=== PATIENT | male | born 1950 | race Caucasian/White ===

== ENCOUNTER 2019-10-26 20:11 | Inpatient (IN) ==
[2019-10-26] MEDS ORDERED: SODIUM CHLORIDE 0.9% 500 ML IV SCH (21:00)
--- NOTE | 2019-10-26 21:01 | Emergency Department Note ---
History of Present Illness General Chief complaint: Seizure Stated complaint: SEIZURES Time Seen by Provider: 10/26/19 20:33 Source: patient and family () Mode of arrival: ambulatory Limitations: no limitations History of Present Illness This patient comes in after having 2 seizure-like episodes today. He does have a history of seizures and had one in September the last 1 before that was in the end of 2018. He is on gabapentin. He was on Keppra but would could not tolerate that and also cannot tolerate clonazepam. He is followed here by Dr. Osuna and is also been followed by Danay. He is scheduled to have a 24-hour EEG this co win Monday and Monday at [facility]. Today he was at the breakfast table and his daughter heard a thump he was on the floor there is no seizure activity witnessed at that time but he was confused and combative and that was atypical. Then later this evening he had shaking when he was sleeping and was noted to be unresponsive and combative. He was incontinent of urine the second time. He was okay during the day. He said no recent illness or fever. At present he does not have any complaints. He has had no COVID type symptoms and has not been out of the house much except to go to the doctor's office. No known exposures. Home Medications Home Medications Medication Instructions Recorded Confirmed Type PreserVision AREDS-2 1 tab PO BID 02/25/19 10/26/19 History aspirin [Aspir-81] 81 mg PO QPM 02/25/19 10/26/19 History prednisolone acetate 1 % eye 1 drops OPR DAILY 05/02/19 10/26/19 History drops,suspension cyanocobalamin (vitamin B-12) 1,000 mcg PO DAILY 05/08/19 10/26/19 History [Vitamin B-12] gabapentin 300 mg capsule 300 mg PO TID 30 Days #90 cap 06/14/19 10/26/19 Rx acetaminophen [Tylenol Extra 500 mg PO Q6H PRN 10/26/19 10/26/19 History Strength] brinzolamide [Azopt] 1 drp OPR TID 10/26/19 10/26/19 History timolol maleate [Timoptic] 1 drp OPR DAILY 10/26/19 10/26/19 History Allergies Allergy/AdvReac Type Severity Reaction Status Date / Time loteprednol [From Lotemax] Allergy Severe MAKES EYE Verified 10/26/19 21:31 RED, ITCHY & SWELLING brinzolamide [From Simbrinza] AdvReac INFLAMED Verified 10/26/19 21:29 EYE Past Med/Surg History Medical History Anxiety Lung nodule SMALL PER PT'S / [place]/ 03/2019- NO TREATMENT CURRENTLY Macular degeneration BILAT Seizure Grand-Mal : Last seizure was 04/05/19 - SEPTEMBER 09 & SEPTEMBER 22 2018-[facility]- ALL TEST NEGATIVES /UNKNOWN WHAT TYPE, SEES DR. OSUNA/ [facility] CASE Sleep study is scheduled for 06/03/19. Tachycardia (Acute) Unspecified convulsions (Acute) Surgical History History of right cataract surgery History of tonsillectomy Family History Mother Stroke Sister Dementia Diabetes Grandmother Epilepsy Leukemia Cancer Myocardial infarction Grandfather Myocardial infarction Father Pulmonary embolism Other Family history non-contributory Social History Preferred Language: Indonesian Communication Ability: Effective Boatswains Mate Required: No Beliefs That Will Affect Care: None Current Living Situation: Spouse Feels Safe at Home: Yes Smoking Status: Former smoker Cigarettes Per Day: 20 ; Second Hand Exposure: No ; Hx Alcohol Use: No Hx Substance Use: No Immunizations: He does have a history of smoking but stopped 2-1/2 years ago. He drinks alcohol very sparingly. No street drugs. Review of Systems A total of 10 systems reviewed and were otherwise negative Physical Exam Vital Signs Vital Signs - 24 hr 10/26/19 20:13 10/26/19 20:28 10/26/19 20:29 Temperature 36.4 C L Temperature Source Oral Pulse Rate 106 H Pulse Rate from SpO2 Sensor Respiratory Rate 20 Respiratory Effort / Characteristics Non-Labored Spontaneous Respiratory Depth Normal Blood Pressure 139/83 Blood Pressure Mean 101 Pulse Oximetry 89 L 86 L 94 Oxygen Delivery Method Room Air Room Air Nasal Cannula Oxygen Flow Rate 2 Sepsis Action Taken by Nursing No Action Required 10/26/19 20:30 10/26/19 20:37 10/26/19 21:00 Temperature Temperature Source Pulse Rate 105 H 105 H 106 H Pulse Rate from SpO2 Sensor 102 H 100 H 99 H Respiratory Rate 17 19 20 Respiratory Effort / Characteristics Respiratory Depth Blood Pressure 137/86 128/80 Blood Pressure Mean 105 95 Pulse Oximetry 97 96 96 Oxygen Delivery Method Nasal Cannula Nasal Cannula Nasal Cannula Oxygen Flow Rate 2 2 2 Sepsis Action Taken by Nursing 10/26/19 21:31 10/26/19 22:00 10/26/19 22:30 Temperature Temperature Source Pulse Rate 100 H 86 90 Pulse Rate from SpO2 Sensor 97 H 78 87 Respiratory Rate 23 17 21 Respiratory Effort / Characteristics Respiratory Depth Blood Pressure 126/77 136/81 Blood Pressure Mean 93 94 Pulse Oximetry 97 96 96 Oxygen Delivery Method Nasal Cannula Nasal Cannula Room Air Oxygen Flow Rate 2 2 Sepsis Action Taken by Nursing 10/26/19 23:00 Temperature Temperature Source Pulse Rate 85 Pulse Rate from SpO2 Sensor 85 Respiratory Rate 14 Respiratory Effort / Characteristics Respiratory Depth Blood Pressure 135/78 Blood Pressure Mean 80 Pulse Oximetry 97 Oxygen Delivery Method Oxygen Flow Rate Sepsis Action Taken by Nursing General: Well developed well nourished not ill-appearing middle-age male who appears in no acute distress, breathing comfortably on room air. Normal speech. He has normal mentation. HEENT: Normal cephalic atraumatic. Pupils are equal round and reactive to light. Extraocular movements are intact. Oropharynx is pink with moist mucous membranes. No swelling of the mouth lips or tongue. Neck: Supple with a midline trachea. No meningeal signs or stiffness, no JVD or bruits. No Stridor. Chest: Clear to auscultation bilaterally. No wheezes or rhonchi. No increased work of breathing. Heart: Regular rate and rhythm without murmurs or gallops. Abdomen: Soft nontender, nondistended without rebound guarding or rigidity. Extremities: No cyanosis clubbing or edema. No calf tenderness or assymetry Spine/Back. Non tender to palpation. No CVA tenderness Skin: Good turgor without rashes. Neurologic exam: Cranial nerves two through 12 are intact. Motor and sensation are intact and symmetrical throughout. Course Administered Medications Discontinued Medications Sodium Chloride (Nss) 500 mls @ 999 mls/hr IV .Q31M JOSY Stop: 10/26/19 21:30 Last Infusion: 10/26/19 21:45 Dose: 0 mls/hr Documented by: [id number] Admin: 10/26/19 21:14 Dose: 999 mls/hr Documented by: [id number] Medical Decision Making Differential Diagnosis Includes but is not limited to: Seizure, pseudoseizures, arrhythmia, electrolyte or metabolic abnormality, anxiety, cardiac disease Medical Records Attestation: I reviewed the patient's medical records. Home Medications Current Medication List: was personally reviewed by me Laboratory Data Attestation: I reviewed the patient's lab results. Result diagrams: 10/26/19 21:10 10/26/19 21:10 Lab Results 10/26/19 10/26/19 10/26/19 Range/Units 21:10 21:10 23:27 WBC 10.56 (4.8-10.8) K/uL RBC 5.00 (4.7-6.1) M/uL Hgb 15.9 (14.0-18.0) g/dL Hct 46.1 (42-52) % MCV 92.2 (80-100) fL MCH 31.8 (25-34) pg MCHC 34.5 (32-36) g/dL RDW Std Deviation 46.7 H (36.4-46.3) fL RDW Coeff of Naty 13.9 (11.5-14.5) % Plt Count 277 (130-400) K/uL MPV 10.6 H (7.4-10.4) fL Immature Gran % (Auto) 0.5 % Neut % (Auto) 77.3 % Lymph % (Auto) 11.4 % [place] % (Auto) 9.5 % Eos % (Auto) 1.0 % Baso % (Auto) 0.3 % Immature Gran # (Auto) 0.05 H (0.00-0.02) K/uL Neut # (Auto) 8.17 H (1.4-6.5) K/uL Lymph # (Auto) 1.20 (1.2-3.4) K/uL [place] # (Auto) 1.00 H (0.11-0.59) K/uL Eos # (Auto) 0.11 (0-0.5) K/uL Baso # (Auto) 0.03 (0-0.2) K/uL Sodium 139 (136-145) mmol/L Potassium 3.5 (3.5-5.1) mmol/L Chloride 108 H (98-107) mmol/L Carbon Dioxide 23 (21-32) mmol/L Anion Gap 8.0 (3-11) BUN 9 (7-18) mg/dl Creatinine 0.90 (0.6-1.4) mg/dl Est Cr Clr Drug Dosing 64.4 ml/min Est GFR ( Amer) 100.6 Est GFR (Non-Af Amer) 86.8 BUN/Creatinine Ratio 10.2 (10-20) Glucose 176 H (70-99) mg/dl POC Glucose 137 H (70-99) mg/dl Calcium 8.7 (8.5-10.1) mg/dl Total Bilirubin 0.5 (0.2-1) mg/dl AST 11 L (15-37) U/L ALT 24 (12-78) U/L Alkaline Phosphatase 76 (45-117) U/L Troponin I 0.023 (0-0.045) ng/ml Total Protein 6.8 (6.4-8.2) gm/dl Albumin 3.4 (3.4-5.0) gm/dl Globulin 3.4 (2.5-4.0) gm/dl Albumin/Globulin Ratio 1.0 (0.9-2) Imaging Data Radiologist's Impression: Head CT: no acute findings. Please refer to radiology report Chest x-ray: Chronic findings, no acute findings. Please refer to radiology report ECG Data Attestation: I personally reviewed and interpreted this ECG as follows: Indication: + altered mental status and + toxicologic Rate (beats per minute): 95 Rhythm: + normal sinus ECG Intervals/blocks: + Normal QRS, + Normal QT and + Normal HI ECG [place]: + Left axis deviation ECG ST segments: + Normal ST segments ECG Findings: + PVCs and + Poor R wave progression; no PACs Comparison ECG Date: from (09/22/18) Change: no significant change Blood Pressure Blood Pressure Findings: Normal blood pressure Blood Pressure Disposition: did not require urgent referral MDM Narrative This patient comes in after having 2 seizure-like episodes. He has a normal neurologic exam upon arrival. IV access established seizure precautions were applied. he was placed on a shelter monitor and multiple blood testing was obta ined as well as neuro imaging. He was reassessed frequently. He has a normal CAT scan of his head. Is no acute intracranial abnormality seen. He has no acute electrolyte or metabolic abnormalities. EKG does not suggest acute coronary syndrome or arrhythmia. Chest x-ray shows no acute findings. He has remained stable. I reviewed his records. He has had seizure-like episodes which there is some thought that they may be nonepileptic. 2 of them occurred in the past after receiving eyedrops/dilation. He had no seizure-like activity here. I did recommend that he be observed he declined and does have follow-up with Danay. I did turn his oxygen off and he became confused and desaturated to 83%. He did know who his was and could remember talking to me. We checked the blood sugar was normal we will put him back on the oxygen at 2 L and he came up in the mid 90s and was no longer confused and was back to normal. He has had a sleep study by Dr. Melchor where he is oxygen saturation averaged 88 so he normally it does have some hypoxemia but I do wonder if his hypoxemia is ca using some of his symptoms. He is asymptomatic otherwise at present. He has nothing to suggest COVID at this point. I did consult and discuss case with Dr. Dye who is seen the patient in ER for further treatment and evaluation/admission/observation Continuous cardiac monitoring: Order was placed for cardiac monitoring in the computer. He was placed on cardiac monitoring due to his seizure-like episodes. He was noted to be in sinus tachycardia with a rate of 105 upon my interpretation. He does have occasional PVCs Impression & Plan Seizure-like activity, Acute alteration in mental status, Hypoxemia, COPD (chronic obstructive pulmonary disease) Discharge Plan Visit Data Chief Complaint: Seizure Stated Complaint: SEIZURES ED Provider: Breto Malik Discharge Problem: Seizure-like activity, Acute alteration in mental status, Hypoxemia, COPD (chronic obstructive pulmonary disease) Discharge Instructions Activity Restrictions/Additional Instructions: Rest. Do not do any acute activities if he had seizures you would hurt yourself or others Return if: Other episodes, chest pain, shortness of breath, fever chills, not acting like self, any new problems or concerns Your appointment on Monday with Danay. Do not drive or operate heavy machinery Forms Stand Alone Forms: My [facility] [employer] Prescriptions Prescriptions: No Action gabapentin 300 mg capsule 300 mg PO TID 30 Days Qty: 90 RF: 5 prednisolone acetate 1 % drops,suspension 1 drops OPR DAILY RF: 0 PreserVision AREDS-2 [id number] Capsule 1 tab PO BID RF: 0 aspirin [Aspir-81] 81 mg Tablet,Delayed Release (Dr/Ec) 81 mg PO QPM RF: 0 Azopt 1 % drops,suspension 1 drp OPR TID RF: 0 acetaminophen [Tylenol Extra Strength] 500 mg Tablet 500 mg PO Q6H PRN (Reason: Pain) RF: 0 timolol maleate [Timoptic] 0.5 % drops 1 drp OPR DAILY RF: 0 cyanocobalamin (vitamin B-12) [Vitamin B-12] 1,000 mcg Tablet 1,000 mcg PO DAILY RF: 0 Referrals Referrals: Migue Day MD [Primary Care Provider] - Discharge Problem: COPD (chronic obstructive pulmonary disease) Qualifiers: COPD type: unspecified COPD Qualified Code(s): J44.9 - Chronic obstructive pulmonary disease, unspecified
[2019-10-26 21:22] LABS: Basophils # (auto) 0.03 K/uL (0-0.2); Basophils % (auto) 0.3 %; Eosinophils # (auto) 0.11 K/uL (0-0.5); Hematocrit (blood only) 46.1 % (42-52); Hemoglobin 15.9 g/dL (14.0-18.0); Immature Granulocytes # (auto) 0.05 K/uL (0.00-0.02); Immature Granulocytes % (auto) 0.5 %; Lymphocytes % (auto) 11.4 %; Mean Corpuscular Hemoglobin 31.8 pg (25-34); Mean Corpuscular Hgb Conc 34.5 g/dL (32-36); Mean Corpuscular Volume 92.2 fL (80-100); Mean Platelet Volume 10.6 fL (7.4-10.4); Monocytes % (auto) 9.5 %; Neutrophils # (auto) 8.17 K/uL (1.4-6.5); Neutrophils % (auto) 77.3 %; Platelet Count 277 K/uL (130-400); RDW Coefficient of Variation 13.9 % (11.5-14.5); RDW Standard Deviation 46.7 fL (36.4-46.3); White Blood Count 10.56 K/uL (4.8-10.8)
--- NOTE | 2019-10-26 21:30 | CT Scan Report ---
CT head/brain wo con CLINICAL HISTORY: 69 years-old Male presenting with seizure. TECHNIQUE: Multidetector CT imaging of the head was performed without the use of intravenous contrast . IV contrast: None. One or more dose lowering techniques were used consistent with the principles of ALARA (as low as reasonably achievable), including automatic exposure control, mA or kV adjustment t o individual patient size, and/or use of iterative reconstruction. COMPARISON: 09/22/2018. CT DOSE (mGy.cm): The estimated cumulative dose is 614.27 mGy.cm. FINDINGS: [employer] topogram: Unremarkable. Ventricles and sulci normal in size. No hemorrhage. Brain parenchyma normal in appearance with preser camron manuel-white differentiation. No acute territorial infarct. No mass effect or midline shift. No ext ra-axial fluid collection. Paranasal sinuses and mastoid air cells clear. Calvarium intact. IMPRESSION: 1. No acute intracranial abnormality. ACT 112: Negative or not required by law. Electronically signed by: Avel Lepe M.D. 10/26/2019 9:28 PM
[2019-10-26 21:35] LABS: Albumin Level 3.4 gm/dl (3.4-5.0); BUN Creatinine Ratio 10.2 (10-20); Calcium 8.7 mg/dl (8.5-10.1); Creatinine Clr Calc Pharmacy 64.4 ml/min; Est GFR (African American) 100.6; Est GFR (Non-African American) 86.8; Potassium 3.5 mmol/L (3.5-5.1)
[2019-10-26 21:39] LABS: Bilirubin,Total 0.5 mg/dl (0.2-1); Globulin 3.4 gm/dl (2.5-4.0); Total Protein 6.8 gm/dl (6.4-8.2); Troponin I 0.023 ng/ml (0-0.045)
--- NOTE | 2019-10-26 21:44 | XRay Report ---
XR chest 1V portable CLINICAL HISTORY: 69 years-old Male presenting with seizure. TECHNIQUE: Portable upright AP view of the chest was obtained. COMPARISON: 09/22/2018. FINDINGS: Atherosclerosis of the aortic arch. Cardiac silhouette normal in size. Interstitial prominence with a basilar predominance. No other focal opacity. Lungs are mildly hyperinflated. No large effusion or p neumothorax. Osseous structures normal. Upper abdomen normal. IMPRESSION: 1. Findings suggest emphysema. No new focal infiltrate to suggest pneumonia. 2. Prominent interstitium especially at the lung bases could indicate superimposed fibrosis. This is unchanged. ACT 112: Negative or not required by law. Electronically signed by: Avel Lepe M.D. 10/26/2019 9:43 PM
--- NOTE | 2019-10-27 01:22 | History & Physical Report ---
Date of Service October 27, 2019 Assessment & Plan (1) Acute alteration in mental status: In setting of decreased O2 sats of 83%. Hypoxia most likely contributing to patient's AMS and may be contributing to his seizure-like activity as well -Admit to medical floor -Seizure precautions -Supplemental O2 as needed Present on Admission?: Yes (2) Hypoxemia: Adequate saturation on 2L NC, patient does not wear O2 at home. Will most likely need it prior to DC -Supplemental O2 to maintain sats 88-92% -Case management for home O2 Present on Admission?: Yes (3) Moderate obstructive sleep apnea: Patient does not use CPAP or O2 at night -Continuous O2 with pulse oximetry Present on Admission?: Yes (4) Neurological symptoms: ?Seizure vs hypoxic convulsion -Continue Gabapentin -Patient to have video EEG monitoring at [facility] next week -Consider Neuro consulation Present on Admission?: Yes (5) COPD (chronic obstructive pulmonary disease): Patient does not currenlty use any medications. No SOB/cough/wheeze -Noted. Consider DC with inhaled-anticholinergic and bronchodilator F/E/N - Heplock. Electrolytes WNL. Regular diet Ppx - low risk for DVT, encourage ambulation Code- Full Dispo - Admit to medical floor Admission and Anticipated Discharge Date Admission Date: 10/27/19 Anticipated date of discharge: 10/27/19 History of Present Illness Chief Complaint: Seizure Primary Care Provider: Migue Day MD Ted Mcdonald is a 69yo C male with history of seizures presenting with two episodes of seizure-like activity today. 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 He has been evaluated by Neurology in the past, most recently by Dr. Osuna 06/07/19. He is scheduled at [facility] for a video EEG this coming week. He has been on Keppra in the past which was not tolerated. He is presently on gabapentin. Patient recently had a sleep study performed which revealed moderate TIM with significant nocturnal hypoxemia. O2 mc of 83% during REM, mean saturation of 88%, 275 minutes below 89% saturation. This morning the patient was having breakfast and his daughter heard a thump. He was found on the floor , confused and combative. No seizure-like activity witnessed at that time. Later in the evening he sitting on the couch and sat fo rward with stiffened muscles and myoclonic jerking. He had some urinary incontinence, was confused and combative afterwards. The patient came to [facility] ER with complaint of seizures x 2. He was evaluated by ER attending, normal labs, normal head CT, no witnessed seizure activity. Patient was to be discharged home. O2 was removed, shortly after, patient became acutely confused - not knowing where he was or recognizing his . Saturations reported to be 83% at that time with adequate waveform on monitor. O2 was replaced and the patient's mental status improved to baseline. He has no recollection of the event. Patient denies fevers/chills/cough/SOB/CP/change in taste or smell. He denies recent travel, sick contacts or close contact with a Covid-19+ individual. He has been practicing social distancing by staying in his home. Laboratory findings unremarkable. CXR with chronic changes consistent with emphysema, no change from prior study. No concern for coronavirus at this time. ER Course: NSS x 500mL Allergies Allergy/AdvReac Type Severity Reaction Status Date / Time loteprednol [From Lotemax] Allergy Severe MAKES EYE Verified 10/26/19 21:31 RED, ITCHY & SWELLING brinzolamide [From Simbrinza] AdvReac INFLAMED Verified 10/26/19 21:29 EYE Home Medications Home Medications Medication Instructions Recorded Confirmed Type PreserVision AREDS-2 1 tab PO BID 02/25/19 10/26/19 History aspirin [Aspir-81] 81 mg PO QPM 02/25/19 10/26/19 History prednisolone acetate 1 % eye 1 drops OPR DAILY 05/02/19 10/26/19 History drops,suspension cyanocobalamin (vitamin B-12) 1,000 mcg PO DAILY 05/08/19 10/26/19 History [Vitamin B-12] gabapentin 300 mg capsule 300 mg PO TID 30 Days #90 cap 06/14/19 10/26/19 Rx acetaminophen [Tylenol Extra 500 mg PO Q6H PRN 10/26/19 10/26/19 History Strength] brinzolamide [Azopt] 1 drp OPR TID 10/26/19 10/26/19 History timolol maleate [Timoptic] 1 drp OPR DAILY 10/26/19 10/26/19 History Past Med/Surg History Medical History Anxiety Lung nodule SMALL PER PT'S / JEFFREY MCGARRY/ 03/2019- NO TREATMENT CURRENTLY Macular degeneration BILAT Seizure Grand-Mal : Last seizure was 04/05/19 - SEPTEMBER 09 & SEPTEMBER 22 2018-[facility]- ALL TEST NEGATIVES /UNKNOWN WHAT TYPE, SEES DR. OSUNA/ [facility] Sleep study is scheduled for 06/03/19. Tachycardia (Acute) Unspecified convulsions (Acute) Surgical History History of right cataract surgery History of tonsillectomy Family History Mother Stroke Sister Dementia Diabetes Grandmother Epilepsy Leukemia Cancer Myocardial infarction Grandfather Myocardial infarction Father Pulmonary embolism Other Family history non-contributory Social History Preferred Language: Malian Communication Ability: Effective Rn Acute Care Required: No Beliefs That Will Affect Care: None Current Living Situation: Spouse Feels Safe at Home: Yes Smoking Status: Former smoker Cigarettes Per Day: 20 ; Second Hand Exposure: No ; Hx Alcohol Use: No Hx Substance Use: No Review of Systems Review of Systems: All systems reviewed & are unremarkable except as noted in HPI & below Physical Exam Physical Exam: General: patient resting comfortably, NAD, non-toxic in appearance, AA&O x 4 Skin: warm, dry, intact, no rashes or lesions HEENT: NC/AT, PERRL, EOMI, anicteric sclera, conjunctiva without injection, external ear normal to inspection and nontender, nares patent, moist mucus membranes, dentition intact, no oropharyngeal lesions, neck supple, trachea midline, no LAD, no thyromegaly, no JVD Heart: +S1/S2, regular, no m/r/g Lungs: equal air entry bilaterally, no rales/rhonchi/wheezes Abd: +BS, soft, NT/ND, no masses/organomegaly/ascites Ext: warm, 2+ pulses in UE/LE bilaterally, no clubbing/cyanosis or edema Neuro: nonfocal, patient AA&O x 4, speech intact, no facial droop, moving all extremities on command with equal strength 5/5 Results & Data Results & Data ([facility]) Vital Signs (Past 12 Hours) Vital Signs Temp Pulse Resp BP Pulse Ox 10/27/19 00:31 89 21 108/74 95 10/27/19 00:30 86 19 95 10/27/19 00:00 79 18 124/80 10/26/19 23:30 80 13 131/78 95 10/26/19 23:26 81 17 132/84 92 10/26/19 23:00 85 14 135/78 97 10/26/19 22:30 90 21 136/81 96 10/26/19 22:00 86 17 126/77 96 10/26/19 21:31 100 H 23 97 10/26/19 21:00 106 H 20 128/80 96 10/26/19 20:37 105 H 19 96 10/26/19 20:30 105 H 17 137/86 97 10/26/19 20:29 94 10/26/19 20:28 86 L 10/26/19 20:13 36.4 C L 106 H 20 139/83 89 L Laboratory Results Lab Results 10/26/19 10/26/19 10/26/19 Range/Units 21:10 21:10 23:27 WBC 10.56 (4.8-10.8) K/uL RBC 5.00 (4.7-6.1) M/uL Hgb 15.9 (14.0-18.0) g/dL Hct 46.1 (42-52) % MCV 92.2 (80-100) fL MCH 31.8 (25-34) pg MCHC 34.5 (32-36) g/dL RDW Std Deviation 46.7 H (36.4-46.3) fL RDW Coeff of Naty 13.9 (11.5-14.5) % Plt Count 277 (130-400) K/uL MPV 10.6 H (7.4-10.4) fL Immature Gran % (Auto) 0.5 % Neut % (Auto) 77.3 % Lymph % (Auto) 11.4 % [place] % (Auto) 9.5 % Eos % (Auto) 1.0 % Baso % (Auto) 0.3 % Immature Gran # (Auto) 0.05 H (0.00-0.02) K/uL Neut # (Auto) 8.17 H (1.4-6.5) K/uL Lymph # (Auto) 1.20 (1.2-3.4) K/uL [place] # (Auto) 1.00 H (0.11-0.59) K/uL Eos # (Auto) 0.11 (0-0.5) K/uL Baso # (Auto) 0.03 (0-0.2) K/uL Sodium 139 (136-145) mmol/L Potassium 3.5 (3.5-5.1) mmol/L Chloride 108 H (98-107) mmol/L Carbon Dioxide 23 (21-32) mmol/L Anion Gap 8.0 (3-11) BUN 9 (7-18) mg/dl Creatinine 0.90 (0.6-1.4) mg/dl Est Cr Clr Drug Dosing 64.4 ml/min Est GFR ( Amer) 100.6 Est GFR (Non-Af Amer) 86.8 BUN/Creatinine Ratio 10.2 (10-20) Glucose 176 H (70-99) mg/dl POC Glucose 137 H (70-99) mg/dl Calcium 8.7 (8.5-10.1) mg/dl Total Bilirubin 0.5 (0.2-1) mg/dl AST 11 L (15-37) U/L ALT 24 (12-78) U/L Alkaline Phosphatase 76 (45-117) U/L Troponin I 0.023 (0-0.045) ng/ml Total Protein 6.8 (6.4-8.2) gm/dl Albumin 3.4 (3.4-5.0) gm/dl Globulin 3.4 (2.5-4.0) gm/dl Albumin/Globulin Ratio 1.0 (0.9-2) Diagnostic Findings CT head/brain wo con CLINICAL HISTORY: 69 years-old Male presenting with seizure. TECHNIQUE: Multidetector CT imaging of the head was performed without the use of intravenous contrast. IV contrast: None. One or more dose lowering techniques were used consistent with the principles of ALARA (as low as reasonably achievable), including automatic exposure control, mA or kV adjustment to individual patient size, and/or use of iterative reconstruction. COMPARISON: 09/22/2018. CT DOSE (mGy.cm): The estimated cumulative dose is 614.27 mGy.cm. FINDINGS: Director Of Accounting topogram: Unremarkable. Ventricles and sulci normal in size. No hemorrhage. Brain parenchyma normal in appearance with preserved manuel-white differentiation. No acute territorial infarct. No mass effect or midline shift. No extra-axial fluid collection. Paranasal sinuses and mastoid air cells clear. Calvarium intact. IMPRESSION: 1. No acute intracranial abnormality. ACT 112: Negative or not required by law. Electronically signed by: Avel Lepe M.D. 10/26/2019 9:28 PM Dictated: 10/26/192126 Transcribed: 10/26/192126 XR chest 1V portable CLINICAL HISTORY: 69 years-old Male presenting with seizure. TECHNIQUE: Portable upright AP view of the chest was obtained. COMPARISON: 09/22/2018. FINDINGS: Atherosclerosis of the aortic arch. Cardiac silhouette normal in size. Interstitial prominence with a basilar predominance. No other focal opacity. Lungs are mildly hyperinflated. No large effusion or pneumothorax. Osseous structures normal. Upper abdomen normal. IMPRESSION: 1. Findings suggest emphysema. No new focal infiltrate to suggest pneumonia. 2. Prominent interstitium especially at the lung bases could indicate superimposed fibrosis. This is unchanged. ACT 112: Negative or not required by law. Electronically signed by: Avel Lepe M.D. 10/26/2019 9:43 PM Dictated: 10/26/192140 Transcribed: 10/26/192140 ECG Additional Comments: THe study shows SR with PVCs, 95bpm, left axis, YV=866, QRS=78, EUn=025, no acute ischemic changes Code Status & VTE Plan Code Status FULL PG Care Time/CCT Total # of Minutes Spent Total Time Spent with Patient: Total time spent is greater than 50% in coordination of care (as documented) at patient's floor/unit and/or counseling patient: Coding Level of Care Code 02457 Initial Inpt Care Lvl 3 Diagnoses Acute alteration in mental status R41.82 Hypoxemia R09.02 Moderate obstructive sleep apnea G47.33 Neurological symptoms R29.90 COPD (chronic obstructive pulmonary disease) J44.9 COPD type: unspecified COPD (1) COPD (chronic obstructive pulmonary disease) COPD type: unspecified COPD Qualified Code(s): J44.9 - Chronic obstructive pulmonary disease, unspecified
[2019-10-27] MEDS ORDERED: ACETAMINOPHEN 500 MG TAB PO PRN (01:53)
[2019-10-27] MEDS ORDERED: LORazepam 2 MG/4 ML VIAL ONE (02:30)
[2019-10-27] MEDS ORDERED: LORazepam 1 MG/2 ML VIAL IV PRN (02:36)
[2019-10-27] MEDS ORDERED: LORazepam 2 MG/4 ML VIAL IV ONE (03:15)
[2019-10-27] MEDS ORDERED: HALOPERIDOL LACTATE 5 MG/ML 1 ML VIAL IM STA ×2 (03:58→18:20)
[2019-10-27] MEDS ORDERED: DiphenhydrAMINE HCL 50 MG/ML VIAL IV STA (03:58)
[2019-10-27] MEDS: ASPIRIN 81 MG ECTAB PO SCH ×2 (04:28→20:40)
[2019-10-27] MEDS: GABAPENTIN 300 MG CAP PO SCH ×4 (04:28→20:40)
--- NOTE | 2019-10-27 07:33 | Hospitalist Progress Note ---
Date of Service October 27, 2019 Assessment & Plan (1) Acute alteration in mental status: In setting of decreased O2 sats of 83%. Hypoxia most likely contributing to patient's AMS and may be contributing to his seizure-like activity as well Pt has underlying COPD and discussion of pulmonary fibrosis on cXR -Seizure precautions -Supplemental O2 as needed, may need to be d/c on oxygen (2) Hypoxemia: Adequate saturation on 2L NC, patient does not wear O2 at home. Will most likely need it prior to DC -Supplemental O2 to maintain sats 88-92% -Case management for home O2. will need pulmonary follow up for discussion of CXR changes, Ct chest 04/06 dis show copd, mild fibrotic changes and nodules- repeat CT chest when more cooperative (3) Moderate obstructive sleep apnea: Patient does not use CPAP or O2 at night -Continuous O2 with pulse oximetry (4) Neurological symptoms: ?Seizure vs hypoxic convulsion -Continue Gabapentin, per Dr Maravilla note from the fall, will add depakte ER as that was his next consideration -Patient to have video EEG monitoring at [facility] next week -Consider Neuro consultation if not improving in next 24-48 hours (5) COPD (chronic obstructive pulmonary disease): Patient does not currenlty use any medications. No SOB/cough/wheeze -Noted. Consider DC with inhaled-anticholinergic and bronchodilator F/E/N - Heplock. Electrolytes WNL. Regular diet Ppx - low risk for DVT, encourage ambulation Code- Full Dispo - Admit to medical floor Admission and Anticipated Discharge Date Admission Date: October 27, 2019 Subjective the pt is altered and lethargic, he is ambulatory but wobbly, on his feet, he does not offer any focal complaints but is oriented only to self Review of Systems Review of Systems: Unobtainable due to cognitive status Physical Exam Physical Exam: The patient appeared sedate and unsteady Vital signs as documented. Lungs are clear to auscultation and appear unlabored Cardiac exam, Rhythm is regular.. No murmurs, rubs or gallops. Abdominal exam reveals normal bowel sounds, soft non tender, no masses Extremities are nonedematous and both pedal pulses are normal. Neurologic exam is alert and oriented x1. , no focal loss of strength or sensation as responds to commands and walks with assistance Skin is without bruises or rashes Results & Data Results & Data ([facility]) Vital Signs (Past 12 Hours) Vital Signs Temp Pulse Pulse Resp BP BP Pulse Ox 10/27/19 03:20 143 H 10/27/19 02:27 123 H 20 166/120 H 92 10/27/19 02:06 98.1 F 91 H 18 145/81 H 92 10/27/19 01:30 119 H 189/85 H 93 10/27/19 01:01 76 18 93 10/27/19 01:00 74 18 141/83 H 93 10/27/19 00:32 81 20 94 10/27/19 00:31 89 21 108/74 95 10/27/19 00:30 86 19 95 10/27/19 00:00 79 18 124/80 10/26/19 23:30 80 13 131/78 95 10/26/19 23:26 81 17 132/84 92 10/26/19 23:00 85 14 135/78 97 10/26/19 22:30 90 21 136/81 96 10/26/19 22:00 86 17 126/77 96 10/26/19 21:31 100 H 23 97 10/26/19 21:00 106 H 20 128/80 96 10/26/19 20:37 105 H 19 96 10/26/19 20:30 105 H 17 137/86 97 10/26/19 20:29 94 10/26/19 20:28 86 L 10/26/19 20:13 97.5 F L 106 H 20 139/83 89 L PG Care Time/CCT Total # of Minutes Spent Total Time Spent with Patient: Total time spent is greater than 50% in coordination of care (as documented) at patient's floor/unit and/or counseling patient: Coding Level of Care Code 70538 Subseq Hosp Care Lvl 3 Diagnoses Acute alteration in mental status R41.82 Hypoxemia R09.02 Moderate obstructive sleep apnea G47.33 Neurological symptoms R29.90 COPD (chronic obstructive pulmonary disease) J44.9 COPD type: unspecified COPD (1) COPD (chronic obstructive pulmonary disease) COPD type: unspecified COPD Qualified Code(s): J44.9 - Chronic obstructive pulmonary disease, unspecified
[2019-10-27] MEDS: CEROVITE ADV FORMULA TAB PO SCH ×2 (09:24→20:41)
[2019-10-27] MEDS: BRINZOLAMIDE (AZOPT) OPS 10 ML BTL OPR SCH ×3 (09:24→20:42)
[2019-10-27] MEDS: CYANOCOBALAMIN 500 MCG TABLET (VITAMIN B-12) PO SCH (09:24)
[2019-10-27] MEDS: TIMOLOL MALEATE 0.25% OP SOLN 5 ML BTL OPR SCH (09:25)
[2019-10-27] MEDS: prednisoLONE acetate 1% OP SUSP 5 ML BTL OPR SCH (09:25)
[2019-10-27] MEDS: DIVALPROEX EXTENDED RELEASE 500 MG TAB PO SCH (09:38)
[2019-10-27] MEDS: ALBUT/IPRATROP 3MG/0.5MG NEB 3 ML VIAL NEB SCH ×3 (11:08→19:05)
[2019-10-27] MEDS ORDERED: HALOPERIDOL LACTATE 5 MG/ML 1 ML VIAL IM PRN (18:20)
[2019-10-27] MEDS ORDERED: LORazepam 1 MG TAB PO PRN (18:20)
--- NOTE | 2019-10-27 22:54 | Electrocardiogram Report ---
Test Reason : Blood Pressure : / mmHG Vent. Rate : 095 BPM Atrial Rate : 095 BPM P-R Int : 176 ms QRS Dur : 078 ms QT Int : 340 ms P-R-T Axes : 071 -54 063 degrees QTc Int : 427 ms Sinus rhythm with occasional Premature ventricular complexes Left axis deviation Possible Anterior infarct (cited on or before 22-SEP-2018) Abnormal ECG When compared with ECG of 22-SEP-2018 16:25, No significant change was found Confirmed by John Zuleta ([id number]) on 10/27/2019 10:54:42 PM Referred By: REFERRED SELF Confirmed By:John Zuleta
[2019-10-28] MEDS: ALBUT/IPRATROP 3MG/0.5MG NEB 3 ML VIAL NEB SCH ×4 (07:39→19:16)
[2019-10-28] MEDS: CYANOCOBALAMIN 500 MCG TABLET (VITAMIN B-12) PO SCH (08:32)
[2019-10-28] MEDS: CEROVITE ADV FORMULA TAB PO SCH ×2 (08:33→21:00)
[2019-10-28] MEDS: GABAPENTIN 300 MG CAP PO SCH ×3 (08:33→21:00)
[2019-10-28] MEDS: BRINZOLAMIDE (AZOPT) OPS 10 ML BTL OPR SCH ×3 (08:33→21:00)
[2019-10-28] MEDS: TIMOLOL MALEATE 0.25% OP SOLN 5 ML BTL OPR SCH (08:33)
[2019-10-28] MEDS: DIVALPROEX EXTENDED RELEASE 500 MG TAB PO SCH (08:33)
[2019-10-28] MEDS: prednisoLONE acetate 1% OP SUSP 5 ML BTL OPR SCH (08:34)
[2019-10-28] MEDS: UMECLIDINIUM BROMIDE 62.5MCG/BLISTER 7 PUFFS/INHALER INH SCH (16:32)
--- NOTE | 2019-10-28 17:30 | Hospitalist Progress Note ---
Date of Service October 28, 2019 Assessment & Plan (1) Acute alteration in mental status: 69-year-old male history of COPD and a 1 year history of episodic seizure- like episodes presents following seizure-like activity on 10/27/2019. His episodes were observed by his . She describes that he is quite confused and despondent following the events. He was going to be discharged from the emergency room but developed hypoxia after being taken off of oxygen. During this time he became unresponsive, but did not have any active seizures. describes short-term memory loss and severe anxiety over the past year since having these seizure-like episodes. Seizure-like activity Continue gabapentin Continue Depakote started in the emergency room, increased dose to 1000mg extended release per [facility] neurology Patient is showing signs of cognitive decline, but sounds like he is at his baseline prior to the seizure-like events. Discussed case with [facility] neurologistthey state if he is at baseline, he can be discharge with plan for 48-hour EEG at [facility] on Monday. He has follow-up with [facility] neurology in 2 weeks. Discussed with patient's COPD Hypoxia could be a potential seizure trigger, nonetheless the patient needs better control of respiratory symptoms Identified as emphysema on previous CT of chest, developed hypoxia in the ED, wheezing with forced expiration on exam Starting him on Spiriva. Discharge with Spiriva and albuterol as needed. Moderate TIM Continue pulse ox, no CPAP at home DVT prophylaxis Ambulation Disposition Starting Spiriva, increasing Depakote to 1000mg possible DC tomorrow (2) Hypoxemia: (3) COPD (chronic obstructive pulmonary disease): (4) Moderate obstructive sleep apnea: (5) Seizure-like activity: (6) Sleep disturbances: Admission and Anticipated Discharge Date Admission Date: October 27, 2019 Anticipated date of discharge: 10/27/19 Supervising Physician Co-Signing Physician Notes I personally examined the patient and verified all solis points of history and exam, discussed case, and agree with decision making with Dr Cordova. no acute complaints. seems loosely aware of having had seizures to bring him to hospital but also talks a lot about procedures and how he is surprised he feels so good after procedure. also talks a lot about his life and adventures. seems to have no acute complaints now. dr cordova discussed situation w his and with [facility] neurologist vitals noted nad heent nc at mmm breathing unlabored no accessory muscles good effort skin no rashes no pallor or icterus neuro no focal deficits hypoxia - likely was undertreated COPD - does appear to have rather significant findings on chest imaging, no PFTs noted for review (would want to get as outpt) -- start anticholinergic, follow up as outpt AMS - seems to be in the area of baseline actually, after discussion with seizures - ?hypoxia induced? non-seizure episodes? for [facility] eval on 10/29 DVT proph - ambulation Subjective 69-year-old male admitted for hypoxia and seizure-like activity. Describes doing well today. Denies any shortness of breath. Denies any neurologic symptoms including weakness, numbness, gait instability, headache. He does have a history of macular degeneration and has visual issues at baseline. He has no memory of seizures that occurred 2 days ago. His describes having some short-term memory issues since he started having the seizures approximately 1 year ago. She states that he has a appointment for a 48-hour EGD on Monday. Review of Systems Review of Systems: All systems reviewed & are unremarkable except as noted in HPI & below Physical Exam Constitutional: WD/WN, vitals as above Eyes: PERRL, conjunctivae normal, anicteric sclerae ENMT: Ears: no external ear abnormality Nose: no external nose abnormality, no nasal mucous membrane abnormality and no nasal discharge Neck: trachea midline, no thyromegaly Respiratory: normal respiratory effort, lungs clear to auscultation Some wheezing with forced expiration bilaterally, diffuse Musculoskeletal: no cyanosis or clubbing, extremities motor strength 5/5 Skin: no rashes, warm and dry Psychiatric: Speech is a bit tangential He is alert, but he is only oriented to person and place. Not time. Has insight to short-term memory deficits Results & Data Results & Data ([facility]) Vital Signs (Past 12 Hours) Vital Signs Temp Pulse Pulse Pulse Resp BP Pulse Ox 10/28/19 11:13 66 14 91 10/28/19 08:00 36.5 C 96 H 18 117/73 96 10/28/19 07:39 84 18 92 Resident Activity Tracking Resident Involvement: Resident Care Provided Care Provided: Adult Hospital Medicine (1) COPD (chronic obstructive pulmonary disease) COPD type: unspecified COPD Qualified Code(s): J44.9 - Chronic obstructive pulmonary disease, unspecified
--- NOTE | 2019-10-28 19:19 | Billing Data ---
Date of Service October 28, 2019 Coding Level of Care Code 45616 Subseq Hosp Care Lvl 3
[2019-10-28] MEDS: ASPIRIN 81 MG ECTAB PO SCH (21:00)
[2019-10-29] MEDS: ALBUT/IPRATROP 3MG/0.5MG NEB 3 ML VIAL NEB SCH ×2 (07:05→10:53)
[2019-10-29] MEDS: BRINZOLAMIDE (AZOPT) OPS 10 ML BTL OPR SCH (08:22)
[2019-10-29] MEDS: CYANOCOBALAMIN 500 MCG TABLET (VITAMIN B-12) PO SCH (08:22)
[2019-10-29] MEDS: TIMOLOL MALEATE 0.25% OP SOLN 5 ML BTL OPR SCH (08:22)
[2019-10-29] MEDS: prednisoLONE acetate 1% OP SUSP 5 ML BTL OPR SCH (08:22)
[2019-10-29] MEDS: UMECLIDINIUM BROMIDE 62.5MCG/BLISTER 7 PUFFS/INHALER INH SCH (08:23)
[2019-10-29] MEDS: CEROVITE ADV FORMULA TAB PO SCH (08:23)
[2019-10-29] MEDS: GABAPENTIN 300 MG CAP PO SCH (08:23)
[2019-10-29] MEDS ORDERED: DIVALPROEX EXTENDED RELEASE 500 MG TAB PO SCH (09:00)
--- NOTE | 2019-10-29 12:53 | Discharge Summary ---
Date of Service October 29, 2019 Admission HPI Per Admitting Provider Ted Calderon is a 69yo C male with history of seizures presenting with two episodes of seizure-like activity today. 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 He has been evaluated by Neurology in the past, most recently by Dr. Osuna 06/07/19. He is scheduled at [facility] for a video EEG this coming week. He has been on Keppra in the past which was not tolerated. He is presently on gabapentin. Patient recently had a sleep study performed which revealed moderate TIM with significant nocturnal hypoxemia. O2 mc of 83% during REM, mean saturation of 88%, 275 minutes below 89% saturation. This morning the patient was having breakfast and his daughter heard a thump. He was found on the floor , confused and combative. No seizure-like activity witnessed at that time. Later in the evening he sitting on the couch and sat forward with stiffened muscles and myoclonic jerking. He had some urinary incontinence, was confused and combative afterwards. The patient came to [facility] ER with complaint of seizures x 2. He was evaluated by ER attending, normal labs, normal head CT, no witnessed seizure activity. Patient was to be discharged home. O2 was removed, shortly after, patient became acutely confused - not knowing where he was or recognizing his . Saturations reported to be 83% at that time with adequate waveform on monitor. O2 was replaced and the patient's mental status improved to baseline. He has no recollection of the event. Patient denies fevers/chills/cough/SOB/CP/change in taste or smell. He denies recent travel, sick contacts or close contact with a Covid-19+ individual. He has been practicing social distancing by staying in his home. Laboratory findings unremarkable. CXR with chronic changes consistent with emphysema, no change from prior study. No concern for coronavirus at this time. ER Course: NSS x 500mL Admission Exam Per Admitting Provider General: patient resting comfortably, NAD, non-toxic in appearance, AA&O x 4 Skin: warm, dry, intact, no rashes or lesions HEENT: NC/AT, PERRL, EOMI, anicteric sclera, conjunctiva without injection, external ear normal to inspection and nontender, nares patent, moist mucus membranes, dentition intact, no oropharyngeal lesions, neck supple, trachea midline, no LAD, no thyromegaly, no JVD Heart: +S1/S2, regular, no m/r/g Lungs: equal air entry bilaterally, no rales/rhonchi/wheezes Abd: +BS, soft, NT/ND, no masses/organomegaly/ascites Ext: warm, 2+ pulses in UE/LE bilaterally, no clubbing/cyanosis or edema Neuro: nonfocal, patient AA&O x 4, speech intact, no facial droop, moving all extremities on command with equal strength 5/5 Principal Diagnosis Seizure-like episode Discharge Exam Constitutional: WD/WN, vitals as above Eyes: PERRL, conjunctivae normal, anicteric sclerae ENMT: Ears: no external ear abnormality Nose: no external nose abnormality, no nasal mucous membrane abnormality and no nasal discharge Neck: trachea midline, no thyromegaly Respiratory: normal respiratory effort, lungs clear to auscultation Some wheezing with forced expiration bilaterally, diffuse Musculoskeletal: no cyanosis or clubbing, extremities motor strength 5/5 Skin: no rashes, warm and dry Psychiatric: Speech is a bit tangential He is alert, but he is only oriented to person and place. Not time. Has insight to short-term memory deficits Discharge Data Allergies Allergy/AdvReac Type Severity Reaction Status Date / Time loteprednol [From Lotemax] Allergy Severe MAKES EYE Verified 10/26/19 21:31 RED, ITCHY & SWELLING brinzolamide [From Simbrinza] AdvReac INFLAMED Verified 10/26/19 21:29 EYE Consultations 10/26/19 23:29 ED Decision to Admit Stat 10/27/19 01:53 Consult Case Management - Discharge Planning Routine Ordered Studies 10/26/19 20:54 CT head/brain wo con [place] [phone] CT Scan Report Patient: TED CALDERON EAdmit Date: 10/26/19 MR#: [id number]: [address] Acct ID:[id number]: [address] Date: 1950[facility] Zip: [place] [address] Age: 69Location: ED Sex: M Room/Bed: Att Phy:Diagnosis: SEIZURES Imani Phy: Migue Day M.D.Service Date: 10/26/19 [facility] Phy:Interpreting Phy: Avel Lepe MD Admit Phy: Ordering Phy: Berto Malik M.D. cc: ~ CT head/brain wo con CLINICAL HISTORY: 69 years-old Male presenting with seizure. TECHNIQUE: Multidetector CT imaging of the head was performed without the use of intravenous contrast. IV contrast: None. One or more dose lowering techniques were used consistent with the principles of ALARA (as low as reasonably achievable), including automatic exposure control, mA or kV adjustment to individual patient size, and/or use of iterative reconstruction. COMPARISON: 09/22/2018. CT DOSE (mGy.cm): The estimated cumulative dose is 614.27 mGy.cm. FINDINGS: Golf Manager topogram: Unremarkable. Ventricles and sulci normal in size. No hemorrhage. Brain parenchyma normal in appearance with preserved manuel-white differentiation. No acute territorial infarct. No mass effect or midline shift. No extra-axial fluid collection. Paranasal sinuses and mastoid air cells clear. Calvarium intact. IMPRESSION: 1. No acute intracranial abnormality. ACT 112: Negative or not required by law. Electronically signed by: Avel Lepe M.D. 10/26/2019 9:28 PM Dictated: 10/26/192126 Transcribed: 10/26/192126 Hospital Course (1) Acute alteration in mental status: 69-year-old male history of COPD and a 1 year history of episodic seizure- like episodes presents following seizure-like activity on 10/27/2019. Patient's describes that he developed seizure-like activity approximately 1 year ago. The patient has had a work-up with [facility] neurology and started on Lamictal. He was unable to tolerate the medication and was subsequently switched to gabapentin. Recently had visits with [facility] neurology and is scheduled to see them again in 2 weeks after completing 48-hour EEG. Seizure-like activity Typical seizures were not observed here in the hospital He did have an episode of delirium-like activity, where he exhibited shortness of breath and had a panicked blank look on his face. During this time he was unable to respond to questions and he was purposefully reaching out to his nursing support worker, shaking his arms in desperation. The patient was started on Depakote 1000 mg daily We were in correspondence with his neurologist from [place] who recommended that if he was at baseline to discharge the patient to have his 48-hour EEG completed as scheduled on 10/30/2019. Patient is scheduled for a follow-up visit within 2 weeks with [facility] neurology Cognitive decline Exhibited short-term memory issues throughout hospitalization. relates he has had memory issues over the past year. The patient was pleasant and kind, but the content of his speech was bizarre at times and thought processes's were tangential. It is hard to tell if this is a part of his personality or some sort of baseline neuropsychiatric presentation. Continue to follow. COPD, hypoxia Hypoxia could be a potential seizure trigger, but unlikely unlikely cause of these episodes, nonetheless the patient needs better control of respiratory symptoms Identified as emphysema on previous CT of chest, developed hypoxia in the ED, wheezing with forced expiration on exam Discharged on Incruse Ellipta Moderate TIM Observed nighttime desaturation 88% 92% Continue conversation regarding CPAP (2) Hypoxemia: (3) COPD (chronic obstructive pulmonary disease): (4) Moderate obstructive sleep apnea: (5) Seizure-like activity: (6) Sleep disturbances: Total Time Total Time Spent Total Time Spent (In Minutes): <30 Total Time Includes: Examination of the Patient, Discharge Planning, Medication Reconciliation and Communication With Other Providers Discharge Plan Discharge Items Patient Disposition: Home - Self-Care Reason For Visit: HYPOXIA, AMS, SEIZURES X 2 Discharge Diagnosis: Seizure-like episode Condition on Discharge: Good Activity: Per Instructions section Non-emergency contact: Primary Care Provider Call non-emergency contact if: your symptoms worsen Follow-up/Referrals: Migue Day MD [Primary Care Provider] - Diet: Regular Addtl Attending Provider Instructions: Your brought to the hospital to be evaluated for seizures. We are not sure what triggered these events, but in the emergency room you did have low oxygen levels, which can sometimes precipitate seizures. This may be secondary to chronic obstructive pulmonary disease. This condition is also called COPD. It is a chronic lung inflammation. The treatment for this condition is to use an inhaler which was started in the hospital. The inhaler will help you with your breathing and will prevent episodes of low oxygen. This inhaler needs to be used every day. In addition, you were started on a seizure prevention medicine called Depakote. We also recommend that you continue to take the other medication that your neurologist started you on called gabapentin. We spoke with your neurologist at [facility] and he recommended that you continue testing as already scheduled in [place]. In [place], they will do a 48-hour EEG and you will have subsequent follow-up with the neurologist 2 weeks later. We will inform your PCP, Dr. Day of your hospitalization and he will most likely would like to see you in the next week to follow-up on your condition. If you have any other episodes of seizures in the meantime, we recommend immediate follow-up in the emergency room. Pending Studies at Discharge: No Stand-Alone Forms: My [facility], Smoking Cessation Medications and DC Order Prescriptions: New Incruse Ellipta 62.5 mcg/actuation Blister With Device 1 inh inhalation QAM Qty: 1 RF: 6 divalproex 500 mg Tablet Extended Release 24 Hr 1,000 mg PO DAILY Qty: 60 RF: 0 Continued gabapentin 300 mg capsule 300 mg PO TID 30 Days Qty: 90 RF: 5 prednisolone acetate 1 % drops,suspension 1 drops OPR DAILY RF: 0 PreserVision AREDS-2 [id number] Capsule 1 tab PO BID RF: 0 aspirin [Aspir-81] 81 mg Tablet,Delayed Release (Dr/Ec) 81 mg PO QPM RF: 0 Azopt 1 % drops,suspension 1 drp OPR TID RF: 0 acetaminophen [Tylenol Extra Strength] 500 mg Tablet 500 mg PO Q6H PRN (Reason: Pain) RF: 0 timolol maleate [Timoptic] 0.5 % drops 1 drp OPR DAILY RF: 0 cyanocobalamin (vitamin B-12) [Vitamin B-12] 1,000 mcg Tablet 1,000 mcg PO DAILY RF: 0 Discharge Orders: Discharge Order (Routine); Ordered 10/29/19 Ordered By: Anderson Cordova Admission Data Admit Date/Time: 10/27/19 00:19 Attending Provider: Luis Hillman Admit Provider: Antoinette Dye Primary Care Provider: Migue Day Other Providers: Antoinette Dye ; René Smith Other Interventions: Discharge Summary Assessment (RN) Last Done: 10/29/19 12:37 DC Date/Time DO NOT enter until pt leaves facility: 10/29/19 14:15 Supervising Physician Co-Signing Physician Notes I personally examined the patient and verified all solis points of history and exam, discussed case, and agree with decision making with Dr Cordova. no acute complaints. feeling ok to get out of hospital. vitals noted nad heent nc at mmm breathing unlabored no accessory muscles good effort skin no rashes no pallor or icterus neuro no focal deficits hypoxia - likely was undertreated COPD - does appear to have rather significant findings on chest imaging, no PFTs noted for review (would want to get as outpt) -- start anticholinergic, follow up as outpt AMS - seems to be in the area of baseline actually, after dr cordova had discussion with , possibly had hypoxia induced encephalopathy on admission that improved by the time i saw him? but mentation seems more or less what describes to dr cordova seizures - ?possibly hypoxia induced? non-seizure episodes (see above as far as possible encephalopathy)? for [facility] eval on 10/29 DVT proph - ambulation Resident Activity Tracking Resident Involvement: Resident Care Provided Care Provided: Adult Hospital Medicine
--- NOTE | 2019-10-29 19:26 | Billing Data ---
Date of Service October 29, 2019 Coding Level of Care Code D/C Day Management <30 mins
== END 2019-10-29 14:15 | disposition home or self-care (01) | DRG 101 ==
LOC: ED 20:11 → SUATTDRO 10-27 00:19 → 2W 10-27 00:19

== ENCOUNTER 2020-04-11 00:54 | Inpatient (IN) ==
[2020-04-11 01:46] LABS: Basophils # (auto) 0.03 K/uL (0-0.2); Basophils % (auto) 0.4 %; Eosinophils # (auto) 0.22 K/uL (0-0.5); Eosinophils % (auto) 2.6 %; Hematocrit (blood only) 47.6 % (42-52); Hemoglobin 16.3 g/dL (14.0-18.0); Immature Granulocytes # (auto) 0.06 K/uL (0.00-0.02); Immature Granulocytes % (auto) 0.7 %; Lymphocytes # (auto) 1.63 K/uL (1.2-3.4); Lymphocytes % (auto) 19.5 %; Mean Corpuscular Hemoglobin 31.7 pg (25-34); Mean Corpuscular Hgb Conc 34.2 g/dL (32-36); Mean Corpuscular Volume 92.6 fL (80-100); Monocytes # (auto) 0.68 K/uL (0.11-0.59); Monocytes % (auto) 8.1 %; Neutrophils # (auto) 5.75 K/uL (1.4-6.5); Neutrophils % (auto) 68.7 %; Platelet Count 273 K/uL (130-400); Red Blood Count 5.14 M/uL (4.7-6.1); White Blood Count 8.37 K/uL (4.8-10.8)
--- NOTE | 2020-04-11 01:47 | Emergency Department Note ---
History of Present Illness General Chief complaint: Chest Pain Stated complaint: SQUEEZING SENSATION IN CHEST-MEDICATION CAUSED? Time Seen by Provider: 04/11/20 01:11 Source: patient Mode of arrival: ambulatory Limitations: other (Poor memory due to seizure disorder and seizure medications) History of Present Illness Provider complaint: Chest pain Onset (ago): day(s) 2 Location: chest Radiation: non-radiation Severity: mild Pain Consistency: + intermittent Current Pain Intensity: 0 Quality: + aching Relieved By: + medication Exacerbated By: + none Associated symptoms: + denies other symptoms Treatments prior to arrival: none This is a 7-year-old male brought in by his due to concern for intermittent chest pain over the last day. states that he describes it as intermittent and an aching sensation similar to a pulled muscle, although states he has not had any change in activity to otherwise explain musculoskeletal pain. She states patient has gone to scheduled routine outpatient visits this week, has otherwise not complained of any illness or symptoms. She states he does have seasonal allergies this time a year and has had a cough, occasionally minimally productive when he has drainage with it. Denies that he has complained of shortness of breath, denies fevers, denies sore throat. She states no other recent medication changes. Patient did have outpatient labs done earlier this morning as ordered by his neurologist at [place] to recheck levels of his current seizure medications. Patient's gives a long and complicated history regarding the seizure history that began in 2018. She states he has not had a seizure since November of this year. She denies any sick contacts or exposure to coronavirus on him. Patient otherwise has difficulty providing meaningful history due to ongoing issues with memory secondary to his seizure disorder and treatment of this. Patient states he has no pain at this time. Patient denies noticing any shortness of breath. Does admit to the cough which she felt was related to his allergies. Triage note noted that his initial pulse ox on room air was 84%. Patient was immediately brought back to the room and placed on oxygen via nasal cannula, and oxygen saturations improved. Pt seen during a time of high acuity and national emergency pandemic while w earing PPE. Home Medications Home Medications Medication Instructions Recorded Confirmed Type PreserVision AREDS-2 1 tab PO BID 02/25/19 04/11/20 History cyanocobalamin (vitamin B-12) 1,000 mcg PO DAILY 05/08/19 04/11/20 History [Vitamin B-12] gabapentin 300 mg capsule 300 mg PO TID 30 Days #90 cap 06/14/19 04/11/20 Rx Azopt 1 drp OPR TID 10/26/19 04/11/20 History acetaminophen [Tylenol Extra 500 mg PO Q6H PRN 10/26/19 04/11/20 History Strength] timolol maleate [Timoptic] 1 drp OPR DAILY 10/26/19 04/11/20 History umeclidinium [Incruse Ellipta] 1 inh INHALATION QAM #1 inhaler 10/29/19 04/11/20 Rx lacosamide [Vimpat] 200 mg PO BID 04/11/20 04/11/20 History loteprednol etabonate 1 drp OPR DAILY 04/11/20 04/11/20 History topiramate [Topamax] 50 mg PO BID 04/11/20 04/11/20 History Allergies Allergy/AdvReac Type Severity Reaction Status Date / Time loteprednol [From Lotemax] Allergy Severe MAKES EYE Verified 04/11/20 02:54 RED, ITCHY & SWELLING brinzolamide [From Simbrinza] AdvReac INFLAMED Verified 04/11/20 02:54 EYE Past Med/Surg History Medical History (Updated 04/12/20 @ 05:57 by Lorie Cooper DO) Anxiety Colonic mass Diabetes mellitus Lung nodule SMALL PER PT'S / JEFFREY MCGARRY/ 03/2019- NO TREATMENT CURRENTLY Macular degeneration BILAT Seizure Petit mal, follows with Neurology at [place] Tachycardia Unspecified convulsions Surgical History History of right cataract surgery History of tonsillectomy Family History Mother Stroke Sister Dementia Diabetes Grandmother Epilepsy Leukemia Cancer Myocardial infarction Grandfather Myocardial infarction Father Pulmonary embolism Other Family history non-contributory Social History Smoking Status: Former smoker Cigarettes Per Day: 20; Smoking End Date: 3 years ago; Second Hand Exposure: No; Hx Alcohol Use: Yes Alcohol type: wine Hx Substance Use: No Preferred Language: Moroccan Communication Ability: Effective Gis Analyst Required: No Beliefs That Will Affect Care: None marital status: Current Living Situation: Spouse Other Information That Helps Us Care for You: No Feels Safe at Home: Yes Safety Concerns: Feels Safe At This Time Assistive Devices: None Review of Systems See HPI for pertinent positives & negatives. and A total of 10 systems reviewed and were otherwise negative Physical Exam Vital Signs Vital Signs - 24 hr 04/11/20 00:58 04/11/20 01:44 04/11/20 01:47 Temperature 37.0 C Temperature Source Oral Pulse Rate 120 H Pulse Rate [Right Finger] 109 H Pulse Rate from SpO2 Sensor Pulse Rhythm [Right Finger] Regular Respiratory Rate 24 22 Respiratory Effort / Characteristics Non-Labored Spontaneous Respiratory Depth Normal Blood Pressure 157/99 H Blood Pressure [Right Arm] 135/97 Blood Pressure Mean 118 Blood Pressure Mean [Right Arm] 109 Pulse Oximetry 87 L 98 98 Oxygen Delivery Method Room Air Nasal Cannula Nasal Cannula Oxygen Flow Rate 3 3 Sepsis New/Unexplained Change in Mental Status N/A Sepsis Action Taken by Nursing No Action Required 04/11/20 02:30 04/11/20 03:00 Temperature Temperature Source Pulse Rate 102 H 110 H Pulse Rate [Right Finger] Pulse Rate from SpO2 Sensor 100 H 110 H Pulse Rhythm [Right Finger] Respiratory Rate 38 H 29 H Respiratory Effort / Characteristics Respiratory Depth Blood Pressure 142/86 H 163/106 H Blood Pressure [Right Arm] Blood Pressure Mean 103 127 Blood Pressure Mean [Right Arm] Pulse Oximetry 100 100 Oxygen Delivery Method Nasal Cannula Nasal Cannula Oxygen Flow Rate 4 4 Sepsis New/Unexplained Change in Mental Status Sepsis Action Taken by Nursing GENERAL: alert, well appearing, well nourished, no distress, non-toxic EYE EXAM: normal conjunctiva, PERRL and EOM's grossly intact OROPHARYNX: no exudate, no erythema, lips, buccal mucosa, and tongue normal and mucous membranes are moist NECK: supple, no nuchal rigidity, no adenopathy, non-tender LUNGS: Clear to auscultation. Normal chest wall mechanics, no w/r/r HEART: no murmurs, S1 normal and S2 normal ABDOMEN: abdomen soft, non-tender, normo-active bowel sounds, no masses, no rebound or guarding. BACK: Back is symmetrical on inspection and there is no deformity, no midline tenderness, no CVA tenderness. SKIN: no rashes and no bruising UPPER EXTREMITIES: upper extremities are grossly normal. FROM, nml pulses b/l. LOWER EXTREMITIES: No pitting edema. FROM, nml pulses b/l. NEURO EXAM: Normal sensorium, cranial nerves II-XII grossly intact, normal speech, no facial droop, no gross weakness of arms, no gross weakness of legs. Gross sensation intact. Course Course 0315: Updated pt's at bedside. remote hx of pneumonia. BSG at home this am 200's. Prior elevated blood sugar readings were during use of prednisone. Pt currently not taking steroids. 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 She states he currently takes gabapentin 300 mg 3 times daily, Topamax twice daily, as well as Vimpat. She also states his aspirin was changed from 81 mg daily, to just Monday, Monday, and Monday. 0330: Patient updated on all results and plan. He is in agreement. 0340: Discussed with Dr. Dye. Administered Medications Brinzolamide (Brinzolamide (Azopt) Ops 10 Ml Btl) 1 drops OPR TID JOSY Stop: 05/11/20 08:59 Last Admin: 04/11/20 20:27 Dose: 1 drops Documented by: [id number] Admin: 04/11/20 13:45 Dose: 1 drops Documented by: [id number] Admin: 04/11/20 08:50 Dose: 1 drops Documented by: [id number] Cyanocobalamin (Cyanocobalamin 500 Mcg Tablet (Vitamin B-12)) 1,000 mcg PO DAILY JOSY Stop: 05/11/20 08:59 Last Admin: 04/11/20 08:48 Dose: 1,000 mcg Documented by: [id number] Enoxaparin Sodium (Enoxaparin Inj 40 Mg/0.4 Ml Syr) 40 mg SQ HS JOSY Stop: 05/11/20 22:29 Last Admin: 04/11/20 23:10 Dose: 40 mg Documented by: [id number] Gabapentin (Gabapentin 300 Mg Cap) 300 mg PO TID JOSY Stop: 05/11/20 08:59 Last Admin: 04/11/20 20:28 Dose: 300 mg Documented by: [id number] Admin: 04/11/20 13:45 Dose: 300 mg Documented by: [id number] Admin: 04/11/20 08:48 Dose: 300 mg Documented by: [id number] Insulin Aspart (Insulin Aspart 100 Units/Ml 3 Ml Pen) 0 units SC ACHS JOSY Stop: 05/11/20 07:29 Last Admin: 04/11/20 20:41 Dose: 1 units Documented by: [id number] Cosigned by: [id number] Admin: 04/11/20 17:27 Dose: 2 units Documented by: [id number] Cosigned by: [id number] Admin: 04/11/20 12:52 Dose: 1 units Documented by: [id number] Cosigned by: [id number] Admin: 04/11/20 08:51 Dose: 2 units Documented by: [id number] Cosigned by: [id number] Lacosamide (Lacosamide 50 Mg Tablet) 200 mg PO BID JOSY Stop: 05/11/20 08:59 Last Admin: 04/11/20 20:30 Dose: 200 mg Documented by: [id number] Admin: 04/11/20 08:48 Dose: 200 mg Documented by: [id number] Multivitamins/Minerals (Cerovite Adv Formula Tab) 1 tab PO BID JOSY Stop: 05/11/20 08:59 Last Admin: 04/11/20 20:31 Dose: 1 tab Documented by: [id number] Admin: 04/11/20 08:49 Dose: 1 tab Documented by: [id number] Timolol Maleate (Timolol Maleate 0.25% Op Soln 5 Ml Btl) 1 drops OPR DAILY JOSY Stop: 05/11/20 08:59 Last Admin: 04/11/20 08:50 Dose: 1 drops Documented by: [id number] Topiramate (Topiramate 50 Mg Tab) 50 mg PO BID JOSY Stop: 05/11/20 08:59 Last Admin: 04/11/20 20:29 Dose: 50 mg Documented by: [id number] Admin: 04/11/20 08:48 Dose: 50 mg Documented by: [id number] Umeclidinium [place] (Umeclidinium [place] 62.5mcg/Blister 7 Puffs/Inhaler) 1 puffs INH QAM JOSY Stop: 05/11/20 08:59 Last Admin: 04/11/20 08:49 Dose: 1 puffs Documented by: [id number] Discontinued Medications Doxycycline Hyclate (Doxycycline Hyclate 100 Mg Cap) 100 mg PO NOW STA Stop: 04/11/20 03:27 Last Admin: 04/11/20 04:28 Dose: 100 mg Documented by: [id number] Sodium Chloride (Nss 1000ml) 1,000 mls @ 125 mls/hr IV .Q8H JOSY Stop: 05/11/20 02:29 Last Infusion: 04/11/20 07:29 Dose: 0 mls/hr Documented by: [id number] Admin: 04/11/20 02:33 Dose: 125 mls/hr Documented by: [id number] Ceftriaxone Sodium (Rocephin) 2,000 mg in 70 mls @ 140 mls/hr IV NOW STA Stop: 04/11/20 03:50 Last Infusion: 04/11/20 04:58 Dose: 0 mls/hr Documented by: [id number] Admin: 04/11/20 04:28 Dose: 140 mls/hr Documented by: [id number] Sodium Chloride (Nss 1000ml) 1,000 mls @ 125 mls/hr IV .Q8H JOSY Stop: 04/11/20 22:08 Last Infusion: 04/11/20 23:22 Dose: 0 mls/hr Documented by: [id number] Admin: 04/11/20 15:19 Dose: 125 mls/hr Documented by: [id number] Infusion: 04/11/20 15:13 Dose: 0 mls/hr Documented by: [id number] Admin: 04/11/20 07:12 Dose: 125 mls/hr Documented by: [id number] Insulin Glargine (Insulin Glargine Solostar 100 Units/Ml 3 Ml Pen) 5 units SC BID JOSY Stop: 05/11/20 08:59 Last Admin: 04/11/20 20:41 Dose: 5 units Documented by: [id number] Cosigned by: [id number] Admin: 04/11/20 08:49 Dose: 5 units Documented by: [id number] Cosigned by: [id number] Insulin Glargine (Insulin Glargine Solostar 100 Units/Ml 3 Ml Pen) 5 units SC ONE ONE Stop: 04/11/20 22:11 Last Admin: 04/11/20 22:28 Dose: 5 units Documented by: [id number] Cosigned by: [id number] Insulin Human Regular (Novolin-R Insulin Per Unit Charge) 6 units SC NOW STA Stop: 04/11/20 04:14 Last Admin: 04/11/20 04:28 Dose: 6 units Documented by: [id number] Cosigned by: [id number] Ioversol (Optiray 320 125ml) 120 ml IV ONCE ONE Stop: 04/11/20 09:59 Last Admin: 04/11/20 09:58 Dose: 120 ml Documented by: [id number] Potassium Chloride (Potassium Chloride 20 Meq Tabcr) 40 meq PO NOW STA Stop: 04/11/20 14:56 Last Admin: 04/11/20 15:18 Dose: 40 meq Documented by: [id number] Medical Decision Making Differential Diagnosis Differential diagnoses includes but is not limited to acute coronary syndrome, myocardial infarction, pericarditis, pulmonary embolus, aortic dissection, pneumonia, pneumothorax, musculoskeletal, shingles, esophageal. Medical Records Attestation: I reviewed the patient's medical records. Home Medications Current Medication List: was personally reviewed by me Laboratory Data Attestation: I reviewed the patient's lab results. Result diagrams: 04/11/20 08:56 04/11/20 08:56 Lab Results 04/11/20 04/11/20 04/11/20 Range/Units 01:25 01:25 01:25 WBC 8.37 (4.8-10.8) K/uL RBC 5.14 (4.7-6.1) M/uL Hgb 16.3 (14.0-18.0) g/dL Hct 47.6 (42-52) % MCV 92.6 (80-100) fL MCH 31.7 (25-34) pg MCHC 34.2 (32-36) g/dL Plt Count 273 (130-400) K/uL Immature Gran % (Auto) 0.7 % Neut % (Auto) 68.7 % Lymph % (Auto) 19.5 % [place] % (Auto) 8.1 % Eos % (Auto) 2.6 % Baso % (Auto) 0.4 % Neut # (Auto) 5.75 (1.4-6.5) K/uL Lymph # (Auto) 1.63 (1.2-3.4) K/uL [place] # (Auto) 0.68 H (0.11-0.59) K/uL Eos # (Auto) 0.22 (0-0.5) K/uL Baso # (Auto) 0.03 (0-0.2) K/uL Immature Gran # (Auto) 0.06 H (0.00-0.02) K/uL PT 11.3 (9.0-12.0) Seconds INR 1.1 (0.9-1.1) Sodium 135 L (136-145) mmol/L Potassium 3.6 (3.5-5.1) mmol/L Chloride 100 (98-107) mmol/L Carbon Dioxide 29 (21-32) mmol/L Anion Gap 6.0 (3-11) BUN 19 H (7-18) mg/dl Creatinine 1.16 (0.6-1.4) mg/dl Est Cr Clr Drug Dosing 61.2 ml/min Est GFR ( Amer) 73.5 Est GFR (Non-Af Amer) 63.5 BUN/Creatinine Ratio 16.6 (10-20) Glucose 583 H* (70-99) mg/dl POC Glucose (70-99) mg/dl Calcium 9.1 (8.5-10.1) mg/dl Magnesium 2.0 (1.8-2.4) mg/dl Total Bilirubin 0.4 (0.2-1) mg/dl AST 6 L (15-37) U/L ALT 14 (12-78) U/L Alkaline Phosphatase 90 (45-117) U/L Troponin I 0.022 (0-0.045) ng/ml NT-Pro-B Natriuret Pep 100 (0-900) pg/ml Total Protein 7.5 (6.4-8.2) gm/dl Albumin 3.3 L (3.4-5.0) gm/dl Globulin 4.2 H (2.5-4.0) gm/dl Albumin/Globulin Ratio 0.8 L (0.9-2) Lipase 307 (73-393) U/L Beta-Hydroxybutyric Acd 7.18 H (0.2-2.81) mg/dl Procalcitonin (0-0.5) ng/ml Adenovirus (PCR) (NotDetected) B. pertussis DNA (PCR) (NotDetected) B.parapertussis DNA PCR (NotDetected) C. pneumoniae DNA (PCR) (NotDetected) Coronavirus OC43 (PCR) (NotDetected) Coronavirus HKU1 (PCR) (NotDetected) Coronavirus 229E (PCR) (NotDetected) COVID-19 PCR (NotDetected) Coronavirus NL63 (PCR) (NotDetected) Hepatitis C Ab Screen (Neg) Human Metapneumovir PCR (NotDetected) Influenza Type A (PCR) (NotDetected) Influenza Type B (PCR) (NotDetected) M. pneumoniae (PCR) (NotDetected) Parainfluenza 1 (PCR) (NotDetected) Parainfluenza 2 (PCR) (NotDetected) Parainfluenza 3 (PCR) (NotDetected) Parainfluenza 4 (PCR) (NotDetected) RSV (PCR) (NotDetected) Entero/Rhino (PCR) (NotDetected) 04/11/20 04/11/20 04/11/20 Range/Units 01:25 01:25 01:35 WBC (4.8-10.8) K/uL RBC (4.7-6.1) M/uL Hgb (14.0-18.0) g/dL Hct (42-52) % MCV (80-100) fL MCH (25-34) pg MCHC (32-36) g/dL Plt Count (130-400) K/uL Immature Gran % (Auto) % Neut % (Auto) % Lymph % (Auto) % [place] % (Auto) % Eos % (Auto) % Baso % (Auto) % Neut # (Auto) (1.4-6.5) K/uL Lymph # (Auto) (1.2-3.4) K/uL [place] # (Auto) (0.11-0.59) K/uL Eos # (Auto) (0-0.5) K/uL Baso # (Auto) (0-0.2) K/uL Immature Gran # (Auto) (0.00-0.02) K/uL PT (9.0-12.0) Seconds INR (0.9-1.1) Sodium (136-145) mmol/L Potassium (3.5-5.1) mmol/L Chloride (98-107) mmol/L Carbon Dioxide (21-32) mmol/L Anion Gap (3-11) BUN (7-18) mg/dl Creatinine (0.6-1.4) mg/dl Est Cr Clr Drug Dosing ml/min Est GFR ( Amer) Est GFR (Non-Af Amer) BUN/Creatinine Ratio (10-20) Glucose (70-99) mg/dl POC Glucose (70-99) mg/dl Calcium (8.5-10.1) mg/dl Magnesium (1.8-2.4) mg/dl Total Bilirubin (0.2-1) mg/dl AST (15-37) U/L ALT (12-78) U/L Alkaline Phosphatase (45-117) U/L Troponin I (0-0.045) ng/ml NT-Pro-B Natriuret Pep (0-900) pg/ml Total Protein (6.4-8.2) gm/dl Albumin (3.4-5.0) gm/dl Globulin (2.5-4.0) gm/dl Albumin/Globulin Ratio (0.9-2) Lipase (73-393) U/L Beta-Hydroxybutyric Acd (0.2-2.81) mg/dl Procalcitonin < 0.05 (0-0.5) ng/ml Adenovirus (PCR) Not Detected (NotDetected) B. pertussis DNA (PCR) Not Detected (NotDetected) B.parapertussis DNA PCR Not Detected (NotDetected) C. pneumoniae DNA (PCR) Not Detected (NotDetected) Coronavirus OC43 (PCR) Not Detected (NotDetected) Coronavirus HKU1 (PCR) Not Detected (NotDetected) Coronavirus 229E (PCR) Not Detected (NotDetected) COVID-19 PCR Not Detected (NotDetected) Coronavirus NL63 (PCR) Not Detected (NotDetected) Hepatitis C Ab Screen Neg (Neg) Human Metapneumovir PCR Not Detected (NotDetected) Influenza Type A (PCR) Not Detected (NotDetected) Influenza Type B (PCR) Not Detected (NotDetected) M. pneumoniae (PCR) Not Detected (NotDetected) Parainfluenza 1 (PCR) Not Detected (NotDetected) Parainfluenza 2 (PCR) Not Detected (NotDetected) Parainfluenza 3 (PCR) Not Detected (NotDetected) Parainfluenza 4 (PCR) Not Detected (NotDetected) RSV (PCR) Not Detected (NotDetected) Entero/Rhino (PCR) Not Detected (NotDetected) 04/11/20 Range/Units 04:10 WBC (4.8-10.8) K/uL RBC (4.7-6.1) M/uL Hgb (14.0-18.0) g/dL Hct (42-52) % MCV (80-100) fL MCH (25-34) pg MCHC (32-36) g/dL Plt Count (130-400) K/uL Immature Gran % (Auto) % Neut % (Auto) % Lymph % (Auto) % [place] % (Auto) % Eos % (Auto) % Baso % (Auto) % Neut # (Auto) (1.4-6.5) K/uL Lymph # (Auto) (1.2-3.4) K/uL [place] # (Auto) (0.11-0.59) K/uL Eos # (Auto) (0-0.5) K/uL Baso # (Auto) (0-0.2) K/uL Immature Gran # (Auto) (0.00-0.02) K/uL PT (9.0-12.0) Seconds INR (0.9-1.1) Sodium (136-145) mmol/L Potassium (3.5-5.1) mmol/L Chloride (98-107) mmol/L Carbon Dioxide (21-32) mmol/L Anion Gap (3-11) BUN (7-18) mg/dl Creatinine (0.6-1.4) mg/dl Est Cr Clr Drug Dosing ml/min Est GFR ( Amer) Est GFR (Non-Af Amer) BUN/Creatinine Ratio (10-20) Glucose (70-99) mg/dl POC Glucose 447 H* (70-99) mg/dl Calcium (8.5-10.1) mg/dl Magnesium (1.8-2.4) mg/dl Total Bilirubin (0.2-1) mg/dl AST (15-37) U/L ALT (12-78) U/L Alkaline Phosphatase (45-117) U/L Troponin I (0-0.045) ng/ml NT-Pro-B Natriuret Pep (0-900) pg/ml Total Protein (6.4-8.2) gm/dl Albumin (3.4-5.0) gm/dl Globulin (2.5-4.0) gm/dl Albumin/Globulin Ratio (0.9-2) Lipase (73-393) U/L Beta-Hydroxybutyric Acd (0.2-2.81) mg/dl Procalcitonin (0-0.5) ng/ml Adenovirus (PCR) (NotDetected) B. pertussis DNA (PCR) (NotDetected) B.parapertussis DNA PCR (NotDetected) C. pneumoniae DNA (PCR) (NotDetected) Coronavirus OC43 (PCR) (NotDetected) Coronavirus HKU1 (PCR) (NotDetected) Coronavirus 229E (PCR) (NotDetected) COVID-19 PCR (NotDetected) Coronavirus NL63 (PCR) (NotDetected) Hepatitis C Ab Screen (Neg) Human Metapneumovir PCR (NotDetected) Influenza Type A (PCR) (NotDetected) Influenza Type B (PCR) (NotDetected) M. pneumoniae (PCR) (NotDetected) Parainfluenza 1 (PCR) (NotDetected) Parainfluenza 2 (PCR) (NotDetected) Parainfluenza 3 (PCR) (NotDetected) Parainfluenza 4 (PCR) (NotDetected) RSV (PCR) (NotDetected) Entero/Rhino (PCR) (NotDetected) Imaging Data My Impression: X-ray: I interpreted the following studies. Chest: A single view study of the chest was reviewed and was negative for cardiomegaly, effusion, pulmonary edema, or wide mediastinum. Increased interstitial markings noted along the right lower lobe, suggestive of evolving pneumonia. ECG Data Attestation: I personally reviewed and interpreted this ECG as follows: Indication: + chest pain Rate (beats per minute): 113 Rhythm: + sinus tachycardia ECG Intervals/blocks: + Normal QRS and + Normal QT ECG [place]: + Normal ECG Findings: + PVCs Blood Pressure Blood Pressure Findings: Elevated blood pressure Blood Pressure Disposition: further management by hospitalist MDM Narrative This is a 7-year-old male brought in by his with initial concerns for intermittent chest pain. Patient found to be hypoxic in triage and immediately placed on nasal cannula and brought back to her room. Patient underwent labs and imaging as part of his evaluation. I suspect patient has evolving pneumonia. A bio fire was sent and patient was negative for usual URI viruses as well as COVID-19. Patient started on antibiotics as a precaution for likely community-acquired pneumonia. I do not suspect aspiration as patient has no history of dysphagia despite other medical problems. Patient does have a history of COPD due to prior tobacco abuse, although does not typically wear oxygen. I do not suspect ACS or PE at this time. Patient's troponin and EKG were reassuring although patient was tachycardic with intermittent bigeminy, p ossibly due to hypoxia and/or infectious process. Patient's other electrolytes are reassuring. Patient found to be markedly hyperglycemic, and fluids were started and a recheck performed, and following this patient was given a dose of subcu insulin. There is no evidence of DKA. I discussed all results with the patient and his and they were in agreement with plan for additional inpatient evaluation and treatment. Case discussed with hospitalist. At this time I do not suspect bacteremia/sepsis, pericarditis/myocarditis. I do not suspect perforation, Boerhaave syndrome, Kiarra-Romero tear, peptic ulcer disease. An order was placed for continuous cardiac monitoring. The monitor shows a rate of 107_ with _sinus tachycardia rhythm. Impression & Plan Chest pain, Hypoxemia, Hyperglycemia, Pneumonia Discharge Plan Visit Data Chief Complaint: Chest Pain Stated Complaint: SQUEEZING SENSATION IN CHEST-MEDICATION CAUSED? ED Provider: Lorie Cooper Discharge Problem: Chest pain, Hypoxemia, Hyperglycemia, Pneumonia Patient Disposition: Admitted As Inpatient Discharge Instructions Interventions: ED Discharge Assessment Last Done: 04/11/20 05:34 Discharge Problem: Chest pain Qualifiers: Chest pain type: unspecified Qualified Code(s): R07.9 - Chest pain, unspecified Pneumonia Qualifiers: Pneumonia type: due to unspecified organism Laterality: right Lung location: lower lobe of lung Qualified Code(s): J18.9 - Pneumonia, unspecified organism
[2020-04-11 01:55] LABS: INR 1.1 (0.9-1.1); Prothrombin Time 11.3 Seconds (9.0-12.0)
[2020-04-11 02:03] LABS: Albumin Globulin Ratio 0.8 (0.9-2); Albumin Level 3.3 gm/dl (3.4-5.0); BUN Creatinine Ratio 16.6 (10-20); Bilirubin,Total 0.4 mg/dl (0.2-1); Calcium 9.1 mg/dl (8.5-10.1); Creatinine Clr Calc Pharmacy 61.2 ml/min; Est GFR (African American) 73.5; Est GFR (Non-African American) 63.5; Globulin 4.2 gm/dl (2.5-4.0); Potassium 3.6 mmol/L (3.5-5.1); Total Protein 7.5 gm/dl (6.4-8.2); Troponin I 0.022 ng/ml (0-0.045)
[2020-04-11] MEDS ORDERED: SODIUM CHLORIDE 0.9% 1000ML 1,000 ML IV SCH (02:30)
[2020-04-11 02:38] LABS: Beta-Hydroxybutyrate 7.18 mg/dl (0.2-2.81)
[2020-04-11 02:40] LABS: Adenovirus PCR Not Detected (NotDetected); Bordetella parapertussis PCR Not Detected (NotDetected); Bordetella pertussis PCR Not Detected (NotDetected); Chlamydia pneumoniae PCR Not Detected (NotDetected); Coronavirus 229E PCR Not Detected (NotDetected); Coronavirus CoV-2 (COVID19)PCR Not Detected (NotDetected); Coronavirus HKU1 PCR Not Detected (NotDetected); Coronavirus NL63 PCR Not Detected (NotDetected); Coronavirus OC43PCR Not Detected (NotDetected); Human Metapneumovirus PCR Not Detected (NotDetected); Influenza A PCR Not Detected (NotDetected); Influenza B PCR Not Detected (NotDetected); Mycoplasma pneumoniae PCR Not Detected (NotDetected); Parainfluenza Virus 1 PCR Not Detected (NotDetected); Parainfluenza Virus 2 PCR Not Detected (NotDetected); Parainfluenza Virus 3 PCR Not Detected (NotDetected); Parainfluenza Virus 4 PCR Not Detected (NotDetected); Respiratory Syncytial VirusPCR Not Detected (NotDetected); Rhinovirus/Enterovirus PCR Not Detected (NotDetected)
[2020-04-11] MEDS ORDERED: cefTRIAXone SODIUM 2,000 MG/70 ML BAG IV STA (03:21)
[2020-04-11] MEDS ORDERED: DOXYCYCLINE HYCLATE 100 MG CAP PO STA (03:26)
[2020-04-11] MEDS ORDERED: NovoLIN-R INSULIN PER UNIT CHARGE SC STA (04:13)
--- NOTE | 2020-04-11 04:45 | History & Physical Report ---
Date of Service April 11, 2020 Assessment & Plan (1) Hyperglycemia: No prior history of DM. Patient has had hyperglycemia before whilst on steroids. Denies polyuria/polydipsia/polyphagia/weight loss. JW=[id number]. No AG -Insulin given in ER -Continue fingersticks -Lantus 5u BID, ISS -Check HgbA1C -Diabetes education Present on Admission?: Yes (2) COPD (chronic obstructive pulmonary disease): Hypoxic on arrival. No home O2 -Continue Incruse Ellipta inhaler -O2 as needed -Albuterol as needed Present on Admission?: Yes (3) Hypoxemia: As above. Improved with NC. No SOB/cough/wheeze -Supplemental O2 -Nebs as needed Present on Admission?: Yes (4) Seizure: Seizure free since November. Patient follows with Neurology at [facility] [place] -Continue Topamax -Continue Vimpat -Continue Gabapentin Present on Admission?: Yes (5) Spasm: Source unclear. Electrolytes WNL. -IV hydration -Repeat troponin Present on Admission?: Yes (6) Macular degeneration: Chronic -Continue drops F/E/N - NSS at 125mL/hr, monitor electrolytes, CC diet as tolerated Code - Full Dispo - Admit to medical Present on Admission?: Yes History of Present Illness Chief Complaint: chest squeezing, ?spasm Primary Care Provider: Migue Day MD 70yo male presenting with substernal chest discomfort - squeezing sensation with visible muscle contractions and spasm. Symptoms began last evening after taking his medications, has been increasing in severity. No associated palpitations, SOB, cough, nausea, vomiting, diarrhea or constipation Patient has been having dizziness, disorientation and imbalance. Currently working with Neurology from [facility] [place] to adjust medications. Dr. Vinicius Warren [phone] (Neuro) Poor appetite. No polyuria/polydipsia/polyphagia. On arrival to the ER he was found to be tachycardic, hypoxic 87% on room air ER Course: Ceftriaxone, Doxycycline, NSS Allergies Allergy/AdvReac Type Severity Reaction Status Date / Time loteprednol [From Lotemax] Allergy Severe MAKES EYE Verified 04/11/20 02:54 RED, ITCHY & SWELLING brinzolamide [From Simbrinza] AdvReac INFLAMED Verified 04/11/20 02:54 EYE Home Medications Home Medications Medication Instructions Recorded Confirmed Type PreserVision AREDS-2 1 tab PO BID 02/25/19 04/11/20 History cyanocobalamin (vitamin B-12) 1,000 mcg PO DAILY 05/08/19 04/11/20 History [Vitamin B-12] gabapentin 300 mg capsule 300 mg PO TID 30 Days #90 cap 06/14/19 04/11/20 Rx Azopt 1 drp OPR TID 10/26/19 04/11/20 History acetaminophen [Tylenol Extra 500 mg PO Q6H PRN 10/26/19 04/11/20 History Strength] timolol maleate [Timoptic] 1 drp OPR DAILY 10/26/19 04/11/20 History umeclidinium [Incruse Ellipta] 1 inh INHALATION QAM #1 inhaler 10/29/19 04/11/20 Rx lacosamide [Vimpat] 200 mg PO BID 04/11/20 04/11/20 History loteprednol etabonate 1 drp OPR DAILY 04/11/20 04/11/20 History topiramate [Topamax] 50 mg PO BID 04/11/20 04/11/20 History Past Med/Surg History Medical History Anxiety Lung nodule SMALL PER PT'S / JEFFREY MCGARRY/ 03/2019- NO TREATMENT CURRENTLY Macular degeneration BILAT Seizure Grand-Mal : Last seizure was 04/05/19 - SEPTEMBER 09 & SEPTEMBER 22 2018-[facility]- ALL TEST NEGATIVES /UNKNOWN WHAT TYPE, SEES DR. THOMPSON/ MARV CASE Sleep study is scheduled for 06/03/19. 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 Beliefs That Will Affect Care: None marital status: Current Living Situation: Spouse and Family Feels Safe at Home: Yes Assistive Devices: None Review of Systems Review of Systems: All systems reviewed & are unremarkable except as noted in HPI & below Physical Exam Physical Exam: General: patient resting comfortably, NAD, non-toxic in appearance, AA&O x 4 Skin: warm, dry, intact, no rashes or lesions HEENT: NC/AT, PERRL, EOMI, anicteric sclera, conjunctiva without injection, external ear normal to inspection and nontender, nares patent, moist mucus membranes, dentition intact, no oropharyngeal lesions, neck supple, trachea midline, no LAD, no thyromegaly, no JVD Heart: +S1/S2, regular, tachycardic with frequent ectopy, no m/r/g Lungs: equal air entry bilaterally, no rales/rhonchi/wheezes Abd: +BS, soft, NT/ND, no masses/organomegaly/ascites Ext: warm, 2+ pulses in UE/LE bilaterally, no clubbing/cyanosis or edema Neuro: nonfocal, patient AA&O x 4, speech intact, no facial droop, moving all extremities on command with equal strength 5/5 Results & Data Results & Data ([facility]) Vital Signs (Past 12 Hours) Vital Signs Temp Pulse Pulse Resp BP BP Pulse Ox 04/11/20 04:02 111 H 22 143/92 H 100 04/11/20 03:00 110 H 29 H 163/106 H 100 04/11/20 02:30 102 H 38 H 142/86 H 100 04/11/20 01:47 109 H 22 135/97 98 04/11/20 01:44 98 04/11/20 00:58 37.0 C 120 H 24 157/99 H 87 L Laboratory Results Lab Results 04/11/20 04/11/20 04/11/20 Range/Units 01:25 01:25 01:25 WBC 8.37 (4.8-10.8) K/uL RBC 5.14 (4.7-6.1) M/uL Hgb 16.3 (14.0-18.0) g/dL Hct 47.6 (42-52) % MCV 92.6 (80-100) fL MCH 31.7 (25-34) pg MCHC 34.2 (32-36) g/dL Plt Count 273 (130-400) K/uL Immature Gran % (Auto) 0.7 % Neut % (Auto) 68.7 % Lymph % (Auto) 19.5 % Mcduffie % (Auto) 8.1 % Eos % (Auto) 2.6 % Baso % (Auto) 0.4 % Neut # (Auto) 5.75 (1.4-6.5) K/uL Lymph # (Auto) 1.63 (1.2-3.4) K/uL Mcduffie # (Auto) 0.68 H (0.11-0.59) K/uL Eos # (Auto) 0.22 (0-0.5) K/uL Baso # (Auto) 0.03 (0-0.2) K/uL Immature Gran # (Auto) 0.06 H (0.00-0.02) K/uL PT 11.3 (9.0-12.0) Seconds INR 1.1 (0.9-1.1) Sodium 135 L (136-145) mmol/L Potassium 3.6 (3.5-5.1) mmol/L Chloride 100 (98-107) mmol/L Carbon Dioxide 29 (21-32) mmol/L Anion Gap 6.0 (3-11) BUN 19 H (7-18) mg/dl Creatinine 1.16 (0.6-1.4) mg/dl Est Cr Clr Drug Dosing 61.2 ml/min Est GFR ( Amer) 73.5 Est GFR (Non-Af Amer) 63.5 BUN/Creatinine Ratio 16.6 (10-20) Glucose 583 H* (70-99) mg/dl POC Glucose (70-99) mg/dl Calcium 9.1 (8.5-10.1) mg/dl Magnesium 2.0 (1.8-2.4) mg/dl Total Bilirubin 0.4 (0.2-1) mg/dl AST 6 L (15-37) U/L ALT 14 (12-78) U/L Alkaline Phosphatase 90 (45-117) U/L Troponin I 0.022 (0-0.045) ng/ml NT-Pro-B Natriuret Pep 100 (0-900) pg/ml Total Protein 7.5 (6.4-8.2) gm/dl Albumin 3.3 L (3.4-5.0) gm/dl Globulin 4.2 H (2.5-4.0) gm/dl Albumin/Globulin Ratio 0.8 L (0.9-2) Lipase 307 (73-393) U/L Beta-Hydroxybutyric Acd 7.18 H (0.2-2.81) mg/dl Procalcitonin (0-0.5) ng/ml Adenovirus (PCR) (NotDetected) B. pertussis DNA (PCR) (NotDetected) B.parapertussis DNA PCR (NotDetected) C. pneumoniae DNA (PCR) (NotDetected) Coronavirus OC43 (PCR) (NotDetected) Coronavirus HKU1 (PCR) (NotDetected) Coronavirus 229E (PCR) (NotDetected) COVID-19 PCR (NotDetected) Coronavirus NL63 (PCR) (NotDetected) Human Metapneumovir PCR (NotDetected) Influenza Type A (PCR) (NotDetected) Influenza Type B (PCR) (NotDetected) M. pneumoniae (PCR) (NotDetected) Parainfluenza 1 (PCR) (NotDetected) Parainfluenza 2 (PCR) (NotDetected) Parainfluenza 3 (PCR) (NotDetected) Parainfluenza 4 (PCR) (NotDetected) RSV (PCR) (NotDetected) Entero/Rhino (PCR) (NotDetected) 04/11/20 04/11/20 04/11/20 Range/Units 01:25 01:35 04:10 WBC (4.8-10.8) K/uL RBC (4.7-6.1) M/uL Hgb (14.0-18.0) g/dL Hct (42-52) % MCV (80-100) fL MCH (25-34) pg MCHC (32-36) g/dL Plt Count (130-400) K/uL Immature Gran % (Auto) % Neut % (Auto) % Lymph % (Auto) % Mcduffie % (Auto) % Eos % (Auto) % Baso % (Auto) % Neut # (Auto) (1.4-6.5) K/uL Lymph # (Auto) (1.2-3.4) K/uL Mcduffie # (Auto) (0.11-0.59) K/uL Eos # (Auto) (0-0.5) K/uL Baso # (Auto) (0-0.2) K/uL Immature Gran # (Auto) (0.00-0.02) K/uL PT (9.0-12.0) Seconds INR (0.9-1.1) Sodium (136-145) mmol/L Potassium (3.5-5.1) mmol/L Chloride (98-107) mmol/L Carbon Dioxide (21-32) mmol/L Anion Gap (3-11) BUN (7-18) mg/dl Creatinine (0.6-1.4) mg/dl Est Cr Clr Drug Dosing ml/min Est GFR ( Amer) Est GFR (Non-Af Amer) BUN/Creatinine Ratio (10-20) Glucose (70-99) mg/dl POC Glucose 447 H* (70-99) mg/dl Calcium (8.5-10.1) mg/dl Magnesium (1.8-2.4) mg/dl Total Bilirubin (0.2-1) mg/dl AST (15-37) U/L ALT (12-78) U/L Alkaline Phosphatase (45-117) U/L Troponin I (0-0.045) ng/ml NT-Pro-B Natriuret Pep (0-900) pg/ml Total Protein (6.4-8.2) gm/dl Albumin (3.4-5.0) gm/dl Globulin (2.5-4.0) gm/dl Albumin/Globulin Ratio (0.9-2) Lipase (73-393) U/L Beta-Hydroxybutyric Acd (0.2-2.81) mg/dl Procalcitonin < 0.05 (0-0.5) ng/ml Adenovirus (PCR) Not Detected (NotDetected) B. pertussis DNA (PCR) Not Detected (NotDetected) B.parapertussis DNA PCR Not Detected (NotDetected) C. pneumoniae DNA (PCR) Not Detected (NotDetected) Coronavirus OC43 (PCR) Not Detected (NotDetected) Coronavirus HKU1 (PCR) Not Detected (NotDetected) Coronavirus 229E (PCR) Not Detected (NotDetected) COVID-19 PCR Not Detected (NotDetected) Coronavirus NL63 (PCR) Not Detected (NotDetected) Human Metapneumovir PCR Not Detected (NotDetected) Influenza Type A (PCR) Not Detected (NotDetected) Influenza Type B (PCR) Not Detected (NotDetected) M. pneumoniae (PCR) Not Detected (NotDetected) Parainfluenza 1 (PCR) Not Detected (NotDetected) Parainfluenza 2 (PCR) Not Detected (NotDetected) Parainfluenza 3 (PCR) Not Detected (NotDetected) Parainfluenza 4 (PCR) Not Detected (NotDetected) RSV (PCR) Not Detected (NotDetected) Entero/Rhino (PCR) Not Detected (NotDetected) PG Care Time/CCT Total # of Minutes Spent Total Time Spent with Patient: Total time spent is greater than 50% in coordination of care (as documented) at patient's floor/unit and/or counseling patient: Coding Level of Care Code 00282 Initial Inpt Care Lvl 3 Diagnoses Hyperglycemia R73.9 COPD (chronic obstructive pulmonary disease) J44.9 COPD type: unspecified COPD Hypoxemia R09.02 Seizure R56.9 Spasm R25.2 Macular degeneration H35.30 Macular degeneration type: unspecified type Eye laterality: unspecified (1) COPD (chronic obstructive pulmonary disease) COPD type: unspecified COPD Qualified Code(s): J44.9 - Chronic obstructive pulmonary disease, unspecified (2) Macular degeneration Macular degeneration type: unspecified type Eye laterality: unspecified Qualified Code(s): H35.30 - Unspecified macular degeneration
[2020-04-11] MEDS ORDERED: GLUCAGON FOR INJ 1 MG VIAL SQ PRN (06:09)
[2020-04-11] MEDS ORDERED: GLUCOSE 40% GEL 15 GM TUBE PO PRN (06:09)
[2020-04-11] MEDS ORDERED: ACETAMINOPHEN 500 MG TAB PO PRN (06:09)
[2020-04-11] MEDS ORDERED: ACETAMINOPHEN 325 MG TAB PO PRN (06:09)
[2020-04-11] MEDS ORDERED: DEXTROSE 50% 50 ML SYRINGE IV PRN (06:09)
[2020-04-11] MEDS ORDERED: CARBOHYDRATES FOR HYPOGLYCEMIA PO PRN (06:09)
[2020-04-11] MEDS ORDERED: ALBUTEROL 0.5% NEB SOLN 2.5 MG/0.5 ML VIAL NEB PRN (06:09)
[2020-04-11] MEDS ORDERED: GLUCOSE 10 TABS/TUBE PO PRN (06:09)
[2020-04-11] MEDS: SODIUM CHLORIDE 0.9% 1000ML 1,000 ML IV SCH ×2 (07:12→15:19)
--- NOTE | 2020-04-11 07:56 | XRay Report ---
XR chest 1V portable CLINICAL HISTORY: cough, hypoxia COMPARISON STUDY: Chest radiograph October 26, 2019. Chest CT April 02, 2019. FINDINGS: There is underlying emphysema. Bibasilar opacities favor atelectasis. Interstitial thickeni ng is likely chronic. Cardiac size is normal. There is no pneumothorax or pleural effusion. IMPRESSION: 1. Suspected hypoventilatory study with bibasilar opacities suggestive of atelectasis. 2. Emphysema. 3. Possible pulmonary vascular congestion. ACT 112: Negative or not required by law. Electronically signed by: Chele Lopez M.D. 04/11/2020 7:54 AM
[2020-04-11] MEDS: TOPIRAMATE 50 MG TAB PO SCH ×2 (08:48→20:29)
[2020-04-11] MEDS: GABAPENTIN 300 MG CAP PO SCH ×3 (08:48→20:28)
[2020-04-11] MEDS: CYANOCOBALAMIN 500 MCG TABLET (VITAMIN B-12) PO SCH (08:48)
[2020-04-11] MEDS: LACOSAMIDE 50 MG TABLET PO SCH ×2 (08:48→20:30)
[2020-04-11] MEDS: UMECLIDINIUM BROMIDE 62.5MCG/BLISTER 7 PUFFS/INHALER INH SCH (08:49)
[2020-04-11] MEDS: INSULIN GLARGINE SOLOSTAR 100 UNITS/ML 3 ML PEN SC SCH ×2 (08:49→20:41)
[2020-04-11] MEDS: CEROVITE ADV FORMULA TAB PO SCH ×2 (08:49→20:31)
[2020-04-11] MEDS: TIMOLOL MALEATE 0.25% OP SOLN 5 ML BTL OPR SCH (08:50)
[2020-04-11] MEDS: BRINZOLAMIDE (AZOPT) OPS 10 ML BTL OPR SCH ×3 (08:50→20:27)
[2020-04-11] MEDS: INSULIN ASPART 100 UNITS/ML 3 ML PEN SC SCH ×4 (08:51→20:41)
[2020-04-11] MEDS ORDERED: LOTEPREDNOL ETABONATE OPR SCH (09:00)
[2020-04-11 09:09] LABS: Basophils # (auto) 0.03 K/uL (0-0.2); Basophils % (auto) 0.3 %; Eosinophils # (auto) 0.18 K/uL (0-0.5); Hematocrit (blood only) 45.2 % (42-52); Hemoglobin 15.4 g/dL (14.0-18.0); Immature Granulocytes # (auto) 0.02 K/uL (0.00-0.02); Immature Granulocytes % (auto) 0.2 %; Lymphocytes # (auto) 1.85 K/uL (1.2-3.4); Lymphocytes % (auto) 20.7 %; Mean Corpuscular Hemoglobin 31.8 pg (25-34); Mean Corpuscular Hgb Conc 34.1 g/dL (32-36); Mean Corpuscular Volume 93.4 fL (80-100); Mean Platelet Volume 11.3 fL (7.4-10.4); Monocytes # (auto) 0.93 K/uL (0.11-0.59); Monocytes % (auto) 10.4 %; Neutrophils # (auto) 5.92 K/uL (1.4-6.5); Neutrophils % (auto) 66.4 %; Platelet Count 266 K/uL (130-400); RDW Coefficient of Variation 13.5 % (11.5-14.5); RDW Standard Deviation 46.1 fL (36.4-46.3); Red Blood Count 4.84 M/uL (4.7-6.1); White Blood Count 8.93 K/uL (4.8-10.8)
[2020-04-11 09:34] LABS: Albumin Level 3.2 gm/dl (3.4-5.0); BUN Creatinine Ratio 14.8 (10-20); Bilirubin Direct 0.1 mg/dl (0-0.2); Calcium 9.1 mg/dl (8.5-10.1); Creatinine Clr Calc Pharmacy 81.6 ml/min; Est GFR (African American) 101.3; Est GFR (Non-African American) 87.4; Magnesium 2.1 mg/dl (1.8-2.4); Potassium 3.4 mmol/L (3.5-5.1)
[2020-04-11 09:43] LABS: Bilirubin,Total 0.3 mg/dl (0.2-1); Phosphorus 3.4 mg/dl (2.5-4.9); Thyroid Stimulating Hormone 1.31 uIu/ml (0.300-4.500); Total Protein 6.8 gm/dl (6.4-8.2); Troponin I 0.035 ng/ml (0-0.045)
[2020-04-11] MEDS ORDERED: OPTIRAY 320 125ml IV ONE (09:58)
--- NOTE | 2020-04-11 10:14 | CT Scan Report ---
CT ANGIOGRAPHY OF THE CHEST, PULMONARY EMBOLUS PROTOCOL CLINICAL HISTORY: Weight loss. Hyperglycemia. Evaluate for malignancy. COMPARISON STUDY: Chest CT April 02, 2019. Chest radiograph performed earlier today. TECHNIQUE: Following IV administration of 120 mL of Optiray-320, helical axial images of the chest we re obtained utilizing the pulmonary embolus protocol. Maximal intensity projections and sagittal and coronal reformats were viewed on an independent 3D workstation. IV contrast was administered withou t complication. Automated exposure control was utilized for the study. A dose lowering technique wa s utilized adhering to the principles of ALARA. CT DOSE: 744.41 mGy.cm FINDINGS: No pulmonary emboli are identified. There is no evidence for thoracic aortic dissection. T he size of the heart is normal. There is no pericardial effusion. No pneumothorax or pleural effusion is noted. There are linear bibasilar subpleural opacities which favor atelectasis. Moderate secretio ns within the airways are noted. There is bronchial wall thickening. Severe emphysema is noted. Airsp reyna opacity within the anterior segment of the right upper lobe has decreased since CT of April 02, 2019. This favors scarring. No suspicious pulmonary nodules are present. No lytic or blastic lesions are identified within the bony thorax. The abdomen and pelvis will be reported separately. IMPRESSION: 1. No pulmonary emboli identified. 2. No evidence for malignancy within the chest. 3. Severe emphysema. 4. Bilateral lower lobe opacities which favor atelectasis. Moderate multifocal secretions within the airways. 5. Airspace opacity within the anterior segment of the right upper lobe which has decreased since raheel or CT. This favors scarring or atelectasis. ACT 112: Negative or not required by law. Electronically signed by: Chele Lopez M.D. 04/11/2020 10:12 AM
--- NOTE | 2020-04-11 10:25 | CT Scan Report ---
CT OF THE ABDOMEN AND PELVIS WITH CONTRAST CLINICAL HISTORY: severe hyperglycemia,weight loss,eval for malignancy. COMPARISON STUDY: None. TECHNIQUE: Following IV administration of 120 mL of Optiray-320, axial images of the abdomen and pelv is were obtained from the lung bases to the proximal femurs. Images were reviewed in the axial, sagit monique, and coronal planes. IV contrast was administered without complication. Automated exposure contr ol was utilized for the study. A dose lowering technique was utilized adhering to the principles of ALARA. FINDINGS: Please note that the chest CT will be reported separately. Note is made of a 3.8 cm cyst wi thin the lateral segment the liver. Subcentimeter hypodense hepatic lesions are too small characteriz e but probably reflect cysts. There is fatty infiltration of the liver. The spleen, adrenal glands an d pancreas are unremarkable with exception of a few parenchymal calcifications within the pancreas. S everal bilateral renal cysts are noted. There is no hydronephrosis. There is no biliary or pancreatic ductal dilatation. No abdominal lymphadenopathy is noted. Note is made of a prominent right pelvic s idewall lymph node that measures 9 mm in short axis diameter on image 272 of 501. There is no hydrone phrosis. Small layering calculi within the bladder are noted. There are no ureteral calculi. There is no evidence for a bowel obstruction. Note is made of a 3.1 cm mass-like lesion within the mid ascend ing colon shown on axial image 252 of 501. There is a moderate amount stool within the colon. Infrare nal abdominal is ectatic, measuring 2.5 cm in caliber. There is no ascites. There is no abscess. No s uspicious osseous lesions are present. Prostate is moderately enlarged. IMPRESSION: 1. 3.1 cm round lesion within the mid ascending colon. Although this could reflect stool, the appeara nce is suspicious for a polyp or mass. GI consultation for consideration for colonoscopy is recommend ed. 2. Prominent right pelvic sidewall lymph node. This is indeterminate and a follow-up CT in 3 months t o ensure stability is recommended. 3. Moderate enlargement of the prostate. 4. Small layering bladder calculi. No ureteral calculi. No hydronephrosis. 5. No bowel obstruction. ACT 112: Negative or not required by law. Electronically signed by: Chele Lopez M.D. 04/11/2020 10:24 AM
[2020-04-11 10:53] LABS: Estimated Average Glucose 258 mg/dl; Hemoglobin A1C 10.6 % (4.5-5.6)
[2020-04-11 12:04] LABS: Lyme Ab IgG w/WB Rflx Negative (Negative); Lyme Ab IgM w/WB Rflx Negative (Negative)
[2020-04-11] MEDS ORDERED: POTASSIUM CHLORIDE CRTAB 20 MEQ TABCR PO STA (14:55)
--- NOTE | 2020-04-11 15:23 | Hospitalist Progress Note ---
Date of Service April 11, 2020 Assessment & Plan (1) Spasm: Presented with muscle spasms that were visible in the anterior chest wall and upper abdomen Most likely secondary to severe hyperglycemia and mild hypokalemia Now completely resolved with IV fluid hydration and potassium replacement as well as controlled blood sugar as below Troponin negative serially ECG without ischemic changes (2) Diabetes mellitus: No prior history of DM. Patient has had hyperglycemia before whilst on steroids. Denies polyuria/polydipsia/polyphagia/weight loss. AF=405 on admission. No AG This developed somewhat acutely but he did have some hyperglycemia when he was here back in the spring with blood sugars into the 180s Checked CT of the abdomen/pelvis to look at pancreas and no abnormality there, although with colon mass and pelvic sidewall lymphadenopathy as below Lipase is normal No family history of diabetes other than a maternal grandmother His reports he was on chronic prednisolone eyedrops for a while but was tapered off this a month ago. He otherwise is on Topamax and lacosamide which are both new in the last few months-Topamax should actually help improve blood sugars, and lacosamide is not known to cause hyperglycemia Nonetheless, blood sugars are much improved now with starting insulin Discussed new onset diabetes with patient and his and my recommendation to start insulin upon discharge His hemoglobin A1c is significantly elevated at 10.7% Increase Lantus to 8 units SQ twice daily and will tighten down NovoLog sliding scale as well -Diabetes education -Diabetic diet (3) COPD (chronic obstructive pulmonary disease): Hypoxic on arrival. No home O2 but has a history of hypoxia in the past as per review of previous hospitalizations CT angiogram of the chest negative for PE but shows severe emphysematous changes and scarring -Continue Incruse Ellipta inhaler -O2 as needed to keep pulse ox greater than 88-90% -Albuterol as needed (4) Hypoxemia: As above. Improved with NC. No SOB/cough/wheeze -Supplemental O2 as needed to keep pulse ox greater than 88-90% -Nebs as needed -May need two step prior to discharge to determine if needs oxygen at home (5) Colonic mass: Notable 3.1 cm mass-stool versus malignancy in the ascending colon as well as right pelvic sidewall lymphadenopathy on CT abdomen/pelvis performed today Concerning Patient has never had a colonoscopy but does deny any changes in bowel habits, no hematochezia, and no anemia on laboratory values here Consults GI to see about having colonoscopy for further evaluation (6) Seizure: With a history of petit mal seizures He has been seizure free since November with starting on antiepileptics. [place] [facility] [place] Topam[place] -Continue Vimpat -Continue Gabapentin (7) Macular degeneration: Chronic -Continue drops from home (8) Moderate obstructive sleep apnea: Noted, but is not on CPAP May need overnight sleep study (9) Hypokalemia: Mild, potassium replaced orally Follow BMP and magnesium in the morning (10) DVT prophylaxis: Lovenox SQ added Code - Full Dispo -continued stay Admission and Anticipated Discharge Date Admission Date: April 11, 2020 Subjective Patient was very drowsy when I saw him and was confused for about 5 minutes after arousal. He repeated himself and was saying nonsensical things. After he woke up more, he was conversive and knowledgeable but admitted to memory difficulties for short-term. He reports no further muscle spasms of the chest. Denies shortness of breath or cough. He was weaned off oxygen by the nurse while I was in the room and was having a normal pulse ox on room air. He denied any abdominal pains or changes in bowel habits, no blood in his bowel movements. He has never had a colonoscopy. He denies any weight loss He has been seizure-free since starting on Vimpat in November of this year as per his at the bedside. Review of Systems Review of Systems: All systems reviewed & are unremarkable except as noted in HPI & below Physical Exam Constitutional: average body habitus, + disheveled and cooperative; no acute distress Eyes: + eyelid abnormality (Mild right ptosis which is chronic as per ) a nd + anicteric sclerae; + abnormal visual field confrontation (Loss of central vision on the left) and no nystagmus ENMT: external ear and nose normal, oropharynx normal Neck: trachea midline, no thyromegaly Respiratory: normal respiratory effort, lungs clear to auscultation Cardiovascular: RRR, no murmur, no edema Chest (Breasts): Chest: normal inspection of chest (No tenderness to palpation over anterior chest wall) Gastrointestinal (Abdomen): normal bowel sounds, soft, nontender, no hepatosplenomegaly Musculoskeletal: Extremities: extremities normal to inspection; no cyanosis and no clubbing Skin: no rashes, warm and dry Neurologic: moves all extremities and awake; no focal motor deficits Psychiatric: A+Ox3, euthymic affect Lymphatic: no lymphedema Results & Data Results & Data ([facility]) Vital Signs (Past 12 Hours) Vital Signs Temp Pulse Pulse Resp BP BP Pulse Ox 04/11/20 06:09 36.4 C L 98 H 24 135/85 97 04/11/20 05:34 106 H 24 151/95 H 99 04/11/20 05:00 109 H 31 H 141/95 H 100 04/11/20 04:31 113 H 18 133/112 H 100 04/11/20 04:02 111 H 22 143/92 H 100 04/11/20 04:00 107 H 33 H 143/92 H 100 04/11/20 03:31 120 H 27 H 184/141 H 98 Laboratory Results 04/11/20 04/11/20 04/11/20 Range/Units 20:36 19:00 16:45 WBC (4.8-10.8) K/uL RBC (4.7-6.1) M/uL Hgb (14.0-18.0) g/dL Hct (42-52) % MCV (80-100) fL MCH (25-34) pg MCHC (32-36) g/dL RDW Std Deviation (36.4-46.3) fL RDW Coeff of Naty (11.5-14.5) % Plt Count (130-400) K/uL MPV (7.4-10.4) fL Immature Gran % (Auto) % Neut % (Auto) % Lymph % (Auto) % [place] % (Auto) % Eos % (Auto) % Baso % (Auto) % Neut # (Auto) (1.4-6.5) K/uL Lymph # (Auto) (1.2-3.4) K/uL [place] # (Auto) (0.11-0.59) K/uL Eos # (Auto) (0-0.5) K/uL Baso # (Auto) (0-0.2) K/uL Immature Gran # (Auto) (0.00-0.02) K/uL ESR (0-14) mm/hr PT (9.0-12.0) Seconds INR (0.9-1.1) Sodium (136-145) mmol/L Potassium (3.5-5.1) mmol/L Chloride (98-107) mmol/L Carbon Dioxide (21-32) mmol/L Anion Gap (3-11) BUN (7-18) mg/dl Creatinine (0.6-1.4) mg/dl Est Cr Clr Drug Dosing ml/min Est GFR ( Amer) Est GFR (Non-Af Amer) BUN/Creatinine Ratio (10-20) Glucose (70-99) mg/dl POC Glucose 194 H 211 H (70-99) mg/dl Estimat Average Glucose mg/dl Hemoglobin A1c (4.5-5.6) % Calcium (8.5-10.1) mg/dl Phosphorus (2.5-4.9) mg/dl Magnesium (1.8-2.4) mg/dl Total Bilirubin (0.2-1) mg/dl Direct Bilirubin (0-0.2) mg/dl AST (15-37) U/L ALT (12-78) U/L Alkaline Phosphatase (45-117) U/L Troponin I (0-0.045) ng/ml NT-Pro-B Natriuret Pep (0-900) pg/ml Total Protein (6.4-8.2) gm/dl Albumin (3.4-5.0) gm/dl Globulin (2.5-4.0) gm/dl Albumin/Globulin Ratio (0.9-2) Lipase (73-393) U/L Whole Bld Vitamin B1 Vitamin B12 (211-911) pg/ml Beta-Hydroxybutyric Acd (0.2-2.81) mg/dl Procalcitonin (0-0.5) ng/ml TSH (0.300-4.500) uIu/ml Urine Color Yellow Urine Appearance Clear (Clear) Urine pH 7.0 (4.5-7.5) Ur Specific Pace > 1.045 H (1.000-1.030) Urine Protein Negative (Negative) Urine Glucose (UA) Trace H (Negative) Urine Ketones 3+ H (Negative) Urine Blood Negative (Negative) Urine Nitrite Negative (Negative) Urine Bilirubin Negative (Negative) Urine Urobilinogen Negative (Negative) Ur Leukocyte Esterase Negative (Negative) RPR Adenovirus (PCR) (NotDetected) B. pertussis DNA (PCR) (NotDetected) B.parapertussis DNA PCR (NotDetected) Lyme Disease IgG Ab (Negative) Lyme Disease IgM Ab (Negative) C. pneumoniae DNA (PCR) (NotDetected) Coronavirus OC43 (PCR) (NotDetected) Coronavirus HKU1 (PCR) (NotDetected) Coronavirus 229E (PCR) (NotDetected) COVID-19 PCR (NotDetected) Coronavirus NL63 (PCR) (NotDetected) Hepatitis C Ab Screen (Neg) Human Metapneumovir PCR (NotDetected) Influenza Type A (PCR) (NotDetected) Influenza Type B (PCR) (NotDetected) M. pneumoniae (PCR) (NotDetected) Parainfluenza 1 (PCR) (NotDetected) Parainfluenza 2 (PCR) (NotDetected) Parainfluenza 3 (PCR) (NotDetected) Parainfluenza 4 (PCR) (NotDetected) RSV (PCR) (NotDetected) Entero/Rhino (PCR) (NotDetected) 04/11/20 04/11/20 04/11/20 Range/Units 11:37 08:56 08:56 WBC (4.8-10.8) K/uL RBC (4.7-6.1) M/uL Hgb (14.0-18.0) g/dL Hct (42-52) % MCV (80-100) fL MCH (25-34) pg MCHC (32-36) g/dL RDW Std Deviation (36.4-46.3) fL RDW Coeff of Naty (11.5-14.5) % Plt Count (130-400) K/uL MPV (7.4-10.4) fL Immature Gran % (Auto) % Neut % (Auto) % Lymph % (Auto) % [place] % (Auto) % Eos % (Auto) % Baso % (Auto) % Neut # (Auto) (1.4-6.5) K/uL Lymph # (Auto) (1.2-3.4) K/uL [place] # (Auto) (0.11-0.59) K/uL Eos # (Auto) (0-0.5) K/uL Baso # (Auto) (0-0.2) K/uL Immature Gran # (Auto) (0.00-0.02) K/uL ESR (0-14) mm/hr PT (9.0-12.0) Seconds INR (0.9-1.1) Sodium (136-145) mmol/L Potassium (3.5-5.1) mmol/L Chloride (98-107) mmol/L Carbon Dioxide (21-32) mmol/L Anion Gap (3-11) BUN (7-18) mg/dl Creatinine (0.6-1.4) mg/dl Est Cr Clr Drug Dosing ml/min Est GFR ( Amer) Est GFR (Non-Af Amer) BUN/Creatinine Ratio (10-20) Glucose (70-99) mg/dl POC Glucose 160 H (70-99) mg/dl Estimat Average Glucose 258 mg/dl Hemoglobin A1c 10.6 H (4.5-5.6) % Calcium (8.5-10.1) mg/dl Phosphorus (2.5-4.9) mg/dl Magnesium (1.8-2.4) mg/dl Total Bilirubin (0.2-1) mg/dl Direct Bilirubin (0-0.2) mg/dl AST (15-37) U/L ALT (12-78) U/L Alkaline Phosphatase (45-117) U/L Troponin I (0-0.045) ng/ml NT-Pro-B Natriuret Pep (0-900) pg/ml Total Protein (6.4-8.2) gm/dl Albumin (3.4-5.0) gm/dl Globulin (2.5-4.0) gm/dl Albumin/Globulin Ratio (0.9-2) Lipase (73-393) U/L Whole Bld Vitamin B1 Vitamin B12 1211 H (211-911) pg/ml Beta-Hydroxybutyric Acd (0.2-2.81) mg/dl Procalcitonin (0-0.5) ng/ml TSH (0.300-4.500) uIu/ml Urine Color Urine Appearance (Clear) Urine pH (4.5-7.5) Ur Specific Pace (1.000-1.030) Urine Protein (Negative) Urine Glucose (UA) (Negative) Urine Ketones (Negative) Urine Blood (Negative) Urine Nitrite (Negative) Urine Bilirubin (Negative) Urine Urobilinogen (Negative) Ur Leukocyte Esterase (Negative) RPR Adenovirus (PCR) (NotDetected) B. pertussis DNA (PCR) (NotDetected) B.parapertussis DNA PCR (NotDetected) Lyme Disease IgG Ab (Negative) Lyme Disease IgM Ab (Negative) C. pneumoniae DNA (PCR) (NotDetected) Coronavirus OC43 (PCR) (NotDetected) Coronavirus HKU1 (PCR) (NotDetected) Coronavirus 229E (PCR) (NotDetected) COVID-19 PCR (NotDetected) Coronavirus NL63 (PCR) (NotDetected) Hepatitis C Ab Screen (Neg) Human Metapneumovir PCR (NotDetected) Influenza Type A (PCR) (NotDetected) Influenza Type B (PCR) (NotDetected) M. pneumoniae (PCR) (NotDetected) Parainfluenza 1 (PCR) (NotDetected) Parainfluenza 2 (PCR) (NotDetected) Parainfluenza 3 (PCR) (NotDetected) Parainfluenza 4 (PCR) (NotDetected) RSV (PCR) (NotDetected) Entero/Rhino (PCR) (NotDetected) 04/11/20 04/11/20 04/11/20 Range/Units 08:56 08:56 08:56 WBC (4.8-10.8) K/uL RBC (4.7-6.1) M/uL Hgb (14.0-18.0) g/dL Hct (42-52) % MCV (80-100) fL MCH (25-34) pg MCHC (32-36) g/dL RDW Std Deviation (36.4-46.3) fL RDW Coeff of Naty (11.5-14.5) % Plt Count (130-400) K/uL MPV (7.4-10.4) fL Immature Gran % (Auto) % Neut % (Auto) % Lymph % (Auto) % [place] % (Auto) % Eos % (Auto) % Baso % (Auto) % Neut # (Auto) (1.4-6.5) K/uL Lymph # (Auto) (1.2-3.4) K/uL [place] # (Auto) (0.11-0.59) K/uL Eos # (Auto) (0-0.5) K/uL Baso # (Auto) (0-0.2) K/uL Immature Gran # (Auto) (0.00-0.02) K/uL ESR (0-14) mm/hr PT (9.0-12.0) Seconds INR (0.9-1.1) Sodium 142 D (136-145) mmol/L Potassium 3.4 L (3.5-5.1) mmol/L Chloride 107 (98-107) mmol/L Carbon Dioxide 31 (21-32) mmol/L Anion Gap 4.0 (3-11) BUN 13 (7-18) mg/dl Creatinine 0.87 (0.6-1.4) mg/dl Est Cr Clr Drug Dosing 81.6 ml/min Est GFR ( Amer) 101.3 Est GFR (Non-Af Amer) 87.4 BUN/Creatinine Ratio 14.8 (10-20) Glucose 171 H (70-99) mg/dl POC Glucose (70-99) mg/dl Estimat Average Glucose mg/dl Hemoglobin A1c (4.5-5.6) % Calcium 9.1 (8.5-10.1) mg/dl Phosphorus 3.4 (2.5-4.9) mg/dl Magnesium 2.1 (1.8-2.4) mg/dl Total Bilirubin 0.3 (0.2-1) mg/dl Direct Bilirubin 0.1 (0-0.2) mg/dl AST 4 L (15-37) U/L ALT 11 L (12-78) U/L Alkaline Phosphatase 72 (45-117) U/L Troponin I 0.035 (0-0.045) ng/ml NT-Pro-B Natriuret Pep (0-900) pg/ml Total Protein 6.8 (6.4-8.2) gm/dl Albumin 3.2 L (3.4-5.0) gm/dl Globulin (2.5-4.0) gm/dl Albumin/Globulin Ratio (0.9-2) Lipase 251 (73-393) U/L Whole Bld Vitamin B1 Pending Vitamin B12 (211-911) pg/ml Beta-Hydroxybutyric Acd (0.2-2.81) mg/dl Procalcitonin (0-0.5) ng/ml TSH 1.310 (0.300-4.500) uIu/ml Urine Color Urine Appearance (Clear) Urine pH (4.5-7.5) Ur Specific Pace (1.000-1.030) Urine Protein (Negative) Urine Glucose (UA) (Negative) Urine Ketones (Negative) Urine Blood (Negative) Urine Nitrite (Negative) Urine Bilirubin (Negative) Urine Urobilinogen (Negative) Ur Leukocyte Esterase (Negative) RPR Pending Adenovirus (PCR) (NotDetected) B. pertussis DNA (PCR) (NotDetected) B.parapertussis DNA PCR (NotDetected) Lyme Disease IgG Ab Negative (Negative) Lyme Disease IgM Ab Negative (Negative) C. pneumoniae DNA (PCR) (NotDetected) Coronavirus OC43 (PCR) (NotDetected) Coronavirus HKU1 (PCR) (NotDetected) Coronavirus 229E (PCR) (NotDetected) COVID-19 PCR (NotDetected) Coronavirus NL63 (PCR) (NotDetected) Hepatitis C Ab Screen (Neg) Human Metapneumovir PCR (NotDetected) Influenza Type A (PCR) (NotDetected) Influenza Type B (PCR) (NotDetected) M. pneumoniae (PCR) (NotDetected) Parainfluenza 1 (PCR) (NotDetected) Parainfluenza 2 (PCR) (NotDetected) Parainfluenza 3 (PCR) (NotDetected) Parainfluenza 4 (PCR) (NotDetected) RSV (PCR) (NotDetected) Entero/Rhino (PCR) (NotDetected) 04/11/20 04/11/20 04/11/20 Range/Units 08:56 08:56 07:57 WBC 8.93 (4.8-10.8) K/uL RBC 4.84 (4.7-6.1) M/uL Hgb 15.4 (14.0-18.0) g/dL Hct 45.2 (42-52) % MCV 93.4 (80-100) fL MCH 31.8 (25-34) pg MCHC 34.1 (32-36) g/dL RDW Std Deviation 46.1 (36.4-46.3) fL RDW Coeff of Naty 13.5 (11.5-14.5) % Plt Count 266 (130-400) K/uL MPV 11.3 H (7.4-10.4) fL Immature Gran % (Auto) 0.2 % Neut % (Auto) 66.4 % Lymph % (Auto) 20.7 % [place] % (Auto) 10.4 % Eos % (Auto) 2.0 % Baso % (Auto) 0.3 % Neut # (Auto) 5.92 (1.4-6.5) K/uL Lymph # (Auto) 1.85 (1.2-3.4) K/uL [place] # (Auto) 0.93 H (0.11-0.59) K/uL Eos # (Auto) 0.18 (0-0.5) K/uL Baso # (Auto) 0.03 (0-0.2) K/uL Immature Gran # (Auto) 0.02 (0.00-0.02) K/uL ESR 15 H (0-14) mm/hr PT (9.0-12.0) Seconds INR (0.9-1.1) Sodium (136-145) mmol/L Potassium (3.5-5.1) mmol/L Chloride (98-107) mmol/L Carbon Dioxide (21-32) mmol/L Anion Gap (3-11) BUN (7-18) mg/dl Creatinine (0.6-1.4) mg/dl Est Cr Clr Drug Dosing ml/min Est GFR ( Amer) Est GFR (Non-Af Amer) BUN/Creatinine Ratio (10-20) Glucose (70-99) mg/dl POC Glucose 218 H (70-99) mg/dl Estimat Average Glucose mg/dl Hemoglobin A1c (4.5-5.6) % Calcium (8.5-10.1) mg/dl Phosphorus (2.5-4.9) mg/dl Magnesium (1.8-2.4) mg/dl Total Bilirubin (0.2-1) mg/dl Direct Bilirubin (0-0.2) mg/dl AST (15-37) U/L ALT (12-78) U/L Alkaline Phosphatase (45-117) U/L Troponin I (0-0.045) ng/ml NT-Pro-B Natriuret Pep (0-900) pg/ml Total Protein (6.4-8.2) gm/dl Albumin (3.4-5.0) gm/dl Globulin (2.5-4.0) gm/dl Albumin/Globulin Ratio (0.9-2) Lipase (73-393) U/L Whole Bld Vitamin B1 Vitamin B12 (211-911) pg/ml Beta-Hydroxybutyric Acd (0.2-2.81) mg/dl Procalcitonin (0-0.5) ng/ml TSH (0.300-4.500) uIu/ml Urine Color Urine Appearance (Clear) Urine pH (4.5-7.5) Ur Specific Pace (1.000-1.030) Urine Protein (Negative) Urine Glucose (UA) (Negative) Urine Ketones (Negative) Urine Blood (Negative) Urine Nitrite (Negative) Urine Bilirubin (Negative) Urine Urobilinogen (Negative) Ur Leukocyte Esterase (Negative) RPR Adenovirus (PCR) (NotDetected) B. pertussis DNA (PCR) (NotDetected) B.parapertussis DNA PCR (NotDetected) Lyme Disease IgG Ab (Negative) Lyme Disease IgM Ab (Negative) C. pneumoniae DNA (PCR) (NotDetected) Coronavirus OC43 (PCR) (NotDetected) Coronavirus HKU1 (PCR) (NotDetected) Coronavirus 229E (PCR) (NotDetected) COVID-19 PCR (NotDetected) Coronavirus NL63 (PCR) (NotDetected) Hepatitis C Ab Screen (Neg) Human Metapneumovir PCR (NotDetected) Influenza Type A (PCR) (NotDetected) Influenza Type B (PCR) (NotDetected) M. pneumoniae (PCR) (NotDetected) Parainfluenza 1 (PCR) (NotDetected) Parainfluenza 2 (PCR) (NotDetected) Parainfluenza 3 (PCR) (NotDetected) Parainfluenza 4 (PCR) (NotDetected) RSV (PCR) (NotDetected) Entero/Rhino (PCR) (NotDetected) 04/11/20 04/11/20 04/11/20 Range/Units 06:34 06:32 05:41 WBC (4.8-10.8) K/uL RBC (4.7-6.1) M/uL Hgb (14.0-18.0) g/dL Hct (42-52) % MCV (80-100) fL MCH (25-34) pg MCHC (32-36) g/dL RDW Std Deviation (36.4-46.3) fL RDW Coeff of Naty (11.5-14.5) % Plt Count (130-400) K/uL MPV (7.4-10.4) fL Immature Gran % (Auto) % Neut % (Auto) % Lymph % (Auto) % [place] % (Auto) % Eos % (Auto) % Baso % (Auto) % Neut # (Auto) (1.4-6.5) K/uL Lymph # (Auto) (1.2-3.4) K/uL [place] # (Auto) (0.11-0.59) K/uL Eos # (Auto) (0-0.5) K/uL Baso # (Auto) (0-0.2) K/uL Immature Gran # (Auto) (0.00-0.02) K/uL ESR (0-14) mm/hr PT (9.0-12.0) Seconds INR (0.9-1.1) Sodium (136-145) mmol/L Potassium (3.5-5.1) mmol/L Chloride (98-107) mmol/L Carbon Dioxide (21-32) mmol/L Anion Gap (3-11) BUN (7-18) mg/dl Creatinine (0.6-1.4) mg/dl Est Cr Clr Drug Dosing ml/min Est GFR ( Amer) Est GFR (Non-Af Amer) BUN/Creatinine Ratio (10-20) Glucose (70-99) mg/dl POC Glucose 334 H* 389 H* 369 H* (70-99) mg/dl Estimat Average Glucose mg/dl Hemoglobin A1c (4.5-5.6) % Calcium (8.5-10.1) mg/dl Phosphorus (2.5-4.9) mg/dl Magnesium (1.8-2.4) mg/dl Total Bilirubin (0.2-1) mg/dl Direct Bilirubin (0-0.2) mg/dl AST (15-37) U/L ALT (12-78) U/L Alkaline Phosphatase (45-117) U/L Troponin I (0-0.045) ng/ml NT-Pro-B Natriuret Pep (0-900) pg/ml Total Protein (6.4-8.2) gm/dl Albumin (3.4-5.0) gm/dl Globulin (2.5-4.0) gm/dl Albumin/Globulin Ratio (0.9-2) Lipase (73-393) U/L Whole Bld Vitamin B1 Vitamin B12 (211-911) pg/ml Beta-Hydroxybutyric Acd (0.2-2.81) mg/dl Procalcitonin (0-0.5) ng/ml TSH (0.300-4.500) uIu/ml Urine Color Urine Appearance (Clear) Urine pH (4.5-7.5) Ur Specific Pace (1.000-1.030) Urine Protein (Negative) Urine Glucose (UA) (Negative) Urine Ketones (Negative) Urine Blood (Negative) Urine Nitrite (Negative) Urine Bilirubin (Negative) Urine Urobilinogen (Negative) Ur Leukocyte Esterase (Negative) RPR Adenovirus (PCR) (NotDetected) B. pertussis DNA (PCR) (NotDetected) B.parapertussis DNA PCR (NotDetected) Lyme Disease IgG Ab (Negative) Lyme Disease IgM Ab (Negative) C. pneumoniae DNA (PCR) (NotDetected) Coronavirus OC43 (PCR) (NotDetected) Coronavirus HKU1 (PCR) (NotDetected) Coronavirus 229E (PCR) (NotDetected) COVID-19 PCR (NotDetected) Coronavirus NL63 (PCR) (NotDetected) Hepatitis C Ab Screen (Neg) Human Metapneumovir PCR (NotDetected) Influenza Type A (PCR) (NotDetected) Influenza Type B (PCR) (NotDetected) M. pneumoniae (PCR) (NotDetected) Parainfluenza 1 (PCR) (NotDetected) Parainfluenza 2 (PCR) (NotDetected) Parainfluenza 3 (PCR) (NotDetected) Parainfluenza 4 (PCR) (NotDetected) RSV (PCR) (NotDetected) Entero/Rhino (PCR) (NotDetected) 04/11/20 04/11/20 04/11/20 Range/Units 04:10 01:35 01:25 WBC (4.8-10.8) K/uL RBC (4.7-6.1) M/uL Hgb (14.0-18.0) g/dL Hct (42-52) % MCV (80-100) fL MCH (25-34) pg MCHC (32-36) g/dL RDW Std Deviation (36.4-46.3) fL RDW Coeff of Naty (11.5-14.5) % Plt Count (130-400) K/uL MPV (7.4-10.4) fL Immature Gran % (Auto) % Neut % (Auto) % Lymph % (Auto) % [place] % (Auto) % Eos % (Auto) % Baso % (Auto) % Neut # (Auto) (1.4-6.5) K/uL Lymph # (Auto) (1.2-3.4) K/uL [place] # (Auto) (0.11-0.59) K/uL Eos # (Auto) (0-0.5) K/uL Baso # (Auto) (0-0.2) K/uL Immature Gran # (Auto) (0.00-0.02) K/uL ESR (0-14) mm/hr PT (9.0-12.0) Seconds INR (0.9-1.1) Sodium (136-145) mmol/L Potassium (3.5-5.1) mmol/L Chloride (98-107) mmol/L Carbon Dioxide (21-32) mmol/L Anion Gap (3-11) BUN (7-18) mg/dl Creatinine (0.6-1.4) mg/dl Est Cr Clr Drug Dosing ml/min Est GFR ( Amer) Est GFR (Non-Af Amer) BUN/Creatinine Ratio (10-20) Glucose (70-99) mg/dl POC Glucose 447 H* (70-99) mg/dl Estimat Average Glucose mg/dl Hemoglobin A1c (4.5-5.6) % Calcium (8.5-10.1) mg/dl Phosphorus (2.5-4.9) mg/dl Magnesium (1.8-2.4) mg/dl Total Bilirubin (0.2-1) mg/dl Direct Bilirubin (0-0.2) mg/dl AST (15-37) U/L ALT (12-78) U/L Alkaline Phosphatase (45-117) U/L Troponin I (0-0.045) ng/ml NT-Pro-B Natriuret Pep (0-900) pg/ml Total Protein (6.4-8.2) gm/dl Albumin (3.4-5.0) gm/dl Globulin (2.5-4.0) gm/dl Albumin/Globulin Ratio (0.9-2) Lipase (73-393) U/L Whole Bld Vitamin B1 Vitamin B12 (211-911) pg/ml Beta-Hydroxybutyric Acd (0.2-2.81) mg/dl Procalcitonin (0-0.5) ng/ml TSH (0.300-4.500) uIu/ml Urine Color Urine Appearance (Clear) Urine pH (4.5-7.5) Ur Specific Pace (1.000-1.030) Urine Protein (Negative) Urine Glucose (UA) (Negative) Urine Ketones (Negative) Urine Blood (Negative) Urine Nitrite (Negative) Urine Bilirubin (Negative) Urine Urobilinogen (Negative) Ur Leukocyte Esterase (Negative) RPR Adenovirus (PCR) Not Detected (NotDetected) B. pertussis DNA (PCR) Not Detected (NotDetected) B.parapertussis DNA PCR Not Detected (NotDetected) Lyme Disease IgG Ab (Negative) Lyme Disease IgM Ab (Negative) C. pneumoniae DNA (PCR) Not Detected (NotDetected) Coronavirus OC43 (PCR) Not Detected (NotDetected) Coronavirus HKU1 (PCR) Not Detected (NotDetected) Coronavirus 229E (PCR) Not Detected (NotDetected) COVID-19 PCR Not Detected (NotDetected) Coronavirus NL63 (PCR) Not Detected (NotDetected) Hepatitis C Ab Screen Neg (Neg) Human Metapneumovir PCR Not Detected (NotDetected) Influenza Type A (PCR) Not Detected (NotDetected) Influenza Type B (PCR) Not Detected (NotDetected) M. pneumoniae (PCR) Not Detected (NotDetected) Parainfluenza 1 (PCR) Not Detected (NotDetected) Parainfluenza 2 (PCR) Not Detected (NotDetected) Parainfluenza 3 (PCR) Not Detected (NotDetected) Parainfluenza 4 (PCR) Not Detected (NotDetected) RSV (PCR) Not Detected (NotDetected) Entero/Rhino (PCR) Not Detected (NotDetected) 04/11/20 04/11/20 04/11/20 Range/Units 01:25 01:25 01:25 WBC (4.8-10.8) K/uL RBC (4.7-6.1) M/uL Hgb (14.0-18.0) g/dL Hct (42-52) % MCV (80-100) fL MCH (25-34) pg MCHC (32-36) g/dL RDW Std Deviation (36.4-46.3) fL RDW Coeff of Naty (11.5-14.5) % Plt Count (130-400) K/uL MPV (7.4-10.4) fL Immature Gran % (Auto) % Neut % (Auto) % Lymph % (Auto) % [place] % (Auto) % Eos % (Auto) % Baso % (Auto) % Neut # (Auto) (1.4-6.5) K/uL Lymph # (Auto) (1.2-3.4) K/uL [place] # (Auto) (0.11-0.59) K/uL Eos # (Auto) (0-0.5) K/uL Baso # (Auto) (0-0.2) K/uL Immature Gran # (Auto) (0.00-0.02) K/uL ESR (0-14) mm/hr PT 11.3 (9.0-12.0) Seconds INR 1.1 (0.9-1.1) Sodium 135 L (136-145) mmol/L Potassium 3.6 (3.5-5.1) mmol/L Chloride 100 (98-107) mmol/L Carbon Dioxide 29 (21-32) mmol/L Anion Gap 6.0 (3-11) BUN 19 H (7-18) mg/dl Creatinine 1.16 (0.6-1.4) mg/dl Est Cr Clr Drug Dosing 61.2 ml/min Est GFR ( Amer) 73.5 Est GFR (Non-Af Amer) 63.5 BUN/Creatinine Ratio 16.6 (10-20) Glucose 583 H* (70-99) mg/dl POC Glucose (70-99) mg/dl Estimat Average Glucose mg/dl Hemoglobin A1c (4.5-5.6) % Calcium 9.1 (8.5-10.1) mg/dl Phosphorus (2.5-4.9) mg/dl Magnesium 2.0 (1.8-2.4) mg/dl Total Bilirubin 0.4 (0.2-1) mg/dl Direct Bilirubin (0-0.2) mg/dl AST 6 L (15-37) U/L ALT 14 (12-78) U/L Alkaline Phosphatase 90 (45-117) U/L Troponin I 0.022 (0-0.045) ng/ml NT-Pro-B Natriuret Pep 100 (0-900) pg/ml Total Protein 7.5 (6.4-8.2) gm/dl Albumin 3.3 L (3.4-5.0) gm/dl Globulin 4.2 H (2.5-4.0) gm/dl Albumin/Globulin Ratio 0.8 L (0.9-2) Lipase 307 (73-393) U/L Whole Bld Vitamin B1 Vitamin B12 (211-911) pg/ml Beta-Hydroxybutyric Acd 7.18 H (0.2-2.81) mg/dl Procalcitonin < 0.05 (0-0.5) ng/ml TSH (0.300-4.500) uIu/ml Urine Color Urine Appearance (Clear) Urine pH (4.5-7.5) Ur Specific Pace (1.000-1.030) Urine Protein (Negative) Urine Glucose (UA) (Negative) Urine Ketones (Negative) Urine Blood (Negative) Urine Nitrite (Negative) Urine Bilirubin (Negative) Urine Urobilinogen (Negative) Ur Leukocyte Esterase (Negative) RPR Adenovirus (PCR) (NotDetected) B. pertussis DNA (PCR) (NotDetected) B.parapertussis DNA PCR (NotDetected) Lyme Disease IgG Ab (Negative) Lyme Disease IgM Ab (Negative) C. pneumoniae DNA (PCR) (NotDetected) Coronavirus OC43 (PCR) (NotDetected) Coronavirus HKU1 (PCR) (NotDetected) Coronavirus 229E (PCR) (NotDetected) COVID-19 PCR (NotDetected) Coronavirus NL63 (PCR) (NotDetected) Hepatitis C Ab Screen (Neg) Human Metapneumovir PCR (NotDetected) Influenza Type A (PCR) (NotDetected) Influenza Type B (PCR) (NotDetected) M. pneumoniae (PCR) (NotDetected) Parainfluenza 1 (PCR) (NotDetected) Parainfluenza 2 (PCR) (NotDetected) Parainfluenza 3 (PCR) (NotDetected) Parainfluenza 4 (PCR) (NotDetected) RSV (PCR) (NotDetected) Entero/Rhino (PCR) (NotDetected) 04/11/20 Range/Units 01:25 WBC 8.37 (4.8-10.8) K/uL RBC 5.14 (4.7-6.1) M/uL Hgb 16.3 (14.0-18.0) g/dL Hct 47.6 (42-52) % MCV 92.6 (80-100) fL MCH 31.7 (25-34) pg MCHC 34.2 (32-36) g/dL RDW Std Deviation (36.4-46.3) fL RDW Coeff of Naty (11.5-14.5) % Plt Count 273 (130-400) K/uL MPV (7.4-10.4) fL Immature Gran % (Auto) 0.7 % Neut % (Auto) 68.7 % Lymph % (Auto) 19.5 % [place] % (Auto) 8.1 % Eos % (Auto) 2.6 % Baso % (Auto) 0.4 % Neut # (Auto) 5.75 (1.4-6.5) K/uL Lymph # (Auto) 1.63 (1.2-3.4) K/uL [place] # (Auto) 0.68 H (0.11-0.59) K/uL Eos # (Auto) 0.22 (0-0.5) K/uL Baso # (Auto) 0.03 (0-0.2) K/uL Immature Gran # (Auto) 0.06 H (0.00-0.02) K/uL ESR (0-14) mm/hr PT (9.0-12.0) Seconds INR (0.9-1.1) Sodium (136-145) mmol/L Potassium (3.5-5.1) mmol/L Chloride (98-107) mmol/L Carbon Dioxide (21-32) mmol/L Anion Gap (3-11) BUN (7-18) mg/dl Creatinine (0.6-1.4) mg/dl Est Cr Clr Drug Dosing ml/min Est GFR ( Amer) Est GFR (Non-Af Amer) BUN/Creatinine Ratio (10-20) Glucose (70-99) mg/dl POC Glucose (70-99) mg/dl Estimat Average Glucose mg/dl Hemoglobin A1c (4.5-5.6) % Calcium (8.5-10.1) mg/dl Phosphorus (2.5-4.9) mg/dl Magnesium (1.8-2.4) mg/dl Total Bilirubin (0.2-1) mg/dl Direct Bilirubin (0-0.2) mg/dl AST (15-37) U/L ALT (12-78) U/L Alkaline Phosphatase (45-117) U/L Troponin I (0-0.045) ng/ml NT-Pro-B Natriuret Pep (0-900) pg/ml Total Protein (6.4-8.2) gm/dl Albumin (3.4-5.0) gm/dl Globulin (2.5-4.0) gm/dl Albumin/Globulin Ratio (0.9-2) Lipase (73-393) U/L Whole Bld Vitamin B1 Vitamin B12 (211-911) pg/ml Beta-Hydroxybutyric Acd (0.2-2.81) mg/dl Procalcitonin (0-0.5) ng/ml TSH (0.300-4.500) uIu/ml Urine Color Urine Appearance (Clear) Urine pH (4.5-7.5) Ur Specific [place] (1.000-1.030) Urine Protein (Negative) Urine Glucose (UA) (Negative) Urine Ketones (Negative) Urine Blood (Negative) Urine Nitrite (Negative) Urine Bilirubin (Negative) Urine Urobilinogen (Negative) Ur Leukocyte Esterase (Negative) RPR Adenovirus (PCR) (NotDetected) B. pertussis DNA (PCR) (NotDetected) B.parapertussis DNA PCR (NotDetected) Lyme Disease IgG Ab (Negative) Lyme Disease IgM Ab (Negative) C. pneumoniae DNA (PCR) (NotDetected) Coronavirus OC43 (PCR) (NotDetected) Coronavirus HKU1 (PCR) (NotDetected) Coronavirus 229E (PCR) (NotDetected) COVID-19 PCR (NotDetected) Coronavirus NL63 (PCR) (NotDetected) Hepatitis C Ab Screen (Neg) Human Metapneumovir PCR (NotDetected) Influenza Type A (PCR) (NotDetected) Influenza Type B (PCR) (NotDetected) M. pneumoniae (PCR) (NotDetected) Parainfluenza 1 (PCR) (NotDetected) Parainfluenza 2 (PCR) (NotDetected) Parainfluenza 3 (PCR) (NotDetected) Parainfluenza 4 (PCR) (NotDetected) RSV (PCR) (NotDetected) Entero/Rhino (PCR) (NotDetected) Diagnostic Findings CT ANGIOGRAPHY OF THE CHEST, PULMONARY EMBOLUS PROTOCOL CLINICAL HISTORY: Weight loss. Hyperglycemia. Evaluate for malignancy. COMPARISON STUDY: Chest CT April 02, 2019. Chest radiograph performed earlier today. TECHNIQUE: Following IV administration of 120 mL of Optiray-320, helical axial images of the chest were obtained utilizing the pulmonary embolus protocol. Maximal intensity projections and sagittal and coronal reformats were viewed on an independent 3D workstation. IV contrast was administered without complication. Automated exposure control was utilized for the study. A dose lowering technique was utilized adhering to the principles of ALARA. CT DOSE: 744.41 mGy.cm FINDINGS: No pulmonary emboli are identified. There is no evidence for thoracic aortic dissection. The size of the heart is normal. There is no pericardial effusion. No pneumothorax or pleural effusion is noted. There are linear bibasilar subpleural opacities which favor atelectasis. Moderate secretions within the airways are noted. There is bronchial wall thickening. Severe emphysema is noted. Airspace opacity within the anterior segment of the right upper lobe has decreased since CT of April 02, 2019. This favors scarring. No suspicious pulmonary nodules are present. No lytic or blastic lesions are identified within the bony thorax. The abdomen and pelvis will be reported separately. IMPRESSION: 1. No pulmonary emboli identified. 2. No evidence for malignancy within the chest. 3. Severe emphysema. 4. Bilateral lower lobe opacities which favor atelectasis. Moderate multifocal secretions within the airways. 5. Airspace opacity within the anterior segment of the right upper lobe which has decreased since prior CT. This favors scarring or atelectasis. CT OF THE ABDOMEN AND PELVIS WITH CONTRAST CLINICAL HISTORY: severe hyperglycemia,weight loss,eval for malignancy. COMPARISON STUDY: None. TECHNIQUE: Following IV administration of 120 mL of Optiray-320, axial images of the abdomen and pelvis were obtained from the lung bases to the proximal femurs. Images were reviewed in the axial, sagittal, and coronal planes. IV contrast was administered without complication. Automated exposure control was utilized for the study. A dose lowering technique was utilized adhering to the principles of ALARA. FINDINGS: Please note that the chest CT will be reported separately. Note is made of a 3.8 cm cyst within the lateral segment the liver. Subcentimeter hypodense hepatic lesions are too small characterize but probably reflect cysts. There is fatty infiltration of the liver. The spleen, adrenal glands and pancreas are unremarkable with exception of a few parenchymal calcifications within the pancreas. Several bilateral renal cysts are noted. There is no hydronephrosis. There is no biliary or pancreatic ductal dilatation. No abdominal lymphadenopathy is noted. Note is made of a prominent right pelvic sidewall lymph node that measures 9 mm in short axis diameter on image 272 of 501. There is no hydronephrosis. Small layering calculi within the bladder are noted. There are no ureteral calculi. There is no evidence for a bowel obstruction. Note is made of a 3.1 cm mass-like lesion within the mid ascending colon shown on axial image 252 of 501. There is a moderate amount stool within the colon. Infrarenal abdominal is ectatic, measuring 2.5 cm in caliber. There is no ascites. There is no abscess. No suspicious osseous lesions are present. Prostate is moderately enlarged. IMPRESSION: 1. 3.1 cm round lesion within the mid ascending colon. Although this could reflect stool, the appearance is suspicious for a polyp or mass. GI consultation for consideration for colonoscopy is recommended. 2. Prominent right pelvic sidewall lymph node. This is indeterminate and a follow-up CT in 3 months to ensure stability is recommended. 3. Moderate enlargement of the prostate. 4. Small layering bladder calculi. No ureteral calculi. No hydronephrosis. 5. No bowel obstruction. PG Care Time/CCT Total # of Minutes Spent Total Time Spent with Patient: Total time spent is greater than 50% in coordination of care (as documented) at patient's floor/unit and/or counseling patient: Coding Level of Care Code 42037 Subseq Hosp Care Lvl 3 Diagnoses Spasm R25.2 Diabetes mellitus E11.9 COPD (chronic obstructive pulmonary disease) J44.9 COPD type: unspecified COPD Hypoxemia R09.02 Colonic mass K63.89 Seizure R56.9 Macular degeneration H35.30 Eye laterality: unspecified Macular degeneration type: unspecified type Moderate obstructive sleep apnea G47.33 Hypokalemia E87.6 DVT prophylaxis Z29.9 (1) COPD (chronic obstructive pulmonary disease) COPD type: unspecified COPD Qualified Code(s): J44.9 - Chronic obstructive pulmonary disease, unspecified (2) Macular degeneration Eye laterality: unspecified Macular degeneration type: unspecified type Qualified Code(s): H35.30 - Unspecified macular degeneration
[2020-04-11 19:14] LABS: Appearance Urine Clear (Clear); Bilirubin Urine Negative (Negative); Blood Urine Negative (Negative); Color Urine Yellow; Glucose Urine UA Trace (Negative); Ketones Urine 3+ (Negative); Leukocyte Esterase Urine Negative (Negative); Nitrite Urine Negative (Negative); Protein Urine Negative (Negative); Specific Gravity Urine > 1.045 (1.000-1.030); Urobilinogen Urine Negative (Negative)
[2020-04-11] MEDS ORDERED: INSULIN GLARGINE SOLOSTAR 100 UNITS/ML 3 ML PEN SC ONE (22:10)
[2020-04-11] MEDS ORDERED: ENOXAPARIN INJ 40 MG/0.4 ML SYR SQ SCH (22:30)
[2020-04-12 06:58] LABS: BUN Creatinine Ratio 17.2 (10-20); Calcium 8.7 mg/dl (8.5-10.1); Creatinine Clr Calc Pharmacy 104.4 ml/min; Est GFR (African American) 112.1; Est GFR (Non-African American) 96.8; Potassium 3.3 mmol/L (3.5-5.1)
[2020-04-12] MEDS: TIMOLOL MALEATE 0.25% OP SOLN 5 ML BTL OPR SCH (08:59)
[2020-04-12] MEDS: BRINZOLAMIDE (AZOPT) OPS 10 ML BTL OPR SCH ×3 (09:00→20:08)
[2020-04-12] MEDS: CEROVITE ADV FORMULA TAB PO SCH ×2 (09:00→20:10)
[2020-04-12] MEDS: GABAPENTIN 300 MG CAP PO SCH ×3 (09:00→20:09)
[2020-04-12] MEDS: LACOSAMIDE 50 MG TABLET PO SCH ×2 (09:01→20:12)
[2020-04-12] MEDS: INSULIN GLARGINE SOLOSTAR 100 UNITS/ML 3 ML PEN SC SCH ×2 (09:01→20:40)
[2020-04-12] MEDS: TOPIRAMATE 50 MG TAB PO SCH ×2 (09:01→20:11)
[2020-04-12] MEDS: CYANOCOBALAMIN 500 MCG TABLET (VITAMIN B-12) PO SCH (09:01)
[2020-04-12] MEDS: UMECLIDINIUM BROMIDE 62.5MCG/BLISTER 7 PUFFS/INHALER INH SCH (09:02)
[2020-04-12] MEDS: INSULIN ASPART 100 UNITS/ML 3 ML PEN SC SCH ×4 (09:04→20:41)
[2020-04-12] MEDS ORDERED: POTASSIUM CHLORIDE CRTAB 20 MEQ TABCR PO STA (09:20)
--- NOTE | 2020-04-12 10:15 | Gastrointestinal Consultation ---
Date of Consultation April 12, 2020 Assessment & Plan (1) Colonic mass: Plan for colonoscopy tomorrow to r/o malignancy, patient and his agrees. Clear liquids now and bowel prep today. History of Present Illness Attending Physician: Yamilka Macias MD 70 years old male patient with DM, HTN, presented to the hospital with chest spasm due to electrolytes imbalance, now resolved, imaging done for weight loss showed incidental 3 cm ascending colon mass, patient never had a colonoscopy in the past. Denies any nausea, vomiting, constipation or abdominal pain.Currently on ABx for possible bronchitis. Allergies Allergy/AdvReac Type Severity Reaction Status Date / Time loteprednol [From Lotemax] Allergy Severe MAKES EYE Verified 04/11/20 02:54 RED, ITCHY & SWELLING brinzolamide [From Simbrinza] AdvReac INFLAMED Verified 04/11/20 02:54 EYE Home Medications Home Medications Medication Instructions Recorded Confirmed Type PreserVision AREDS-2 1 tab PO BID 02/25/19 04/11/20 History cyanocobalamin (vitamin B-12) 1,000 mcg PO DAILY 05/08/19 04/11/20 History [Vitamin B-12] gabapentin 300 mg capsule 300 mg PO TID 30 Days #90 cap 06/14/19 04/11/20 Rx Azopt 1 drp OPR TID 10/26/19 04/11/20 History acetaminophen [Tylenol Extra 500 mg PO Q6H PRN 10/26/19 04/11/20 History Strength] timolol maleate [Timoptic] 1 drp OPR DAILY 10/26/19 04/11/20 History umeclidinium [Incruse Ellipta] 1 inh INHALATION QAM #1 inhaler 10/29/19 04/11/20 Rx lacosamide [Vimpat] 200 mg PO BID 04/11/20 04/11/20 History loteprednol etabonate 1 drp OPR DAILY 04/11/20 04/11/20 History topiramate [Topamax] 50 mg PO BID 04/11/20 04/11/20 History Patient History Medical History (Updated 04/12/20 @ 05:57 by Lorie Cooper, ) Anxiety Colonic mass Diabetes mellitus Lung nodule SMALL PER PT'S / JEFFREY MCGARRY/ 03/2019- NO TREATMENT CURRENTLY Macular degeneration BILAT Seizure Petit anisa, follows with Neurology at [facility] Tachycardia Unspecified convulsions Surgical History History of right cataract surgery History of tonsillectomy Family History Mother Stroke Sister Dementia Diabetes Grandmother Epilepsy Leukemia Cancer Myocardial infarction Grandfather Myocardial infarction Father Pulmonary embolism Other Family history non-contributory Social History Smoking Status: Former smoker Cigarettes Per Day: 20; Smoking End Date: 3 years ago; Second Hand Exposure: No; Hx Alcohol Use: Yes Alcohol type: wine Hx Substance Use: No Preferred Language: Italian Communication Ability: Effective 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 Beliefs That Will Affect Care: None marital status: Current Living Situation: Spouse Other Information That Helps Us Care for You: No Feels Safe at Home: Yes Safety Concerns: Feels Safe At This Time Assistive Devices: None Review of Systems Constitutional: + weight loss; no fever, no chills and no fatigue Eyes: no eye pain and no worsening vision Ear, Nose, Mouth, Throat: no tinnitus, no dizziness, no nasal discharge and no epistaxis Respiratory: no cough, no dyspnea, no dyspnea on exertion and no wheezing Cardiovascular: no chest pain, no orthopnea, no palpitations and no edema Gastrointestinal: as per Subjective / HPI Musculoskeletal: no stiffness and no myalgia Neurologic: no localized weakness, no paralysis, no tremor(s) and no headache(s) Endocrine: no polydipsia and no polyuria Hematologic / Lymphatic: no easy bleeding and no night sweats Physical Exam Constitutional: + well hydrated, cooperative and comfortable Eyes: PERRL, conjunctivae normal, anicteric sclerae ENMT: external ear and nose normal, oropharynx normal Neck: normal visual inspection and trachea midline Respiratory: normal respiratory effort, lungs clear to auscultation Auscultation: no wheezes Cardiovascular: RRR, no murmur, no edema Gastrointestinal (Abdomen): normal bowel sounds, soft, nontender, no hepatosplenomegaly Musculoskeletal: no cyanosis or clubbing, extremities motor strength 5/5 Skin: no rashes, warm and dry Neurologic: awake; no focal motor deficits Motor/Sensory: no tremor Results & Data ([facility]) Vital Signs (Past 12 Hours) Vital Signs Temp Pulse Pulse Resp BP BP Pulse Ox 04/12/20 07:00 36.5 C 85 18 103/49 L 91 04/12/20 02:53 77 04/12/20 00:10 67 04/11/20 23:04 37.0 C 88 74 20 121/76 92 Pulse Ox 04/12/20 07:00 04/12/20 02:53 95 04/12/20 00:10 90 04/11/20 23:04 92 Laboratory Results Laboratory Results - last 24 hr 04/11/20 04/11/20 04/11/20 08:56 08:56 08:56 Sodium 142 D Potassium Chloride Carbon Dioxide Anion Gap BUN Creatinine Est Cr Clr Drug Dosing Est GFR ( Amer) Est GFR (Non-Af Amer) BUN/Creatinine Ratio Glucose POC Glucose Estimat Average Glucose 258 Hemoglobin A1c 10.6 H Calcium Magnesium Urine Color Urine Appearance Urine pH Ur Specific [place] Urine Protein Urine Glucose (UA) Urine Ketones Urine Blood Urine Nitrite Urine Bilirubin Urine Urobilinogen Ur Leukocyte Esterase Lyme Disease IgG Ab Negative Lyme Disease IgM Ab Negative 04/11/20 04/11/20 04/11/20 11:37 16:45 19:00 Sodium Potassium Chloride Carbon Dioxide Anion Gap BUN Creatinine Est Cr Clr Drug Dosing Est GFR ( Amer) Est GFR (Non-Af Amer) BUN/Creatinine Ratio Glucose POC Glucose 160 H 211 H Estimat Average Glucose Hemoglobin A1c Calcium Magnesium Urine Color Yellow Urine Appearance Clear Urine pH 7.0 Ur Specific [place] > 1.045 H Urine Protein Negative Urine Glucose (UA) Trace H Urine Ketones 3+ H Urine Blood Negative Urine Nitrite Negative Urine Bilirubin Negative Urine Urobilinogen Negative Ur Leukocyte Esterase Negative Lyme Disease IgG Ab Lyme Disease IgM Ab 04/11/20 04/12/20 04/12/20 20:36 06:14 07:36 Sodium 142 Potassium 3.3 L Chloride 109 H Carbon Dioxide 26 Anion Gap 7.0 BUN 12 Creatinine 0.68 Est Cr Clr Drug Dosing 104.4 Est GFR ( Amer) 112.1 Est GFR (Non-Af Amer) 96.8 BUN/Creatinine Ratio 17.2 Glucose 142 H POC Glucose 194 H 167 H Estimat Average Glucose Hemoglobin A1c Calcium 8.7 Magnesium 2.0 Urine Color Urine Appearance Urine pH Ur Specific [place] Urine Protein Urine Glucose (UA) Urine Ketones Urine Blood Urine Nitrite Urine Bilirubin Urine Urobilinogen Ur Leukocyte Esterase Lyme Disease IgG Ab Lyme Disease IgM Ab
[2020-04-12] MEDS ORDERED: LAVAGE SOLUTION 4000ML PO ONE (16:00)
[2020-04-12] MEDS ORDERED: TROLAMINE SALICYLATE 10% CRM 255 APPLN/85 GM TUBE EXT PRN (17:03)
[2020-04-12] MEDS ORDERED: POTASSIUM CHLORIDE CRTAB 20 MEQ TABCR PO ONE (17:15)
--- NOTE | 2020-04-12 18:07 | Hospitalist Progress Note ---
Date of Service April 12, 2020 Assessment & Plan (1) Spasm: Presented with muscle spasms that were visible in the anterior chest wall and upper abdomen. Troponin negative serially, he did not present with acute coronary syndrome ECG without ischemic changes I witnessed the spasms today-seems to be similar to hiccups or spasms of the diaphragm. Most likely secondary to severe hyperglycemia and mild hypokalemia/electrolyte changes Was previously improved with IV fluid hydration and potassium replacement as well as controlled blood sugar, however have returned today and has hypokalemia again -Replace potassium and give IV magnesium 1 g x 1 -Consider baclofen but would discuss with his neurologist/epileptologist prior to starting such medication (2) Diabetes mellitus: No prior history of DM. Patient has had hyperglycemia before whilst on steroids. Denies polyuria/polydipsia/polyphagia/weight loss. FV=429 on admission. No AG This developed somewhat acutely but he did have some hyperglycemia when he was here back in the spring with blood sugars into the 180s Checked CT of the abdomen/pelvis to look at pancreas and no abnormality there, although with colon mass and pelvic sidewall lymphadenopathy as below Lipase is normal No family history of diabetes other than a maternal grandmother His reports he was on chronic prednisolone eyedrops for a while but was tapered off this a month ago. He otherwise is on Topamax and lacosamide which are both new in the last few months-Topamax should actually help improve blood sugars, and lacosamide is not known to cause hyperglycemia. Nonetheless, blood sugars are much improved now with starting insulin Discussed new onset diabetes with patient and his and my recommendation to start insulin upon discharge His hemoglobin A1c is significantly elevated at 10.7% With still with some hyperglycemia here today but not nearly as bad Continue Lantus 8 units SQ twice daily and will tighten down NovoLog sliding scale again today-would recommend once daily Lantus dosing upon discharge and starting Metformin at the time of discharge -Diabetes education consultation pending -Diabetic diet (3) COPD (chronic obstructive pulmonary disease): Hypoxic on arrival. No home O2 but has a history of hypoxia in the past as per review of previous hospitalizations CT angiogram of the chest negative for PE but shows severe emphysematous changes and scarring Has diminished breath sounds throughout on physical exam -Continue Incruse Ellipta inhaler -O2 as needed to keep pulse ox greater than 88-90%-is weaned to room air during the daytime -Albuterol as needed (4) Hypoxemia: As above. Improved with NC. No SOB/cough/wheeze -Supplemental O2 as needed to keep pulse ox greater than 88-90%-now weaned off O2 during the daytime -Nebs as needed -Will need two step prior to discharge to determine if needs oxygen at home (5) Colonic mass: Notable 3.1 cm mass-stool versus malignancy in the ascending colon as well as right pelvic sidewall lymphadenopathy on CT abdomen/pelvis here Concerning Patient has never had a colonoscopy but does deny any changes in bowel habits, no hematochezia, and no anemia on laboratory values here Consult GI appreciated-plan for colonoscopy tomorrow Of note, patient and his are adamant that anesthesia discuss which medications will be used for sedation during the colonoscopy with his neurologist at [facility] (6) Seizure: With a 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 Patient follows with Neurology at [facility] -Continue Topamax -Continue Vimpat -Continue Gabapentin (7) Macular degeneration: Chronic -Continue drops from home (8) Moderate obstructive sleep apnea: Noted, but is not on CPAP as he cannot tolerate overnight pulse oximetry performed here and he does qualify for home O2 Case management made aware-he will need home O2 prior to discharge for nocturnal use (9) Hypokalemia: Potassium low again today Replace with potassium chloride 40 mEq p.o. in the morning and another 20 mEq this afternoon Give IV magnesium 1 g x 1 Follow BMP and magnesium in the morning (10) DVT prophylaxis: Lovenox SQ-we will hold for colonoscopy in case of need for biopsy Code - Full Dispo -continued stay, possible discharge to home after colonoscopy versus staying till Monday Admission and Anticipated Discharge Date Admission Date: April 11, 2020 Subjective Patient continues to have spasms of what I believe are his diaphragm and the kind of make his upper body go backwards like a hiccup. He does agree that it feels like a hiccup. No radiation through to the back. This is requiring 4 hours this afternoon. He started his prep for his colonoscopy tomorrow. I spent 35 minutes discussing his care with him and his at the bedside. He denies shortness of breath or abdominal pain, no nausea or vomiting, otherwise no complaints. Review of Systems Review of Systems: All systems reviewed & are unremarkable except as noted in HPI & below Physical Exam Constitutional: average body habitus and cooperative; no acute distress Eyes: + eyelid abnormality (Mild right ptosis which is chronic as per ) and + anicteric sclerae; + abnormal visual field confrontation (Loss of central vision on the left) and no nystagmus Neck: trachea midline, no thyromegaly Respiratory: normal respiratory effort, lungs clear to auscultation Cardiovascular: RRR, no murmur, no edema Chest (Breasts): Chest: normal inspection of chest (No tenderness to palpation over anterior chest wall) Additional Comments: Witnessed heaving upwards and slightly backwards of the chest intermittently like a hiccup Gastrointestinal (Abdomen): normal bowel sounds, soft, nontender, no hepatosplenomegaly Musculoskeletal: Extremities: extremities normal to inspection; no cyanosis and no clubbing Skin: no rashes, warm and dry Neurologic: moves all extremities and awake; no focal motor deficits Psychiatric: A+Ox3, euthymic affect Lymphatic: no lymphedema Results & Data Results & Data ([facility]) Vital Signs (Past 12 Hours) Vital Signs Temp Pulse Resp BP Pulse Ox 04/12/20 15:00 36.8 C 86 18 145/87 H 93 04/12/20 07:00 36.5 C 85 18 103/49 L 91 Laboratory Results 04/12/20 04/12/20 04/12/20 Range/Units 16:41 12:03 07:36 Sodium (136-145) mmol/L Potassium (3.5-5.1) mmol/L Chloride (98-107) mmol/L Carbon Dioxide (21-32) mmol/L Anion Gap (3-11) BUN (7-18) mg/dl Creatinine (0.6-1.4) mg/dl Est Cr Clr Drug Dosing ml/min Est GFR ( Amer) Est GFR (Non-Af Amer) BUN/Creatinine Ratio (-20) Glucose (70-99) mg/dl POC Glucose 192 H 160 H 167 H (70-99) mg/dl Calcium (8.5-10.1) mg/dl Magnesium (1.8-2.4) mg/dl Urine Color Urine Appearance (Clear) Urine pH (4.5-7.5) Ur Specific [place] (1.000-1.030) Urine Protein (Negative) Urine Glucose (UA) (Negative) Urine Ketones (Negative) Urine Blood (Negative) Urine Nitrite (Negative) Urine Bilirubin (Negative) Urine Urobilinogen (Negative) Ur Leukocyte Esterase (Negative) 04/12/20 04/11/20 04/11/20 Range/Units 06:14 20:36 19:00 Sodium 142 (136-145) mmol/L Potassium 3.3 L (3.5-5.1) mmol/L Chloride 109 H (98-107) mmol/L Carbon Dioxide 26 (21-32) mmol/L Anion Gap 7.0 (3-11) BUN 12 (7-18) mg/dl Creatinine 0.68 (0.6-1.4) mg/dl Est Cr Clr Drug Dosing 104.4 ml/min Est GFR ( Amer) 112.1 Est GFR (Non-Af Amer) 96.8 BUN/Creatinine Ratio 17.2 (10-20) Glucose 142 H (70-99) mg/dl POC Glucose 194 H (70-99) mg/dl Calcium 8.7 (8.5-10.1) mg/dl Magnesium 2.0 (1.8-2.4) mg/dl Urine Color Yellow Urine Appearance Clear (Clear) Urine pH 7.0 (4.5-7.5) Ur Specific [place] > 1.045 H (1.000-1.030) Urine Protein Negative (Negative) Urine Glucose (UA) Trace H (Negative) Urine Ketones 3+ H (Negative) Urine Blood Negative (Negative) Urine Nitrite Negative (Negative) Urine Bilirubin Negative (Negative) Urine Urobilinogen Negative (Negative) Ur Leukocyte Esterase Negative (Negative) PG Care Time/CCT Total # of Minutes Spent Total Time Spent with Patient: Total time spent is greater than 50% in coordination of care (as documented) at patient's floor/unit and/or counseling patient: Coding Level of Care Code 85825 Subseq Hosp Care Lvl 3 Diagnoses Spasm R25.2 Diabetes mellitus E11.9 COPD (chronic obstructive pulmonary disease) J44.9 COPD type: unspecified COPD Hypoxemia R09.02 Colonic mass K63.89 Seizure R56.9 Macular degeneration H35.30 Macular degeneration type: unspecified type Eye laterality: unspecified Moderate obstructive sleep apnea G47.33 Hypokalemia E87.6 DVT prophylaxis Z29.9 (1) COPD (chronic obstructive pulmonary disease) COPD type: unspecified COPD Qualified Code(s): J44.9 - Chronic obstructive pulmonary disease, unspecified (2) Macular degeneration Macular degeneration type: unspecified type Eye laterality: unspecified Qualified Code(s): H35.30 - Unspecified macular degeneration
[2020-04-12] MEDS ORDERED: MAGNESIUM SULFATE / D5W 1 GM/100 ML BAG IV ONE (18:30)
[2020-04-12] MEDS ORDERED: bisacodyL 5 MG TABEC PO ONE (20:00)
--- NOTE | 2020-04-12 21:42 | Electrocardiogram Report ---
Test Reason : Blood Pressure : / mmHG Vent. Rate : 113 BPM Atrial Rate : 113 BPM P-R Int : 182 ms QRS Dur : 090 ms QT Int : 332 ms P-R-T Axes : 073 082 077 degrees QTc Int : 455 ms Sinus tachycardia with frequent Premature ventricular complexes Anterior infarct (cited on or before 22-SEP-2018) Abnormal ECG When compared with ECG of 26-OCT-2019 21:01, QRS axis Shifted right Confirmed by John Zuleta ([id number]) on 04/12/2020 9:42:07 PM Referred By: REFERRED SELF Confirmed By:John Zuleta
[2020-04-13 06:38] LABS: Basophils # (auto) 0.03 K/uL (0-0.2); Basophils % (auto) 0.2 %; Eosinophils % (auto) 0.8 %; Hematocrit (blood only) 47.6 % (42-52); Hemoglobin 16.1 g/dL (14.0-18.0); Immature Granulocytes # (auto) 0.04 K/uL (0.00-0.02); Immature Granulocytes % (auto) 0.3 %; Lymphocytes % (auto) 11.4 %; Mean Corpuscular Hemoglobin 31.8 pg (25-34); Mean Corpuscular Hgb Conc 33.8 g/dL (32-36); Mean Corpuscular Volume 94.1 fL (80-100); Mean Platelet Volume 11.4 fL (7.4-10.4); Monocytes % (auto) 5.7 %; Neutrophils % (auto) 81.6 %; Platelet Count 256 K/uL (130-400); RDW Coefficient of Variation 13.8 % (11.5-14.5); RDW Standard Deviation 47.1 fL (36.4-46.3); Red Blood Count 5.06 M/uL (4.7-6.1); White Blood Count 12.27 K/uL (4.8-10.8)
[2020-04-13 07:10] LABS: BUN Creatinine Ratio 9.6 (10-20); Est GFR (African American) 110.2; Est GFR (Non-African American) 95.1; Magnesium 2.2 mg/dl (1.8-2.4); Potassium 3.4 mmol/L (3.5-5.1)
[2020-04-13] MEDS: LACOSAMIDE 50 MG TABLET PO SCH ×2 (07:57→20:04)
[2020-04-13] MEDS: TOPIRAMATE 50 MG TAB PO SCH ×2 (07:58→20:03)
[2020-04-13] MEDS: CYANOCOBALAMIN 500 MCG TABLET (VITAMIN B-12) PO SCH (07:58)
[2020-04-13] MEDS: GABAPENTIN 300 MG CAP PO SCH ×3 (07:59→20:02)
[2020-04-13] MEDS: CEROVITE ADV FORMULA TAB PO SCH ×2 (07:59→20:03)
[2020-04-13] MEDS: UMECLIDINIUM BROMIDE 62.5MCG/BLISTER 7 PUFFS/INHALER INH SCH (07:59)
[2020-04-13] MEDS: BRINZOLAMIDE (AZOPT) OPS 10 ML BTL OPR SCH ×3 (08:00→20:01)
[2020-04-13] MEDS: TIMOLOL MALEATE 0.25% OP SOLN 5 ML BTL OPR SCH (08:00)
[2020-04-13] MEDS: INSULIN GLARGINE SOLOSTAR 100 UNITS/ML 3 ML PEN SC SCH ×2 (08:00→20:32)
[2020-04-13] MEDS: INSULIN ASPART 100 UNITS/ML 3 ML PEN SC SCH ×4 (08:01→20:33)
--- NOTE | 2020-04-13 08:56 | History & Physical Bridge Note ---
Date of Service April 13, 2020 History & Physical Bridge Note I have examined the patient, reviewed the History & Physical and in the interval since the performance of the History & Physical I have noted the following changes of clinical significance: no changes noted
--- NOTE | 2020-04-13 09:47 | Anesthesiology Consultation ---
Date of Service April 13, 2020 Assessment & Plan Chart Review Chart Review: Acceptable Risk for Surgery Consults Requested none History Surgery Operation Date: 04/13/20 16:00 Proposed Procedures p Colonoscopy Dr Foy - Julia Foy MD Height/Weight Height: 5 ft 10 in Weight: 77 kg Allergies Allergy/AdvReac Type Severity Reaction Status Date / Time loteprednol [From Lotemax] Allergy Severe MAKES EYE Verified 04/13/20 09:40 RED, ITCHY & SWELLING brinzolamide [From Simbrinza] AdvReac INFLAMED Verified 04/13/20 09:40 EYE Medications Home Medications Medication Instructions Recorded Confirmed Last Taken PreserVision AREDS-2 1 tab PO BID 02/25/19 04/11/20 04/10/20 cyanocobalamin (vitamin B-12) 1,000 mcg PO DAILY 05/08/19 04/11/20 04/10/20 [Vitamin B-12] gabapentin 300 mg capsule 300 mg PO TID 30 Days #90 cap 06/14/19 04/11/20 04/10/20 Azopt 1 drp OPR TID 10/26/19 04/11/20 04/10/20 acetaminophen [Tylenol Extra 500 mg PO Q6H PRN 10/26/19 04/11/20 Unknown Strength] timolol maleate [Timoptic] 1 drp OPR DAILY 10/26/19 04/11/20 04/10/20 umeclidinium [Incruse Ellipta] 1 inh INHALATION QAM #1 inhaler 10/29/19 04/11/20 04/10/20 lacosamide [Vimpat] 200 mg PO BID 04/11/20 04/11/20 04/10/20 loteprednol etabonate 1 drp OPR DAILY 04/11/20 04/11/20 04/10/20 topiramate [Topamax] 50 mg PO BID 04/11/20 04/11/20 04/10/20 Active Medications Generic Name Dose Route Start Last Admin Trade Name Freq PRN Reason Stop Dose Admin Acetaminophen 650 mg 04/11/20 06:09 04/12/20 14:46 Acetaminophen 325 Mg Tab PO 05/11/20 06:08 650 mg Q4H PRN Administration pain/fever Brinzolamide 1 drops 04/11/20 09:00 04/13/20 08:00 Brinzolamide (Azopt) Ops 10 Ml Btl OPR 05/11/20 08:59 1 drops TID JOSY Administration Cyanocobalamin 1,000 mcg 04/11/20 09:00 04/13/20 07:58 Cyanocobalamin 500 Mcg Tablet (Vitamin B-12) PO 05/11/20 08:59 1,000 mcg DAILY JOSY Administration Enoxaparin Sodium 40 mg 04/11/20 22:30 04/11/20 23:10 Enoxaparin Inj 40 Mg/0.4 Ml Syr SQ 05/11/20 22:29 40 mg HS JOSY Administration Gabapentin 300 mg 04/11/20 09:00 04/13/20 07:59 Gabapentin 300 Mg Cap PO 05/11/20 08:59 300 mg TID JOSY Administration Insulin Aspart 0 units 04/11/20 07:30 04/13/20 08:01 Insulin Aspart 100 Units/Ml 3 Ml Pen SC 05/11/20 07:29 3 units ACHS JOSY Administration Insulin Glargine 8 units 04/12/20 09:00 04/13/20 08:00 Insulin Glargine Solostar 100 Units/Ml 3 Ml Pen SC 05/12/20 08:59 8 units BID JOSY Administration Lacosamide 200 mg 04/11/20 09:00 04/13/20 07:57 Lacosamide 50 Mg Tablet PO 05/11/20 08:59 200 mg BID JOSY Administration Multivitamins/Minerals 1 tab 04/11/20 09:00 04/13/20 07:59 Cerovite Adv Formula Tab PO 05/11/20 08:59 1 tab BID JOSY Administration Timolol Maleate 1 drops 04/11/20 09:00 04/13/20 08:00 Timolol Maleate 0.25% Op Soln 5 Ml Btl OPR 05/11/20 08:59 1 drops DAILY JOSY Administration Topiramate 50 mg 04/11/20 09:00 04/13/20 07:58 Topiramate 50 Mg Tab PO 05/11/20 08:59 50 mg BID JOSY Administration Umeclidinium [place] 1 puffs 04/11/20 09:00 04/13/20 07:59 Umeclidinium [place] 62.5mcg/Blister 7 Puffs/Inhaler INH 05/11/20 08:59 1 puffs QAM JOSY Administration NPO Date Last Intake of Fluids: 04/12/20 Time Last Intake of Fluids: 21:00 Date Last Intake of Solids: 04/11/20 Time Last Intake of Solids: 17:00 Last Intake of Solids Comment: Pt is unsure Past Medical History Medical History Anxiety Colonic mass Diabetes mellitus Lung nodule SMALL PER PT'S / JEFFREY MCGARRY/ 03/2019- NO TREATMENT CURRENTLY Macular degeneration BILAT Seizure Petit mal, follows with Neurology at [facility] Tachycardia Unspecified convulsions Past Family History Family History Mother Stroke Sister Dementia Diabetes Grandmother Epilepsy Leukemia Cancer Myocardial infarction Grandfather Myocardial infarction Father Pulmonary embolism Other Family history non-contributory Past Surgical History Surgical History History of right cataract surgery History of tonsillectomy Social History Smoking Status: Former smoker tobacco type: cigarettes Smoking cigarettes per day: 20 Smoking End Date: 3 years ago Hx Alcohol Use: Yes Alcohol type: wine alcohol intake frequency: holidays/special occasions only Hx Substance Use: No substance use type: does not use Physical Exam Vital Signs Last Vital Signs Temp 37.8 C H 04/13/20 09:29 Pulse 64 04/13/20 09:29 Resp 18 04/13/20 09:29 BP 111/73 04/13/20 09:29 Pulse Ox 91 04/13/20 09:29 Testing Laboratory Results 04/13/20 05:58 04/13/20 05:58 PT 11.3 Seconds (9.0-12.0) 04/11/20 01:25 INR 1.1 (0.9-1.1) 04/11/20 01:25 Hemoglobin A1c 10.6 % (4.5-5.6) H 04/11/20 08:56 Urine Color Yellow 04/11/20 19:00 Urine Appearance Clear (Clear) 04/11/20 19:00 Urine pH 7.0 (4.5-7.5) 04/11/20 19:00 Ur Specific [place] > 1.045 (1.000-1.030) H 04/11/20 19:00 Urine Protein Negative (Negative) 04/11/20 19:00 Urine Glucose (UA) Trace (Negative) H 04/11/20 19:00 Urine Ketones 3+ (Negative) H 04/11/20 19:00 Urine Nitrite Negative (Negative) 04/11/20 19:00 Ur Leukocyte Esterase Negative (Negative) 04/11/20 19:00 04/11/20 04:00 Aerobic Blood Culture - Preliminary Blood No growth in Aerobic bottle after 48 hours. Anaerobic Blood Culture - Preliminary No growth in Anaerobic bottle after 48 hours. 04/11/20 01:25 Aerobic Blood Culture - Preliminary Blood No growth in Aerobic bottle after 48 hours. Anaerobic Blood Culture - Preliminary No growth in Anaerobic bottle after 48 hours. 04/13/20 07:37 POC Glucose 208 H
[2020-04-13] MEDS ORDERED: KETAMINE HCL INJ 50 MG/ML 10 ML VIAL ONE (09:53)
[2020-04-13] MEDS ORDERED: METHYLENE BLUE 0.5% 10 ML VIAL ONE (10:00)
[2020-04-13] MEDS ORDERED: GLUCAGON FOR INJ 1 MG VIAL ONE (10:24)
[2020-04-13] MEDS ORDERED: ENDOSCOPIC MARKER 5 ML SYR TOP ONE (10:26)
--- NOTE | 2020-04-13 10:51 | Hospitalist Progress Note ---
Date of Service April 13, 2020 Assessment & Plan (1) Diabetes mellitus: 70 yo M admitted to hospital for chest pain found to be secondary to muscle spasm, with new diagnosis of DM2 and colonic mass found on CT abd. Colonic Mass - colonoscopy with GI today showed : One 35 mm polyp in the distal ascending colon (removed). One 12 mm polyp in the transverse colon (removed). One 30 mm polyp in the rectum at 10 cm proximal to the anus(removed). Non-bleeding internal hemorrhoids. - waiting for pathology results, follow up c-scope in 6 months - advance diet from clear liquids as tolerated - hold NSAIDs - watch overnight to ensure return to baseline after anesthesia DM2 - Lantus 8 units BID - SSI - Dm2 diet, nursing educator consulted Hx Petite Mal Seizures - continue home regimen per [facility] - topamax 50 mg BID, Gabapentin 300 mg TID, vimpat 200 mg BID DVT: hold in setting of multiple polyp resections FEN/GI: clear fluids, advance as tolerated Dispo: Med/surg Code Status: Full COde (2) Seizure: (3) Colonic mass: (4) Spasm: Admission and Anticipated Discharge Date Admission Date: April 11, 2020 Supervising Physician Co-Signing Physician Notes I personally examined the patient and verified all [place]is points of history and exam, discussed case, and agree with decision making with . still fairly sedated post colo. no meaningful conversation when i see him vitals noted nad but lseeping heent nc at mmm breathing unlabored no accessory muscles good effort skin no rashes no pallor or icterus new dx DM - sugars reasonable, continue current care colon polyps - resected. given large area resected and ongoing post procedure sedation - keep into tomorrow and follow otherwise as above Subjective groggy after colonoscopy. unable to ask ROS. Review of Systems Review of Systems: Unobtainable due to cognitive status Physical Exam Physical Exam: const: sleeping comfortably curled up in bed card: RRR, no mrg pulm: CTA BL Results & Data Results & Data ([facility]) Vital Signs (Past 12 Hours) Vital Signs Temp Pulse Resp BP BP Pulse Ox 04/13/20 09:29 37.8 C H 64 18 111/73 91 04/13/20 07:11 36.9 C 85 18 131/88 91 04/12/20 23:31 36.8 C 69 20 151/75 H 91 Laboratory Results WBC 12.27 K/uL (4.8-10.8) H 04/13/20 05:58 RBC 5.06 M/uL (4.7-6.1) 04/13/20 05:58 Hgb 16.1 g/dL (14.0-18.0) 04/13/20 05:58 Hct 47.6 % (42-52) 04/13/20 05:58 MCV 94.1 fL (80-100) 04/13/20 05:58 MCH 31.8 pg (25-34) 04/13/20 05:58 MCHC 33.8 g/dL (32-36) 04/13/20 05:58 RDW Std Deviation 47.1 fL (36.4-46.3) H 04/13/20 05:58 RDW Coeff of Naty 13.8 % (11.5-14.5) 04/13/20 05:58 Plt Count 256 K/uL (130-400) 04/13/20 05:58 MPV 11.4 fL (7.4-10.4) H 04/13/20 05:58 Immature Gran % (Auto) 0.3 % 04/13/20 05:58 Neut % (Auto) 81.6 % 04/13/20 05:58 Lymph % (Auto) 11.4 % 04/13/20 05:58 [place] % (Auto) 5.7 % 04/13/20 05:58 Eos % (Auto) 0.8 % 04/13/20 05:58 Baso % (Auto) 0.2 % 04/13/20 05:58 Neut # (Auto) 10.00 K/uL (1.4-6.5) H 04/13/20 05:58 Lymph # (Auto) 1.40 K/uL (1.2-3.4) 04/13/20 05:58 [place] # (Auto) 0.70 K/uL (0.11-0.59) H 04/13/20 05:58 Eos # (Auto) 0.10 K/uL (0-0.5) 04/13/20 05:58 Baso # (Auto) 0.03 K/uL (0-0.2) 04/13/20 05:58 Immature Gran # (Auto) 0.04 K/uL (0.00-0.02) H 04/13/20 05:58 ESR 15 mm/hr (0-14) H 04/11/20 08:56 PT 11.3 Seconds (9.0-12.0) 04/11/20 01:25 INR 1.1 (0.9-1.1) 04/11/20 01:25 Sodium 141 mmol/L (136-145) 04/13/20 05:58 Potassium 3.4 mmol/L (3.5-5.1) L 04/13/20 05:58 Chloride 108 mmol/L (98-107) H 04/13/20 05:58 Carbon Dioxide 26 mmol/L (21-32) 04/13/20 05:58 Anion Gap 7.0 (3-11) 04/13/20 05:58 BUN 7 mg/dl (7-18) D 04/13/20 05:58 Creatinine 0.71 mg/dl (0.6-1.4) 04/13/20 05:58 Est Cr Clr Drug Dosing 100.0 ml/min 04/13/20 05:58 Est GFR ( Amer) 110.2 04/13/20 05:58 Est GFR (Non-Af Amer) 95.1 04/13/20 05:58 BUN/Creatinine Ratio 9.6 (10-20) L 04/13/20 05:58 Glucose 208 mg/dl (70-99) H 04/13/20 05:58 POC Glucose 179 mg/dl (70-99) H 04/13/20 13:15 Estimat Average Glucose 258 mg/dl 04/11/20 08:56 Hemoglobin A1c 10.6 % (4.5-5.6) H 04/11/20 08:56 Calcium 9.0 mg/dl (8.5-10.1) 04/13/20 05:58 Phosphorus 3.4 mg/dl (2.5-4.9) 04/11/20 08:56 Magnesium 2.2 mg/dl (1.8-2.4) 04/13/20 05:58 Total Bilirubin 0.3 mg/dl (0.2-1) 04/11/20 08:56 Direct Bilirubin 0.1 mg/dl (0-0.2) 04/11/20 08:56 AST 4 U/L (15-37) L 04/11/20 08:56 ALT 11 U/L (12-78) L 04/11/20 08:56 Alkaline Phosphatase 72 U/L (45-117) 04/11/20 08:56 Troponin I 0.035 ng/ml (0-0.045) 04/11/20 08:56 NT-Pro-B Natriuret Pep 100 pg/ml (0-900) 04/11/20 01:25 Total Protein 6.8 gm/dl (6.4-8.2) 04/11/20 08:56 Albumin 3.2 gm/dl (3.4-5.0) L 04/11/20 08:56 Globulin 4.2 gm/dl (2.5-4.0) H 04/11/20 01:25 Albumin/Globulin Ratio 0.8 (0.9-2) L 04/11/20 01:25 Lipase 251 U/L (73-393) 04/11/20 08:56 Vitamin B12 1211 pg/ml (211-911) H 04/11/20 08:56 Beta-Hydroxybutyric Acd 7.18 mg/dl (0.2-2.81) H 04/11/20 01:25 Procalcitonin < 0.05 ng/ml (0-0.5) 04/11/20 01:25 TSH 1.310 uIu/ml (0.300-4.500) 04/11/20 08:56 Urine Color Yellow 04/11/20 19:00 Urine Appearance Clear (Clear) 04/11/20 19:00 Urine pH 7.0 (4.5-7.5) 04/11/20 19:00 Ur Specific [place] > 1.045 (1.000-1.030) H 04/11/20 19:00 Urine Protein Negative (Negative) 04/11/20 19:00 Urine Glucose (UA) Trace (Negative) H 04/11/20 19:00 Urine Ketones 3+ (Negative) H 04/11/20 19:00 Urine Blood Negative (Negative) 04/11/20 19:00 Urine Nitrite Negative (Negative) 04/11/20 19:00 Urine Bilirubin Negative (Negative) 04/11/20 19:00 Urine Urobilinogen Negative (Negative) 04/11/20 19:00 Ur Leukocyte Esterase Negative (Negative) 04/11/20 19:00 Adenovirus (PCR) Not Detected (NotDetected) 04/11/20 01:35 B. pertussis DNA (PCR) Not Detected (NotDetected) 04/11/20 01:35 B.parapertussis DNA PCR Not Detected (NotDetected) 04/11/20 01:35 Lyme Disease IgG Ab Negative (Negative) 04/11/20 08:56 Lyme Disease IgM Ab Negative (Negative) 04/11/20 08:56 C. pneumoniae DNA (PCR) Not Detected (NotDetected) 04/11/20 01:35 Coronavirus OC43 (PCR) Not Detected (NotDetected) 04/11/20 01:35 Coronavirus HKU1 (PCR) Not Detected (NotDetected) 04/11/20 01:35 Coronavirus 229E (PCR) Not Detected (NotDetected) 04/11/20 01:35 COVID-19 PCR Not Detected (NotDetected) 04/11/20 01:35 Coronavirus NL63 (PCR) Not Detected (NotDetected) 04/11/20 01:35 Hepatitis C Ab Screen Neg (Neg) 04/11/20 01:25 Human Metapneumovir PCR Not Detected (NotDetected) 04/11/20 01:35 Influenza Type A (PCR) Not Detected (NotDetected) 04/11/20 01:35 Influenza Type B (PCR) Not Detected (NotDetected) 04/11/20 01:35 M. pneumoniae (PCR) Not Detected (NotDetected) 04/11/20 01:35 Parainfluenza 1 (PCR) Not Detected (NotDetected) 04/11/20 01:35 Parainfluenza 2 (PCR) Not Detected (NotDetected) 04/11/20 01:35 Parainfluenza 3 (PCR) Not Detected (NotDetected) 04/11/20 01:35 Parainfluenza 4 (PCR) Not Detected (NotDetected) 04/11/20 01:35 RSV (PCR) Not Detected (NotDetected) 04/11/20 01:35 Entero/Rhino (PCR) Not Detected (NotDetected) 04/11/20 01:35 Resident Activity Tracking Resident Involvement: Resident Care Provided Care Provided: Adult [facility] Medicine
--- NOTE | 2020-04-13 11:41 | Anesthesiology Progress Note ---
Date of Service April 13, 2020 Anesthesia Post Procedure Vital Signs Vital Signs: Temp Pulse Resp BP BP Pulse Ox 04/13/20 09:29 37.8 C H 64 18 111/73 91 04/13/20 07:11 36.9 C 85 18 131/88 91 04/12/20 23:31 36.8 C 69 20 151/75 H 91 04/12/20 15:00 36.8 C 86 18 145/87 H 93 Pain Intensity Bilateral Upper Anterior Chest: Pain Intensity: 4 Transfer of Care Handoff Completed per policy Notes Mental Status: alert / awake / arousable and participated in evaluation Patient Amnestic to Procedure: Yes Nausea / Vomiting: adequately controlled Pain: adequately controlled Airway Patency, RR, SpO2: stable & adequate BP & HR: stable & adequate Hydration State: stable & adequate Anesthetic Complications: no major complications apparent
--- NOTE | 2020-04-13 11:44 | GI REPORT ---
Patient Name: Ted Mcdonald Procedure Date: 04/13/2020 9:38 AM Date of : 1950 Admit Type: Inpatient Age: 70 Gender: Male Attending MD: Julia Foy MD Procedure: Colonoscopy Providers: Julia Foy MD Referring MD: Migue Agosto Indications: Abnormal CT of the GI tract Medicines: Propofol per Anesthesia Complications: No immediate complications. Estimated Blood Loss: Estimated blood loss: none. Procedure: Pre-Anesthesia Assessment: - Prior to the procedure, a History and Physical was performed, and patient medications, allergies and sensitivities were reviewed. The patient's tolerance of previous anesthesia was reviewed. - The risks and benefits of the procedure and the sedation options and risks were discussed with the patient. All questions were answered and informed consent was obtained. - Patient identification and proposed procedure were verified prior to the procedure by the physician and the nurse. The procedure was verified in the procedure room. - Pre-procedure physical examination revealed no contraindications to sedation. After I obtained informed consent, the scope was passed under direct vision. Throughout the procedure, the patient's blood pressure, pulse, and oxygen saturations were monitored continuously. The Scope was introduced through the anus and advanced to the terminal ileum. The colonoscopy was performed without difficulty. The patient tolerated the procedure well. The quality of the bowel preparation was good. The terminal ileum, ileocecal valve, appendiceal orifice, and rectum were photographed. Findings: The perianal and digital rectal examinations were normal. The terminal ileum appeared normal. A 35 mm polyp was found in the distal ascending colon near the hepatic flexure. The polyp was Carolyn classification Is (protruding, sessile) and non-granular lateral spreading and found to be Kudo Pit Pattern Type V (as viewed with Narrow Band Imaging). Preparations were made for mucosal resection. Chromoscopy with methylene blue using irrigation chromoendoscopy technique was done to constance the borders of the lesion. 25 mL of saline with methylene blue was injected with adequate lift of the lesion from the muscularis propria. Snare mucosal resection with Douglas net retrieval was performed. Two pieces were resected in total. Resection and retrieval were complete. Coagulation for tissue destruction using snare was successful at the edges. To close a defect after mucosal resection, six hemostatic clips were successfully placed (MR conditional). There was no bleeding at the end of the procedure. Area was tattooed with an injection of 4 mL of Spot (carbon black). Verification of patient identification for the specimen was done by the physician and nurse using the patient's name and date. A 12 mm polyp was found in the transverse colon. The polyp was flat. The polyp was removed with a hot snare. Resection and retrieval were complete. A 30 mm polyp was found in the rectum at 10 cm proximal to the anus. The polyp was Carolyn classification Is (protruding, sessile) and non-granular lateral spreading and found to be [place]udo Pit Pattern Type V (as viewed with Narrow Band Imaging). Preparations were made for mucosal resection. Chromoscopy with methylene blue using irrigation chromoendoscopy technique was done to constance the borders of the lesion. 15 mL of saline with methylene blue was injected with adequate lift of the lesion from the muscularis propria. Snare mucosal resection with Douglas net retrieval was performed. Two pieces were resected in total. Resection and retrieval were complete. Coagulation for tissue destruction using snare was successful at the edges. To close a defect after mucosal resection, five hemostatic clips were successfully placed. Non-bleeding internal hemorrhoids were found during retroflexion. The hemorrhoids were small. Impression: - The examined portion of the ileum was normal. - One 35 mm polyp in the distal ascending colon, removed with mucosal resection. Resected and retrieved. Clips (MR conditional) were placed. Tattooed. - One 12 mm polyp in the transverse colon, removed with a hot snare. Resected and retrieved. - One 30 mm polyp in the rectum at 10 cm proximal to the anus, removed with mucosal resection. Resected and retrieved. Clips were placed. - Non-bleeding internal hemorrhoids. Recommendation: - Return patient to hospital [facility] for ongoing care. - Await pathology results. - Repeat colonoscopy in 6 months for surveillance. - Clear liquid diet today, then advance as tolerated to soft diet for 3 days. - No aspirin, ibuprofen, naproxen, or other non-steroidal anti-inflammatory drugs for 5 days. Julia Foy MD 04/13/2020 11:44:26 AM This report has been signed electronically. Note Initiated On: 04/13/2020 9:38 AM Number of Addenda: 0 I attest to the content of the Intraoperative Record and orders documented therein, exceptions below {[id number]}
[2020-04-13] MEDS ORDERED: PROPOFOL IV EMULSION 10 MG/ML 20 ML VIAL IV ONE (13:29)
[2020-04-13] MEDS ORDERED: MELATONIN 3 MG TAB PO PRN (18:28)
--- NOTE | 2020-04-13 18:34 | Billing Data ---
Date of Service April 13, 2020 Coding Level of Care Code 56322 Subseq Hosp Care Lvl 2
[2020-04-14 00:33] LABS: Rapid Plasma Reagin Nonreactive (Nonreactive)
[2020-04-14] MEDS: INSULIN ASPART 100 UNITS/ML 3 ML PEN SC SCH ×2 (08:19→12:46)
[2020-04-14] MEDS: INSULIN GLARGINE SOLOSTAR 100 UNITS/ML 3 ML PEN SC SCH (08:19)
[2020-04-14] MEDS: UMECLIDINIUM BROMIDE 62.5MCG/BLISTER 7 PUFFS/INHALER INH SCH (08:20)
[2020-04-14] MEDS: GABAPENTIN 300 MG CAP PO SCH ×2 (08:20→12:47)
[2020-04-14] MEDS: TOPIRAMATE 50 MG TAB PO SCH (08:20)
[2020-04-14] MEDS: BRINZOLAMIDE (AZOPT) OPS 10 ML BTL OPR SCH ×2 (08:20→12:47)
[2020-04-14] MEDS: TIMOLOL MALEATE 0.25% OP SOLN 5 ML BTL OPR SCH (08:20)
[2020-04-14] MEDS: CYANOCOBALAMIN 500 MCG TABLET (VITAMIN B-12) PO SCH (08:20)
[2020-04-14] MEDS: CEROVITE ADV FORMULA TAB PO SCH (08:20)
[2020-04-14] MEDS: LACOSAMIDE 50 MG TABLET PO SCH (08:20)
--- NOTE | 2020-04-14 09:28 | Hospitalist Progress Note ---
Date of Service April 14, 2020 Assessment & Plan (1) Diabetes mellitus: 70 yo M admitted to hospital for chest pain found to be secondary to muscle spasm, with new diagnosis of DM2 and colonic mass found on CT abd. Colonic Mass - colonoscopy with GI today showed : One 35 mm polyp in the distal ascending colon (removed). One 12 mm polyp in the transverse colon (removed). One 30 mm polyp in the rectum at 10 cm proximal to the anus(removed). Non-bleeding internal hemorrhoids. - waiting for pathology results, follow up c-scope in 6 months - advance diet from clear liquids as tolerated - hold NSAIDs - watch overnight to ensure return to baseline after anesthesia DM2 - Lantus 8 units BID - SSI - Dm2 diet, global program director consulted Hx Petite Mal Seizures - continue home regimen per [facility] - topamax 50 mg BID, Gabapentin 300 mg TID, vimpat 200 mg BID DVT: hold in setting of multiple polyp resections FEN/GI: clear fluids, advance as tolerated Dispo: Med/surg Code Status: Full COde (2) Seizure: (3) Colonic mass: (4) Spasm: Admission and Anticipated Discharge Date Admission Date: April 11, 2020 Results & Data Results & Data ([facility]) Vital Signs (Past 12 Hours) Vital Signs Temp Pulse Pulse Resp BP Pulse Ox 04/14/20 07:30 37.3 C 81 18 125/69 91 04/13/20 21:50 72 18 110/53 L 92
--- NOTE | 2020-04-14 09:30 | Gastroenterology Progress Note ---
Date of Service April 14, 2020 Assessment & Plan (1) Colonic mass: Pt is a 70 y/o s/p colonoscopy w EMR of colon polyps. Doing well overnight w/o signs of abd pain, n/v, rectal bleeding. - Advance diet as tolerated - No contraindication for DC home - Repeat colonoscopy in 6 month's time - Avoid NSAIDs, high doses ASA x 5 days Admission and Anticipated Discharge Date Admission Date: April 11, 2020 Supervising Physician Co-Signing Physician Notes I performed a history and physical examination of the patient today, including specifically on physical exam - soft abdomen. I have discussed the patient's management with the advanced practitioner. Please refer to the nurse practitioner's note for the documented findings and plan of care. No rectal bleeding, doing well. Recall Gi if needed. Subjective Pt did well overnight, denies abd pain, n/v. Small amt of stool this AM w/o re ctal bleeding. Tolerating CL diet well. Review of Systems Review of Systems: All systems reviewed & are unremarkable except as noted in HPI & below Physical Exam Constitutional: WD/WN, vitals as above well groomed, cooperative and comfortable Eyes: PERRL, conjunctivae normal, anicteric sclerae ENMT: external ear and nose normal, oropharynx normal Respiratory: normal respiratory effort; no respiratory distress and does not use accessory muscles Gastrointestinal (Abdomen): Inspection/Auscultation: abdomen not distended Percussion/Palpation: abdomen soft Skin: no rashes, warm and dry Psychiatric: A+Ox3, euthymic affect Lymphatic: no lymphedema Results & Data ([facility]) Vital Signs (Past 12 Hours) Vital Signs Temp Pulse Pulse Resp BP Pulse Ox 04/14/20 07:30 37.3 C 81 18 125/69 91 04/13/20 21:50 72 18 110/53 L 92
--- NOTE | 2020-04-14 17:12 | Discharge Summary ---
Date of Service April 14, 2020 Admission HPI Per Admitting Provider 70yo male presenting with substernal chest discomfort - squeezing sensation with visible muscle contractions and spasm. Symptoms began last evening after taking his medications, has been increasing in severity. No associated palpitations, SOB, cough, nausea, vomiting, diarrhea or constipation Patient has been having dizziness, disorientation and imbalance. Currently working with Neurology from [facility] [place] to adjust medications. Dr. Vinicius Warren [phone] (Neuro) Poor appetite. No polyuria/polydipsia/polyphagia. On arrival to the ER he was found to be tachycardic, hypoxic 87% on room air ER Course: Ceftriaxone, Doxycycline, NSS Admission Exam Per Admitting Provider General: patient resting comfortably, NAD, non-toxic in appearance, AA&O x 4 Skin: warm, dry, intact, no rashes or lesions HEENT: NC/AT, PERRL, EOMI, anicteric sclera, conjunctiva without injection, external ear normal to inspection and nontender, nares patent, moist mucus membranes, dentition intact, no oropharyngeal lesions, neck supple, trachea midline, no LAD, no thyromegaly, no JVD Heart: +S1/S2, regular, tachycardic with frequent ectopy, no m/r/g Lungs: equal air entry bilaterally, no rales/rhonchi/wheezes Abd: +BS, soft, NT/ND, no masses/organomegaly/ascites Ext: warm, 2+ pulses in UE/LE bilaterally, no clubbing/cyanosis or edema Neuro: nonfocal, patient AA&O x 4, speech intact, no facial droop, moving all extremities on command with equal strength 5/5 Principal Diagnosis new dx DM Discharge Exam Constitutional: thin, in no apparent distress, sitting comfortably in bed. Eyes: EOMI, pupils equal and reactive bilaterally, no scleral icterus Cardiac: RRR, no murmurs, gallops or rubs. Normal S1, S2 Pulm: CTA BL, no wheezes, rhonchi, crackles or rubs, moving air well throughout both lungs Abd: soft, nontender, nondistended, normal bowel sounds, no rebound or guarding Extremities: 2+ peripheral pulses, no edema Neuro: no focal deficits, moving all 4 limbs, A&Ox3 Discharge Data Allergies Allergy/AdvReac Type Severity Reaction Status Date / Time loteprednol [From Lotemax] Allergy Severe MAKES EYE Verified 04/13/20 09:40 RED, ITCHY & SWELLING brinzolamide [From Simbrinza] AdvReac INFLAMED Verified 04/13/20 09:40 EYE Consultations 04/11/20 03:44 ED Decision to Admit Stat 04/11/20 14:59 Consult Gastroenterology Routine Procedures Performed Operation Date: 04/13/20 16:00 Actual Procedures p Colonoscopy Polypectomy - Julia Foy MD s Colonoscopy Hemostasis - Julia Foy MD Ordered Studies 04/11/20 08:36 CT abd pelvis IV con only Urgent CT angio chest PE protocol Stat Diabetes Follow up Diabetes Follow-up Needed for Newly Diagnosed Diabetes Hospital Course (1) Diabetes mellitus: 70 yo M admitted to hospital for chest pain found to be secondary to muscle spasm with negative cardiac workup, with new diagnosis of DM2 and colonic mass found on CT abd. Colonic Mass - CT abd: 1. 3.1 cm round lesion within the mid ascending colon. Although this could reflect stool, the appearance is suspicious for a polyp or mass. GI consultation for consideration for colonoscopy is recommended. 2. Prominent right pelvic sidewall lymph node. This is indeterminate and a follow-up CT in 3 months to ensure stability is recommended. 3. Moderate enlargement of the prostate. 4. Small layering bladder calculi. No ureteral calculi. No hydronephrosis. 5. No bowel obstruction. - colonoscopy with GI showed : One 35 mm polyp in the distal ascending colon (removed). One 12 mm polyp in the transverse colon (removed). One 30 mm polyp in the rectum at 10 cm proximal to the anus(removed). Non-bleeding internal hemorrhoids. - waiting for pathology results, follow up c-scope in 6 months New Diagnosis of DM2 - A1c 10.6 - relatively controlled with 8 units of Lantus BID in hospital. - Discharge regimen: 16 u Lantus at bedtime, metformin 500 daily. sent home with script for test strips, needles and lancets. - Extensive discussion regarding diet changes to allow better sugar control to prevent cardiac events in future. All other medical conditions managed per home regimen. (2) Seizure: (3) Colonic mass: (4) Spasm: Total Time Total Time Spent Total Time Spent (In Minutes): <30 Discharge Plan Discharge Items Patient Disposition: Home - Self-Care Reason For Visit: CHEST SPASM Discharge Diagnosis: Chest pain, DM2, colonic mass Activity: Resume your previous activity Non-emergency contact: Primary Care Provider and Storm Chaser Call non-emergency contact if: you have any medication questions, your symptoms worsen and your temperature is above 101 Follow-up/Referrals: Migue Day MD [Primary Care Provider] - (04/17 12:50 PM Analia Saucedo. with Dr. Jay) Diet: Carb Consistent or DM2 and Heart Healthy Addtl Attending Provider Instructions: You were in hospital for chest pain and was found to be due to skeletal strain and your underlying lung disease. CT scan of your chest and abdomen were done due to concern for recent weight loss and elevated blood sugars. Chest CT found severe seen up otherwise no other acute issues. CT abdomen did find multiple polyps or masslike lesions; Future colonoscopy performed. The industrial analyst was able to remove for several polyps that were sent for pathology. They recommended have a follow-up colonoscopy in 6 months. While in the hospital your blood sugar was found to be elevated with an A1c of 10 which diagnosed you with type 2 diabetes. A Diabetic sales representative education courses spoke to you regarding medications and lifestyle management changes to make going forward to prevent heart attacks and strokes from uncontrolled blood sugars. You were started on insulin during hospital stay and will continue to be on this going home for proper blood sugar control. Metformin was also started during your hospital stay and will be a once a day medication to help also control your blood sugar. There was also some concern for you having sleep apnea, or intermittent episodes of not breathing while sleeping, for which a sleep study was ordered for you to complete after hospital discharge on 04/16. If you have any dizziness, trouble standing, chest pain, confusion, bloody bowels or dark black bowel movements, return to the emergency department or seek out your primary care physician for care. You have a follow up appointment with Dr. Jay at the [facility] [address] [place] office on 04/17 at 12:50 pm to discuss your hospital stay. New Medications: Lantus Solostar (Long acting insulin injection) - daily at bedtime, 16 units Metformin (daily pill) - 500 mg daily with food Pending Studies at Discharge: Yes (colon polyp pathology) Stand-Alone Forms: My [facility], Smoking Cessation Medications and DC Order Prescriptions: New Lantus Solostar U-100 Insulin 100 unit/mL (3 mL) Insulin Pen 16 unit SC DAILY 30 Days Qty: 4.8 RF: 0 metformin 500 mg tablet 500 mg PO DAILY Qty: 30 RF: 0 (DME) OneTouch Verio test strips Strip See Rx Instructions .ROUTE .MEDSUPPLY Qty: 50 RF: 0 (DME) lancets [OneTouch Delica Lancets] 30 gauge misc See Rx Instructions .ROUTE .MEDSUPPLY Qty: 100 RF: 0 (DME) pen needle, diabetic [Pen Needle] 32 gauge x 5/32" needle See Rx Instructions .ROUTE .MEDSUPPLY Qty: 50 RF: 0 Continued gabapentin 300 mg capsule 300 mg PO TID 30 Days Qty: 90 RF: 5 PreserVision AREDS-2 [id number] Capsule 1 tab PO BID RF: 0 Azopt 1 % drops,suspension 1 drp OPR TID RF: 0 acetaminophen [Tylenol Extra Strength] 500 mg Tablet 500 mg PO Q6H PRN (Reason: Pain) RF: 0 timolol maleate [Timoptic] 0.5 % drops 1 drp OPR DAILY RF: 0 Incruse Ellipta 62.5 mcg/actuation Blister With Device 1 inh inhalation QAM Qty: 1 RF: 6 loteprednol etabonate 0.5 % drops,suspension 1 drp OPR DAILY RF: 0 topiramate [Topamax] 50 mg Tablet 50 mg PO BID RF: 0 Vimpat 100 mg Tablet 200 mg PO BID RF: 0 cyanocobalamin (vitamin B-12) [Vitamin B-12] 1,000 mcg Tablet 1,000 mcg PO DAILY RF: 0 Discharge Orders: Discharge Order (Routine); Ordered 04/14/20 Ordered By: Christopher Truong/Other Patient Handouts: High Blood Sugar (Hyperglycemia), Hypoglycemia (Low Blood Sugar), Managing Type 2 Diabetes, Diabetes: Meal Planning Admission Data Admit Date/Time: 04/11/20 04:53 Attending Provider: Luis Hillman Admit Provider: Antoinette Dye Primary Care Provider: Migue Day Other Providers: Antoinette Dye ; Julia Foy ; Abby Gupta ; Yamilka Macias Other Interventions: Discharge Summary Assessment (RN) Last Done: 04/14/20 13:10 Supervising Physician Co-Signing Physician Notes I personally examined the patient and verified all solis points of history and exam, discussed case, and agree with decision making with . feeling ok ready to go home, discussed plans w pt and . answered all questions to the best of my ability vitals noted nad heent nc at mmm breathing unlabored no accessory muscles good effort skin no rashes no pallor or icterus new dx DM - safe for home, discussed diet/critical importance of diet in control of DM. actually has DM and has worked on improving diet with success so understands. home on lantus and metformin, close f/u colon polyps - resected. no bleeding since. stable for home otherwise as above Resident Activity Tracking Resident Involvement: Resident Care Provided Care Provided: Adult Hospital Medicine
--- NOTE | 2020-04-14 17:39 | Billing Data ---
Date of Service April 14, 2020 Coding Level of Care Code D/C Day Management <30 mins
--- NOTE | 2020-04-28 09:07 | Coding Query ---
To promote full compliance with coding requirements relating to patient care, provider participation is requested in all cases of pulverizer uncertainty. Please assist us with the question(s) below: Coding Question(s): The diagnosis below was documented in the (pulverizer fill out source document ie H&P, progress notes, etc.) then subsequently fell off all further documentation. Please indicate if it is still a possible diagnosis or ruled out. Physician's Response(s): PNEUMONIA (documented on ER with documentation of, "Patient started on antibiotics as a precaution for likely community-acquired pneumonia") ( ) Diagnosed and POA ( ) Diagnosed and not POA ( x ) Ruled out ( ) Other (please specify) MTDD
--- NOTE | 2020-04-28 09:12 | Coding Query ---
CODING QUERY To promote full compliance with coding requirements relating to patient care, provider participation is requested in all cases of educational therapy teacher uncertainty. Please assist us with the question(s) below: Coding Question(s): There is documentation of COPD and documentation of CT angiogram of the chest negative for PE but shows severe emphysematous changes and scarring. Please specify below, in your clinical opinion. 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 ( ) Patient has COPD without Emphysema ( ) Other: Please Specify Physician's Response(s): Thank you Vonnie Love Principal Diagnosis: "that condition established after study, to be chiefly responsible for occasioning the admission of the patient to the hospital for care." Co-Existing Principal Diagnosis: "when two or more diagnoses equally meet the criteria for principal diagnosis as determined by the circumstances of admission, diagnostic work up, and/or therapy provided, and the Alphabetic Index, Tabular List, or another coding guideline does not provide sequencing direction, any one of the diagnoses may be sequenced first." "When the physician has documented what appears to be a current diagnosis in the body of the record, but has not included the diagnosis in the final diagnostic statement, the physician should be asked whether the diagnosis should be added." (Source Coding Clinic 2 QTR90. p3-4) BASSEM
== END 2020-04-14 17:07 | disposition home or self-care (01) | DRG 639 ==
LOC: ED 00:54 → SUATTDRO 04:53 → 2N 04:53 → UNDODISIN 04-13 12:55

== ENCOUNTER 2020-05-01 23:46 | Inpatient (IN) ==
[2020-05-02 00:19] LABS: Basophils # (auto) 0.03 K/uL (0-0.2); Basophils % (auto) 0.3 %; Eosinophils # (auto) 0.07 K/uL (0-0.5); Eosinophils % (auto) 0.7 %; Hemoglobin 16.6 g/dL (14.0-18.0); Immature Granulocytes # (auto) 0.02 K/uL (0.00-0.02); Immature Granulocytes % (auto) 0.2 %; Lymphocytes # (auto) 1.36 K/uL (1.2-3.4); Lymphocytes % (auto) 14.5 %; Mean Corpuscular Hgb Conc 31.9 g/dL (32-36); Mean Corpuscular Volume 100.2 fL (80-100); Mean Platelet Volume 10.9 fL (7.4-10.4); Monocytes # (auto) 0.76 K/uL (0.11-0.59); Monocytes % (auto) 8.1 %; Neutrophils # (auto) 7.13 K/uL (1.4-6.5); Neutrophils % (auto) 76.2 %; Platelet Count 285 K/uL (130-400); RDW Coefficient of Variation 14.9 % (11.5-14.5); RDW Standard Deviation 54.3 fL (36.4-46.3); Red Blood Count 5.19 M/uL (4.7-6.1); White Blood Count 9.37 K/uL (4.8-10.8)
[2020-05-02 00:24] LABS: Base Excess VBG -1.3 mEq/L; Oxygen Saturation VBG 78.8 %; pH VBG 7.09 (7.36-7.41)
[2020-05-02 00:29] LABS: iSTAT Ionized Calcium 1.23 mmol/l (1.12-1.32); iSTAT Potassium 4.4 mmol/L (3.3-5.0)
[2020-05-02] MEDS ORDERED: RAPID SEQUENCE INDUCTION BAG ONE (00:29)
[2020-05-02 00:34] LABS: INR 1.1 (0.9-1.1); Prothrombin Time 11.6 Seconds (9.0-12.0)
[2020-05-02] MEDS ORDERED: STAT IV Infusion **Titration per Protocol STA ×3 (00:40→05:12)
[2020-05-02] MEDS: propofoL 1,000 MG/100 ML VIAL IV SCH ×2 (00:44→14:06)
[2020-05-02] MEDS: PROPOFOL IV EMULSION 10 MG/ML 100 ML VIAL IV ONE ×2 (00:44→01:08)
[2020-05-02] MEDS: PROPOFOL BOLUS FROM BAG IV PRN ×2 (01:02→01:26)
[2020-05-02] MEDS ORDERED: PIPERACILL/TAZOBAC CONSULT ACTIVE PRN ×2 (01:04→03:42)
[2020-05-02] MEDS ORDERED: SODIUM CHLORIDE 0.9% 1000ML 1,000 ML IV ONE ×2 (01:04→01:51)
[2020-05-02] MEDS ORDERED: VANCOMYCIN HCL 1,500 MG in SODIUM CHLORIDE 0.9% 500 ML IV ONE (01:04)
[2020-05-02] MEDS ORDERED: PIPERACILLIN/TAZOBACTAM 4.5 GM/120 ML BAG IV ONE (01:04)
[2020-05-02] MEDS ORDERED: VANCOMYCIN CONSULT ACTIVE PRN ×2 (01:04→03:42)
[2020-05-02 01:05] LABS: Alanine Aminotransferase 43 U/L (12-78); Albumin Level 3.3 gm/dl (3.4-5.0); Alkaline Phosphatase 73 U/L (45-117); Aspartate Aminotransferase 30 U/L (15-37); BUN Creatinine Ratio 11.1 (10-20); Bilirubin Direct 0.1 mg/dl (0-0.2); Bilirubin,Total 0.3 mg/dl (0.2-1); Blood Urea Nitrogen 13 mg/dl (7-18); Carbon Dioxide 34 mmol/L (21-32); Chloride 104 mmol/L (98-107); Creatine Kinase 38 U/L (39-308); Est GFR (African American) 75.1; Est GFR (Non-African American) 64.8; Glucose 310 mg/dl (70-99); Lipase 299 U/L (73-393); Magnesium 2.4 mg/dl (1.8-2.4); Potassium 4.1 mmol/L (3.5-5.1); Sodium 139 mmol/L (136-145); Total Protein 7.5 gm/dl (6.4-8.2)
--- NOTE | 2020-05-02 01:08 | Emergency Department Note ---
Impression & Plan Acute respiratory failure, Altered mental status, Right lower lobe pneumonia ED Provider Note Name: LULI CALDERON Age: 70 Sex: M Arrives Via: Ambulance Informant: EMS, ED Provider: Elcieo Dominguez MD Chief Complaint: AMS Impression: Acute Respiratory Failure Altered Mental Status Right Lower Lobe Pneumonia Medical Decision Makin yr old male with history COPD, DMII, TBI with seizures, arrives via EMS for acute mental status deterioration. Apparently fall earlier in day witnessed by and since then he has been tired and a bit irritable. This went along with a cough for the last few days. This evening at dinner he fell asleep on the t able, was difficult to wake up and then rapidly had worse confusion. EMS brought him in on O2 as sats in 70s at home. BSG moderately elevated on arrival and patient is not breathing very deeply. Rapidly sent to CT which was unremarkable though on return back to room he is essentially not breathing and requiring BVM. notes she wishes him to be full code and that was what he was on previous visit. He was emergently intubated by me without difficulty. Placed on Propofol gtt. CXR with RLL infiltrate, though no fever nor wbc elevation would suspect infectious in origin and empiric abx started as cultures already obtained. Noted some bucking vent thus up on propofol and then some abnormal twitching noted in legs. This was associated with some tachycardia and though possibly requiring further sedation vs underlying seizure activity. Given small dose Fentanyl/Versed with improvement. Shortly there-after pressures dropped. At this time second 1 L IV fluids started along with the IV fluids from zosyn/vanco. BP starting to trend up some, and MAP looking OK. Unclear if sepsis as cause or medication, though he was getting his 30ml/kg IV fluids with fluids thus far at this time. ICU at bedside and aware and plan to continue monitoring pressures closely over there as currently holding stable. Discussed further imaging and will get CT chest en route to ICU. Otherwise elev ated BSG which may be stress response and with normal bicarb suspect not DKA. He is quite acidotic though this seems likely respiratory failure in nature rather than DKA related. Patient with recent hospitalization, +pneumonia, +respiratory failure requiring intubation, thus rapid covid testing done which was negative. Prior Medical Record and Triage/Nursing Notes reviewed by Me Additional history obtained from chart and Differentials:Reactive airway disease, pneumonia, pneumothorax, COPD, CHF, infections, cardiac ischemia, pulmonary embolism, musculoskeletal, gastrointestinal, as well as other pathologies. Vital Signs: reviewed and remarkable for hypoxia Interventions: Saline lock, zosyn iv, vanco iv, nss bolus 2 L (+vanco fluids), propofol Labs:Reviewed and remarkable for acidosis, hyperglycemia Imaging:X ray results are stated below per my interpretation: Chest: 1 view: ET tube a bit high (advanced 2 cm), RLL infiltrate EKG:Per My Interpretation: Indication AMS: Sinus tach 104 bpm, qtc 481. PVCs noted. No Ischemia. Compared to EKG 04/11/20, no significant changes. Cardiac/Tele Monitoring: Cardiac Monitoring: An Order was placed for continuous cardiac monitoring. The monitor shows a rate of 100 with a normal sinus rhythm. Consults:Dr Althea PHELAN Hospitalist, Allan Mcgrath PA-C CCM Plan: Disposition:Hospitalization. Referred to: PCP Condition: Poor Prescriptions:None PDMP: n/a History of Present Illness:70 yr old male arrives for evaluation of altered mental status. Patient with recent hospitalization for chest pains found to be hyperglycemic and discharged home with DMII and monitoring at home for the last 3 weeks. Today with morning labs done. notes patient a bit more tired throughout the day than usual with decreased appetite. This evening at dinner severe exhaustion and fell asleep at the table. Worsening confusion and exhaustion to point where could barely wake him. She notes that EMS contacted when minimally responding to name. She admits he has been short of breath with cough and runny nose the last few days. Denies fevers, chills, syncope, nausea, vomiting, complaints of pain, urinary symptoms, focal weakness, nor other symptoms. Notes he has seizure history and that this is nothing like previous seizures. Has missed no medications other than night time meds to night. Nothing seemed to be making symptoms better nor worse. She notes he did fall down to the ground while walking this morning which she attributed to slipping and denies him hitting head nor getting knocked out. ROS: See above HPI for pertinent positives & negatives. A total of 10 systems reviewed and were otherwise negative. Past Medical History:Seizures, COPD, TIM, DMII, Macular Degeneration Past Surgical History:Tonsillectomy, Cataracts Family History:See Below Social History:See Below Home Medications:Eye drops, gabapentin, inhalers, insulin, metformin, topamax, vimpat Allergies:loteprednol, simbrinza Vitals:Blood Pressure: 133/98, Pulse 118, RR 22, T 36.4C, O2 100% on 100% Ambu Physical Exam: GENERAL: Patient is severely unwell appearing and obtunded EYES: No scleral icterus, unremarkable pupils. ENT: Mucous membranes moist, no nasal congestion. NECK: No masses appreciated, nomeningismus, trachea is midline. RESPIRATORY: Mild crackles bilaterally, poor respiratory status with shallow respirations, faint distal wheezing CARDIOVASCULAR: mild tachy.No murmurs, rubs, gallops appreciated. GASTROINTESTINAL: Abdomen soft, non-tender, no peritonitis.Bowel sounds positive.No masses appreciated. BACK: No midline tenderness, no CVA tenderness EXTREMITIES: Normal motion all extremities, no cyanosis, no edema. NEUROLOGIC: Obtunded, initially weakly looks to voice but after short while unresponsive to all but painful stimuli, no focal weakness, cranial nerves appear grossly intact. SKIN: No rash, no jaundice, no diaphoresis. PSYCH: obtunded, unresponsive GCS: 15 ED Course: Times/Reassessments: Many re-evals, discussions with , Procedures: Endotracheal Intubation Indication Respiratory Failure. The patient was on 100% oxygen via NRB prior to the procedure. Suction, airway equipment, RSI drugs, respiratory equipment, and appropriate personnel were prepared prior to the initiation of the procedure. A time out was taken. Induction was performed with Etomidate and then succinylcholine. After observing the clinical benefit of the medications, the airway was easily visualized utilizing a #3 Glidescope. A 7.5 size ETT tube was placed atraumatically to 23 cm using standard technique. The cuff inflated without signs of malfunction. There were bilateral breath sounds, positive colormetric change, no gastric sounds, a good capnography waveform, and post procedure pulse oximetry was 98%. Post intubation sedation and paralysis was administered using propofol. There were no complications. Post CXR reveals mildly high tube which was advanced 2 cm. Critical Care: I have personally spent 45 minutes of critical care time in the direct management of this patient. Acute respiratory failure requiring intubation and management of transient hypotension in setting of Pneumonia. This was a life/l imb threatening event. This 45 minutes is in excess of all separately billable procedures. Eliceo Dominguez MD Past Med/Surg History Medical History (Updated 05/02/20 @ 06:26 by Allan Mcgrath PA-C) Anxiety Colonic mass Diabetes mellitus Lung nodule SMALL PER PT'S / JEFFREY MCGARRY/ 03/2019- NO TREATMENT CURRENTLY Macular degeneration BILAT Seizure Petit mal, follows with Neurology at [place] Tachycardia Unspecified convulsions Surgical History History of right cataract surgery History of tonsillectomy Family History Mother Stroke Sister Dementia Diabetes Grandmother Epilepsy Leukemia Cancer Myocardial infarction Grandfather Myocardial infarction Father Pulmonary embolism Other Family history non-contributory Social History Smoking Status: Former smoker Cigarettes Per Day: 20; Second Hand Exposure: No; Hx Alcohol Use: Yes Alcohol type: wine Hx Substance Use: No Preferred Language: Sinhala Communication Ability: Effective Communication Ability Comment: Effective communication at baseline, currently intubated Supervisor Cereal Required: No Beliefs That Will Affect Care: None marital status: Current Living Situation: Spouse Feels Safe at Home: Yes Assistive Devices: None Allergies Allergies Allergy/AdvReac Type Severity Reaction Status Date / Time loteprednol [From Lotemax] Allergy Severe MAKES EYE Verified 05/02/20 01:29 RED, ITCHY & SWELLING brinzolamide [From Simbrinza] AdvReac INFLAMED Verified 05/02/20 01:29 EYE Home Meds Home Medications Medication Instructions Recorded Confirmed PreserVision AREDS-2 1 tab PO BID 02/25/19 05/02/20 cyanocobalamin (vitamin B-12) 1,000 mcg PO DAILY 05/08/19 05/02/20 [Vitamin B-12] Azopt 1 drp OPR TID 10/26/19 05/02/20 acetaminophen [Tylenol Extra 500 mg PO Q6H PRN 10/26/19 05/02/20 Strength] timolol maleate [Timoptic] 1 drp OPR DAILY 10/26/19 05/02/20 Vimpat 200 mg PO BID 04/11/20 05/02/20 loteprednol etabonate 1 drp OPR DAILY 04/11/20 05/02/20 topiramate [Topamax] 50 mg PO BID 04/11/20 05/02/20 Previous Rx's Medication Instructions Recorded gabapentin 300 mg capsule 300 mg PO TID 30 Days #90 cap 06/14/19 Incruse Ellipta 1 inh INHALATION QAM #1 inhaler 10/29/19 blood sugar diagnostic [OneTouch #50 ea 04/14/20 Verio test strips] insulin glargine [Lantus Solostar 16 unit SC DAILY 30 Days #4.8 ml 04/14/20 U-100 Insulin] lancets [OneTouch Delica Lancets] #100 ea 04/14/20 metformin 500 mg PO DAILY #30 tab 04/14/20 pen needle, diabetic [Pen Needle] #50 ea 04/14/20 Results & Data (ED) Vital Signs Vital Signs - 24 hr 05/01/20 23:51 05/01/20 23:53 05/01/20 23:54 Temperature 36.4 C L Temperature Source Rectal Pulse Rate 112 H 117 H 117 H Pulse Rate from SpO2 Sensor 110 H 113 H Respiratory Rate 19 20 19 Respiratory Effort / Characteristics Spontaneous Respiratory Pattern Zay-Gutierrez Blood Pressure 135/99 135/99 Blood Pressure Mean 120 111 Blood Pressure Position Lying Pulse Oximetry 91 86 L 82 L Oxygen Delivery Method Non-rebreather Non-rebreather Room Air Oxygen Flow Rate 15 15 Fraction of Inspired Oxygen Sepsis Recent Fever Within 48 Hours No Sepsis New/Unexplained Change in Mental Status Yes Sepsis Action Taken by Nursing Physician Notified Oxygen Flow Rate - Titration 15 Pulse Oximetry Post Tiitration 92 05/02/20 00:00 05/02/20 00:03 05/02/20 00:09 Temperature Temperature Source Pulse Rate 120 H 117 H 115 H Pulse Rate from SpO2 Sensor 119 H 118 H 115 H Respiratory Rate 20 44 H 25 H Respiratory Effort / Characteristics Respiratory Pattern Blood Pressure 156/92 H 162/115 H Blood Pressure Mean 112 127 Blood Pressure Position Pulse Oximetry 94 99 100 Oxygen Delivery Method Non-rebreather Non-rebreather Non-rebreather Oxygen Flow Rate 15 15 15 Fraction of Inspired Oxygen Sepsis Recent Fever Within 48 Hours Sepsis New/Unexplained Change in Mental Status Sepsis Action Taken by Nursing Oxygen Flow Rate - Titration Pulse Oximetry Post Tiitration 05/02/20 00:11 05/02/20 00:29 05/02/20 00:30 Temperature Temperature Source Pulse Rate 116 H 102 H 104 H Pulse Rate from SpO2 Sensor 116 H 102 H 103 H Respiratory Rate 18 18 23 Respiratory Effort / Characteristics Respiratory Pattern Blood Pressure 181/111 H Blood Pressure Mean 137 Blood Pressure Position Pulse Oximetry 100 70 L 63 L Oxygen Delivery Method Non-rebreather Non-rebreather Ambu-Bag Oxygen Flow Rate 15 15 15 Fraction of Inspired Oxygen Sepsis Recent Fever Within 48 Hours Sepsis New/Unexplained Change in Mental Status Sepsis Action Taken by Nursing Oxygen Flow Rate - Titration Pulse Oximetry Post Tiitration 05/02/20 00:36 05/02/20 00:40 05/02/20 00:48 Temperature Temperature Source Pulse Rate 114 H 117 H Pulse Rate from SpO2 Sensor 111 H 117 H Respiratory Rate 27 H 19 Respiratory Effort / Characteristics Respiratory Pattern Blood Pressure 123/91 Blood Pressure Mean 106 Blood Pressure Position Pulse Oximetry 99 100 100 Oxygen Delivery Method Ambu-Bag Oxygen Flow Rate 15 Fraction of Inspired Oxygen Sepsis Recent Fever Within 48 Hours Sepsis New/Unexplained Change in Mental Status Sepsis Action Taken by Nursing Oxygen Flow Rate - Titration Pulse Oximetry Post Tiitration 05/02/20 00:50 05/02/20 00:58 05/02/20 01:00 Temperature Temperature Source Pulse Rate 117 H 118 H 119 H Pulse Rate from SpO2 Sensor 118 H 118 H Respiratory Rate 27 H 22 26 H Respiratory Effort / Characteristics Respiratory Pattern Blood Pressure 133/98 141/110 H Blood Pressure Mean 111 121 Blood Pressure Position Pulse Oximetry 99 100 100 Oxygen Delivery Method Mechanical Vent Oxygen Flow Rate Fraction of Inspired Oxygen 80 80 Sepsis Recent Fever Within 48 Hours Sepsis New/Unexplained Change in Mental Status Sepsis Action Taken by Nursing Oxygen Flow Rate - Titration Pulse Oximetry Post Tiitration 05/02/20 01:10 05/02/20 01:21 05/02/20 01:30 Temperature Temperature Source Pulse Rate 111 H 111 H 104 H Pulse Rate from SpO2 Sensor 110 H 102 H Respiratory Rate 28 H 24 18 Respiratory Effort / Characteristics Respiratory Pattern Blood Pressure 99/81 L 120/87 88/67 L Blood Pressure Mean 88 94 73 Blood Pressure Position Pulse Oximetry 100 100 100 Oxygen Delivery Method Mechanical Vent Mechanical Vent Oxygen Flow Rate Fraction of Inspired Oxygen 80 Sepsis Recent Fever Within 48 Hours Sepsis New/Unexplained Change in Mental Status Sepsis Action Taken by Nursing Oxygen Flow Rate - Titration Pulse Oximetry Post Tiitration 05/02/20 01:39 05/02/20 01:40 Temperature Temperature Source Pulse Rate 105 H 105 H Pulse Rate from SpO2 Sensor 107 H 106 H Respiratory Rate 26 H 19 Respiratory Effort / Characteristics Respiratory Pattern Blood Pressure 113/81 108/85 Blood Pressure Mean 92 93 Blood Pressure Position Pulse Oximetry 100 100 Oxygen Delivery Method Mechanical Vent Mechanical Vent Oxygen Flow Rate Fraction of Inspired Oxygen Sepsis Recent Fever Within 48 Hours Sepsis New/Unexplained Change in Mental Status Sepsis Action Taken by Nursing Oxygen Flow Rate - Titration Pulse Oximetry Post Tiitration Laboratory Data Result diagrams: 05/02/20 04:34 05/02/20 04:34 Lab Results 05/01/20 05/02/20 05/02/20 Range/Units 23:52 00:00 00:09 WBC (4.8-10.8) K/uL RBC (4.7-6.1) M/uL Hgb (14.0-18.0) g/dL POC Hgb (14.0-18.0) g/dl Hct (42-52) % POC Hct (42-52) % MCV (80-100) fL MCH (25-34) pg MCHC (32-36) g/dL RDW Std Deviation (36.4-46.3) fL RDW Coeff of Naty (11.5-14.5) % Plt Count (130-400) K/uL MPV (7.4-10.4) fL Immature Gran % (Auto) % Neut % (Auto) % Lymph % (Auto) % Irwin % (Auto) % Eos % (Auto) % Baso % (Auto) % Neut # (Auto) (1.4-6.5) K/uL Lymph # (Auto) (1.2-3.4) K/uL Irwin # (Auto) (0.11-0.59) K/uL Eos # (Auto) (0-0.5) K/uL Baso # (Auto) (0-0.2) K/uL Immature Gran # (Auto) (0.00-0.02) K/uL PT (9.0-12.0) Seconds INR (0.9-1.1) VBG pH (7.36-7.41) VBG pCO2 (38-50) mmHg VBG pO2 mmHg VBG HCO3 mmol/L VBG O2 Saturation % VBG Base Excess mEq/L Barometric Pressure mm/Hg POC Sodium (135-144) mmol/L Sodium 139 (136-145) mmol/L POC Potassium (3.3-5.0) mmol/L Potassium 4.1 (3.5-5.1) mmol/L POC Chloride (101-112) mmol/L Chloride 104 (98-107) mmol/L Carbon Dioxide 34 H (21-32) mmol/L POC Total CO2 (24-31) mmol/L Anion Gap 1.0 L (3-11) POC Anion Gap (16-25) mmol/L POC BUN (7-18) mg/dl BUN 13 (7-18) mg/dl Creatinine 1.14 (0.6-1.4) mg/dl POC Creatinine (0.6-1.3) mg/dl Est Cr Clr Drug Dosing Not Reportable Est GFR ( Amer) 75.1 Est GFR (Non-Af Amer) 64.8 BUN/Creatinine Ratio 11.1 (10-20) Glucose 310 H* (70-99) mg/dl POC Glucose 289 H (70-99) mg/dl POC Glucose (other) (70-99) mg/dl Lactate (0.4-2.0) mmol/L Calcium 9.0 (8.5-10.1) mg/dl POC Ioniz Calcium Analisa (1.12-1.32) mmol/l Magnesium 2.4 (1.8-2.4) mg/dl Total Bilirubin 0.3 (0.2-1) mg/dl Direct Bilirubin 0.1 (0-0.2) mg/dl AST 30 (15-37) U/L ALT 43 (12-78) U/L Alkaline Phosphatase 73 (45-117) U/L Total Creatine Kinase 38 L (39-308) U/L Troponin I 0.080 H* (0-0.045) ng/ml Total Protein 7.5 (6.4-8.2) gm/dl Albumin 3.3 L (3.4-5.0) gm/dl Lipase 299 (73-393) U/L Beta-Hydroxybutyric Acd 3.64 H (0.2-2.81) mg/dl Urine Color Red Urine Appearance Slightly Cloudy A (Clear) Urine pH 6.5 (4.5-7.5) Ur Specific [place] 1.017 (1.000-1.030) Urine Protein Trace H (Negative) Urine Glucose (UA) Negative (Negative) Urine Ketones Negative (Negative) Urine Blood 2+ H (Negative) Urine Nitrite Negative (Negative) Urine Bilirubin Negative (Negative) Urine Urobilinogen Negative (Negative) Ur Leukocyte Esterase Negative (Negative) Urine WBC (Auto) 5-10 H (0-5) /hpf Urine RBC (Auto) >30 H (0-4) /hpf U Hyaline Cast (Auto) 0 (0-5) /lpf U Epithel Cells (Auto) >30 H (0-5) /lpf Urine Bacteria (Auto) Negative (Negative) Ur Renal Epithelial Cell Not Reportable COVID-19 Eval Order SARS-CoV-2, RNA, NAAT (NEGATIVE) 05/02/20 05/02/20 05/02/20 Range/Units 00:09 00:09 00:09 WBC 9.37 (4.8-10.8) K/uL RBC 5.19 (4.7-6.1) M/uL Hgb 16.6 (14.0-18.0) g/dL POC Hgb (14.0-18.0) g/dl Hct 52.0 (42-52) % POC Hct (42-52) % MCV 100.2 H (80-100) fL MCH 32.0 (25-34) pg MCHC 31.9 L (32-36) g/dL RDW Std Deviation 54.3 H (36.4-46.3) fL RDW Coeff of Naty 14.9 H (11.5-14.5) % Plt Count 285 (130-400) K/uL MPV 10.9 H (7.4-10.4) fL Immature Gran % (Auto) 0.2 % Neut % (Auto) 76.2 % Lymph % (Auto) 14.5 % Irwin % (Auto) 8.1 % Eos % (Auto) 0.7 % Baso % (Auto) 0.3 % Neut # (Auto) 7.13 H (1.4-6.5) K/uL Lymph # (Auto) 1.36 (1.2-3.4) K/uL Irwin # (Auto) 0.76 H (0.11-0.59) K/uL Eos # (Auto) 0.07 (0-0.5) K/uL Baso # (Auto) 0.03 (0-0.2) K/uL Immature Gran # (Auto) 0.02 (0.00-0.02) K/uL PT (9.0-12.0) Seconds INR (0.9-1.1) VBG pH 7.09 L (7.36-7.41) VBG pCO2 110 H (38-50) mmHg VBG pO2 55 mmHg VBG HCO3 33 mmol/L VBG O2 Saturation 78.8 % VBG Base Excess -1.3 mEq/L Barometric Pressure 736.8 mm/Hg POC Sodium (135-144) mmol/L Sodium (136-145) mmol/L POC Potassium (3.3-5.0) mmol/L Potassium (3.5-5.1) mmol/L POC Chloride (101-112) mmol/L Chloride (98-107) mmol/L Carbon Dioxide (21-32) mmol/L POC Total CO2 (24-31) mmol/L Anion Gap (3-11) POC Anion Gap (16-25) mmol/L POC BUN (7-18) mg/dl BUN (7-18) mg/dl Creatinine (0.6-1.4) mg/dl POC Creatinine (0.6-1.3) mg/dl Est Cr Clr Drug Dosing Est GFR ( Amer) Est GFR (Non-Af Amer) BUN/Creatinine Ratio (10-20) Glucose (70-99) mg/dl POC Glucose (70-99) mg/dl POC Glucose (other) (70-99) mg/dl Lactate 0.9 (0.4-2.0) mmol/L Calcium (8.5-10.1) mg/dl POC Ioniz Calcium Analisa (1.12-1.32) mmol/l Magnesium (1.8-2.4) mg/dl Total Bilirubin (0.2-1) mg/dl Direct Bilirubin (0-0.2) mg/dl AST (15-37) U/L ALT (12-78) U/L Alkaline Phosphatase (45-117) U/L Total Creatine Kinase (39-308) U/L Troponin I (0-0.045) ng/ml Total Protein (6.4-8.2) gm/dl Albumin (3.4-5.0) gm/dl Lipase (73-393) U/L Beta-Hydroxybutyric Acd (0.2-2.81) mg/dl Urine Color Urine Appearance (Clear) Urine pH (4.5-7.5) Ur Specific [place] (1.000-1.030) Urine Protein (Negative) Urine Glucose (UA) (Negative) Urine Ketones (Negative) Urine Blood (Negative) Urine Nitrite (Negative) Urine Bilirubin (Negative) Urine Urobilinogen (Negative) Ur Leukocyte Esterase (Negative) Urine WBC (Auto) (0-5) /hpf Urine RBC (Auto) (0-4) /hpf U Hyaline Cast (Auto) (0-5) /lpf U Epithel Cells (Auto) (0-5) /lpf Urine Bacteria (Auto) (Negative) Ur Renal Epithelial Cell COVID-19 Eval Order SARS-CoV-2, RNA, NAAT (NEGATIVE) 05/02/20 05/02/20 05/02/20 Range/Units 00:09 00:15 00:40 WBC (4.8-10.8) K/uL RBC (4.7-6.1) M/uL Hgb (14.0-18.0) g/dL POC Hgb 18.0 (14.0-18.0) g/dl Hct (42-52) % POC Hct 53 H (42-52) % MCV (80-100) fL MCH (25-34) pg MCHC (32-36) g/dL RDW Std Deviation (36.4-46.3) fL RDW Coeff of Naty (11.5-14.5) % Plt Count (130-400) K/uL MPV (7.4-10.4) fL Immature Gran % (Auto) % Neut % (Auto) % Lymph % (Auto) % Irwin % (Auto) % Eos % (Auto) % Baso % (Auto) % Neut # (Auto) (1.4-6.5) K/uL Lymph # (Auto) (1.2-3.4) K/uL Irwin # (Auto) (0.11-0.59) K/uL Eos # (Auto) (0-0.5) K/uL Baso # (Auto) (0-0.2) K/uL Immature Gran # (Auto) (0.00-0.02) K/uL PT 11.6 (9.0-12.0) Seconds INR 1.1 (0.9-1.1) VBG pH (7.36-7.41) VBG pCO2 (38-50) mmHg VBG pO2 mmHg VBG HCO3 mmol/L VBG O2 Saturation % VBG Base Excess mEq/L Barometric Pressure mm/Hg POC Sodium 140 (135-144) mmol/L Sodium (136-145) mmol/L POC Potassium 4.4 (3.3-5.0) mmol/L Potassium (3.5-5.1) mmol/L POC Chloride 101 (101-112) mmol/L Chloride (98-107) mmol/L Carbon Dioxide (21-32) mmol/L POC Total CO2 29 (24-31) mmol/L Anion Gap (3-11) POC Anion Gap 15.0 L (16-25) mmol/L POC BUN 13 (7-18) mg/dl BUN (7-18) mg/dl Creatinine (0.6-1.4) mg/dl POC Creatinine 1.0 (0.6-1.3) mg/dl Est Cr Clr Drug Dosing Est GFR ( Amer) Est GFR (Non-Af Amer) BUN/Creatinine Ratio (10-20) Glucose (70-99) mg/dl POC Glucose (70-99) mg/dl POC Glucose (other) 301 H (70-99) mg/dl Lactate (0.4-2.0) mmol/L Calcium (8.5-10.1) mg/dl POC Ioniz Calcium Analisa 1.23 (1.12-1.32) mmol/l Magnesium (1.8-2.4) mg/dl Total Bilirubin (0.2-1) mg/dl Direct Bilirubin (0-0.2) mg/dl AST (15-37) U/L ALT (12-78) U/L Alkaline Phosphatase (45-117) U/L Total Creatine Kinase (39-308) U/L Troponin I (0-0.045) ng/ml Total Protein (6.4-8.2) gm/dl Albumin (3.4-5.0) gm/dl Lipase (73-393) U/L Beta-Hydroxybutyric Acd (0.2-2.81) mg/dl Urine Color Urine Appearance (Clear) Urine pH (4.5-7.5) Ur Specific [place] (1.000-1.030) Urine Protein (Negative) Urine Glucose (UA) (Negative) Urine Ketones (Negative) Urine Blood (Negative) Urine Nitrite (Negative) Urine Bilirubin (Negative) Urine Urobilinogen (Negative) Ur Leukocyte Esterase (Negative) Urine WBC (Auto) (0-5) /hpf Urine RBC (Auto) (0-4) /hpf U Hyaline Cast (Auto) (0-5) /lpf U Epithel Cells (Auto) (0-5) /lpf Urine Bacteria (Auto) (Negative) Ur Renal Epithelial Cell COVID-19 Eval Order Covid19 IDNow [facility] SARS-CoV-2, RNA, NAAT (NEGATIVE) 05/02/20 Range/Units 00:40 WBC (4.8-10.8) K/uL RBC (4.7-6.1) M/uL Hgb (14.0-18.0) g/dL POC Hgb (14.0-18.0) g/dl Hct (42-52) % POC Hct (42-52) % MCV (80-100) fL MCH (25-34) pg MCHC (32-36) g/dL RDW Std Deviation (36.4-46.3) fL RDW Coeff of Naty (11.5-14.5) % Plt Count (130-400) K/uL MPV (7.4-10.4) fL Immature Gran % (Auto) % Neut % (Auto) % Lymph % (Auto) % Irwin % (Auto) % Eos % (Auto) % Baso % (Auto) % Neut # (Auto) (1.4-6.5) K/uL Lymph # (Auto) (1.2-3.4) K/uL [place]win # (Auto) (0.11-0.59) K/uL Eos # (Auto) (0-0.5) K/uL Baso # (Auto) (0-0.2) K/uL Immature Gran # (Auto) (0.00-0.02) K/uL PT (9.0-12.0) Seconds INR (0.9-1.1) VBG pH (7.36-7.41) VBG pCO2 (38-50) mmHg VBG pO2 mmHg VBG HCO3 mmol/L VBG O2 Saturation % VBG Base Excess mEq/L Barometric Pressure mm/Hg POC Sodium (135-144) mmol/L Sodium (136-145) mmol/L POC Potassium (3.3-5.0) mmol/L Potassium (3.5-5.1) mmol/L POC Chloride (101-112) mmol/L Chloride (98-107) mmol/L Carbon Dioxide (21-32) mmol/L POC Total CO2 (24-31) mmol/L Anion Gap (3-11) POC Anion Gap (16-25) mmol/L POC BUN (7-18) mg/dl BUN (7-18) mg/dl Creatinine (0.6-1.4) mg/dl POC Creatinine (0.6-1.3) mg/dl Est Cr Clr Drug Dosing Est GFR ( Amer) Est GFR (Non-Af Amer) BUN/Creatinine Ratio (10-20) Glucose (70-99) mg/dl POC Glucose (70-99) mg/dl POC Glucose (other) (70-99) mg/dl Lactate (0.4-2.0) mmol/L Calcium (8.5-10.1) mg/dl POC Ioniz Calcium Analisa (1.12-1.32) mmol/l Magnesium (1.8-2.4) mg/dl Total Bilirubin (0.2-1) mg/dl Direct Bilirubin (0-0.2) mg/dl AST (15-37) U/L ALT (12-78) U/L Alkaline Phosphatase (45-117) U/L Total Creatine Kinase (39-308) U/L Troponin I (0-0.045) ng/ml Total Protein (6.4-8.2) gm/dl Albumin (3.4-5.0) gm/dl Lipase (73-393) U/L Beta-Hydroxybutyric Acd (0.2-2.81) mg/dl Urine Color Urine Appearance (Clear) Urine pH (4.5-7.5) Ur Specific [place] (1.000-1.030) Urine Protein (Negative) Urine Glucose (UA) (Negative) Urine Ketones (Negative) Urine Blood (Negative) Urine Nitrite (Negative) Urine Bilirubin (Negative) Urine Urobilinogen (Negative) Ur Leukocyte Esterase (Negative) Urine WBC (Auto) (0-5) /hpf Urine RBC (Auto) (0-4) /hpf U Hyaline Cast (Auto) (0-5) /lpf U Epithel Cells (Auto) (0-5) /lpf Urine Bacteria (Auto) (Negative) Ur Renal Epithelial Cell COVID-19 Eval Order SARS-CoV-2, RNA, NAAT NEGATIVE (NEGATIVE) Administered Medications Propofol (Diprivan) 1,000 mg in 100 mls @ 9.18 mls/hr IV .[id number] JOSY; Protocol Stop: 05/05/20 00:44 Last Titration: 05/02/20 04:00 Dose: 0 mcg/kg/min, 0 mls/hr Documented by: [id number] Titration: 05/02/20 02:36 Dose: 15 mcg/kg/min, 6.9 mls/hr Documented by: [id number] Titration: 05/02/20 02:00 Dose: 10 mcg/kg/min, 4.6 mls/hr Documented by: [id number] Titration: 05/02/20 01:39 Dose: 15 mcg/kg/min, 6.9 mls/hr Documented by: [id number] Titration: 05/02/20 00:57 Dose: 10 mcg/kg/min, 4.6 mls/hr Documented by: [id number] Admin: 05/02/20 00:44 Dose: 5 mcg/kg/min, 2.3 mls/hr Documented by: [id number] Lacosamide 200 mg/ Sodium (Chloride) 70 mls @ 140 mls/hr IV Q12H JOSY Stop: 06/01/20 03:59 Last Admin: 05/02/20 05:13 Dose: 140 mls/hr Documented by: [id number] Potassium Chloride/Sodium Chloride (Normal Saline W/20 Meq Kcl) 20 meq in 1,000 mls @ 100 mls/hr IV .Q10H JOSY Stop: 06/01/20 03:41 Last Admin: 05/02/20 05:12 Dose: 100 mls/hr Documented by: [id number] Piperacillin Sod/Tazobactam (Sod 3.375 gm/ Dextrose) 115 mls @ 30 mls/hr IV Q8H JOSY; Protocol Stop: 05/09/20 05:59 Last Admin: 05/02/20 05:44 Dose: 30 mls/hr Documented by: [id number] Methylprednisolone 60 mg/ (Syringe) 0.96 mls @ 1.5 mls/min IV Q8H JOSY Stop: 06/01/20 03:59 Last Admin: 05/02/20 05:13 Dose: 1.5 mls/min Documented by: [id number] Norepinephrine Bitartrate 8 mg (/ Dextrose) 508 mls @ 58.293 mls/hr IV .Q8H43M JOSY; Protocol Stop: 06/01/20 04:14 Last Titration: 05/02/20 05:38 Dose: 0.2 mcg/kg/min, 58.3 mls/hr Documented by: [id number] Titration: 05/02/20 05:35 Dose: 0.1 mcg/kg/min, 29.1 mls/hr Documented by: [id number] Admin: 05/02/20 05:13 Dose: 0.05 mcg/kg/min, 14.6 mls/hr Documented by: [id number] Cosigned by: [id number] Albumin Human (Albumin 25%) 12.5 gm in 50 mls @ 50 mls/hr IV Q1H JOSY Stop: 05/02/20 08:29 Last Admin: 05/02/20 05:38 Dose: 50 mls/hr Documented by: [id number] Infusion: 05/02/20 05:38 Dose: 50 mls/hr Documented by: [id number] Admin: 05/02/20 05:22 Dose: 50 mls/hr Documented by: [id number] Infusion: 05/02/20 05:22 Dose: 50 mls/hr Documented by: [id number] Admin: 05/02/20 05:00 Dose: 50 mls/hr Documented by: [id number] Infusion: 05/02/20 05:00 Dose: 50 mls/hr Documented by: [id number] Admin: 05/02/20 04:40 Dose: 50 mls/hr Documented by: [id number] Insulin Human Regular 250 (units/ Sodium Chloride) 250 mls @ 2.8 mls/hr IV .Q24H JOSY; Protocol Stop: 06/01/20 04:59 Last Admin: 05/02/20 05:34 Dose: Not Given Documented by: [id number] Cosigned by: [id number] Midazolam HCl (Versed) 125 mg in 250 mls @ 2 mls/hr IV .Q96H PRN; Protocol PRN Reason: Agitation Stop: 06/01/20 05:11 Last Admin: 05/02/20 05:34 Dose: 1 mg/hr, 2 mls/hr Documented by: [id number] Cosigned by: [id number] Propofol (Propofol Bolus From Bag) 20 mg IV Q5M PRN PRN Reason: Sedation Stop: 05/05/20 00:39 Last Admin: 05/02/20 01:26 Dose: 20 mg Documented by: [id number] Cosigned by: [id number] Admin: 05/02/20 01:02 Dose: 20 mg Documented by: [id number] Cosigned by: [id number] Discontinued Medications Fentanyl Citrate (Fentanyl Citrate 100 Mcg/2 Ml Vial) 50 mcg IV NOW STA Stop: 05/02/20 01:44 Last Admin: 05/02/20 01:45 Dose: 50 mcg Documented by: [id number] Piperacillin Sod/Tazobactam Sod (Zosyn) 4.5 gm in 120 mls @ 240 mls/hr IV NOW ONE Stop: 05/02/20 01:33 Last Infusion: 05/02/20 01:50 Dose: 0 mls/hr Documented by: [id number] Admin: 05/02/20 01:19 Dose: 240 mls/hr Documented by: [id number] Vancomycin HCl 1,500 mg/ (Sodium Chloride) 530 mls @ 200 mls/hr IV NOW ONE Stop: 05/02/20 03:42 Last Infusion: 05/02/20 04:38 Dose: 0 mls/hr Documented by: [id number] Admin: 05/02/20 01:59 Dose: 200 mls/hr Documented by: [id number] Sodium Chloride (Nss 1000ml) 1,000 mls @ 999 mls/hr IV .Q1H1M ONE Stop: 05/02/20 02:04 Last Infusion: 05/02/20 02:08 Dose: 0 mls/hr Documented by: [id number] Admin: 05/02/20 01:11 Dose: 999 mls/hr Documented by: [id number] Sodium Chloride (Nss 1000ml) 1,000 mls @ 999 mls/hr IV .Q1H1M ONE Stop: 05/02/20 02:51 Last Infusion: 05/02/20 03:00 Dose: 0 mls/hr Documented by: [id number] Admin: 05/02/20 01:54 Dose: 999 mls/hr Documented by: [id number] Levetiracetam 1,000 mg/ Sodium (Chloride) 110 mls @ 440 mls/hr IV NOW STA Stop: 05/02/20 03:41 Last Admin: 05/02/20 03:44 Dose: 440 mls/hr Documented by: [id number] Insulin Human Regular (Novolin-R Bolus From Bag) 3 units IV ONE ONE Stop: 05/02/20 05:01 Last Admin: 05/02/20 05:35 Dose: Not Given Documented by: [id number] Ioversol (Optiray 320 125ml) 120 ml IV ONCE ONE Stop: 05/02/20 03:16 Last Admin: 05/02/20 03:15 Dose: 120 ml Documented by: [id number] Midazolam HCl (Midazolam Hcl 5 Mg/Ml 1 Ml Vial) 2 mg IV NOW STA Stop: 05/02/20 01:44 Last Admin: 05/02/20 01:45 Dose: 2 mg Documented by: [id number] Miscellaneous (Rapid Sequence Induction Bag) Confirm Administered Dose 1 ea .ROUTE .STK-MED ONE Stop: 05/02/20 00:30 Last Admin: 05/02/20 00:49 Dose: 1 ea Documented by: [id number] Miscellaneous (Stat Iv Infusion Titration Per Protocol) 1 ea N/A NOW STA Stop: 05/02/20 00:41 Last Admin: 05/02/20 00:49 Dose: 1 ea Documented by: [id number] Miscellaneous Information (Piperacill/Tazobac Consult Active) 1 ea N/A UD PRN PRN Reason: Consult Stop: 06/01/20 01:03 Last Admin: 05/02/20 01:22 Dose: 1 ea Documented by: [id number] Miscellaneous Information (Vancomycin Consult Active) 1 ea N/A UD PRN PRN Reason: Consult Stop: 06/01/20 01:03 Last Admin: 05/02/20 01:22 Dose: 1 ea Documented by: [id number] Norepinephrine Bitartrate (Norepinephrine Bitartrate 1 Mg/Ml 4 Ml Vial) Confirm Administered Dose 4 mg IV .STK-MED ONE Stop: 05/02/20 04:17 Last Admin: 05/02/20 05:27 Dose: Not Given Documented by: [id number] Propofol (Propofol Iv Emulsion 10 Mg/Ml 100 Ml Vial) Confirm Administered Dose 1,000 mg IV .STK-MED ONE Stop: 05/02/20 00:38 Last Admin: 05/02/20 01:08 Dose: Not Given Documented by: [id number] Discharge Plan Visit Data Chief Complaint: Altered Mental Status Stated Complaint: altered level of consciousness ED Provider: Eliceo Dominguez Discharge Problem: Acute respiratory failure, Altered mental status, Right lower lobe pneumonia Patient Disposition: Admitted As Inpatient Discharge Instructions Interventions: ED Discharge Assessment Last Done: 05/02/20 02:38 Discharge Problem: Acute respiratory failure Qualifiers: Respiratory failure complication: hypoxia Qualified Code(s): J96.01 - Acute respiratory failure with hypoxia Altered mental status Qualifiers: Altered mental status type: coma Coma depth: Astrid coma 3-8 Coma timing: in the field (EMT or ambulance) Qualified Code(s): R40.2431 - Ol[place] coma scale score 3-8, in the field [EMT or ambulance] Right lower lobe pneumonia Qualifiers: Pneumonia type: due to unspecified organism Qualified Code(s): J18.9 - Pneumonia, unspecified organism
[2020-05-02 01:22] LABS: Beta-Hydroxybutyrate 3.64 mg/dl (0.2-2.81)
[2020-05-02 01:24] LABS: Bacteria Urine Automated Negative (Negative); Bilirubin Urine Negative (Negative); Blood Urine 2+ (Negative); Epithelial Cell Urine Auto >30 /lpf (0-5); Glucose Urine UA Negative (Negative); Ketones Urine Negative (Negative); Leukocyte Esterase Urine Negative (Negative); Nitrite Urine Negative (Negative); Protein Urine Trace (Negative); RBC Urine Automated >30 /hpf (0-4); Specific Gravity Urine 1.017 (1.000-1.030); Urobilinogen Urine Negative (Negative); pH Urine 6.5 (4.5-7.5)
[2020-05-02 01:25] LABS: Appearance Urine Slightly Cloudy (Clear); Color Urine Red
[2020-05-02] MEDS ORDERED: MIDAZOLAM HCL 5 MG/ML 1 ML VIAL IV STA (01:43)
[2020-05-02] MEDS ORDERED: fentaNYL citrate 100 MCG/2 ML VIAL IV STA (01:43)
[2020-05-02 01:56] LABS: Cast Urine Automated 0 /lpf (0-5)
[2020-05-02] MEDS ORDERED: OPTIRAY 320 125ml IV ONE (03:15)
[2020-05-02] MEDS ORDERED: PNEUMOCOCCAL POLYSACCHARIDES 25 MCG/0.5 ML VIAL/SYR IM ONE (03:33)
[2020-05-02] MEDS ORDERED: PNEUMOCOCCAL ADMINISTRATION CHARGE ONE (03:33)
[2020-05-02] MEDS ORDERED: INFLUENZA ADMINISTRATION CHARGE ONE (03:33)
[2020-05-02] MEDS ORDERED: INFLUENZA VIRUS QUAD VACCINE 0.5 ML SYR IM ONE (03:33)
[2020-05-02] MEDS ORDERED: VANCOMYCIN HCL 1,000 MG/270 ML BAG IV STA (03:42)
[2020-05-02] MEDS ORDERED: ICU PROTOCOL FOR HYPERGLYCEMIA PRN (03:42)
[2020-05-02] MEDS: levETIRAcetam 1,000 MG in 0.9 % SODIUM CHLORIDE 100 ML IV STA ×2 (03:44→06:38)
[2020-05-02 04:04] LABS: iSTAT Allen Test Pass; iSTAT Art Bld Gas pCO2 Correct 64 mmHg (35-46); iSTAT Art Bld Gas pH Corrected 7.211 (7.35-7.45); iSTAT Arterial Blood Gas HCO3 26 meg/L (19-24); iSTAT Arterial Blood Gas pCO2 66 mmHg (35-46); iSTAT Arterial Blood Gas pO2 73 mmHg (80-95); iSTAT Arterial Blood Gas pO2 C 70; iSTAT Carbon Dioxide 28 mmol/L (24-31); iSTAT FiO2 60 %; iSTAT Hematocrit 44 % (42-52); iSTAT Site L Radial; iSTAT Sodium 140 mmol/L (135-144)
--- NOTE | 2020-05-02 04:07 | History & Physical Report ---
Date of Service May 02, 2020 Assessment & Plan (1) Admitted to intensive care unit: Admission to intensive care unit/acute respiratory failure with hypoxemia and hypercapnia/aspiration pneumonia- Consult chemical engineering professor team. Methylprednisolone 60 mg IV every 8 hours. Vancomycin IV per pharmacokinetic monitoring Zosyn 4.5 g IV every 8 hours Patient was COVID-19 negative when tested in the ED tonight Serial laboratories: CBC with differential, chemistry profile, magnesium, PT/PTT/INR, phosphorus and ABGs Present on Admission?: Yes (2) Acute respiratory failure with hypoxia and hypercapnia: See above Present on Admission?: Yes (3) Aspiration pneumonia: Confirmed on CT angiography, which was negative for PE, but did show debris in right mainstem and down into the right lung. Present on Admission?: Yes (4) COPD (chronic obstructive pulmonary disease): See above Present on Admission?: Yes (5) Diabetes mellitus: Hyperglycemic ICU protocol Present on Admission?: Yes (6) Seizure: Change Vimpat from 200 mg p.o. twice daily to 200 mg IV twice daily. Present on Admission?: Yes Admission and Anticipated Discharge Date Admission Date: May 02, 2020 History of Present Illness Chief Complaint: The patient presented to the emergency department due to concerns that his had noted with progressively worsening confusion and exhaustion during the day, falling asleep at the table, and barely able to wake him. Primary Care Provider: Migue Day MD The patient is a 70-year-old male with past medical history including diabetes mellitus, seizure disorder, hypoxemia, COPD, hearing deficit, moderate obstructive sleep apnea, cognitive and behavioral changes next, encephalopathy and tachycardia. His most recently admitted to [facility] from 04/11- 04/14/2020 for hyperglycemia and associated chest pains. He presented as noted above. He developed rapidly progressive breathing issues while in the ED, and was intubated while in the ED. Allergies Allergy/AdvReac Type Severity Reaction Status Date / Time loteprednol [From Lotemax] Allergy Severe MAKES EYE Verified 05/02/20 01:29 RED, ITCHY & SWELLING brinzolamide [From Simbrinza] AdvReac INFLAMED Verified 05/02/20 01:29 EYE Home Medications Home Medications Medication Instructions Recorded Confirmed Type PreserVision AREDS-2 1 tab PO BID 02/25/19 05/02/20 History cyanocobalamin (vitamin B-12) 1,000 mcg PO DAILY 05/08/19 05/02/20 History [Vitamin B-12] gabapentin 300 mg capsule 300 mg PO TID 30 Days #90 cap 06/14/19 05/02/20 Rx Azopt 1 drp OPR TID 10/26/19 05/02/20 History acetaminophen [Tylenol Extra 500 mg PO Q6H PRN 10/26/19 05/02/20 History Strength] timolol maleate [Timoptic] 1 drp OPR DAILY 10/26/19 05/02/20 History Incruse Ellipta 1 inh INHALATION QAM #1 inhaler 10/29/19 05/02/20 Rx Vimpat 200 mg PO BID 04/11/20 05/02/20 History loteprednol etabonate 1 drp OPR DAILY 04/11/20 05/02/20 History topiramate [Topamax] 50 mg PO BID 04/11/20 05/02/20 History blood sugar diagnostic [OneTouch #50 ea 04/14/20 Rx Verio test strips] insulin glargine [Lantus Solostar 16 unit SC DAILY 30 Days #4.8 ml 04/14/20 05/02/20 Rx U-100 Insulin] lancets [OneTouch Delica Lancets] #100 ea 04/14/20 Rx metformin 500 mg PO DAILY #30 tab 04/14/20 05/02/20 Rx pen needle, diabetic [Pen Needle] #50 ea 04/14/20 Rx Past Med/Surg History Medical History (Updated 05/02/20 @ 04:02 by Seferino Oh MD) Anxiety Colonic mass Diabetes mellitus Lung nodule SMALL PER PT'S / JEFFREY MCGARRY/ 03/2019- NO TREATMENT CURRENTLY Macular degeneration BILAT Seizure Petit mal, follows with Neurology at [place] Tachycardia Unspecified convulsions Surgical History History of right cataract surgery History of tonsillectomy Family History Mother Stroke Sister Dementia Diabetes Grandmother Epilepsy Leukemia Cancer Myocardial infarction Grandfather Myocardial infarction Father Pulmonary embolism Other Family history non-contributory Social History Smoking Status: Former smoker Cigarettes Per Day: 20; Second Hand Exposure: No; Hx Alcohol Use: Yes Alcohol type: wine Hx Substance Use: No Preferred Language: Welsh Communication Ability: Effective Communication Ability Comment: Effective communication at baseline, currently intubated Food Safety Scientist Required: No Beliefs That Will Affect Care: None marital status: Current Living Situation: Spouse Feels Safe at Home: Yes Assistive Devices: None Review of Systems Review of Systems: Unobtainable due to endotracheal tube and Unobtainable due to reduced consciousness Physical Exam Physical Exam: The patient is intubated on ventilator, normocephalic and atraumatic. HEENT--PERRL, EOMI, mucous membranes and oropharynx dry. Neck--limited exam due to intubation Heart--normal S1 and S2. No murmurs, rubs or gallops. Lungs--coarse breath sounds on ventilator Abdomen--normal bowel sounds and soft. Extremities--no cyanosis or clubbing. No edema. Dermatologic--normal skin turgor, normal color, no abnormal lymph nodes, no rash. Neurologic--limited exam Rheumatologic--limited exam Psychiatric-intubated on ventilator Results & Data Results & Data ([facility]) Vital Signs (Past 12 Hours) Vital Signs Temp Pulse Pulse Resp BP BP Pulse Ox 05/02/20 03:09 97.5 F L 110 H 19 118/74 99 05/02/20 02:38 98 H 30 H 120/89 100 05/02/20 02:20 97 H 30 H 110/78 100 05/02/20 02:19 96 H 24 107/84 99 05/02/20 02:10 97 H 22 86/65 L 100 05/02/20 02:03 97 H 19 72/50 L 100 05/02/20 02:01 97 H 18 64/50 L 100 05/02/20 01:50 105 H 18 75/52 L 100 05/02/20 01:40 105 H 19 108/85 100 05/02/20 01:39 105 H 26 H 113/81 100 05/02/20 01:30 104 H 18 88/67 L 100 05/02/20 01:21 111 H 24 120/87 100 05/02/20 01:10 111 H 28 H 99/81 L 100 11/14/20 01:00 119 H 26 H 141/110 H 100 05/02/20 00:58 118 H 22 100 05/02/20 00:50 117 H 27 H 133/98 99 05/02/20 00:48 117 H 19 123/91 100 05/02/20 00:40 114 H 27 H 100 05/02/20 00:36 99 05/02/20 00:30 104 H 23 181/111 H 63 L 05/02/20 00:29 102 H 18 70 L 05/02/20 00:11 116 H 18 100 05/02/20 00:09 115 H 25 H 162/115 H 100 05/02/20 00:03 117 H 44 H 156/92 H 99 05/02/20 00:00 120 H 20 94 05/01/20 23:54 97.5 F L 117 H 19 135/99 82 L 05/01/20 23:53 117 H 20 86 L 05/01/20 23:51 112 H 19 135/99 91 Laboratory Results Laboratory Results WBC 9.37 K/uL (4.8-10.8) 05/02/20 00:09 RBC 5.19 M/uL (4.7-6.1) 05/02/20 00:09 Hgb 16.6 g/dL (14.0-18.0) 05/02/20 00:09 POC Hgb 18.0 g/dl (14.0-18.0) 05/02/20 00:15 Hct 52.0 % (42-52) 05/02/20 00:09 POC Hct 53 % (42-52) H 05/02/20 00:15 MCV 100.2 fL (80-100) H 05/02/20 00:09 MCH 32.0 pg (25-34) 05/02/20 00:09 MCHC 31.9 g/dL (32-36) L 05/02/20 00:09 RDW Std Deviation 54.3 fL (36.4-46.3) H 05/02/20 00:09 RDW Coeff of Naty 14.9 % (11.5-14.5) H 05/02/20 00:09 Plt Count 285 K/uL (130-400) 05/02/20 00:09 MPV 10.9 fL (7.4-10.4) H 05/02/20 00:09 Immature Gran % (Auto) 0.2 % 05/02/20 00:09 Neut % (Auto) 76.2 % 05/02/20 00:09 Lymph % (Auto) 14.5 % 05/02/20 00:09 [place] % (Auto) 8.1 % 05/02/20 00:09 Eos % (Auto) 0.7 % 05/02/20 00:09 Baso % (Auto) 0.3 % 05/02/20 00:09 Neut # (Auto) 7.13 K/uL (1.4-6.5) H 05/02/20 00:09 Lymph # (Auto) 1.36 K/uL (1.2-3.4) 05/02/20 00:09 [place] # (Auto) 0.76 K/uL (0.11-0.59) H 05/02/20 00:09 Eos # (Auto) 0.07 K/uL (0-0.5) 05/02/20 00:09 Baso # (Auto) 0.03 K/uL (0-0.2) 05/02/20 00:09 Immature Gran # (Auto) 0.02 K/uL (0.00-0.02) 05/02/20 00:09 PT 11.6 Seconds (9.0-12.0) 05/02/20 00:09 INR 1.1 (0.9-1.1) 05/02/20 00:09 VBG pH 7.09 (7.36-7.41) L 05/02/20 00:09 VBG pCO2 110 mmHg (38-50) H 05/02/20 00:09 VBG pO2 55 mmHg 05/02/20 00:09 VBG HCO3 33 mmol/L 05/02/20 00:09 VBG O2 Saturation 78.8 % 05/02/20 00:09 VBG Base Excess -1.3 mEq/L 05/02/20 00:09 Barometric Pressure 736.8 mm/Hg 05/02/20 00:09 POC Sodium 140 mmol/L (135-144) 05/02/20 00:15 Sodium 139 mmol/L (136-145) 05/02/20 00:09 POC Potassium 4.4 mmol/L (3.3-5.0) 05/02/20 00:15 Potassium 4.1 mmol/L (3.5-5.1) 05/02/20 00:09 POC Chloride 101 mmol/L (101-112) 05/02/20 00:15 Chloride 104 mmol/L (98-107) 05/02/20 00:09 Carbon Dioxide 34 mmol/L (21-32) H 05/02/20 00:09 POC Total CO2 29 mmol/L (24-31) 05/02/20 00:15 Anion Gap 1.0 (3-11) L 05/02/20 00:09 POC Anion Gap 15.0 mmol/L (16-25) L 05/02/20 00:15 POC BUN 13 mg/dl (7-18) 05/02/20 00:15 BUN 13 mg/dl (7-18) 05/02/20 00:09 Creatinine 1.14 mg/dl (0.6-1.4) 05/02/20 00:09 POC Creatinine 1.0 mg/dl (0.6-1.3) 05/02/20 00:15 Est Cr Clr Drug Dosing Not Reportable 05/02/20 00:09 Est GFR ( Amer) 75.1 05/02/20 00:09 Est GFR (Non-Af Amer) 64.8 05/02/20 00:09 BUN/Creatinine Ratio 11.1 (10-20) 05/02/20 00:09 Glucose 310 mg/dl (70-99) H* 05/02/20 00:09 POC Glucose 289 mg/dl (70-99) H 05/01/20 23:52 POC Glucose (other) 301 mg/dl (70-99) H 05/02/20 00:15 Lactate 0.9 mmol/L (0.4-2.0) 05/02/20 00:09 Calcium 9.0 mg/dl (8.5-10.1) 05/02/20 00:09 POC Ioniz Calcium Analisa 1.23 mmol/l (1.12-1.32) 05/02/20 00:15 Magnesium 2.4 mg/dl (1.8-2.4) 05/02/20 00:09 Total Bilirubin 0.3 mg/dl (0.2-1) 05/02/20 00:09 Direct Bilirubin 0.1 mg/dl (0-0.2) 05/02/20 00:09 AST 30 U/L (15-37) 05/02/20 00:09 ALT 43 U/L (12-78) 05/02/20 00:09 Alkaline Phosphatase 73 U/L (45-117) 05/02/20 00:09 Total Creatine Kinase 38 U/L (39-308) L 05/02/20 00:09 Troponin I 0.080 ng/ml (0-0.045) H* 05/02/20 00:09 Total Protein 7.5 gm/dl (6.4-8.2) 05/02/20 00:09 Albumin 3.3 gm/dl (3.4-5.0) L 05/02/20 00:09 Lipase 299 U/L (73-393) 05/02/20 00:09 Beta-Hydroxybutyric Acd 3.64 mg/dl (0.2-2.81) H 05/02/20 00:09 Urine Color Red 05/02/20 00:00 Urine Appearance Slightly Cloudy (Clear) A 05/02/20 00:00 Urine pH 6.5 (4.5-7.5) 05/02/20 00:00 Ur Specific [place] 1.017 (1.000-1.030) 05/02/20 00:00 Urine Protein Trace (Negative) H 05/02/20 00:00 Urine Glucose (UA) Negative (Negative) 05/02/20 00:00 Urine Ketones Negative (Negative) 05/02/20 00:00 Urine Blood 2+ (Negative) H 05/02/20 00:00 Urine Nitrite Negative (Negative) 05/02/20 00:00 Urine Bilirubin Negative (Negative) 05/02/20 00:00 Urine Urobilinogen Negative (Negative) 05/02/20 00:00 Ur Leukocyte Esterase Negative (Negative) 05/02/20 00:00 Urine WBC (Auto) 5-10 /hpf (0-5) H 05/02/20 00:00 Urine RBC (Auto) >30 /hpf (0-4) H 05/02/20 00:00 U Hyaline Cast (Auto) 0 /lpf (0-5) 05/02/20 00:00 U Epithel Cells (Auto) >30 /lpf (0-5) H 05/02/20 00:00 Urine Bacteria (Auto) Negative (Negative) 05/02/20 00:00 Ur Renal Epithelial Cell Not Reportable 05/02/20 00:00 COVID-19 Eval Order [facility] 05/02/20 00:40 SARS-CoV-2, RNA, NAAT NEGATIVE (NEGATIVE) 05/02/20 00:40 Diagnostic Findings [facility] Patient: LULI CALDERON (Male) : 50 Status: ER Date: 05/02/20 00:27 Room #: History: AMS, PT UNRESPONSIVE Slices: 74 Priors: Tech: Alethea Hein @ [phone] Exams: CT HEAD Contrast: Accession Numbers: [id number] Preliminary Findings Only See Final Report For Complete Findings CT HEAD: No acute intracranial hemorrhage. No mass-effect or midline shift No skull fracture. Paranasal sinuses and mastoid air cells are clear. Radiologist: Jeferson Colvin MD Study ready at 00:33 and initial results transmitted at 00:46 *This report constitutes a preliminary interpretation only. Non-acute findings felt to be unrelated to the clinical presentation may not be discussed in this report. The study will be interpreted and a final report will be generated by the local Radiologist the following shift. To reach the hospital radiology department call [phone]. If a discrepancy is found between the preliminary and final interpretations of this study, please notify us via our Client Portal at [email or web address], under [email or web address].You can also fax this report with a description of the discrepancy, or include the final report, to our daytime fax number [phone].If faxing, please indicate the severity of discrepancy using one of the following categories: [ ] 1 - Agree/Informational [ ] 2 - Unlikely to Affect Management [ ] 3 - Possible Eventual Change of Management [ ] 4 - Probable Immediate Change of Management For all other patient related information, please fax us at [phone]. [id number] [facility] Patient: LULI CALDERON (Male) : 50 Status: IP Date: 05/02/20 03:13 Room #: 103 History: AMS, PT UNRESPONSIVE, R/O PE Slices: 744 Priors: Tech: Alethea Hein @ [phone] Exams: CTA CHEST Contrast: IV Amt: 120 CC'S Accession Numbers: [id number] Preliminary Findings Only See Final Report For Complete Findings CTA CHEST: Debris in the large airways containing predominantly into the right lower bronchi with associated consolidation, most concerning for aspiration with pneumonia/pneumonitis given the essentially clear appearance on 04/30/2020 CT chest No evidence of acute pulmonary embolus. Centrilobular emphysema. Endotracheal tube tip terminates approximately 2.5 cm above the ankit. Consider retraction by 1-1.5 cm. Radiologist: Jeferson Colvin MD Study ready at 03:17 and initial results transmitted at 03:49 Results also transmitted to [facility] Floor ICU @ [phone] (Fax) *This report constitutes a preliminary interpretation only. Non-acute findings f elt to be unrelated to the clinical presentation may not be discussed in this report. The study will be interpreted and a final report will be generated by the local Radiologist the following shift. To reach the hospital radiology department call [phone]. If a discrepancy is found between the preliminary and final interpretations of this study, please notify us via our Client Portal at [email or web address].You can also fax this report with a description of the discrepancy, or include the final report, to our daytime fax number [phone].If faxing, please indicate the severity of discrepancy using one of the following categories: [ ] 1 - Agree/Informational [ ] 2 - Unlikely to Affect Management [ ] 3 - Possible Eventual Change of Management [ ] 4 - Probable Immediate Change of Management For all other patient related information, please fax us at [phone]. [id number] Code Status & VTE Plan Code Status Full code VTE Prophylaxis Plan VTE Prophylaxis will be ordered: Yes Critical Care Time Critical Care Time: Yes Total Critical Care Time: 45 Total critical care time was 45 minutes PG Care Time/CCT Total # of Minutes Spent Total Time Spent with Patient: Total time spent is greater than 50% in coordination of care (as documented) at patient's floor/unit and/or counseling patient: Critical Care Time: Yes Total Critical Care Time: 45 Coding Level of Care Code 81599 Initial Inpt Care Lvl 3 Diagnoses Admitted to intensive care unit Z78.9 Acute respiratory failure with hypoxia and hypercapnia J96.01; J96.02 Aspiration pneumonia J69.0 COPD (chronic obstructive pulmonary disease) J44.9 COPD type: unspecified COPD Diabetes mellitus E11.9 Seizure R56.9 Additional Codes Critical Care Time - Critical Care Time: Yes ([id number]) Time Spent (min) 45 (1) COPD (chronic obstructive pulmonary disease) COPD type: unspecified COPD Qualified Code(s): J44.9 - Chronic obstructive pulmonary disease, unspecified
[2020-05-02] MEDS ORDERED: NOREPINEPHRINE BITARTRATE 1 MG/ML 4 ML VIAL IV ONE (04:16)
[2020-05-02] MEDS: ALBUMIN 25% 12.5 GM/50 ML VIAL IV SCH ×4 (04:40→05:38)
[2020-05-02 04:50] LABS: INR 1.1 (0.9-1.1); Prothrombin Time 11.9 Seconds (9.0-12.0)
[2020-05-02] MEDS ORDERED: INSULIN REGULAR 250 UNITS in SODIUM CHLORIDE 0.9% 247.5 ML IV SCH (05:00)
[2020-05-02] MEDS ORDERED: GLUCOSE 40% GEL 15 GM TUBE PO PRN (05:00)
[2020-05-02] MEDS ORDERED: DEXTROSE 50% 50 ML SYRINGE IV PRN (05:00)
[2020-05-02] MEDS ORDERED: CARBOHYDRATES FOR HYPOGLYCEMIA PO PRN (05:00)
[2020-05-02] MEDS ORDERED: GLUCAGON FOR INJ 1 MG VIAL IM PRN (05:00)
[2020-05-02] MEDS ORDERED: GLUCOSE 10 TABS/TUBE PO PRN (05:00)
[2020-05-02] MEDS ORDERED: NovoLIN-R BOLUS FROM BAG IV ONE (05:00)
[2020-05-02] MEDS ORDERED: PHARMACY GLYCEMIC MGMT CONSULT PRN (05:01)
--- NOTE | 2020-05-02 05:07 | Critical Care Consultation ---
Date of Consultation May 02, 2020 Assessment & Plan (1) Admitted to intensive care unit: Reason Critically Ill: 70-year-old male with acute hypoxic respiratory failure with hypercapnia in the setting of likely aspiration pneumonia. Patient with known seizure disorder and currently with seizure-like activity on exam requiring aggressive intervention and close hemodynamic monitoring. NEURO - * CAM ICU: Unable to assess secondary to level of sedation * Altered mental status: * Likely multifactorial in the setting of hypoxemia and hypercarbia as well as seizure-like activity. * Airway protected with ET tube at this time. Will make adjustments to ventilator settings as needed to maximize oxygenation and improve CO2 narcosis. * Electrolytes within normal limits. * CT head without acute findings. * Seizure disorder: * In conversation with the patient's , he has been having "abdominal spasms" for the last few weeks. She states that they are painful for him and they essentially doubled him over. * On exam, while sedated, the patient is having rhythmic abdominal cramping/spasms. * He does become slightly agitated with painful stimuli. * He does withdrawal all 4 extremities with painful stimulation. * Patient does not seem to respond to sternal rub appropriately, however. * No other focal exam findings consistent with significant seizure-like activity, however hard to delineate secondary to ongoing rhythmic spasms which the describes as not new. * Currently on propofol drip. * Agree with IV Lacosamide in place of the patient's Vimpat. * Will add BIS monitoring for rudimentary assessment of neurological activity. * Will order a.m. EEG. * Patient follows with [place] neurology. Low threshold to discuss case with them/transfer in the event that this patient does not show improvement from seizure-like activity. CARDIAC/VASCULAR - * Hypotension: * Patient with isolated episode of hypotension in the emergency department which did respond to fluid bolus. * Shortly upon arrival in the ICU, the patient dropped his blood pressure significantly. * He received an additional IV bolus of NSS and orders were placed for Levophed gtt. * He received 2 amps of bicarb as well as albumin. * CVL was placed emergently 2/2 poor peripheral access. * Titrate pressors as needed. * Will add AM Echo for completeness and in the setting of NSTEMI. * NSTEMI: * Likely demand in the setting of hypoxemia/respiratory failure. * No EKG changes to suggest ACS. * Trend Troponins. * AM Echo * EKG: Sinus Tachycardia w/ PVCs @ [address]/T-wave changes. QTc 481 ms. * Monitor on telemetry. RESPIRATORY - * Acute Hypoxic Respiratory Failure w/ Hypercapnia: * Required emergent endotracheal intubation. * CXR concerning for RLL infiltrative change. * Likely aspiration 2/2 seizure. * Agree w/ Zosyn. * Aggressive pulmonary toilet. * Agree w/ CT for further evaluation of CXR findings. * ABGs PRN. * Ventilator settings to be made as needed. GI/NUTRITION - * reports swallowing difficulty with pills. * Admits that he did seem to aspirate on water a few days ago. * Consider swallow evaluation when clinically appropirate. * OG in place * Prophylaxis: Famotidine RENAL/LYTES - * No significant electrolyte derangements. * Monitor electrolytes closely --> replace as needed. * IVF: / NSS W 20mEq K @ 100 mL/hr - * Gillette in place - Strict I&Os. ENDO - * Hyperglycemia w/ h/o DM: * BSGs per unit protocol. ISS --> gtt per unit policy. HEME - * Stable H&H * Will trend ID - * Aspiration Pneumonia: * Continue Zosyn. * Blood cultures pending. LINES/IV ACCESS - * PIVs x2 * RIGHT IJ CVL * LEFT Radial A-line * ET Tube * Gillette DVT PROPHYLAXIS - * Lovenox * SCDs I have personally spent 85 minutes of critical care time in the direct management of this patient. This is a life/limb threatening event. This includes time spent evaluating patient, direct bedside care, chart review, placing orders, interpretation of diagnostic studies, discussion with consultants, patient, and family members, as well as other required patient management activities. This time is exclusive of all separately billable procedures, and teaching time and separate from and in addition to any other critical care service time. Thank you for allowing us to participate in the care of this patient. Please r efer to my attending physician's documentation for any further recommendations. (2) Acute respiratory failure with hypoxia and hypercapnia: (3) Aspiration pneumonia: (4) Right lower lobe pneumonia: (5) Altered mental status: (6) Seizure-like activity: (7) Encephalopathy, unspecified: (8) COPD (chronic obstructive pulmonary disease): (9) NSTEMI (non-ST elevated myocardial infarction): History of Present Illness Attending Physician: Seferino Oh MD History of Present Illness Patient is a 70-year-old male with a significant past medical history of seizure disorder, sleep apnea, COPD, macular degeneration, diabetes, colonic mass. Most recently, the patient has been worked up and evaluated locally as well as [facility] by epileptologist for combination of partial seizures as well as grand mal like seizure activity. Patient underwent 48-hour EEG and was subsequently placed on Vimpat in addition to his previously prescribed doses of Topamax and Gabapentin. He had been doing well and seizure-free over the last few months. Per the patient's , she states that he had a fasting blood glucose test performed today in the outpatient setting. Upon awaking this morning she states that he was irritable. Additionally, she reports that he was having some difficulty ambulating from the house to the car. He has been walking with a cane as of recently, but was refusing to do so at the time. After his blood glucose readings, she did take him to [facility] where he had a breakfast sandwich. She states that he seemed to improve at that point. She left in the late afternoon and he was at home with his daughter. was contacted by phone and informed that the patient was complaining of pain from ongoing abdominal muscle cramping which has been an issue for the past 3 weeks. Patient took one half of an extra strength Tylenol tablet. Shortly after, the patient fell asleep while sitting at the kitchen table. Upon returning home, the reports that he was somewhat drowsy, but she states this is not uncommon for him. She attempted to wake him from a nap on the recliner at approximately 10 PM. She states that at this point, he appeared confused, but not completely obtunded or unresponsive. She contacted nursing hotline and was instructed to contact EMS. EMS promptly brought the patient to the emergency department where he was found to be hypoxic and placed on a nonrebreather at 15 L/min. There was concern for altered mental status and the patient was sent to the CT scanner. The patient dropped a sat into the 80s while in CT. At this point in upon return to the emergency department, he was emergently intubated in the setting of ongoing hypoxemia and decreased respiratory drive. VBG demonstrated respiratory acidosis and hypercarbia. CT the head was unremarkable. Chest x-ray concerning for RIGHT lower lobe infiltrate. Patient was provided IV Zosyn. Upon evaluation in the emergency department, the patient is intubated and sedated. Patient appears to have rhythmic muscle like spasms of the abdomen. Patient is saturating well and I was able to titrate down his FiO2 to 70%. I did have a lengthy conversation with the patient's . She reports that his memory has been declining over the past several months. She has detailed paperwork that she keeps track of his blood sugars, daily medication intakes, as well as daily meals. He was recently diagnosed with diabetes and started on insulin and they are very rigid with his routines. She states that the patient has been having abdominal spasms for the last several weeks. He initially presented to the emergency department a few weeks ago with similar complaints. They did seem to resolve somewhat at that point. Patient underwent colonoscopy while hospitalized secondary to 3 large colonic polyps. She states that they did receive documentation yesterday that the one polyp was thought to be "borderline", but recommendation was for repeat colonoscopy in 6 months. Otherwise, she reports the patient has been at his baseline. She does report that she has noticed that his nail beds have seemed somewhat pale and his hands have been cold. The patient has not received a formal diagnosis of COPD, but from former visits, there have been conversations about possible chronic hypoxemia in association with seizure activity. Regarding jeanine's hospital presentation, she reports that she did not notice any overt seizure-like activity that she has witnessed in the past. She was concerned as she states that he was snoring which is not uncommon for him, but when she did wake him, he had urinated himself. He has urinated himself with prior seizures. Otherwise, she states that there is no other symptoms that had concerned her for seizure-like activity otherwise. Patient unable to contribute to history of present illness secondary to intubation with sedation. Allergies Allergy/AdvReac Type Severity Reaction Status Date / Time loteprednol [From Lotemax] Allergy Severe MAKES EYE Verified 05/02/20 01:29 RED, ITCHY & SWELLING brinzolamide [From Simbrinza] AdvReac INFLAMED Verified 05/02/20 01:29 EYE Home Medications Home Medications Medication Instructions Recorded Confirmed Type PreserVision AREDS-2 1 tab PO BID 02/25/19 05/02/20 History cyanocobalamin (vitamin B-12) 1,000 mcg PO DAILY 05/08/19 05/02/20 History [Vitamin B-12] gabapentin 300 mg capsule 300 mg PO TID 30 Days #90 cap 06/14/19 05/02/20 Rx Azopt 1 drp OPR TID 10/26/19 05/02/20 History acetaminophen [Tylenol Extra 500 mg PO Q6H PRN 10/26/19 05/02/20 History Strength] timolol maleate [Timoptic] 1 drp OPR DAILY 10/26/19 05/02/20 History Incruse Ellipta 1 inh INHALATION QAM #1 inhaler 10/29/19 05/02/20 Rx Vimpat 200 mg PO BID 04/11/20 05/02/20 History loteprednol etabonate 1 drp OPR DAILY 04/11/20 05/02/20 History topiramate [Topamax] 50 mg PO BID 04/11/20 05/02/20 History blood sugar diagnostic [OneTouch #50 ea 04/14/20 Rx Verio test strips] insulin glargine [Lantus Solostar 16 unit SC DAILY 30 Days #4.8 ml 04/14/20 05/02/20 Rx U-100 Insulin] lancets [OneTouch Delica Lancets] #100 ea 04/14/20 Rx metformin 500 mg PO DAILY #30 tab 04/14/20 05/02/20 Rx pen needle, diabetic [Pen Needle] #50 ea 04/14/20 Rx Patient History Medical History (Updated 05/02/20 @ 06:26 by Allan Mcgrath PA-C) Anxiety Colonic mass Diabetes mellitus Lung nodule SMALL PER PT'S / JEFFREY MCGARRY/ 03/2019- NO TREATMENT CURRENTLY Macular degeneration BILAT Seizure Petit mal, follows with Neurology at [place] Tachycardia Unspecified convulsions Surgical History History of right cataract surgery History of tonsillectomy Family History Mother Stroke Sister Dementia Diabetes Grandmother Epilepsy Leukemia Cancer Myocardial infarction Grandfather Myocardial infarction Father Pulmonary embolism Other Family history non-contributory Social History Smoking Status: Former smoker Cigarettes Per Day: 20; Second Hand Exposure: No; Hx Alcohol Use: Yes Alcohol type: wine Hx Substance Use: No Preferred Language: Kiswahili Communication Ability: Effective Communication Ability Comment: Effective communication at baseline, currently intubated 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 GENERAL - 70-year-old male appearing his stated age who is in no acute distress. Intubated and sedated. Rhythmic muscle like cramping of the abdomen. HEAD - Normocephalic, Atraumatic. No Mcfarlane's Sign or Raccoon's Eyes. No depressed skull fractures palpable. EYES - PERRL. Sclera anicteric. Palpebral conjunctiva pink and moist with no injection noted. EARS - No deformities of external structures noted on gross examination bilaterally. NOSE - Midline and without cyanosis. No epistaxis or purulent drainage noted. MOUTH/OROPHARYNX - ET Tube in place. Without perioral cyanosis. Buccal mucosa pink and moist. NECK - Neck with FROM. Supple to palpation. No nuchal rigidity. LUNGS - Chest wall symmetric without accessory muscle use. Coarse breath sounds noted to the RIGHT lower lung silver. CARDIAC - RRR with S1/S2. No murmur, rubs, or gallops appreciated. ABDOMEN - Abdominal contour flat without pulsations or visible masses. Rhythmic muscle like cramping noted of the abdomen ( reports this has been ongoing). BS normoactive all four quadrants. No tenderness, palpable masses, hepatosplenomegaly, or ascites noted. EXTREMITIES - Pretibial edema present bilaterally. +3/5 radial and dorsalis pedis pulses palpated throughout. NEUROLOGIC -rhythmic stomach muscle cramping noted. Patient does withdrawal his feet and hands from painful stimuli. Does not move extremities independently otherwise. Patellar reflexes equal bilaterally. No other focal findings appreciated on exam. Sedated and intubated. Results & Data Results & Data ([facility]) Vital Signs (Past 12 Hours) Vital Signs Temp Pulse Pulse Resp BP BP Pulse Ox 05/02/20 04:00 97 H 19 93 05/02/20 03:09 36.4 C L 110 H 19 118/74 99 05/02/20 02:38 98 H 30 H 120/89 100 05/02/20 02:20 97 H 30 H 110/78 100 05/02/20 02:19 96 H 24 107/84 99 05/02/20 02:10 97 H 22 86/65 L 100 05/02/20 02:03 97 H 19 72/50 L 100 05/02/20 02:01 97 H 18 64/50 L 100 05/02/20 01:50 105 H 18 75/52 L 100 05/02/20 01:40 105 H 19 108/85 100 05/02/20 01:39 105 H 26 H 113/81 100 05/02/20 01:30 104 H 18 88/67 L 100 05/02/20 01:21 111 H 24 120/87 100 05/02/20 01:10 111 H 28 H 99/81 L 100 05/02/20 01:00 119 H 26 H 141/110 H 100 05/02/20 00:58 118 H 22 100 05/02/20 00:50 117 H 27 H 133/98 99 05/02/20 00:48 117 H 19 123/91 100 05/02/20 00:40 114 H 27 H 100 05/02/20 00:36 99 05/02/20 00:30 104 H 23 181/111 H 63 L 05/02/20 00:29 102 H 18 70 L 05/02/20 00:11 116 H 18 100 05/02/20 00:09 115 H 25 H 162/115 H 100 05/02/20 00:03 117 H 44 H 156/92 H 99 05/02/20 00:00 120 H 20 94 05/01/20 23:54 36.4 C L 117 H 19 135/99 82 L 05/01/20 23:53 117 H 20 86 L 05/01/20 23:51 112 H 19 135/99 91 Coding Level of Care Code Critical Care 1st 30-74 mins Diagnoses Admitted to intensive care unit Z78.9 Acute respiratory failure with hypoxia and hypercapnia J96.01; J96.02 Aspiration pneumonia J69.0 Right lower lobe pneumonia J18.9 Pneumonia type: due to unspecified organism Altered mental status R40.2431 Altered mental status type: coma Coma depth: Astrid coma 3-8 Coma timing: in the field (EMT or ambulance) Seizure-like activity R56.9 Encephalopathy, unspecified G93.40 COPD (chronic obstructive pulmonary disease) J44.9 COPD type: unspecified COPD NSTEMI (non-ST elevated myocardial infarction) I21.4 Time Spent (min) 85 (1) Right lower lobe pneumonia Pneumonia type: due to unspecified organism Qualified Code(s): J18.9 - Pneumonia, unspecified organism (2) Altered mental status Altered mental status type: coma Coma depth: Astrid coma 3-8 Coma timing: in the field (EMT or ambulance) Qualified Code(s): R40.2431 - Ford coma scale score 3-8, in the field [EMT or ambulance] (3) COPD (chronic obstructive pulmonary disease) COPD type: unspecified COPD Qualified Code(s): J44.9 - Chronic obstructive pulmonary disease, unspecified
--- NOTE | 2020-05-02 05:07 | Procedure Note ---
Procedure Note Date of Service May 02, 2020 Procedure: Internal Jugular Central Line Placement Attending: Dr. Gross APC: Allan Mcgrath PA-C Indication: Central Drug Administration, Poor Venous Access, Multiple Lab Draws Necessary, etc. Anesthesia: Lidocaine 1% Conversation was had with the patient's in the emergency department regarding the possible utility of central line and arterial line in the event of clinical deterioration. Patient not requiring either intervention on initial assessment. Lengthy discussion had regarding risks, benefits, and alternatives. She verbally consents to any/all life-saving measures/procedures if necessary. Emergent consent implied in the setting of rapid clinical deterioration in the setting of active extremities requiring central access for addition of multiple medications, pressors, antibiotics, etc. A time-out was completed verifying correct patient, procedure, site, posi tioning, and implants(s) or special equipment if applicable. Patients RIGHT Neck was cleansed and draped in the typical sterile fashion using Chloraprep. The Internal Jugular Vein and Carotid Artery were identified using ultrasound. The superficial tissue was anesthetized using 3.0 mL of 1% lidocaine without epinephrine under direct visualization with the ultrasound. After adequate anesthetization was achieved, the Internal Jugular vein was cannulated under direct ultrasound guidance using an introducer needle on a syringe. Good venous blood return was maintained prior to removal of syringe from introducer needle. Using Seldinger Technique, a guide wire was advanced through the introducer needle without resistance. The introducer needle was removed and ultrasound images were obtained of the guide wire within the Internal Jugular Vein and saved to the patients medical record. A small incision was made in penetrating fashion at the guide wire insertion site utilizing an 11 blade scalpel. The dilator was advanced to the vessel without resistance. The dilator was exchanged for the triple lumen catheter which was advanced into the vessel without resistance. The guide wire was removed intact from the catheter without issue. Claves were placed on each catheter tip with confirmation of good blood flow from each lumen. Each port was easily flushed with sterile saline. The catheter was placed at 15 cm and sut[address] in place. BioPatch was applied to the catheter and a sterile Tegaderm dressing was applied over the catheter with careful attention to sterility. Patient tolerated procedure well. No immediate complications were met. Post procedure x-ray was completed, placement was appropriate and no pneumothorax was noted. Images obtained are saved for permanent record Procedural Ultrasound Guidance: Procedure Date: 05/02/2020 Indication: Pressors, poor peripheral access, active extremis requiring resuscitative efforts. Attending: Dr. Gross APC: Allan Mcgrath PA-C Artery AND Vein visualized: YES Compressible Vein: YES Guidewire or Short Catheter seen in vein prior to dilation: YES Line confirmed in Vein with ultrasound: YES Images obtained are saved for permanent record. Coding CPT Codes Tubes, Drains, and Vasc Access - Tubes, Drains, and Vasc Access: [id number] Insertion Of Non-tunneled Catheter Age 5 Yrs> ([id number]) Tubes, Drains, and Vasc Access - Tubes, Drains, and Vasc Access: [id number] Ultrasound Guidance For Vascular ([id number]) [facility] Procedure Codes (Charges) Tubes, Drains, and Vasc Access Procedure 1: Tubes, Drains, and Vasc Access: [id number] Insertion Of Non-tunneled Catheter Age 5 Yrs> Procedure 2: Tubes, Drains, and Vasc Access: [id number] Ultrasound Guidance For Vascular
--- NOTE | 2020-05-02 05:07 | Procedure Note ---
Procedure Note Date of Service May 02, 2020 Procedure: Arterial Line Placement Attending: Dr. Gross APC: Allan Mcgrath PA-C Indication: Monitoring on Pressors Anesthesia: Lidocaine 1% Conversation was had with the patient's in the emergency department regarding the possible utility of central line and arterial line in the event of clinical deterioration. Patient not requiring either intervention on initial assessment. Lengthy discussion had regarding risks, benefits, and alternatives. She verbally consents to any/all life-saving measures/procedures if necessary. Emergent consent implied in the setting of rapid clinical deterioration in the setting of active extremities requiring central access for addition of multiple medications, pressors, antibiotics, etc. A time-out was completed verifying correct patient, procedure, site, positioning, and implant(s) or special equipment if applicable. Allens test was performed to ensure adequate perfusion. Patients LEFT wrist was prepped and draped in the usual sterile fashion. Ultrasound guidance was used to aid needle placement. A 20g Arrow arterial line was introduced into the LEFT Radial artery. Catheter was threaded, and the needle was removed with appropriate blood return. Good waveform was observed. The patient tolerated the procedure well. Confirmation of placement with ultrasound. Blood Loss: Minimal Complications: None Procedural Ultrasound Guidance: Procedure Date: 05/02/2020 Indication: Pressors, ABGs Attending: Dr. Gross APC: Allan Mcgrath PA-C Artery Identified: YES Line confirmed in Artery with ultrasound: YES Complications: NONE Patient tolerated procedure: WELL Coding CPT Codes Tubes, Drains, and Vasc Access - Tubes, Drains, and Vasc Access: [id number] Insertion Catheter, Artery ([id number]) [facility] Procedure Codes (Charges) Tubes, Drains, and Vasc Access Procedure 3: Tubes, Drains, and Vasc Access: [id number] Insertion Catheter, Artery
[2020-05-02] MEDS: NSS + 20MEQ KCL 20 MEQ/1,000 ML BAG IV SCH ×2 (05:12→15:45)
[2020-05-02] MEDS: LACOSAMIDE 200 MG in SODIUM CHLORIDE 0.9% 50 ML IV SCH ×2 (05:13→15:16)
[2020-05-02] MEDS: methylPREDNISolone 60 MG in SYRINGE 0 ML IV SCH ×3 (05:13→21:28)
[2020-05-02] MEDS: NOREPINEPHRINE BIT INJ 8 MG in DEXTROSE 5% 500 ML IV SCH ×2 (05:13→14:05)
[2020-05-02 05:22] LABS: Basophils # (auto) 0.01 K/uL (0-0.2); Basophils % (auto) 0.1 %; Eosinophils # (auto) 0.01 K/uL (0-0.5); Eosinophils % (auto) 0.1 %; Hematocrit (blood only) 32.1 % (42-52); Immature Granulocytes # (auto) 0.03 K/uL (0.00-0.02); Immature Granulocytes % (auto) 0.3 %; Lymphocytes # (auto) 0.95 K/uL (1.2-3.4); Lymphocytes % (auto) 10.9 %; Mean Corpuscular Hemoglobin 31.3 pg (25-34); Mean Corpuscular Hgb Conc 31.2 g/dL (32-36); Mean Corpuscular Volume 100.3 fL (80-100); Mean Platelet Volume 10.3 fL (7.4-10.4); Monocytes # (auto) 0.53 K/uL (0.11-0.59); Monocytes % (auto) 6.1 %; Neutrophils # (auto) 7.22 K/uL (1.4-6.5); Neutrophils % (auto) 82.5 %; Platelet Count 168 K/uL (130-400); RDW Coefficient of Variation 14.9 % (11.5-14.5); RDW Standard Deviation 54.6 fL (36.4-46.3); White Blood Count 8.75 K/uL (4.8-10.8)
[2020-05-02 05:27] LABS: Albumin Globulin Ratio 0.7 (0.9-2); Albumin Level 2.1 gm/dl (3.4-5.0); BUN Creatinine Ratio 12.8 (10-20); Bilirubin,Total 0.5 mg/dl (0.2-1); Creatinine Clr Calc Pharmacy 82.5 ml/min; Est GFR (African American) 101.8; Est GFR (Non-African American) 87.9; Globulin 2.9 gm/dl (2.5-4.0); Phosphorus 3.4 mg/dl (2.5-4.9); Potassium 4.2 mmol/L (3.5-5.1); Troponin I 0.22 ng/ml (0-0.045)
[2020-05-02] MEDS: MIDAZOLAM HCL 125 MG/250 ML BAG IV PRN (05:34)
[2020-05-02 05:45] LABS: iSTAT Arterial Blood Gas HCO3 29 meg/L (19-24); iSTAT Arterial Blood Gas pCO2 73 mmHg (35-46); iSTAT Arterial Blood Gas pH 7.21 (7.35-7.45); iSTAT Arterial Blood Gas pO2 142 mmHg (80-95); iSTAT Carbon Dioxide 31 mmol/L (24-31); iSTAT FiO2 80 %; iSTAT Site Art Line
[2020-05-02] MEDS ORDERED: PIPERACILLIN/TAZOBACTAM 3.375 GM in DEXTROSE 5% 100 ML IV SCH (06:00)
[2020-05-02] MEDS ORDERED: INSULIN ASPART 100 UNITS/ML 3 ML PEN SC SCH ×2 (07:30→12:00)
--- NOTE | 2020-05-02 08:06 | CT Scan Report ---
HEAD CT NONCONTRAST CT DOSE: 691.05 mGy.cm HISTORY: Altered Mental Status TECHNIQUE: Multiaxial CT images of the head were performed without the use of intravenous contrast. A utomated exposure control was utilized for this study. A dose lowering technique was utilized adheri ng to the principles of ALARA. Comparison: Head CT 10/26/2019. Findings: The paranasal sinuses and mastoid air cells are clear. The calvarium and skull base are int act. There is no mass, hematoma, midline shift, acute infarct. White matter hypodensity is nonspecifi c but suggestive of microvascular ischemic change. The ventricles and sulci demonstrate mild age-rela chantelle involutional changes. Impression: No significant change compared to the prior study. No acute intracranial abnormality. ACT 112: Negative or not required by law. Electronically signed by: Surjit Ybarra M.D. 05/02/2020 8:05 AM
--- NOTE | 2020-05-02 08:15 | CT Scan Report ---
CT angio chest PE protocol CT DOSE: 538.67 mGy.cm HISTORY: 70 years-old Male with PE. Acute shortness of breath TECHNIQUE: Multiple CTA images of the chest were obtained after the intravenous administration of 120 ml Optiray 320. Coronal and sagittal MIPS were obtained from the axial data set and were submitted for review. All measurements were obtained according to NASCET criteria. A dose lowering technique w as utilized adhering to the principles of ALARA. COMPARISON: Chest radiograph of same day, chest CT 04/30/2020, 09/22/2018 FINDINGS: CTA: Mild cardiomegaly. Coronary artery calcifications. No thoracic aortic aneurysm. Dilated main pulmonar y artery suggests pulmonary artery hypertension. The pulmonary artery is opacified to the level of th e subsegmental branches and demonstrates no filling defects to suggest thromboembolic disease. CT CHEST: Heterogeneous thyroid. No pathologically enlarged lymph nodes. Mildly prominent subcarinal adenopathy . Endotracheal tube terminates 2 cm superior to the ankit. Trace right pleural effusion. No pneumothorax. Severe emphysema with bibasilar apical pleural-parench ymal scarring. Scattered calcified granulomata. Secretions are noted within the tracheobronchial tree , mild within the left mainstem bronchus and moderate within the bronchus intermedius and right lower lobe bronchi. There is new right lower and middle lobe consolidation. No overt pulmonary edema. Mild distal esophageal wall thickening. Hepatic cysts. Unremarkable soft tissues. No suspicious bone lesions. Unchanged mild superior endplate compression deformities involving a few lower thoracic segm ents. IMPRESSION: 1. Endotracheal tube terminates 2.0 cm superior to the ankit. 2. Tracheobronchial secretions with mucous plugging most pronounced within the bronchus intermedius a nd right lung base bronchi. There is new associated consolidation of the right lower and middle lobes suggestive of atelectasis and/or aspiration pneumonitis. 3. Severe emphysema. 4. No evidence of pulmonary thromboembolic disease. 5. Trace right pleural effusion. ACT 112: Negative or not required by law. The above report was generated using voice recognition software. It may contain grammatical, syntax o r spelling errors. Electronically signed by: Joesph Hemphill M.D. 05/02/2020 8:14 AM
[2020-05-02 08:50] LABS: Hematocrit (blood only) 42.8 % (42-52); Hemoglobin 13.7 g/dL (14.0-18.0)
[2020-05-02] MEDS ORDERED: ENOXAPARIN INJ 40 MG/0.4 ML SYR SQ SCH (09:00)
[2020-05-02] MEDS: BRINZOLAMIDE (AZOPT) OPS 10 ML BTL OPR SCH ×3 (09:07→21:28)
[2020-05-02] MEDS: FAMOTIDINE 20 MG in SYRINGE 3 ML IV SCH ×2 (09:07→21:32)
[2020-05-02] MEDS ORDERED: Nursing to Pharmacy Communication SCH (09:30)
--- NOTE | 2020-05-02 09:41 | XRay Report ---
XR chest 1V portable HISTORY: 70 years-old Male AMS . Respiratory failure with altered mental status COMPARISON: CTA chest of same day and chest radiograph at 4:30 AM TECHNIQUE: Portable AP view of the chest FINDINGS: Cardiomediastinal and hilar silhouettes are unchanged. Endotracheal tube overlies the midline, 5.4 cm superior to the ankit. No pneumothorax. Severe emphysema with chronic fibrotic change. Minimal left lung base atelectasis. Right lung base consolidation. Degenerative changes of the shoulders and spin e. IMPRESSION: 1. Endotracheal tube overlies the midline, 5.4 cm superior to the ankit. 2. Severe emphysema with chronic interstitial coarsening. 3. Right lung base consolidation suspicious for pneumonia or aspiration pneumonitis. ACT 112: Negative or not required by law. The above report was generated using voice recognition software. It may contain grammatical, syntax o r spelling errors. Electronically signed by: Joesph Hemphill M.D. 05/02/2020 9:39 AM
--- NOTE | 2020-05-02 09:48 | XRay Report ---
XR chest 1V portable HISTORY: 70 years-old Male Central Line Placement status post placement of a right IJ central venous catheter COMPARISON: CTA chest and chest radiograph 05/02/2020 TECHNIQUE: Supine AP view of the chest FINDINGS: Cardiac silhouette is unchanged. Endotracheal tube overlies the midline, 4.1 cm superior to the jake a. Status post placement of a right IJ central venous catheter with distal tip terminating in the exp ected location of the mid SVC. There is no postprocedural pneumothorax identified. Endotracheal tube coils in the stomach with distal tip projected near the medial aspect of the gastric fundus. Severe emphysema with chronic interstitial coarsening. Trace right pleural effusion with progressivel y worsened right lung base consolidation/volume loss. Degenerative changes of the shoulders and spine . IMPRESSION: 1. Lines and tubes as above. 2. No pneumothorax. 3. Progressively worsened right lung base volume loss with consolidation. 4. Trace right pleural effusion. 5. Severe emphysema. ACT 112: Negative or not required by law. The above report was generated using voice recognition software. It may contain grammatical, syntax o r spelling errors. Electronically signed by: Joesph Hemphill M.D. 05/02/2020 9:47 AM
--- NOTE | 2020-05-02 11:40 | Electroencephalogram ---
EEG Procedure Note Date of Service May 02, 2020 Start / End Times Start Time: 1032 End Time: [address] Taylor History 70 year old with history of left temporal lobe seizure disorder (followed at [facility] [place] Now with hypoxic unresponsive state and ? nonconvulsive status Home Medication List Home Medications Medication Instructions Recorded Confirmed Type PreserVision AREDS-2 1 tab PO BID 02/25/19 05/02/20 History cyanocobalamin (vitamin B-12) 1,000 mcg PO DAILY 05/08/19 05/02/20 History [Vitamin B-12] gabapentin 300 mg capsule 300 mg PO TID 30 Days #90 cap 06/14/19 05/02/20 Rx Azopt 1 drp OPR TID 10/26/19 05/02/20 History acetaminophen [Tylenol Extra 500 mg PO Q6H PRN 10/26/19 05/02/20 History Strength] timolol maleate [Timoptic] 1 drp OPR DAILY 10/26/19 05/02/20 History Incruse Ellipta 1 inh INHALATION QAM #1 inhaler 10/29/19 05/02/20 Rx Vimpat 200 mg PO BID 04/11/20 05/02/20 History loteprednol etabonate 1 drp OPR DAILY 04/11/20 05/02/20 History topiramate [Topamax] 50 mg PO BID 04/11/20 05/02/20 History blood sugar diagnostic [OneTouch #50 ea 04/14/20 Rx Verio test strips] insulin glargine [Lantus Solostar 16 unit SC DAILY 30 Days #4.8 ml 04/14/20 05/02/20 Rx U-100 Insulin] lancets [OneTouch Delica Lancets] #100 ea 04/14/20 Rx metformin 500 mg PO DAILY #30 tab 04/14/20 05/02/20 Rx pen needle, diabetic [Pen Needle] #50 ea 04/14/20 Rx Inpatient Medication List Brinzolamide (Brinzolamide (Azopt) Ops 10 Ml Btl) 1 drops OPR TID JOSY Stop: 06/01/20 08:59 Last Admin: 05/02/20 09:07 Dose: 1 drops Documented by: [id number] Enoxaparin Sodium (Enoxaparin Inj 40 Mg/0.4 Ml Syr) 40 mg SQ Q24H JOSY Stop: 06/01/20 08:59 Last Admin: 05/02/20 09:07 Dose: 40 mg Documented by: [id number] Propofol (Diprivan) 1,000 mg in 100 mls @ 9.18 mls/hr IV .[id number] JOSY; Protocol Stop: 05/05/20 00:44 Last Titration: 05/02/20 04:00 Dose: 0 mcg/kg/min, 0 mls/hr Documented by: [id number] Titration: 05/02/20 02:36 Dose: 15 mcg/kg/min, 6.9 mls/hr Documented by: [id number] Titration: 05/02/20 02:00 Dose: 10 mcg/kg/min, 4.6 mls/hr Documented by: [id number] Titration: 05/02/20 01:39 Dose: 15 mcg/kg/min, 6.9 mls/hr Documented by: [id number] Titration: 05/02/20 00:57 Dose: 10 mcg/kg/min, 4.6 mls/hr Documented by: [id number] Admin: 05/02/20 00:44 Dose: 5 mcg/kg/min, 2.3 mls/hr Documented by: [id number] Lacosamide 200 mg/ Sodium (Chloride) 70 mls @ 140 mls/hr IV Q12H JOSY Stop: 06/01/20 03:59 Last Infusion: 05/02/20 05:43 Dose: 0 mls/hr Documented by: [id number] Admin: 05/02/20 05:13 Dose: 140 mls/hr Documented by: [id number] Potassium Chloride/Sodium Chloride (Normal Saline W/20 Meq Kcl) 20 meq in 1,000 mls @ 100 mls/hr IV .Q10H JOSY Stop: 06/01/20 03:41 Last Admin: 05/02/20 05:12 Dose: 100 mls/hr Documented by: [id number] Piperacillin Sod/Tazobactam (Sod 3.375 gm/ Dextrose) 115 mls @ 30 mls/hr IV Q8H JOSY; Protocol Stop: 05/09/20 05:59 Last Infusion: 05/02/20 09:34 Dose: 0 mls/hr Documented by: [id number] Admin: 05/02/20 05:44 Dose: 30 mls/hr Documented by: [id number] Methylprednisolone 60 mg/ (Syringe) 0.96 mls @ 1.5 mls/min IV Q8H JOSY Stop: 06/01/20 03:59 Last Admin: 05/02/20 05:13 Dose: 1.5 mls/min Documented by: [id number] Norepinephrine Bitartrate 8 mg (/ Dextrose) 508 mls @ 46.634 mls/hr IV .[id number] JOSY; Protocol Stop: 06/01/20 04:14 Last Titration: 05/02/20 10:26 Dose: 0.16 mcg/kg/min, 46.6 mls/hr Documented by: [id number] Titration: 05/02/20 09:51 Dose: 0.18 mcg/kg/min, 52.5 mls/hr Documented by: [id number] Titration: 05/02/20 05:38 Dose: 0.2 mcg/kg/min, 58.3 mls/hr Documented by: [id number] Titration: 05/02/20 05:35 Dose: 0.1 mcg/kg/min, 29.1 mls/hr Documented by: [id number] Admin: 05/02/20 05:13 Dose: 0.05 mcg/kg/min, 14.6 mls/hr Documented by: [id number] Cosigned by: [id number] Insulin Human Regular 250 (units/ Sodium Chloride) 250 mls @ 2.8 mls/hr IV .Q24H JOSY; Protocol Stop: 06/01/20 04:59 Last Admin: 05/02/20 05:34 Dose: Not Given Documented by: [id number] Cosigned by: [id number] Midazolam HCl (Versed) 125 mg in 250 mls @ 4 mls/hr IV .[id number] PRN; Protocol PRN Reason: Agitation Stop: 06/01/20 05:11 Last Titration: 05/02/20 06:14 Dose: 2 mg/hr, 4 mls/hr Documented by: [id number] Cosigned by: [id number] Admin: 05/02/20 05:34 Dose: 1 mg/hr, 2 mls/hr Documented by: [id number] Cosigned by: [id number] Famotidine 20 mg/ Syringe 5 mls @ 2.5 mls/min IV BID JOSY Stop: 06/01/20 08:59 Last Admin: 05/02/20 09:07 Dose: 2.5 mls/min Documented by: [id number] Propofol (Propofol Bolus From Bag) 20 mg IV Q5M PRN PRN Reason: Sedation Stop: 05/05/20 00:39 Last Admin: 05/02/20 01:26 Dose: 20 mg Documented by: [id number] Cosigned by: [id number] Admin: 05/02/20 01:02 Dose: 20 mg Documented by: [id number] Cosigned by: [id number] Discontinued Medications Fentanyl Citrate (Fentanyl Citrate 100 Mcg/2 Ml Vial) 50 mcg IV NOW STA Stop: 05/02/20 01:44 Last Admin: 05/02/20 01:45 Dose: 50 mcg Documented by: [id number] Piperacillin Sod/Tazobactam Sod (Zosyn) 4.5 gm in 120 mls @ 240 mls/hr IV NOW ONE Stop: 05/02/20 01:33 Last Infusion: 05/02/20 01:50 Dose: 0 mls/hr Documented by: [id number] Admin: 05/02/20 01:19 Dose: 240 mls/hr Documented by: [id number] Vancomycin HCl 1,500 mg/ (Sodium Chloride) 530 mls @ 200 mls/hr IV NOW ONE Stop: 05/02/20 03:42 Last Infusion: 05/02/20 04:38 Dose: 0 mls/hr Documented by: [id number] Admin: 05/02/20 01:59 Dose: 200 mls/hr Documented by: [id number] Sodium Chloride (Nss 1000ml) 1,000 mls @ 999 mls/hr IV .Q1H1M ONE Stop: 05/02/20 02:04 Last Infusion: 05/02/20 02:08 Dose: 0 mls/hr Documented by: [id number] Admin: 05/02/20 01:11 Dose: 999 mls/hr Documented by: [id number] Sodium Chloride (Nss 1000ml) 1,000 mls @ 999 mls/hr IV .Q1H1M ONE Stop: 05/02/20 02:51 Last Infusion: 05/02/20 03:00 Dose: 0 mls/hr Documented by: [id number] Admin: 05/02/20 01:54 Dose: 999 mls/hr Documented by: [id number] Levetiracetam 1,000 mg/ Sodium (Chloride) 110 mls @ 440 mls/hr IV NOW STA Stop: 05/02/20 03:41 Last Admin: 05/02/20 06:38 Dose: Not Given Documented by: [id number] Albumin Human (Albumin 25%) 12.5 gm in 50 mls @ 50 mls/hr IV Q1H JOSY Stop: 05/02/20 08:29 Last Infusion: 05/02/20 06:14 Dose: 0 mls/hr Documented by: [id number] Admin: 05/02/20 05:38 Dose: 50 mls/hr Documented by: [id number] Infusion: 05/02/20 05:38 Dose: 50 mls/hr Documented by: [id number] Admin: 05/02/20 05:22 Dose: 50 mls/hr Documented by: [id number] Infusion: 05/02/20 05:22 Dose: 50 mls/hr Documented by: [id number] Admin: 05/02/20 05:00 Dose: 50 mls/hr Documented by: [id number] Infusion: 05/02/20 05:00 Dose: 50 mls/hr Documented by: [id number] Admin: 05/02/20 04:40 Dose: 50 mls/hr Documented by: [id number] Insulin Human Regular (Novolin-R Bolus From Bag) 3 units IV ONE ONE Stop: 05/02/20 05:01 Last Admin: 05/02/20 05:35 Dose: Not Given Documented by: [id number] Ioversol (Optiray 320 125ml) 120 ml IV ONCE ONE Stop: 05/02/20 03:16 Last Admin: 05/02/20 03:15 Dose: 120 ml Documented by: [id number] Midazolam HCl (Midazolam Hcl 5 Mg/Ml 1 Ml Vial) 2 mg IV NOW STA Stop: 05/02/20 01:44 Last Admin: 05/02/20 01:45 Dose: 2 mg Documented by: [id number] Miscellaneous (Rapid Sequence Induction Bag) Confirm Administered Dose 1 ea .ROUTE .STK-MED ONE Stop: 05/02/20 00:30 Last Admin: 05/02/20 00:49 Dose: 1 ea Documented by: [id number] Miscellaneous (Stat Iv Infusion Titration Per Protocol) 1 ea N/A NOW STA Stop: 05/02/20 00:41 Last Admin: 05/02/20 00:49 Dose: 1 ea Documented by: [id number] Miscellaneous Information (Piperacill/Tazobac Consult Active) 1 ea N/A UD PRN PRN Reason: Consult Stop: 06/01/20 01:03 Last Admin: 05/02/20 01:22 Dose: 1 ea Documented by: [id number] Miscellaneous Information (Vancomycin Consult Active) 1 ea N/A UD PRN PRN Reason: Consult Stop: 06/01/20 01:03 Last Admin: 05/02/20 01:22 Dose: 1 ea Norepinephrine Bitartrate (Norepinephrine Bitartrate 1 Mg/Ml 4 Ml Vial) Confirm Administered Dose 4 mg IV .STK-MED ONE Stop: 05/02/20 04:17 Last Admin: 05/02/20 05:27 Dose: Not Given Documented by: [id number] Propofol (Propofol Iv Emulsion 10 Mg/Ml 100 Ml Vial) Confirm Administered Dose 1,000 mg IV .STK-MED ONE Stop: 05/02/20 00:38 Last Admin: 05/02/20 01:08 Dose: Not Given Documented by: [id number] Description This is a 21 electrode EEG with a single channel dedicated to limited EKG. The electrodes were placed in accordance with the International 10-20 system. Interpretation The predominant background activity consists of irregular 10 Hz activity, of up to 20 mV in amplitude,seen symmetrically distributed over the posterior head regions bilaterally, spreading anteriorly symmetrically. This activity has little attenuation with eye-opening and other alerting procedures. A moderate amount of low amplitude slower activity (5-6 Hz) was mixed with the background activity is a diffuse, nonspecific , non-focal manner. In addition, there was intermittent C3 (and to a lesser degree T3) electrode artifact intermittently. Photic stimulation was performed and elicited no change in the background activity and no abnormal responses were seen. Hyperventilation was not performed. A mild amount of muscle and movement artifact activity contaminated the recording and did not hinder interpretation to any significant degree. Throughout this recording, no focal abnormalities or potentially epileptogenic discharges were seen. In summary, this EEG was remarkable for mild to moderate generalized slowing. No focal abnormalities (especially from the temporal lobes) or potentially epileptogenic discharges were seen. Clinical Correlation The absence of potentially epileptogenic activity does not exclude a seizure disorder, since interictally, EEGs can be normal. Clinical correlation is required. The general slowing is consistent with a mild to moderate generalized encephalopathy, which could be due to a wide variety of causes, including hypoxic. [facility] EEG Procedure Codes Indication for Procedure (1) Seizure: (2) Hypoxic encephalopathy: Neurology Neurology: [id number] EEG include record awake & sleepy
--- NOTE | 2020-05-02 12:23 | XCELERA ---
[id number]
--- NOTE | 2020-05-02 13:30 | Pharmacy Report ---
Pharmacy Glycemic Short Note 2 - Date of Service May 02, 2020 - Glycemic Short BSG Results (Last 24 hours): 05/01/20 05/02/20 05/02/20 23:52 00:09 00:15 Glucose 310 H* POC Glucose 289 H POC Glucose (other) 301 H 05/02/20 05/02/20 04:34 05:24 Glucose 188 H POC Glucose POC Glucose (other) 152 H OUTPATIENT ANTIDIABETIC REGIMEN: * Lantus 16 units SQ daily * Metformin 500 mg PO daily * A1c = 10.6% (04/11/20) ASSESSMENT: * Ted is a 70 yo T2DM admitted to the ICU with acute respiratory failure with hypoxemia and hypercapnia/aspiration pneumonia * He has the potential for significant insulin resistance due to possible infection, high dose IV steroids, pressors, and uncontrolled DM at baseline. * He was ordered an IV insulin infusion to start this morning at 0500 (BSG of 289, 301, 188 mg/dL). For unknown reasons, the insulin infusion was never started. BSG did improve to 152 mg/dL at 0524 (this appears to be without any insulin administration). BSG of 164 mg/dL at 1400. * Will start Lantus now (25% reduction in home dose). Add Lantus scale at bedtime to cover for steroid induced hyperglycemia. * Novolog ordered based on weight/stress 2. PLAN FOR INPATIENT GLYCEMIC CONTROL: * Basal insulin * Lantus 12 units SQ x 1 now * Lantus per scale at HS: 0 units for BSG < 180 mg/dL, 12 units for BSG 180 mg/dL or more * Further basal orders to be determined 05/03 * Bolus insulin * NovoLog per scale ACHS or Q6hrs while NPO * Goal Range: Low 120 mg/dL - High 150 mg/dL * Correction Factor: 20 mg/dL/unit * Nutritional / Prandial insulin per carb ratio of 1 unit per 10 grams CHO consumed PLAN FOR DISCHARGE: * A1c = 10.6% (04/11/20) * Recommendations TBD
[2020-05-02] MEDS: PIPERACILLIN/TAZOBACTAM 4.5 GM in DEXTROSE 5% 100 ML IV SCH ×2 (13:45→21:35)
[2020-05-02] MEDS ORDERED: INSULIN GLARGINE SOLOSTAR 100 UNITS/ML 3 ML PEN SC ONE ×2 (14:00→21:00)
[2020-05-02] MEDS ORDERED: SUCCINYLCHOLINE CHLORIDE 20 MG/ML 10 ML VIAL IV ONE (14:59)
[2020-05-02] MEDS ORDERED: MIDAZOLAM HCL 5 MG/ML VIAL IV ONE (14:59)
[2020-05-02] MEDS ORDERED: ETOMIDATE 2 MG/ML 20 ML VIAL IV ONE (14:59)
[2020-05-02] MEDS ORDERED: fentaNYL citrate 100 MCG/2 ML VIAL IV ONE (14:59)
--- NOTE | 2020-05-02 15:07 | Communication Note ---
Date of Service: May 02, 2020 This AM was able to collect further collateral information from the patient's and from [facility] EMR. 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 Vinicius Warren at [facility]. He had a 48 hour EEG that showed 14 focal seizures arising from the left temporal region with definitive EEG changes. There was also noted to be left temporal slowing and sharp wave discharges suggestive of a focal neuronal dysfunction and increased seizure risk in that region. Prior to admission patient was on Vimpat 200 BID and Topamax 50 BID for seizure prophylaxis, and gabapentin 300 TID for neuropathy. Per , patient had not had any seizure activity similar to his previous episodes since those medication changes. She does endorse several months of "abdominal cramps where it will look like his belly is trying to do situps". Here in ICU patient had EEG which was read by Dr. Collier. No focal abnormalities or potentially epileptogenic discharges were seen during the study. Mild general slowing consistent with generalized encephalopathy noted. Respiratory therapy was able to titrate patient's FiO2 from 60% to 40% throughout the day, and patient is able to open eyes to voice however unable to respond to commands at this time. Will continue to monitor and wean vent settings as able. Overall patient's presentation is mostly likely secondary to acute hypoxic hypercapnic respiratory failure causing a metabolic encephalopathy, as evidenced by patient's altered mental status and significantly elevated CO2 on labwork. Patient had a follow up Chest CT on 04/30 for lung nodule which showed stable lung nodule, with severe emphysema and suggestion of pulmonary hypertension and mucous plugging. Suspect patient has a home oxygen requirement that has until now not caused symptoms, and even may require positive pressure ventilation when asleep in order to help prevent hypercarbia. Resident Activity Tracking Resident Involvement: Resident Care Provided Care Provided: Adult Hospital Medicine
[2020-05-02] MEDS ORDERED: SODIUM BICARB 8.4% INJ 50 MEQ/50 ML SYR IV ONE (15:08)
[2020-05-02] MEDS: INSULIN ASPART 100 UNITS/ML 3 ML PEN SC SCH ×2 (15:15→18:23)
[2020-05-02] MEDS ORDERED: Heparin IV Standard *NO* Bolus IV SCH (15:36)
[2020-05-02] MEDS: HEPARIN SODIUM/DEXTROSE 25,000 UNITS/500 ML BAG IV SCH (16:11)
[2020-05-02 16:22] LABS: BUN Creatinine Ratio 13.7 (10-20); Calcium 8.1 mg/dl (8.5-10.1); Creatinine Clr Calc Pharmacy 92.2 ml/min; Est GFR (African American) 106.6; Est GFR (Non-African American) 91.9; Potassium 3.7 mmol/L (3.5-5.1)
[2020-05-02 16:48] LABS: Phosphorus 1.4 mg/dl (2.5-4.9); Troponin I 0.234 ng/ml (0-0.045)
[2020-05-02 17:11] LABS: Partial Thromboplastin Ratio 1.2; Partial Thromboplastin Time 33.5 Seconds (21.0-31.0)
[2020-05-02] MEDS ORDERED: POTASSIUM PHOS 3 MMOL/1 ML INFUSION IV STA (17:30)
--- NOTE | 2020-05-02 17:45 | Communication Note ---
Date of Service: May 02, 2020 Reviewed EEG report: No evidence of seizures Reviewed echo report: EF 55 to 60%, mildly dilated right ventricle. Started heparin for elevated troponins, Zosyn for possible pneumonia/aspiration, I suspect there is underlying COPD and he carries a diagnosis of moderate obstructive sleep apnea. I suspect the most likely underlying etiology was acute hypercarbia with significant hypoxia likely leading to additional metabolic disturbances. CTA is reassuring for no venous thromboembolic disease, will continue the heparin given the elevated troponins began this could be secondary to metabolic demands and hypoxia with type II ischemia. At this point the patient still experiencing hypoxia if there is not resolution in the next 12 hours I would likely proceed with therapeutic and diagnostic bronchoscopy. I have personally spent 25 minutes of critical care time in the direct management of this patient. This is a life/limb threatening event. This includes time spent evaluating patient, direct bedside care, chart review, placing orders, interpretation of diagnostic studies, discussion with consultants, patient, and/or family members regarding treatment decisions, as well as other required patient management activities. This time is exclusive of all separately billable procedures, and teaching time and separate from and in addition to any other critical care service time. Coding Level of Care Code Critical Care princess guidryt'l 30 min
[2020-05-02] MEDS ORDERED: POTASSIUM PHOSPHATE 24 MMOL in SODIUM CHLORIDE 0.9% 500 ML IV ONE (18:00)
[2020-05-02] MEDS ORDERED: fentaNYL citrate 100 MCG/2 ML VIAL IV PRN (22:09)
[2020-05-02] MEDS ORDERED: fentaNYL citrate 100 MCG/2 ML VIAL ONE (22:14)
[2020-05-02] MEDS: MIDAZOLAM BOLUS FROM BAG IV PRN (22:21)
[2020-05-02 23:04] LABS: Partial Thromboplastin Ratio 1.4; Partial Thromboplastin Time 38.1 Seconds (21.0-31.0)
[2020-05-03] MEDS: INSULIN ASPART 100 UNITS/ML 3 ML PEN SC SCH ×6 (00:13→23:48)
[2020-05-03] MEDS: NSS + 20MEQ KCL 20 MEQ/1,000 ML BAG IV SCH ×3 (01:42→22:57)
[2020-05-03] MEDS: MIDAZOLAM BOLUS FROM BAG IV PRN (03:44)
[2020-05-03] MEDS: LACOSAMIDE 200 MG in SODIUM CHLORIDE 0.9% 50 ML IV SCH ×2 (04:27→16:02)
[2020-05-03] MEDS: methylPREDNISolone 60 MG in SYRINGE 0 ML IV SCH ×3 (04:27→20:54)
[2020-05-03] MEDS: PIPERACILLIN/TAZOBACTAM 4.5 GM in DEXTROSE 5% 100 ML IV SCH ×3 (05:37→21:00)
[2020-05-03 05:38] LABS: Basophils # (auto) 0.01 K/uL (0-0.2); Basophils % (auto) 0.1 %; Hematocrit (blood only) 39.9 % (42-52); Hemoglobin 12.8 g/dL (14.0-18.0); Immature Granulocytes # (auto) 0.02 K/uL (0.00-0.02); Immature Granulocytes % (auto) 0.2 %; Lymphocytes # (auto) 0.89 K/uL (1.2-3.4); Lymphocytes % (auto) 8.4 %; Mean Corpuscular Hemoglobin 30.9 pg (25-34); Mean Corpuscular Hgb Conc 32.1 g/dL (32-36); Mean Corpuscular Volume 96.4 fL (80-100); Mean Platelet Volume 10.5 fL (7.4-10.4); Monocytes # (auto) 0.58 K/uL (0.11-0.59); Monocytes % (auto) 5.5 %; Neutrophils # (auto) 9.04 K/uL (1.4-6.5); Neutrophils % (auto) 85.8 %; Platelet Count 219 K/uL (130-400); RDW Coefficient of Variation 14.8 % (11.5-14.5); RDW Standard Deviation 51.5 fL (36.4-46.3); Red Blood Count 4.14 M/uL (4.7-6.1); White Blood Count 10.54 K/uL (4.8-10.8)
[2020-05-03] MEDS: MIDAZOLAM HCL 125 MG/250 ML BAG IV PRN (05:45)
[2020-05-03 05:52] LABS: INR 1.2 (0.9-1.1); Partial Thromboplastin Ratio 2.3; Prothrombin Time 12.5 Seconds (9.0-12.0)
[2020-05-03 05:53] LABS: iSTAT Art Bld Gas pCO2 Correct 48 mmHg (35-46); iSTAT Art Bld Gas pH Corrected 7.321 (7.35-7.45); iSTAT Arterial Blood Gas HCO3 25 meg/L (19-24); iSTAT Arterial Blood Gas pCO2 47 mmHg (35-46); iSTAT Arterial Blood Gas pH 7.32 (7.35-7.45); iSTAT Arterial Blood Gas pO2 63 mmHg (80-95); iSTAT Arterial Blood Gas pO2 C 64; iSTAT Carbon Dioxide 26 mmol/L (24-31); iSTAT FiO2 30 %; iSTAT Hematocrit 38 % (42-52); iSTAT Hemoglobin 12.9 g/dl (14.0-18.0); iSTAT Potassium 3.7 mmol/L (3.3-5.0); iSTAT Site Art Line; iSTAT Sodium 144 mmol/L (135-144)
[2020-05-03 05:56] LABS: Albumin Level 2.8 gm/dl (3.4-5.0); BUN Creatinine Ratio 13.4 (10-20); Creatinine Clr Calc Pharmacy 118.3 ml/min; Est GFR (African American) 118.1; Est GFR (Non-African American) 101.9; Magnesium 1.9 mg/dl (1.8-2.4); Potassium 3.7 mmol/L (3.5-5.1)
[2020-05-03 05:59] LABS: Partial Thromboplastin Time 64.3 Seconds (21.0-31.0)
[2020-05-03 06:00] LABS: Albumin Globulin Ratio 0.9 (0.9-2); Bilirubin,Total 0.5 mg/dl (0.2-1); Globulin 3.1 gm/dl (2.5-4.0); Phosphorus 2.5 mg/dl (2.5-4.9); Total Protein 5.9 gm/dl (6.4-8.2)
--- NOTE | 2020-05-03 06:35 | Electrocardiogram Report ---
Test Reason : Blood Pressure : / mmHG Vent. Rate : 115 BPM Atrial Rate : 115 BPM P-R Int : 196 ms QRS Dur : 100 ms QT Int : 318 ms P-R-T Axes : 069 104 068 degrees QTc Int : 439 ms Sinus tachycardia with frequent and repetitive Premature ventricular complexes Possible Left atrial enlargement Rightward axis Abnormal ECG When compared with ECG of 11-APR-2020 01:19, repetitive PVCs are now present Confirmed by Alex Vera ([id number]) on 05/03/2020 6:35:06 AM Referred By: REFERRED SELF Confirmed By:Alex Vera
--- NOTE | 2020-05-03 06:38 | Electrocardiogram Report ---
Test Reason : Blood Pressure : / mmHG Vent. Rate : 104 BPM Atrial Rate : 104 BPM P-R Int : 192 ms QRS Dur : 088 ms QT Int : 366 ms P-R-T Axes : 067 089 065 degrees QTc Int : 481 ms Poor data quality, interpretation may be adversely affected Sinus tachycardia with frequent Premature ventricular complexes Otherwise normal ECG When compared with ECG of 11-APR-2020 01:19, T wave inversion now evident in Anterior leads Confirmed by Alex Vera ([id number]) on 05/03/2020 6:37:46 AM Referred By: REFERRED SELF Confirmed By:Alex Vera
--- NOTE | 2020-05-03 06:58 | Electrocardiogram Report ---
Test Reason : Blood Pressure : / mmHG Vent. Rate : 054 BPM Atrial Rate : 040 BPM P-R Int : 000 ms QRS Dur : 134 ms QT Int : 522 ms P-R-T Axes : 000 -80 094 degrees QTc Int : 495 ms Wide QRS rhythm , likely ventricular with retrograde atrial activation Left axis deviation Right bundle branch block T wave abnormality, consider lateral ischemia Abnormal ECG When compared with ECG of 02-MAY-2020 03:33, (unconfirmed) Wide QRS rhythm has replaced Sinus rhythm Vent. rate has decreased BY 50 BPM Confirmed by Alex Vera ([id number]) on 05/03/2020 6:57:52 AM Referred By: REFERRED SELF Confirmed By:Alex Vera
[2020-05-03] MEDS: NOREPINEPHRINE BIT INJ 8 MG in DEXTROSE 5% 500 ML IV SCH (07:42)
[2020-05-03] MEDS: LOTEPREDNOL OP SCH (07:59)
[2020-05-03] MEDS: FAMOTIDINE 20 MG in SYRINGE 3 ML IV SCH ×2 (07:59→20:54)
[2020-05-03] MEDS: BRINZOLAMIDE (AZOPT) OPS 10 ML BTL OPR SCH ×3 (07:59→20:58)
[2020-05-03] MEDS: INSULIN GLARGINE SOLOSTAR 100 UNITS/ML 3 ML PEN SC SCH ×2 (08:00→20:55)
[2020-05-03] MEDS ORDERED: STAT IV Infusion **Titration per Protocol STA (08:30)
--- NOTE | 2020-05-03 08:58 | XRay Report ---
XR chest 1V portable HISTORY: intubated COMPARISON: Chest 05/02/2020. FINDINGS: Nasogastric tube is curled within the stomach. The endotracheal tube terminates approximate ly 4.7 cm from the nakit. There is a right jugular central venous catheter which terminates at the b rachiocephalic/SVC junction. There are low lung volumes. No pneumothorax. The heart remains mildly en larged. Mild diffuse interstitial and vascular thickening persists. Right basilar airspace opacity an d a small right pleural effusion have slightly progressed. Left basilar linear densities remain uncha nged and may represent atelectasis or scarring. Emphysema. IMPRESSION: 1. Satisfactory support line placement. 2. Slight progression of the right basilar effusion/opacity. 3. Mild interstitial thickening/congestive change persists. ACT 112: Negative or not required by law. Electronically signed by: Surjit Ybarra M.D. 05/03/2020 8:57 AM
[2020-05-03] MEDS: fentaNYL DRIP 1,250 MCG/250 ML BAG IV SCH (09:10)
--- NOTE | 2020-05-03 11:05 | Procedure Note ---
Procedure Note: Bronchoscopy Procedure Procedure date: May 03, 2020 Procedure: fiberoptic bronchoscopy Pre-procedure indication: Acute hypoxic respiratory failure, pulmonary infiltrates Post-procedure Diagnosis: same as above Prior to Procedure: Informed Consent: The risks, benefits, indications, potential complications, and alternatives were explained to the patient's family and informed consent obtained. Attending Staff: Gerardo Gross DO Resident/APC: Not applicable Skin Prep: Not applicable Anesthesia: Continuous infusion The identity of the patient was confirmed and a bedside time out was performed. Description of Procedure: Fiberoptic bronchoscopy was performed via endotracheal tube. Bronchioalveolar lavage right lower lobe was performed. Findings included: Tenacious white secretions were suctioned and after the mucous plug was removed from the bronchus intermedius there was creamy purulent secretions. The opening to the right middle lobe was extremely inflamed and unable to be entered with the bronchoscope alone. Forceps were used to initially enter the right middle lobe and I was able to subsequently pass the scope into the right middle lobe. Lavage of purulent secretions also occurred from the right middle lobe. The left lobe was inspected and largely unremarkable. There was greater than 75% luminal collapse and changes consistent with acquired tracheomalacia Complications: None Specimens: Bronchial washings sent for culture and Gram stain, fungal elements, AFB stain and culture, cell count differential and Legionella antigen. Estimated blood loss: Zero
--- NOTE | 2020-05-03 11:08 | Critical Care Progress Note ---
Date of Service May 03, 2020 Assessment & Plan (1) Admitted to intensive care unit: Reason Critically Ill: 70-year-old male with acute hypoxic respiratory failure with hypercapnia NEURO - * CAM ICU: Unable to assess secondary to level of sedation * Altered mental status: * Reviewed EEG * Anticipating approval as hypoxia resolves * Seizure disorder: * Will likely require follow-up with neurology CARDIAC/VASCULAR - * Hypotension: Resolved * troponins downtrending, reviewed echo * NSTEMI: * Likely demand in the setting of hypoxemia/respiratory failure. RESPIRATORY - * Acute Hypoxic Respiratory Failure w/ Hypercapnia: * Significant mucoid impaction and inflammation of right middle lobe * Underwent bronchoscopy * Suspect bacterial pneumonia * Agree w/ Zosyn. * Aggressive pulmonary toilet. GI/NUTRITION - * reports swallowing difficulty with pills. * Admits that he did seem to aspirate on water a few days ago. * Consider swallow evaluation when clinically appropirate. * OG in place * Prophylaxis: Famotidine * Starting tube feeding today RENAL/LYTES - * Electrolyte protocol - * Gil[place] in place - Strict I&Os. ENDO - * Hyperglycemia w/ h/o DM: * BSGs per unit protocol. ISS --> gtt per unit policy. HEME - * Stable H&H * Discontinue heparin after 24 hours set to discontinue 05/04 at 7 AM * Prophylaxis: Lovenox 40 mg set to start at 05/04 at 9 AM ID - * Aspiration Pneumonia: * Continue Zosyn. * Sputum culture pending LINES/IV ACCESS - * PIVs x2 * RIGHT IJ CVL * LEFT Radial A-line * ET Tube * Gillette DVT PROPHYLAXIS - * Lovenox * SCDs I have personally spent 55 minutes of critical care time in the direct management of this patient. This is a life/limb threatening event. This includes time spent evaluating patient, direct bedside care, chart review, placing orders, interpretation of diagnostic studies, discussion with consultants, patient, and family members, as well as other required patient management activities. This time is exclusive of all separately billable procedures, and teaching time and separate from and in addition to any other critical care service time. (2) Acute respiratory failure with hypoxia and hypercapnia: (3) Aspiration pneumonia: (4) Right lower lobe pneumonia: (5) Altered mental status: (6) Seizure-like activity: (7) Encephalopathy, unspecified: (8) COPD (chronic obstructive pulmonary disease): (9) NSTEMI (non-ST elevated myocardial infarction): Admission and Anticipated Discharge Date Admission Date: May 02, 2020 Subjective No overnight events Review of Systems Review of Systems: Unobtainable due to endotracheal tube Physical Exam Physical Exam: General: Sedated. nontoxic. Skin: Warm, dry, Head: Atraumatic Ears, nose, mouth and throat: Obscured by endotracheal tube Cardiovascular: Normal peripheral perfusion Respiratory: No accessory muscle use Gastrointestinal: Non distended Musculoskeletal: No deformity Results & Data Results & Data ([facility]) Vital Signs (Past 12 Hours) Vital Signs Temp Pulse Resp BP Pulse Ox 05/03/20 09:21 85 135/52 L 05/03/20 07:51 79 18 94 05/03/20 06:10 37.2 C 83 104/70 93 05/03/20 05:40 91 H 120/75 92 05/03/20 05:25 93 H 18 92 05/03/20 05:10 89 124/80 94 05/03/20 04:40 89 124/83 93 05/03/20 04:10 37.2 C 88 116/79 93 05/03/20 03:40 86 113/76 93 05/03/20 03:10 83 121/76 94 05/03/20 02:40 76 119/79 95 05/03/20 02:10 75 114/74 96 05/03/20 01:50 79 24 93 05/03/20 01:40 75 113/78 100 05/03/20 01:10 73 113/73 100 05/03/20 00:40 74 120/73 99 05/03/20 00:10 37.2 C 73 112/76 99 05/02/20 23:40 68 130/88 99 05/02/20 23:10 75 132/84 100 Coding Level of Care Code Critical Care 1st 30-74 mins Diagnoses Admitted to intensive care unit Z78.9 Acute respiratory failure with hypoxia and hypercapnia J96.01; J96.02 Aspiration pneumonia J69.0 Right lower lobe pneumonia J18.9 Pneumonia type: due to unspecified organism Altered mental status R40.2431 Altered mental status type: coma Coma depth: Farnam coma 3-8 Coma timing: in the field (EMT or ambulance) Seizure-like activity R56.9 Encephalopathy, unspecified G93.40 COPD (chronic obstructive pulmonary disease) J44.9 COPD type: unspecified COPD NSTEMI (non-ST elevated myocardial infarction) I21.4 Time Spent (min) 55 (1) Altered mental status Altered mental status type: coma Coma depth: Astrid coma 3-8 Coma timing: in the field (EMT or ambulance) Qualified Code(s): R40.2431 - Astrid coma scale score 3-8, in the field [EMT or ambulance] (2) COPD (chronic obstructive pulmonary disease) COPD type: unspecified COPD Qualified Code(s): J44.9 - Chronic obstructive pulmonary disease, unspecified (3) Right lower lobe pneumonia Pneumonia type: due to unspecified organism Qualified Code(s): J18.9 - Pneumonia, unspecified organism
[2020-05-03] MEDS: HEPARIN SODIUM/DEXTROSE 25,000 UNITS/500 ML BAG IV SCH (11:29)
[2020-05-03] MEDS ORDERED: PEPTAMEN 1.5 CAL 1,000 ML BAG PO SCH (13:15)
--- NOTE | 2020-05-03 13:38 | Pharmacy Report ---
Pharmacy Glycemic Short Note 2 - Date of Service May 03, 2020 - Glycemic Short BSG Results (Last 24 hours): 05/02/20 05/02/20 05/02/20 13:40 15:51 18:18 Glucose 210 H POC Glucose 164 H POC Glucose (other) 207 H 05/02/20 05/03/20 05/03/20 21:33 00:11 05:15 Glucose 133 H POC Glucose POC Glucose (other) 193 H 179 H 05/03/20 05/03/20 05/03/20 05:31 08:02 11:32 Glucose POC Glucose 122 H 121 H 120 H POC Glucose (other) OUTPATIENT ANTIDIABETIC REGIMEN: * Lantus 16 units SQ daily * Metformin 500 mg PO daily * A1c = 10.6% (04/11/20) ASSESSMENT: 05/03: * Ted received 30 units of insulin yesterday with acceptable BSG control: * 24 units of basal * 6 units of bolus * Pt remains on solu medrol 60 mg IV q8h and fentanyl, versed, and heparin infus ions. Levophed has been titrated off. * Fasting BSG of 122 mg/dL is at goal. Lantus was slightly reduced this AM since high dose steroids do not appear to have significant effect on BSG (at least while pt is NPO) * Post prandial BSGs well controlled on current Novolog parameters. * Pt ordered to start Peptamen tube feeds @ 20 mL/hr this afternoon (contains 184 g/L of carbohydrate) * Will adjust carb coverage as needed based on BSG response to tube feeds 05/02: * Ted is a 70 yo T2DM admitted to the ICU with acute respiratory failure with hypoxemia and hypercapnia/aspiration pneumonia * He has the potential for significant insulin resistance due to possible infection, high dose IV steroids, pressors, and uncontrolled DM at baseline. * He was ordered an IV insulin infusion to start this morning at 0500 (BSG of 289, 301, 188 mg/dL). For unknown reasons, the insulin infusion was never started. BSG did improve to 152 mg/dL at 0524 (this appears to be without any insulin administration). BSG of 164 mg/dL at 1400. * Will start Lantus now (25% reduction in home dose). Add Lantus scale at bedtime to cover for steroid induced hyperglycemia. * Novolog ordered based on weight/stress 2. PLAN FOR INPATIENT GLYCEMIC CONTROL: * Basal insulin - slight decrease * Lantus per scale BID: * 0 units for BSG < 120 mg/dL * 10 units for BSG 120 mg/dL or more * Bolus insulin * NovoLog per scale ACHS or Q6hrs while NPO * Goal Range: Low 120 mg/dL - High 150 mg/dL * Correction Factor: 20 mg/dL/unit * Nutritional / Prandial insulin per carb ratio of 1 unit per 10 grams CHO consumed PLAN FOR DISCHARGE: * A1c = 10.6% (04/11/20) * Recommendations TBD
--- NOTE | 2020-05-03 13:56 | Hospitalist Progress Note ---
Date of Service May 03, 2020 Assessment & Plan (1) Acute respiratory failure with hypoxia and hypercapnia: multifactorial with likely chronic CO2 retention and then aspiration pneumonia compounding the problem with hypoxia patient intubated in the ED and admitted directly to ICU improving with Solu Medrol and Zosyn IV had bronchoscopy on 05/03 with impacted mucous on right side ventilator management per ICU, sedation with Fentanyl and Versed wean trial tomorrow AM on tube feeds per ICU GI prophylaxis (2) Aspiration pneumonia: Confirmed on CT angiography, which was negative for PE, but did show debris in right mainstem and down into the right lung. bronchoscopy 05/03 with impacted mucous right side WBC is 10k, afebrile continue Zosyn IV for 5-7 days (3) COPD (chronic obstructive pulmonary disease): no wheezing on exam continue solumedrol 60mg q8 could likely taper that tomorrow (4) Diabetes mellitus: Hyperglycemic ICU protocol monitor for hypoglycemia (5) Seizure: Change Vimpat from 200 mg p.o. twice daily to 200 mg IV twice daily no seizure activity on EEG needs neurology follow up Admission and Anticipated Discharge Date Admission Date: May 02, 2020 Subjective patient remains intubated had bronchoscopy this morning with impacted mucous in right middle bronchus, suctioned reviewed chart, reviewed labs discussed with ICU staff, Dr. Gross managing Review of Systems Review of Systems: Unobtainable due to endotracheal tube Physical Exam Constitutional: well developed, + thin and + mechanically ventilated; no acute distress Neck: trachea midline, no thyromegaly Respiratory: normal respiratory effort Auscultation: + rhonchi; no crackles, no rales and no wheezes Cardiovascular: RRR, no murmur, no edema Gastrointestinal (Abdomen): normal bowel sounds, soft, nontender, no hepatosplenomegaly Musculoskeletal: Head/Neck/Chest: normocephalic, head atraumatic and neck supple Extremities: extremities normal to inspection; no cyanosis, no clubbing and no petechiae Skin: no rashes, warm and dry Neurologic: + obtunded; no focal motor deficits Results & Data Results & Data ([facility]) Vital Signs (Past 12 Hours) Vital Signs Temp Pulse Resp BP Pulse Ox 05/03/20 11:11 84 24 91 05/03/20 09:21 85 135/52 L 05/03/20 07:51 79 18 94 05/03/20 06:10 37.2 C 83 104/70 93 05/03/20 05:40 91 H 120/75 92 05/03/20 05:25 93 H 18 92 05/03/20 05:10 89 124/80 94 05/03/20 04:40 89 124/83 93 05/03/20 04:10 37.2 C 88 116/79 93 05/03/20 03:40 86 113/76 93 05/03/20 03:10 83 121/76 94 05/03/20 02:40 76 119/79 95 05/03/20 02:10 75 114/74 96 Laboratory Results Laboratory Results - last 24 hr 05/02/20 05/02/20 05/02/20 15:51 16:55 18:18 WBC RBC Hgb POC Hgb Hct POC Hct MCV MCH MCHC RDW Std Deviation RDW Coeff of Naty Plt Count MPV Immature Gran % (Auto) Neut % (Auto) Lymph % (Auto) [place] % (Auto) Eos % (Auto) Baso % (Auto) Neut # (Auto) Lymph # (Auto) [place] # (Auto) Eos # (Auto) Baso # (Auto) Immature Gran # (Auto) PT INR APTT 33.5 H PTT Ratio 1.2 Sample Site POC pH POC pCO2 POC pO2 POC HCO3 POC Total CO2 POC Base Excess ABG pH (Temp Correct) ABG pCO2 (Temp Corrct POC ABG pO2 at Pt Temp POC ABG O2 Sat Marquis Test O2 Delivery Device POC FiO2 PEEP POC Sodium Sodium 141 POC Potassium Potassium 3.7 Chloride 110 H Carbon Dioxide 27 Anion Gap 4.0 BUN 11 Creatinine 0.77 Est Cr Clr Drug Dosing 92.2 Est GFR ( Amer) 106.6 Est GFR (Non-Af Amer) 91.9 BUN/Creatinine Ratio 13.7 Glucose 210 H POC Glucose POC Glucose (other) 207 H Calcium 8.1 L D Phosphorus 1.4 L* D Magnesium 2.0 Total Bilirubin AST ALT Alkaline Phosphatase Troponin I 0.234 H* Total Protein Albumin Globulin Albumin/Globulin Ratio Legionella Source Legionella Culture 05/02/20 05/02/20 05/02/20 19:43 21:33 22:09 WBC RBC Hgb POC Hgb Hct POC Hct MCV MCH MCHC RDW Std Deviation RDW Coeff of Naty Plt Count MPV Immature Gran % (Auto) Neut % (Auto) Lymph % (Auto) [place] % (Auto) Eos % (Auto) Baso % (Auto) Neut # (Auto) Lymph # (Auto) [place] # (Auto) Eos # (Auto) Baso # (Auto) Immature Gran # (Auto) PT INR APTT 38.1 H PTT Ratio 1.4 Sample Site POC pH POC pCO2 POC pO2 POC HCO3 POC Total CO2 POC Base Excess ABG pH (Temp Correct) ABG pCO2 (Temp Corrct POC ABG pO2 at Pt Temp POC ABG O2 Sat Marquis Test O2 Delivery Device POC FiO2 PEEP POC Sodium Sodium POC Potassium Potassium Chloride Carbon Dioxide Anion Gap BUN Creatinine Est Cr Clr Drug Dosing Est GFR ( Amer) Est GFR (Non-Af Amer) BUN/Creatinine Ratio Glucose POC Glucose POC Glucose (other) 193 H Calcium Phosphorus Magnesium Total Bilirubin AST ALT Alkaline Phosphatase Troponin I 0.213 H* Total Protein Albumin Globulin Albumin/Globulin Ratio Legionella Source Legionella Culture 05/03/20 05/03/20 05/03/20 00:11 05:15 05:15 WBC 10.54 RBC 4.14 L Hgb 12.8 L POC Hgb Hct 39.9 L POC Hct MCV 96.4 MCH 30.9 MCHC 32.1 RDW Std Deviation 51.5 H RDW Coeff of Naty 14.8 H Plt Count 219 MPV 10.5 H Immature Gran % (Auto) 0.2 Neut % (Auto) 85.8 Lymph % (Auto) 8.4 [place] % (Auto) 5.5 Eos % (Auto) 0.0 Baso % (Auto) 0.1 Neut # (Auto) 9.04 H Lymph # (Auto) 0.89 L [place] # (Auto) 0.58 Eos # (Auto) 0.00 Baso # (Auto) 0.01 Immature Gran # (Auto) 0.02 PT INR APTT PTT Ratio Sample Site POC pH POC pCO2 POC pO2 POC HCO3 POC Total CO2 POC Base Excess ABG pH (Temp Correct) ABG pCO2 (Temp Corrct POC ABG pO2 at Pt Temp POC ABG O2 Sat Marquis Test O2 Delivery Device POC FiO2 PEEP POC Sodium Sodium 144 POC Potassium Potassium 3.7 Chloride 114 H Carbon Dioxide 29 Anion Gap 1.0 L BUN 8 Creatinine 0.60 Est Cr Clr Drug Dosing 118.3 Est GFR ( Amer) 118.1 Est GFR (Non-Af Amer) 101.9 BUN/Creatinine Ratio 13.4 Glucose 133 H POC Glucose POC Glucose (other) 179 H Calcium 8.0 L Phosphorus 2.5 D Magnesium 1.9 Total Bilirubin 0.5 AST 19 ALT 40 Alkaline Phosphatase 54 Troponin I Total Protein 5.9 L Albumin 2.8 L Globulin 3.1 Albumin/Globulin Ratio 0.9 Legionella Source Legionella Culture 05/03/20 05/03/20 05/03/20 05:15 05:31 05:35 WBC RBC Hgb POC Hgb 12.9 L Hct POC Hct 38 L MCV MCH MCHC RDW Std Deviation RDW Coeff of Ntay Plt Count MPV Immature Gran % (Auto) Neut % (Auto) Lymph % (Auto) [place] % (Auto) Eos % (Auto) Baso % (Auto) Neut # (Auto) Lymph # (Auto) [place] # (Auto) Eos # (Auto) Baso # (Auto) Immature Gran # (Auto) PT 12.5 H INR 1.2 H APTT 64.3 H* PTT Ratio 2.3 Sample Site Art Line POC pH 7.32 L POC pCO2 47 H POC pO2 63 L POC HCO3 25 H POC Total CO2 26 POC Base Excess -2.0 ABG pH (Temp Correct) 7.321 L ABG pCO2 (Temp Corrct 48 H POC ABG pO2 at Pt Temp 64 POC ABG O2 Sat 90.0 Marquis Test NA O2 Delivery Device Ventilator POC FiO2 30 PEEP 5 POC Sodium 144 Sodium POC Potassium 3.7 Potassium Chloride Carbon Dioxide Anion Gap BUN Creatinine Est Cr Clr Drug Dosing Est GFR ( Amer) Est GFR (Non-Af Amer) BUN/Creatinine Ratio Glucose POC Glucose 122 H POC Glucose (other) Calcium Phosphorus Magnesium Total Bilirubin AST ALT Alkaline Phosphatase Troponin I Total Protein Albumin Globulin Albumin/Globulin Ratio Legionella Source Legionella Culture 05/03/20 05/03/20 05/03/20 08:02 09:49 11:32 WBC RBC Hgb POC Hgb Hct POC Hct MCV MCH MCHC RDW Std Deviation RDW Coeff of Naty Plt Count MPV Immature Gran % (Auto) Neut % (Auto) Lymph % (Auto) [place] % (Auto) Eos % (Auto) Baso % (Auto) Neut # (Auto) Lymph # (Auto) [place] # (Auto) Eos # (Auto) Baso # (Auto) Immature Gran # (Auto) PT INR APTT PTT Ratio Sample Site POC pH POC pCO2 POC pO2 POC HCO3 POC Total CO2 POC Base Excess ABG pH (Temp Correct) ABG pCO2 (Temp Corrct POC ABG pO2 at Pt Temp POC ABG O2 Sat Marquis Test O2 Delivery Device POC FiO2 PEEP POC Sodium Sodium POC Potassium Potassium Chloride Carbon Dioxide Anion Gap BUN Creatinine Est Cr Clr Drug Dosing Est GFR ( Amer) Est GFR (Non-Af Amer) BUN/Creatinine Ratio Glucose POC Glucose 121 H 120 H POC Glucose (other) Calcium Phosphorus Magnesium Total Bilirubin AST ALT Alkaline Phosphatase Troponin I Total Protein Albumin Globulin Albumin/Globulin Ratio Legionella Source Pending Legionella Culture Pending Medications Administered Current Inpatient Medications Brinzolamide (Brinzolamide (Azopt) Ops 10 Ml Btl) 1 drops OPR TID JOSY Stop: 06/01/20 08:59 Last Admin: 05/03/20 07:59 Dose: 1 drops Documented by: Dextrose (Dextrose 50% 50 Ml Syringe) 25 - 50 ml IV UD PRN; Protocol PRN Reason: Hypoglycemia Protocol Stop: 06/01/20 04:59 Enoxaparin Sodium (Enoxaparin Inj 40 Mg/0.4 Ml Syr) 40 mg SQ QAM JOSY Stop: 06/03/20 08:59 Enteral Nutritional Formula (Peptamen 1.5 Chad 1,000 Ml Bag) 1,000 ml PO UD JOSY; Protocol Stop: 06/02/20 13:14 Fentanyl Citrate (Fentanyl Citrate 100 Mcg/2 Ml Vial) 25 mcg IV Q2H PRN PRN Reason: Pain Stop: 05/16/20 22:08 Last Admin: 05/03/20 09:00 Dose: 25 mcg Documented by: Fentanyl Citrate (Fentanyl Bolus From Bag) 50 mcg IV Q60M PRN PRN Reason: Pain or Agitation Stop: 05/17/20 08:29 Glucagon (Glucagon For Inj 1 Mg Vial) 1 mg IM UD PRN; Protocol PRN Reason: Hypoglycemia Protocol Stop: 06/01/20 04:59 Glucose (Glucose 40% Gel 15 Gm Tube) 15 - 30 gm PO UD PRN; Protocol PRN Reason: Hypoglycemia Protocol Stop: 06/01/20 04:59 Glucose (Glucose 10 Tabs/Tube) 4 - 8 tabs PO UD PRN; Protocol PRN Reason: Hypoglycemia Protocol Stop: 06/01/20 04:59 Heparin Sodium (Beef Lung) (Heparin 10 Unit/Ml 5 Ml Flush) 5 ml FLUSH PRN PRN PRN Reason: Flush Stop: 06/01/20 23:53 Lacosamide 200 mg/ Sodium (Chloride) 70 mls @ 140 mls/hr IV Q12H JOSY Stop: 06/01/20 03:59 Last Infusion: 05/03/20 05:01 Dose: Infused Documented by: Potassium Chloride/Sodium Chloride (Normal Saline W/20 Meq Kcl) 20 meq in 1,000 mls @ 100 mls/hr IV .Q10H JOSY Stop: 06/01/20 03:41 Last Admin: 05/03/20 11:29 Dose: 100 mls/hr Documented by: Methylprednisolone 60 mg/ (Syringe) 0.96 mls @ 1.5 mls/min IV Q8H JOSY Stop: 06/01/20 03:59 Last Admin: 05/03/20 11:29 Dose: 1.5 mls/min Documented by: Norepinephrine Bitartrate 8 mg (/ Dextrose) 508 mls @ 0 mls/hr IV .Q0M [facility]; Protocol Stop: 06/01/20 04:14 Last Admin: 05/03/20 07:42 Dose: Not Given Documented by: Midazolam HCl (Versed) 125 mg in 250 mls @ 10 mls/hr IV .Q25H PRN; Protocol PRN Reason: Agitation Stop: 06/01/20 05:11 Last Titration: 05/03/20 06:56 Dose: 5 mg/hr, 10 mls/hr Documented by: Famotidine 20 mg/ Syringe 5 mls @ 2.5 mls/min IV BID JOSY Stop: 06/01/20 08:59 Last Admin: 05/03/20 07:59 Dose: 2.5 mls/min Documented by: Piperacillin Sod/Tazobactam (Sod 4.5 gm/ Dextrose) 120 mls @ 30 mls/hr IV Q8H [facility]; Protocol Stop: 05/09/20 13:59 Last Infusion: 05/03/20 09:51 Dose: Infused Documented by: Heparin Sodium/Dextrose (Heparin Sodium/Dextrose) 25,000 units in 500 mls @ 28 mls/hr IV .[id number] [facility]; Protocol Stop: 05/04/20 07:00 Last Admin: 05/03/20 11:29 Dose: 1,400 units/hr, 28 mls/hr Documented by: Fentanyl Citrate (Fentanyl Drip) 1,250 mcg in 250 mls @ 10 mls/hr IV .Q25H JOSY; Protocol Stop: 05/17/20 08:29 Last Titration: 05/03/20 12:06 Dose: 50 mcg/hr, 10 mls/hr Documented by: Insulin Aspart (Insulin Aspart 100 Units/Ml 3 Ml Pen) 0 units SC Q4 JOSY Stop: 06/02/20 15:59 Insulin Glargine (Insulin Glargine Solostar 100 Units/Ml 3 Ml Pen) 0 units SC BID JOSY; Protocol Stop: 06/02/20 08:59 Last Admin: 05/03/20 08:00 Dose: 10 units Documented by: Midazolam HCl (Midazolam Bolus From Bag) 2 mg IV Q60M PRN PRN Reason: Sedation Stop: 06/01/20 05:11 Last Admin: 05/03/20 03:44 Dose: 2 mg Documented by: Miscellaneous (Carbohydrates For Hypoglycemia ) 15 - 30 gm PO PRN PRN PRN Reason: Hypoglycemia Treatment Stop: 06/01/20 04:59 Miscellaneous (Stop Order) 1 ea N/A 0700 ONE Stop: 05/04/20 07:01 Miscellaneous Information (Piperacill/Tazobac Consult Active) 1 ea N/A UD PRN PRN Reason: Consult Stop: 06/01/20 03:41 Miscellaneous Information (Pharmacy Glycemic Mgmt Consult) 1 ea N/A UD PRN PRN Reason: Consult Stop: 06/01/20 05:00 Loteprednol 1 ea OP DAILY JOSY Stop: 06/02/20 08:59 Last Admin: 05/03/20 07:59 Dose: 1 drops Documented by: Propofol (Propofol Bolus From Bag) 20 mg IV Q5M PRN PRN Reason: Sedation Stop: 05/05/20 00:39 Last Admin: 05/02/20 01:26 Dose: 20 mg Documented by: PG Care Time/CCT Total # of Minutes Spent Total Time Spent with Patient: Total time spent is greater than 50% in coordination of care (as documented) at patient's floor/unit and/or counseling patient: Coding Level of Care Code 48388 Subseq Hosp Care Lvl 2 Diagnoses Acute respiratory failure with hypoxia and hypercapnia J96.01; J96.02 Aspiration pneumonia J69.0 COPD (chronic obstructive pulmonary disease) J44.9 COPD type: unspecified COPD Diabetes mellitus E11.9 Seizure R56.9 (1) COPD (chronic obstructive pulmonary disease) COPD type: unspecified COPD Qualified Code(s): J44.9 - Chronic obstructive p ulmonary disease, unspecified
[2020-05-03] MEDS ORDERED: PEPTAMEN 1.5 CAL 1,000 ML BAG NG SCH (16:34)
[2020-05-04] MEDS: HEPARIN SODIUM/DEXTROSE 25,000 UNITS/500 ML BAG IV SCH (03:46)
[2020-05-04] MEDS: LACOSAMIDE 200 MG in SODIUM CHLORIDE 0.9% 50 ML IV SCH ×2 (04:06→16:30)
[2020-05-04] MEDS: methylPREDNISolone 60 MG in SYRINGE 0 ML IV SCH (04:07)
[2020-05-04] MEDS: INSULIN ASPART 100 UNITS/ML 3 ML PEN SC SCH ×5 (04:08→20:31)
[2020-05-04] MEDS: fentaNYL DRIP 1,250 MCG/250 ML BAG IV SCH ×2 (04:09→22:08)
[2020-05-04] MEDS: MIDAZOLAM HCL 125 MG/250 ML BAG IV PRN (04:09)
[2020-05-04 04:43] LABS: iSTAT Arterial Blood Gas HCO3 24 meg/L (19-24); iSTAT Arterial Blood Gas pCO2 44 mmHg (35-46); iSTAT Arterial Blood Gas pH 7.35 (7.35-7.45); iSTAT Arterial Blood Gas pO2 62 mmHg (80-95); iSTAT Carbon Dioxide 25 mmol/L (24-31); iSTAT FiO2 30 %; iSTAT Site Art Line
[2020-05-04 04:56] LABS: Hematocrit (blood only) 39.7 % (42-52); Hemoglobin 12.9 g/dL (14.0-18.0); Immature Granulocytes # (auto) 0.02 K/uL (0.00-0.02); Immature Granulocytes % (auto) 0.2 %; Lymphocytes # (auto) 0.63 K/uL (1.2-3.4); Lymphocytes % (auto) 5.5 %; Mean Corpuscular Hemoglobin 31.2 pg (25-34); Mean Corpuscular Hgb Conc 32.5 g/dL (32-36); Mean Corpuscular Volume 96.1 fL (80-100); Mean Platelet Volume 10.7 fL (7.4-10.4); Monocytes # (auto) 0.63 K/uL (0.11-0.59); Monocytes % (auto) 5.5 %; Neutrophils # (auto) 10.19 K/uL (1.4-6.5); Neutrophils % (auto) 88.8 %; Platelet Count 223 K/uL (130-400); RDW Standard Deviation 52.5 fL (36.4-46.3); Red Blood Count 4.13 M/uL (4.7-6.1); White Blood Count 11.47 K/uL (4.8-10.8)
[2020-05-04] MEDS: PIPERACILLIN/TAZOBACTAM 4.5 GM in DEXTROSE 5% 100 ML IV SCH ×3 (05:04→21:00)
[2020-05-04 05:05] LABS: INR 1.3 (0.9-1.1); Prothrombin Time 13.1 Seconds (9.0-12.0)
[2020-05-04 05:32] LABS: Albumin Globulin Ratio 0.8 (0.9-2); Albumin Level 2.5 gm/dl (3.4-5.0); BUN Creatinine Ratio 16.8 (10-20); Bilirubin,Total 0.4 mg/dl (0.2-1); Creatinine Clr Calc Pharmacy 131.4 ml/min; Est GFR (African American) 123.3; Est GFR (Non-African American) 106.4; Globulin 3.2 gm/dl (2.5-4.0); Magnesium 2.2 mg/dl (1.8-2.4); Phosphorus 2.4 mg/dl (2.5-4.9); Total Protein 5.7 gm/dl (6.4-8.2)
[2020-05-04] MEDS: NSS + 20MEQ KCL 20 MEQ/1,000 ML BAG IV SCH (07:27)
--- NOTE | 2020-05-04 07:40 | Hospitalist Progress Note ---
Date of Service May 04, 2020 Assessment & Plan (1) Acute respiratory failure with hypoxia and hypercapnia: multifactorial with likely chronic CO2 retention and then aspiration pneumonia compounding the problem with hypoxia patient intubated in the ED continues with ventilation in ICU improving with Solu Medrol and Zosyn IV had bronchoscopy on 05/03 with impacted mucous on right side sedation with Fentanyl and Versed on tube feeds per ICU GI prophylaxis daily weaning trials (2) Aspiration pneumonia: Confirmed on CT angiography, which was negative for PE, but did show debris in right mainstem and down into the right lung. bronchoscopy 05/03 with impacted mucous right side continue Zosyn IV for 5-7 days (3) COPD (chronic obstructive pulmonary disease): no wheezing on exam, remains coarse, small TV with weaning trial taper solu medrol as able (4) Diabetes mellitus: Hyperglycemic ICU protocol monitor for hypoglycemia (5) Seizure: Change Vimpat from 200 mg p.o. twice daily to 200 mg IV twice daily no seizure activity on EEG needs neurology follow up Admission and Anticipated Discharge Date Admission Date: May 02, 2020 Subjective pt is sedated and ventilated, did not do well with weaning trial this am due to low tidal volumes. will have daily weaning trial attempts Review of Systems Review of Systems: Unobtainable due to cognitive status, Unobtainable due to endotracheal tube and Unobtainable due to reduced consciousness Physical Exam Physical Exam: The patient appeared in severe distress, sedated and ventilated Vital signs as documented. tapering off pressors Head exam is normocephalic atraumatic no scleral icterus Neck is without JVD, trachea is midline Lungs are coarse bilaterally Cardiac exam, Rhythm is regular. Abdominal exam reveals normal bowel sounds, soft Extremities are 1+ edematous and both pedal pulses are present Skin is without bruises or rashes Results & Data Results & Data ([facility]) Vital Signs (Past 12 Hours) Vital Signs Temp Pulse Resp BP Pulse Ox 05/04/20 06:11 98.8 F 69 103/67 96 05/04/20 05:41 68 105/72 95 05/04/20 05:11 74 100/66 95 05/04/20 04:41 82 125/76 95 05/04/20 04:11 98.8 F 89 130/85 93 05/04/20 04:00 86 130/53 L 05/04/20 03:50 94 H 25 H 93 05/04/20 03:41 96 H 136/82 93 05/04/20 03:13 97 H 128/77 93 05/04/20 01:41 86 140/79 93 05/04/20 01:11 80 112/71 98 05/04/20 01:00 80 24 93 05/04/20 00:41 75 117/77 94 05/04/20 00:11 98.1 F 70 116/73 94 05/04/20 00:00 72 116/52 L 05/03/20 23:41 71 104/68 94 05/03/20 23:11 69 112/77 94 05/03/20 22:41 71 113/70 95 05/03/20 22:11 77 119/74 94 05/03/20 22:10 76 24 94 05/03/20 21:40 82 125/75 94 05/03/20 21:11 85 121/94 92 05/03/20 20:41 85 124/77 92 05/03/20 20:10 98.1 F 90 117/73 92 05/03/20 20:00 87 123/48 L 05/03/20 19:41 96 H 123/77 98 05/03/20 19:40 81 25 H 93 PG Care Time/CCT Total # of Minutes Spent Total Time Spent with Patient: Total time spent is greater than 50% in coordination of care (as documented) at patient's floor/unit and/or counseling patient: Coding Level of Care Code 63659 Subseq Hosp Care Lvl 3 Diagnoses Acute respiratory failure with hypoxia and hypercapnia J96.01; J96.02 Aspiration pneumonia J69.0 COPD (chronic obstructive pulmonary disease) J44.9 COPD type: unspecified COPD Diabetes mellitus E11.9 Seizure R56.9 (1) COPD (chronic obstructive pulmonary disease) COPD type: unspecified COPD Qualified Code(s): J44.9 - Chronic obstructive pulmonary disease, unspecified
--- NOTE | 2020-05-04 08:15 | Critical Care Progress Note ---
Date of Service May 04, 2020 Assessment & Plan (1) Acute encephalopathy: Reason Critically Ill: 70 yo M with Hx seizure disorder, DM2, TIM, mild dementia, recently diagnosed COPD with emphysema who presented with acute hypoxic hypercapnic respiratory failure with likely aspiration pneumonia. Admitted to ICU following intubation and for close hemodynamic monitoring and pressure support. NEURO - CAM ICU: POSITIVE Sedation: Versed d/c'ed, propofol gtt started. Analgesia: Fentanyl. Metabolic encephalopathy: - No apparent seizure activity this admission. - ABG shows significant improvement in hypercapnea, and patient following simple commands this AM. - Baseline mental status is alert and oriented to name and place, has difficulties with short term memory and will forget to take medications without prompting from . Seizure disorder: - Has history of focal temporal seizures, at home is on Vimpat 200mg PO BID and Topamax 50mg PO BID. - Continue Vimpat IV and Topamax via OG. - EEG performed 05/02, showed no epileptiform activity but mild-moderate encephalopathy. - Follow up with neurology outpatient. CARDIAC/VASCULAR - Hypotension: - Resolved. - Maintain A line for now, pt's BP doing well this AM but was soft as recently as early this AM and currently giving Lasix. NSTEMI: - Likely demand in the setting of hypoxemia/respiratory failure. - Troponins downtrending. - Heparin d/c'ed this AM. RESPIRATORY - Acute Hypoxic Respiratory Failure w/ Hypercapnia, Aspiration Pneumonia: - Significant mucoid impaction and inflammation of right middle lobe. - Underwent bronchoscopy 05/03, sputum cultures pending. - Continue Zosyn for likely bacterial pneumonia. - Aggressive pulmonary toilet. - Decreasing methylprednisolone to 40mg IV BID for two days, then to 40mg IV daily. - Patient is net positive 5L this admission regarding fluid balance. - Lasix 40mg IV x1. Fluids d/c'ed. - Given findings on Chest CT 04/30 showing COPD with severe emphysema, and history of TIM, suspect patient has a home oxygen requirement that has until now not caused symptoms, and may require positive pressure ventilation when asleep in order to help prevent hypercapnia. - This morning transitioned to pressure support, with variation in TV from 150- 350; RSBI >100 high-risk extubation. Consider tomorrow if improvement in respiratory status. GI/NUTRITION - - reports swallowing difficulty with pills, and admits that he did seem to aspirate on water a few days ago. - Swallow evaluation when extubated. - OG in place, continuing tube feeds. - Fluids d/c'ed given net positive fluid balance and tube feeds. - Prophylaxis: Pantoprazole IV, Famotidine. RENAL/LYTES - - Electrolyte protocol. - - Gillette in place for strict I&Os. Net positive 5L this admission. ENDO - DM2: - BSGs per unit protocol. - SSI gtt per unit policy. HEME - - Stable H&H. ID - Aspiration Pneumonia: - Continue Zosyn. - Sputum cultures pending. LINES/IV ACCESS - - PIVs x2. - RIGHT IJ CVL. - LEFT Radial A-line. - ET Tube. - Gillette. DVT PROPHYLAXIS - - Lovenox 40mg daily, SCDs. Thank you for allowing us to participate in this patient's care. Please refer to Dr. Orr's documentation for any further recommendations. (2) Acute respiratory failure with hypoxia and hypercapnia: (3) NSTEMI (non-ST elevated myocardial infarction): (4) Aspiration pneumonia: (5) Mucoid impaction of bronchi: (6) Diabetes mellitus: (7) Macular degeneration: (8) Seizure: (9) COPD (chronic obstructive pulmonary disease): Admission and Anticipated Discharge Date Admission Date: May 02, 2020 Supervising Physician Co-Signing Physician Notes Dr. Stafford was the resident-physician during care of patient. I separately evaluated patient for solis portions of the history and the exam. I was present during the critical portion of medical decision making, and I discussed the case with the resident. I generally agree with the findings and plan except for any additions/exceptions noted. In/out: +1236, urine output 2200 Patient seen and examined at bedside. Was on 25 fentanyl and 5 midazolam at the time of examination. He has been off vasopressors since more than 12 hours. Patient is following simple commands. Denies any chest pain denies any pain. Patient is +5.1 L since coming to the hospital. We will give him a dose of Lasix. Hypophosphatemia being replaced. Patient has been on Solu-Medrol 60 every 8 we will go down to 40 mg every 12. Continue with Zosyn for aspiration pneumonia. I did give a trial of pressure support for the patient today. He did okay for the first 20 minutes but then he got very tachypneic tachycardic and restless. I will try to give another trial of pressure support tomorrow after diuresing him today if you are not successful then the possibility of trach should be kept in mind. Resume topiramate. Patient did have bronchoscopy done on 05/03/2020 with removal of secretions from the right side of the lung. There was also expiratory collapse of the posterior wall which goes with tracheomalacia. I have personally spent 38 minutes of critical care time in the direct management of this patient. This is a life/limb threatening event. This includes time spent evaluating patient, direct bedside care, chart review, placing orders, interpretation of diagnostic studies, discussion with consultants, patient, and/or family members regarding treatment decisions, as well as other required patient management activities. This time is exclusive of all separately billable procedures, and teaching time and separate from and in addition to any other critical care service time. Subjective Patient without acute events overnight. Responds to commands, and denies pain. Attempted CPAP settings on vent this AM and patient desaturated and was placed back on AC. Currently on PS with low tidal volumes except when told to take deep breaths, then will increase to 350s. Review of Systems Review of Systems: Unobtainable due to endotracheal tube Physical Exam Physical Exam: VITAL SIGNS - Vital signs and nursing notes were reviewed. GENERAL - 70 yo M, well developed, thin, ill appearing SKIN - Without rashes. HEAD - NC/AT. EYES - PERRL. Sclera anicteric. Palpebral conjunctiva pink and moist with no injection noted. EARS - No deformities of external structures noted on gross examination bilaterally. MOUTH/OROPHARYNX - No notable perioral cyanosis. LUNGS - Bilateral basilar crackles. CARDIAC - Regular rate and rhythm. No murmur, rubs, or gallops appreciated. ABDOMEN - Soft, nondistended, normal bowel sounds. EXTREMITIES - No clubbing or peripheral cyanosis. No peripheral edema present. NEUROLOGIC - No focal neurological deficits noted on exam. Able to follow commands (give a thumbs up on your right/left hand, uncross your legs). Results & Data Results & Data ([facility]) Vital Signs (Past 12 Hours) Vital Signs Temp Pulse Pulse Resp BP BP Pulse Ox 05/04/20 07:30 80 24 93 05/04/20 07:00 36.7 C 68 21 113/76 94 05/04/20 06:11 37.1 C 69 103/67 96 05/04/20 05:41 68 105/72 95 05/04/20 05:11 74 100/66 95 05/04/20 04:41 82 125/76 95 05/04/20 04:11 37.1 C 89 130/85 93 05/04/20 04:00 86 130/53 L 05/04/20 03:50 94 H 25 H 93 05/04/20 03:41 96 H 136/82 93 05/04/20 03:13 97 H 128/77 93 05/04/20 01:41 86 140/79 93 05/04/20 01:11 80 112/71 98 05/04/20 01:00 80 24 93 05/04/20 00:41 75 117/77 94 05/04/20 00:11 36.7 C 70 116/73 94 05/04/20 00:00 72 116/52 L 05/03/20 23:41 71 104/68 94 05/03/20 23:11 69 112/77 94 05/03/20 22:41 71 113/70 95 05/03/20 22:11 77 119/74 94 05/03/20 22:10 76 24 94 05/03/20 21:40 82 125/75 94 05/03/20 21:11 85 121/94 92 05/03/20 20:41 85 124/77 92 Resident Activity Tracking Resident Involvement: Resident Care Provided Care Provided: Adult Hospital Medicine (1) COPD (chronic obstructive pulmonary disease) COPD type: unspecified COPD Qualified Code(s): J44.9 - Chronic obstructive pulmonary disease, unspecified (2) Macular degeneration Eye laterality: unspecified Macular degeneration type: unspecified type Qualified Code(s): H35.30 - Unspecified macular degeneration
--- NOTE | 2020-05-04 08:17 | XRay Report ---
XR chest 1V portable HISTORY: Respiratory failure. COMPARISON: Chest 05/03/2020. FINDINGS: No pneumothorax. The heart remains mildly enlarged. There is diffuse interstitial thickenin g, unchanged. Small right basilar effusion and bibasilar densities persist. Nasogastric tube terminat es below the diaphragm. The tip is not included on this study. Right jugular central venous catheter terminates at the brachiocephalic/SVC junction. Endotracheal tube terminates approximately 4.6 cm fro m the ankit. IMPRESSION: 1. Satisfactory support line placement. 2. No change in the bibasilar densities and right pleural effusion. 3. Mild diffuse interstitial thickening favors congestive change. ACT 112: Negative or not required by law. Electronically signed by: Surjit Ybarra M.D. 05/04/2020 8:15 AM
[2020-05-04] MEDS ORDERED: STAT IV Infusion **Titration per Protocol STA ×2 (08:41→14:41)
[2020-05-04] MEDS: propofoL 1,000 MG/100 ML VIAL IV SCH ×2 (08:55→16:30)
[2020-05-04] MEDS ORDERED: PANTOprazole 40 MG TAB PO SCH (09:00)
[2020-05-04] MEDS: PROPOFOL BOLUS FROM BAG IV PRN ×3 (09:01→16:03)
[2020-05-04] MEDS: LOTEPREDNOL OP SCH (09:02)
[2020-05-04] MEDS: methylPREDNISolone 40 MG in SYRINGE 0 ML IV SCH ×2 (09:02→21:02)
[2020-05-04] MEDS: BRINZOLAMIDE (AZOPT) OPS 10 ML BTL OPR SCH ×3 (09:02→21:01)
[2020-05-04] MEDS: INSULIN GLARGINE SOLOSTAR 100 UNITS/ML 3 ML PEN SC SCH ×2 (09:03→21:02)
[2020-05-04] MEDS: ENOXAPARIN INJ 40 MG/0.4 ML SYR SQ SCH (09:04)
[2020-05-04] MEDS: FAMOTIDINE 20 MG in SYRINGE 3 ML IV SCH (09:06)
[2020-05-04] MEDS: TOPIRAMATE 50 MG TAB PO SCH ×2 (09:06→21:01)
[2020-05-04] MEDS ORDERED: FUROSEMIDE 40 MG in SYRINGE 0 ML IV ONE ×2 (10:00→21:00)
[2020-05-04] MEDS ORDERED: POTASSIUM PHOSPHATE 15 MMOL in SODIUM CHLORIDE 0.9% 250 ML IV ONE (10:30)
--- NOTE | 2020-05-04 10:50 | Pharmacy Report ---
Pharmacy Glycemic Short Note 2 - Date of Service May 04, 2020 - Glycemic Short BSG Results (Last 24 hours): 05/03/20 05/03/20 05/03/20 11:32 15:59 20:49 Glucose POC Glucose 120 H 132 H 168 H 05/03/20 05/04/20 05/04/20 23:47 04:05 04:48 Glucose 169 H POC Glucose 157 H 159 H 05/04/20 07:30 Glucose POC Glucose 180 H OUTPATIENT ANTIDIABETIC REGIMEN: * Lantus 16 units SQ daily * Metformin 500 mg PO daily * A1c = 10.6% (04/11/20) ASSESSMENT: 05/04 * Patient remains intubated. Methylprednisolone tapering from 60 mg IV q8h to 40 mg IV BID. Heparin has been stopped * Peptamen 1.5 anya rate increased overnight and BSG's also increased, up to 180 mg/dL this AM. Will tighten CHO ratio for now, but then will loosen back later today 2nd steroid taper 05/03: * Ted received 30 units of insulin yesterday with acceptable BSG control: * 24 units of basal * 6 units of bolus * Pt remains on solu medrol 60 mg IV q8h and fentanyl, versed, and heparin infusions. Levophed has been titrated off. * Fasting BSG of 122 mg/dL is at goal. Lantus was slightly reduced this AM since high dose steroids do not appear to have significant effect on BSG (at least while pt is NPO) * Post prandial BSGs well controlled on current Novolog parameters. * Pt ordered to start Peptamen tube feeds @ 20 mL/hr this afternoon (contains 184 g/L of carbohydrate) * Will adjust carb coverage as needed based on BSG response to tube feeds 05/02: * Ted is a 70 yo T2DM admitted to the ICU with acute respiratory failure with hypoxemia and hypercapnia/aspiration pneumonia * He has the potential for significant insulin resistance due to possible infection, high dose IV steroids, pressors, and uncontrolled DM at baseline. * He was ordered an IV insulin infusion to start this morning at 0500 (BSG of 289, 301, 188 mg/dL). For unknown reasons, the insulin infusion was never started. BSG did improve to 152 mg/dL at 0524 (this appears to be without any insulin administration). BSG of 164 mg/dL at 1400. * Will start Lantus now (25% reduction in home dose). Add Lantus scale at bedtime to cover for steroid induced hyperglycemia. * Novolog ordered based on weight/stress 2. PLAN FOR INPATIENT GLYCEMIC CONTROL: * Basal insulin * Lantus per scale BID: * 0 units for BSG < 120 mg/dL * 10 units for BSG 120 mg/dL or more * Bolus insulin * NovoLog per scale ACHS or Q6hrs while NPO * Goal Range: Low 120 mg/dL - High 150 mg/dL * Correction Factor: 20 mg/dL/unit * Carb ratio: 8 g CHO/unit for now, then 10 g CHO/unit starting at 1600 PLAN FOR DISCHARGE: * A1c = 10.6% (04/11/20) * Recommendations TBD
[2020-05-04] MEDS ORDERED: PANTOprazole 40 MG in SYRINGE 0 ML IV SCH (11:00)
[2020-05-04] MEDS: GABAPENTIN 250 MG/5 ML 470 ML BTL PO SCH (11:28)
[2020-05-04] MEDS: guaiFENesin SUGAR FREE 200 MG/10 ML UDC PO SCH ×3 (11:28→20:03)
--- NOTE | 2020-05-04 12:31 | Billing Data ---
Date of Service May 04, 2020 Coding Level of Care Code Critical Care 1st 30-74 mins Time Spent (min) 38
[2020-05-04] MEDS ORDERED: NOREPINEPHRINE/D5W 8 MG/508 ML BAG IV SCH (14:45)
[2020-05-04 20:24] LABS: Hematocrit (blood only) 40.2 % (42-52); Hemoglobin 13.2 g/dL (14.0-18.0); Mean Corpuscular Hemoglobin 31.6 pg (25-34); Mean Corpuscular Volume 96.2 fL (80-100); Mean Platelet Volume 10.7 fL (7.4-10.4); Platelet Count 221 K/uL (130-400); RDW Coefficient of Variation 15.3 % (11.5-14.5); RDW Standard Deviation 52.7 fL (36.4-46.3); Red Blood Count 4.18 M/uL (4.7-6.1); White Blood Count 10.17 K/uL (4.8-10.8)
[2020-05-04 20:35] LABS: iSTAT Arterial Blood Gas HCO3 26 meg/L (19-24); iSTAT Arterial Blood Gas pCO2 39 mmHg (35-46); iSTAT Arterial Blood Gas pH 7.44 (7.35-7.45); iSTAT Arterial Blood Gas pO2 60 mmHg (80-95); iSTAT Carbon Dioxide 28 mmol/L (24-31); iSTAT FiO2 30 %; iSTAT Site L Radial
[2020-05-04 20:39] LABS: Mean Corpuscular Hgb Conc 32.8 g/dL (32-36)
[2020-05-04 20:45] LABS: BUN Creatinine Ratio 17.4 (10-20); Calcium 8.5 mg/dl (8.5-10.1); Creatinine Clr Calc Pharmacy 95.9 ml/min; Est GFR (African American) 108.3; Est GFR (Non-African American) 93.5; Magnesium 2.2 mg/dl (1.8-2.4); Potassium 3.5 mmol/L (3.5-5.1)
[2020-05-04] MEDS: POTASSIUM CHLORIDE / WTR 20 MEQ/100 ML PLCT IV SCH (21:24)
[2020-05-04 21:27] LABS: Phosphorus 2.3 mg/dl (2.5-4.9); Troponin I 0.079 ng/ml (0-0.045)
[2020-05-05] MEDS: POTASSIUM CHLORIDE / WTR 20 MEQ/100 ML PLCT IV SCH
[2020-05-05] MEDS: INSULIN ASPART 100 UNITS/ML 3 ML PEN SC SCH ×6 (00:18→19:53)
[2020-05-05] MEDS: propofoL 1,000 MG/100 ML VIAL IV SCH (02:35)
[2020-05-05] MEDS: guaiFENesin SUGAR FREE 200 MG/10 ML UDC PO SCH ×3 (02:38→07:39)
[2020-05-05] MEDS: LACOSAMIDE 200 MG in SODIUM CHLORIDE 0.9% 50 ML IV SCH ×2 (04:04→16:00)
[2020-05-05 05:00] LABS: Basophils # (auto) 0.01 K/uL (0-0.2); Basophils % (auto) 0.1 %; Hematocrit (blood only) 42.5 % (42-52); Hemoglobin 13.7 g/dL (14.0-18.0); Immature Granulocytes # (auto) 0.03 K/uL (0.00-0.02); Immature Granulocytes % (auto) 0.3 %; Lymphocytes # (auto) 0.81 K/uL (1.2-3.4); Lymphocytes % (auto) 6.9 %; Mean Corpuscular Hemoglobin 31.1 pg (25-34); Mean Corpuscular Hgb Conc 32.2 g/dL (32-36); Mean Corpuscular Volume 96.6 fL (80-100); Mean Platelet Volume 11.1 fL (7.4-10.4); Monocytes # (auto) 0.92 K/uL (0.11-0.59); Monocytes % (auto) 7.9 %; Neutrophils # (auto) 9.91 K/uL (1.4-6.5); Neutrophils % (auto) 84.8 %; Platelet Count 299 K/uL (130-400); RDW Coefficient of Variation 15.3 % (11.5-14.5); RDW Standard Deviation 53.5 fL (36.4-46.3); White Blood Count 11.68 K/uL (4.8-10.8)
[2020-05-05 05:40] LABS: BUN Creatinine Ratio 21.7 (10-20); Calcium 8.8 mg/dl (8.5-10.1); Creatinine Clr Calc Pharmacy 95.9 ml/min; Est GFR (African American) 108.3; Est GFR (Non-African American) 93.5; Magnesium 2.4 mg/dl (1.8-2.4); Phosphorus 2.6 mg/dl (2.5-4.9); Potassium 4.1 mmol/L (3.5-5.1)
[2020-05-05 05:54] LABS: iSTAT Arterial Blood Gas HCO3 27 meg/L (19-24); iSTAT Arterial Blood Gas pCO2 39 mmHg (35-46); iSTAT Arterial Blood Gas pH 7.45 (7.35-7.45); iSTAT Arterial Blood Gas pO2 69 mmHg (80-95); iSTAT Carbon Dioxide 28 mmol/L (24-31); iSTAT FiO2 40 %; iSTAT Site Art Line
[2020-05-05] MEDS: PIPERACILLIN/TAZOBACTAM 4.5 GM in DEXTROSE 5% 100 ML IV SCH (05:56)
[2020-05-05] MEDS ORDERED: FUROSEMIDE 40 MG in SYRINGE 0 ML IV ONE (07:15)
--- NOTE | 2020-05-05 07:37 | XRay Report ---
XR chest 1V portable HISTORY: Respiratory failure. intubated COMPARISON: Chest 05/04/2020. FINDINGS: Endotracheal tube terminates 5.4 cm from the ankit. Nasogastric tube terminates in the dis monique stomach/pylorus. Right jugular central venous catheter terminates at the brachiocephalic/SVC junc tion. No pneumothorax. Right pleural effusion and right basilar densities persist. There is mild inte rstitial pulmonary edema, unchanged. There are few patchy left basilar densities which are also uncha nged. IMPRESSION: 1. Satisfactory support line placement. The endotracheal tube measures 5.4 cm and the ankit. 2. No change in the bibasilar densities and right pleural effusion. 3. Mild interstitial pulmonary edema persists. ACT 112: Negative or not required by law. Electronically signed by: Surjit Ybarra M.D. 05/05/2020 7:36 AM
[2020-05-05] MEDS: methylPREDNISolone 40 MG in SYRINGE 0 ML IV SCH (07:39)
[2020-05-05] MEDS: BRINZOLAMIDE (AZOPT) OPS 10 ML BTL OPR SCH ×3 (07:40→21:00)
[2020-05-05] MEDS: LOTEPREDNOL OP SCH (07:40)
[2020-05-05] MEDS: ENOXAPARIN INJ 40 MG/0.4 ML SYR SQ SCH (07:40)
[2020-05-05] MEDS: INSULIN GLARGINE SOLOSTAR 100 UNITS/ML 3 ML PEN SC SCH ×2 (07:41→19:53)
[2020-05-05] MEDS: TOPIRAMATE 50 MG TAB PO SCH (07:41)
[2020-05-05] MEDS: GABAPENTIN 250 MG/5 ML 470 ML BTL PO SCH (07:42)
--- NOTE | 2020-05-05 07:47 | Critical Care Progress Note ---
Date of Service May 05, 2020 Assessment & Plan (1) Acute encephalopathy: Reason Critically Ill: 70 yo M with Hx seizure disorder, DM2, TIM, mild dementia, recently diagnosed COPD with emphysema who presented with acute hypoxic hypercapnic respiratory failure with likely aspiration pneumonia. Admitted to ICU following intubation and for close hemodynamic monitoring and pressure support. NEURO - Metabolic encephalopathy: - No apparent seizure activity this admission. - ABG shows significant improvement in hypercapnia, and patient following commands and is alert and oriented on BiPAP. - Baseline mental status is alert and oriented to name and place, has difficulties with short term memory and will forget to take medications without prompting from . - PT/OT orders placed for tomorrow. Seizure disorder: - Has history of focal temporal seizures, at home is on Vimpat 200mg PO BID and Topamax 50mg PO BID. - Continue Vimpat 200mg IV, hold Topamax until able to PO. - EEG performed 05/02, showed no epileptiform activity but mild-moderate encephalopathy. - Follow up with neurology outpatient. CARDIAC/VASCULAR - Hypotension: - Resolved. - A line d/c'ed. NSTEMI: - Likely demand in the setting of hypoxemia/respiratory failure. - Troponins downtrended and patient without chest pain. RESPIRATORY - Acute Hypoxic Hypercapnic Respiratory Failure, Aspiration Pneumonia: - Significant mucoid impaction and inflammation of right middle lobe. - Underwent bronchoscopy 05/03, sputum culture grew Group G Beta Strep. [facility] hial washings and fungal culture pending. - Will transition Zosyn to Unasyn, with total antibiotic course of 7 days for aspiration pneumonia. - Aggressive pulmonary toilet. - Decreased methylprednisolone to 40mg IV daily for today, then transition to 40mg PO tomorrow for 3 days, then d/c. - Received total of 80mg IV Lasix yesterday for net positive fluid balance of 5L. Over last 24 hours is net negative 2L, with new total net balance of +4L. - Continue to monitor fluid status and IV Lasix as needed. - Given findings on Chest CT 04/30 showing COPD with severe emphysema, and history of TIM, suspect patient has a home oxygen requirement that has until now not caused symptoms, and may require positive pressure ventilation when asleep in order to help prevent hypercapnia. - This morning transitioned to BiPAP 03/24, saturating well and responds to questions appropriately. - CXR this AM with some mild improvement in bibasilar densities per Dr. Orr. GI/NUTRITION - - reports swallowing difficulty with pills, and admits that he did seem to aspirate on water a few days ago. - Swallow evaluation tomorrow when patient is more alert as he is a significant aspiration risk. - Fluids d/c'ed given net positive fluid balance and tube feeds. - NPO until cleared by speech. - Prophylaxis: Pantoprazole IV given high dose steroid therapy. RENAL/LYTES - - Electrolyte protocol. - - Estevez in place for strict I&Os. - d/c estevez this evening. - Net positive 4L this admission with 24hr net negative 2L. ENDO - DM2: - BSGs per unit protocol. - SSI gtt per unit policy. HEME - - Stable H&H. ID - Aspiration Pneumonia: - Sputum culture grew Group G Beta Strep. Bronchial washings and fungal culture pending. - Deescalate Zosyn to Unasyn for 7 total days of antibiotic therapy (to complete 05/08). LINES/IV ACCESS - - PIVs x2. - RIGHT IJ CVL. - Estevez. DVT PROPHYLAXIS - - Lovenox 40mg daily, SCDs. Thank you for allowing us to participate in this patient's care. Please refer to Dr. Orr's documentation for any further recommendations. (2) Acute respiratory failure with hypoxia and hypercapnia: (3) NSTEMI (non-ST elevated myocardial infarction): (4) Aspiration pneumonia: (5) Mucoid impaction of bronchi: (6) Diabetes mellitus: (7) Macular degeneration: (8) Seizure: (9) COPD (chronic obstructive pulmonary disease): Admission and Anticipated Discharge Date Admission Date: May 02, 2020 Supervising Physician Co-Signing Physician Notes Dr. Stafford was the resident-physician during care of patient. I separately evaluated patient for solis portions of the history and the exam. I was present during the critical portion of medical decision making, and I discussed the case with the resident. I generally agree with the findings and plan except for any additions/exceptions noted. In/out: -1770, urine output [id number] Patient seen and examined at bedside. No acute distress. Overnight patient had bradycardia and sinus pause for approximately 3-5 seconds. Etiology unsure. Did not recur. Patient was on low-dose vasopressors overnight as the patient was getting diuresed. At the time of examination today patient is following simple commands. He was on pressure support and doing pretty well on it. Plan to extubate today to BiPAP. 1 more dose of Lasix given today. JORGE Estevez today. Change Solu-Medrol to once daily and then will change to p.o. and discontinue in the next 2 days. We will get the patient on [facility] as well as chest PT. Patient did have bronchoscopy done on 05/03/2020 with removal of secretions from the right side of the lung. There was also expiratory collapse of the posterior wall which goes with tracheomalacia. I have personally spent 36 minutes of critical care time in the direct management of this patient. This is a life/limb threatening event. This includes time spent evaluating patient, direct bedside care, chart review, placing orders, interpretation of diagnostic studies, discussion with consultants, patient, and/or family members regarding treatment decisions, as w ell as other required patient management activities. This time is exclusive of all separately billable procedures, and teaching time and separate from and in addition to any other critical care service time. Subjective No acute events overnight. Tolerated PS well this AM and was extubated to BiPAP 03/24 with good success. Patient is alert to name and knows he is in the hospital. Denies chest pain or abdominal pain. Does not feel short of breath on BiPAP. Feels weak. Review of Systems Review of Systems: All systems reviewed & are unremarkable except as noted in HPI & below Constitutional: + malaise; no fever and no chills Respiratory: no cough and no dyspnea Cardiovascular: no chest pain, no palpitations and no edema Gastrointestinal: no abdominal pain Physical Exam Physical Exam: VITAL SIGNS - Vital signs and nursing notes were reviewed. GENERAL - 70 yo M, well developed, thin, ill appearing SKIN - Without rashes. HEAD - NC/AT. EYES - PERRL. Sclera anicteric. Palpebral conjunctiva pink and moist with no injection noted. EARS - No deformities of external structures noted on gross examination bilaterally. MOUTH/OROPHARYNX - No notable perioral cyanosis. LUNGS - Bilateral basilar crackles. CARDIAC - Regular rate and rhythm. No murmur, rubs, or gallops appreciated. ABDOMEN - Soft, nondistended, normal bowel sounds. EXTREMITIES - No clubbing or peripheral cyanosis. No peripheral edema present. NEUROLOGIC - No focal neurological deficits noted on exam. Alert and oriented to name and that he is in the hospital. Results & Data Results & Data ([facility]) Vital Signs (Past 12 Hours) Vital Signs Temp Pulse Resp BP Pulse Ox 05/05/20 06:39 97 H 140/85 96 05/05/20 06:09 83 149/87 H 98 05/05/20 06:00 61 99 05/05/20 05:45 48 L 32 H 97 05/05/20 05:39 50 L 103/64 97 05/05/20 05:09 53 L 101/62 98 05/05/20 05:00 54 L 97 05/05/20 04:50 55 L 24 96 05/05/20 04:39 53 L 88/54 L 96 05/05/20 04:09 59 L 132/71 97 05/05/20 04:00 59 L 97 05/05/20 03:39 58 L 115/73 97 05/05/20 03:09 60 117/69 97 05/05/20 03:00 59 L 96 05/05/20 02:39 59 L 114/70 96 05/05/20 02:09 63 119/72 97 05/05/20 02:00 71 98 05/05/20 01:40 59 L 24 97 05/05/20 01:38 66 131/86 98 05/05/20 01:08 56 L 120/77 98 05/05/20 01:00 58 L 97 05/05/20 00:38 54 L 114/74 97 05/05/20 00:08 59 L 112/73 96 05/05/20 00:00 55 L 96 05/04/20 23:38 61 113/76 95 05/04/20 23:08 58 L 108/72 95 05/04/20 23:00 36.4 C L 61 96 05/04/20 22:38 63 111/71 96 05/04/20 22:20 68 24 96 05/04/20 22:08 61 115/70 98 05/04/20 22:00 61 96 05/04/20 21:38 64 123/75 97 05/04/20 21:08 63 124/74 98 05/04/20 21:00 60 98 05/04/20 20:38 60 108/68 98 05/04/20 20:08 67 108/63 95 05/04/20 20:00 69 94 05/05/20 04:27 05/05/20 04:27 Resident Activity Tracking Resident Involvement: Resident Care Provided Care Provided: Adult Hospital Medicine (1) COPD (chronic obstructive pulmonary disease) COPD type: unspecified COPD Qualified Code(s): J44.9 - Chronic obstructive pulmonary disease, unspecified (2) Macular degeneration Eye laterality: unspecified Macular degeneration type: unspecified type Qualified Code(s): H35.30 - Unspecified macular degeneration
[2020-05-05] MEDS ORDERED: MoRPHine SULFATE 2 MG/ML CARP IV PRN (10:22)
--- NOTE | 2020-05-05 11:16 | Pharmacy Report ---
Pharmacy Glycemic Short Note 2 - Date of Service May 05, 2020 - Glycemic Short BSG Results (Last 24 hours): 05/04/20 05/04/20 05/04/20 16:26 19:45 20:13 Glucose 188 H POC Glucose 198 H 178 H 05/05/20 05/05/20 05/05/20 00:15 04:13 04:27 Glucose 212 H POC Glucose 164 H 202 H 05/05/20 07:39 Glucose POC Glucose 177 H OUTPATIENT ANTIDIABETIC REGIMEN: * Lantus 16 units SQ daily * Metformin 500 mg PO daily * A1c = 10.6% (04/11/20) ASSESSMENT: 05/05 * All BSG >160 mg/dL and one BSG >180 mg/dL after loosening CHO ratio in response to steroid taper yesterday. Will re-tighten CHO ratio for now. However, steroids again tapering further today from methylprednisolone 40 mg IV BID to daily, with last evening dose being yesterday (05/04). Therefore, will re-loosen CHO ratio starting this evening * OK to keep Lantus as is for now - dose is on the lower side at a total of 0.25 units/kg and hold parameters are in place 05/04 * Patient remains intubated. Methylprednisolone tapering from 60 mg IV q8h to 40 mg IV BID. Heparin has been stopped * Peptamen 1.5 anya rate increased overnight and BSG's also increased, up to 180 mg/dL this AM. Will tighten CHO ratio for now, but then will loosen back later today 2nd steroid taper 05/03: * Ted received 30 units of insulin yesterday with acceptable BSG control: * 24 units of basal * 6 units of bolus * Pt remains on solu medrol 60 mg IV q8h and fentanyl, versed, and heparin infusions. Levophed has been titrated off. * Fasting BSG of 122 mg/dL is at goal. Lantus was slightly reduced this AM since high dose steroids do not appear to have significant effect on BSG (at least while pt is NPO) * Post prandial BSGs well controlled on current Novolog parameters. * Pt ordered to start Peptamen tube feeds @ 20 mL/hr this afternoon (contains 184 g/L of carbohydrate) * Will adjust carb coverage as needed based on BSG response to tube feeds 05/02: * Ted is a 70 yo T2DM admitted to the ICU with acute respiratory failure with hypoxemia and hypercapnia/aspiration pneumonia * He has the potential for significant insulin resistance due to possible infection, high dose IV steroids, pressors, and uncontrolled DM at baseline. * He was ordered an IV insulin infusion to start this morning at 0500 (BSG of 289, 301, 188 mg/dL). For unknown reasons, the insulin infusion was never started. BSG did improve to 152 mg/dL at 0524 (this appears to be without any insulin administration). BSG of 164 mg/dL at 1400. * Will start Lantus now (25% reduction in home dose). Add Lantus scale at bedtime to cover for steroid induced hyperglycemia. * Novolog ordered based on weight/stress 2. PLAN FOR INPATIENT GLYCEMIC CONTROL: * Basal insulin * Lantus per scale BID: * 0 units for BSG < 120 mg/dL * 10 units for BSG 120 mg/dL or more * Bolus insulin - tighten then loosen * NovoLog q4h * Goal Range: Low 120 mg/dL - High 150 mg/dL * Correction Factor: 20 mg/dL/unit * Carb ratio: 8 g CHO/unit for now, then 10 g CHO/unit starting at 0000
[2020-05-05] MEDS: AMPICILLIN/SULBACTAM SOD 3,000 MG in 0.9 % SODIUM CHLORIDE 100 ML IV SCH ×3 (11:28→23:27)
--- NOTE | 2020-05-05 14:54 | Hospitalist Progress Note ---
Date of Service May 05, 2020 Assessment & Plan (1) Acute respiratory failure with hypoxia and hypercapnia: multifactorial with likely chronic CO2 retention and then aspiration pneumonia compounding the problem with hypoxia patient intubated, now extubated in am 05/05 improving with Solu Medrol and Unsyn IV, tapering soulmedrol had bronchoscopy on 05/03 with impacted mucous on right side still with NIPPV support GI prophylaxis (2) Aspiration pneumonia: Confirmed on CT angiography, which was negative for PE, but did show debris in right mainstem and down into the right lung. bronchoscopy 05/03 with impacted mucous right side continue unasyn (3) COPD (chronic obstructive pulmonary disease): no wheezing on exam, remains coarse, tapering solumedrol (4) Diabetes mellitus: Hyperglycemic ICU protocol monitor for hypoglycemia (5) Seizure: Change Vimpat from 200 mg p.o. twice daily to 200 mg IV twice daily no seizure activity on EEG needs neurology follow up Admission and Anticipated Discharge Date Admission Date: May 02, 2020 Subjective extubated to BiPAP 10/6 with good success. Patient is alert to name and knows he is in the hospital. Denies chest pain or abdominal pain. Does not feel short of breath on BiPAP. Feels weak. If he continues to do well thru the day maybe downgraded to tele Review of Systems Review of Systems: pt has Bipap mask in place Mild distress and fatigue no headache, blurry or double vision no speech or swallowing issues no chest pain, pressure or palpitations is tachypneic, denies SOB no abdominal pain, nausea or vomiting, diarrhea or constipation no dysuria, hematuria or frequency no focal joint pain or swelling no back pain, CVA tenderness or radicular pain no bruising, bleeding or rashes no focal signs of weakness or numbness or altered sensation no complaints of anxiety or depression. Physical Exam Physical Exam: The patient appeared thin and in moderate distress wearing a BiPAP Vital signs as documented. Head exam is normocephalic atraumatic no scleral icterus Neck is without JVD, thyromegaly, or carotid bruits. Lungs are coarse with bilateral breath sounds no focal air loss Cardiac exam, Rhythm is tachycardic, no murmurs, rubs or gallops. Abdominal exam reveals normal bowel sounds, soft non tender, no masses slightly distended Extremities are mildly edematous and both pedal pulses are present Neurologic exam is alert and oriented, can state his name and follow commands Skin is without bruises or rashes Psychologically is without concerns for anxiety or depression. Results & Data Results & Data ([facility]) Vital Signs (Past 12 Hours) Vital Signs Temp Pulse Resp BP Pulse Ox 05/05/20 11:35 98.8 F 111 H 17 151/86 H 92 05/05/20 11:05 111 H 23 133/90 91 05/05/20 11:00 113 H 22 92 05/05/20 10:35 113 H 28 H 136/86 91 05/05/20 10:05 116 H 31 H 154/102 H 91 05/05/20 10:00 109 H 25 H 93 05/05/20 09:35 113 H 22 144/83 H 93 05/05/20 09:30 99.0 F 115 H 26 H 93 05/05/20 09:05 116 H 24 162/99 H 92 05/05/20 09:00 117 H 26 H 93 05/05/20 08:30 125 H 26 H 93 05/05/20 08:07 119 H 25 H 91 05/05/20 08:00 119 H 90 05/05/20 07:39 115 H 154/96 H 91 05/05/20 07:30 121 H 93 05/05/20 07:10 119 H 30 H 94 05/05/20 07:09 109 H 124/81 96 05/05/20 07:00 112 H 96 05/05/20 06:45 104 H 97 05/05/20 06:39 97 H 140/85 96 05/05/20 06:09 83 149/87 H 98 05/05/20 06:00 61 99 05/05/20 05:45 48 L 32 H 97 05/05/20 05:39 50 L 103/64 97 05/05/20 05:09 53 L 101/62 98 05/05/20 05:00 54 L 97 05/05/20 04:50 55 L 24 96 05/05/20 04:39 53 L 88/54 L 96 05/05/20 04:09 59 L 132/71 97 05/05/20 04:00 59 L 97 05/05/20 03:39 58 L 115/73 97 05/05/20 03:09 60 117/69 97 05/05/20 03:00 59 L 96 PG Care Time/CCT Total # of Minutes Spent Total Time Spent with Patient: Total time spent is greater than 50% in coordination of care (as documented) at patient's floor/unit and/or counseling patient: Coding Level of Care Code 18997 Subseq Hosp Care Lvl 3 Diagnoses Acute respiratory failure with hypoxia and hypercapnia J96.01; J96.02 Aspiration pneumonia J69.0 COPD (chronic obstructive pulmonary disease) J44.9 COPD type: unspecified COPD Diabetes mellitus E11.9 Seizure R56.9 (1) COPD (chronic obstructive pulmonary disease) COPD type: unspecified COPD Qualified Code(s): J44.9 - Chronic obstructive pulmonary disease, unspecified
--- NOTE | 2020-05-05 16:19 | Billing Data ---
Date of Service May 05, 2020 Coding Level of Care Code Critical Care 1st 30-74 mins Time Spent (min) 36
--- NOTE | 2020-05-05 16:50 | Electrocardiogram Report ---
Test Reason : Blood Pressure : / mmHG Vent. Rate : 066 BPM Atrial Rate : 065 BPM P-R Int : 000 ms QRS Dur : 086 ms QT Int : 456 ms P-R-T Axes : 000 -07 066 degrees QTc Int : 478 ms Poor data quality, interpretation may be adversely affected Normal sinus rhythm Prolonged QT Abnormal ECG When compared with ECG of 02-MAY-2020 15:31, Normal sinus rhythm now present Confirmed by Rivera Arevalo ([id number]) on 05/05/2020 4:50:07 PM Referred By: REFERRED SELF Confirmed By:Rivera Arevalo
[2020-05-06] MEDS: INSULIN ASPART 100 UNITS/ML 3 ML PEN SC SCH ×5 (00:08→18:07)
[2020-05-06] MEDS: hydrALAZINE HCL 20 MG/ML VIAL IV PRN ×2 (03:09→10:17)
[2020-05-06] MEDS: LACOSAMIDE 200 MG in SODIUM CHLORIDE 0.9% 50 ML IV SCH ×2 (03:13→16:21)
[2020-05-06] MEDS ORDERED: ALBUT/IPRATROP 3MG/0.5MG NEB 3 ML VIAL NEB PRN (03:37)
[2020-05-06] MEDS ORDERED: ALBUT/IPRATROP 3MG/0.5MG NEB 3 ML VIAL ONE (03:42)
[2020-05-06 05:05] LABS: Basophils # (auto) 0.01 K/uL (0-0.2); Basophils % (auto) 0.1 %; Eosinophils # (auto) 0.01 K/uL (0-0.5); Eosinophils % (auto) 0.1 %; Hematocrit (blood only) 49.4 % (42-52); Hemoglobin 16.3 g/dL (14.0-18.0); Immature Granulocytes # (auto) 0.02 K/uL (0.00-0.02); Immature Granulocytes % (auto) 0.2 %; Lymphocytes # (auto) 1.73 K/uL (1.2-3.4); Lymphocytes % (auto) 15.1 %; Mean Corpuscular Volume 97.1 fL (80-100); Monocytes # (auto) 1.19 K/uL (0.11-0.59); Monocytes % (auto) 10.4 %; Neutrophils # (auto) 8.47 K/uL (1.4-6.5); Neutrophils % (auto) 74.1 %; Platelet Count 274 K/uL (130-400); RDW Coefficient of Variation 15.1 % (11.5-14.5); RDW Standard Deviation 53.8 fL (36.4-46.3); Red Blood Count 5.09 M/uL (4.7-6.1); White Blood Count 11.43 K/uL (4.8-10.8)
[2020-05-06 05:17] LABS: Base Excess ABG 4.8 mEq/L (-9-1.8); HCO3 ABG 27 mmol/L (19-24); Oxygen Saturation ABG 90.5 % (90-95); PCO2 ABG 33 mmHg (35-46); PO2 ABG 54 mmHg (80-95)
[2020-05-06] MEDS: AMPICILLIN/SULBACTAM SOD 3,000 MG in 0.9 % SODIUM CHLORIDE 100 ML IV SCH ×4 (05:20→23:03)
[2020-05-06 05:28] LABS: Allen Test Pos (Pos)
[2020-05-06 05:29] LABS: pH ABG 7.53 (7.35-7.45)
[2020-05-06 05:36] LABS: BUN Creatinine Ratio 27.4 (10-20); Creatinine Clr Calc Pharmacy 97.2 ml/min; Est GFR (African American) 108.9; Magnesium 2.5 mg/dl (1.8-2.4); Potassium 3.4 mmol/L (3.5-5.1)
[2020-05-06 05:39] LABS: Phosphorus 2.1 mg/dl (2.5-4.9)
[2020-05-06] MEDS ORDERED: POTASSIUM PHOS 3 MMOL/1 ML INFUSION IV STA (06:02)
[2020-05-06] MEDS: POTASSIUM CHLORIDE / WTR 10 MEQ/100 ML PLCT IV SCH ×2 (06:22→08:12)
[2020-05-06] MEDS ORDERED: POTASSIUM PHOSPHATE 21 MMOL in SODIUM CHLORIDE 0.9% 500 ML IV ONE (06:30)
[2020-05-06] MEDS: ENOXAPARIN INJ 40 MG/0.4 ML SYR SQ SCH (08:10)
[2020-05-06] MEDS: BRINZOLAMIDE (AZOPT) OPS 10 ML BTL OPR SCH ×3 (08:10→21:11)
--- NOTE | 2020-05-06 08:10 | XRay Report ---
XR chest 1V portable HISTORY: hypoxia COMPARISON: Chest 05/05/2020. FINDINGS: Cardiac silhouette remains stable in size. Status post extubation. No pneumothorax. Right p leural effusion and bibasilar densities persist. Mild diffuse interstitial thickening has slightly im proved. This may represent resolving congestive change. IMPRESSION: 1. Status post extubation. 2. Right pleural effusion and bibasilar densities persist. 3. Slight improvement in the mild congestive change. ACT 112: Negative or not required by law. Electronically signed by: Surjit Ybarra M.D. 05/06/2020 8:09 AM
[2020-05-06] MEDS: INSULIN GLARGINE SOLOSTAR 100 UNITS/ML 3 ML PEN SC SCH (08:11)
[2020-05-06] MEDS: LOTEPREDNOL OP SCH (08:12)
--- NOTE | 2020-05-06 08:32 | Critical Care Progress Note ---
Date of Service May 06, 2020 Assessment & Plan (1) Acute encephalopathy: Reason Critically Ill: 70 yo M with Hx seizure disorder, DM2, TIM, mild dementia, recently diagnosed COPD with emphysema who presented with acute hypoxic hypercapnic respiratory failure with likely aspiration pneumonia. Admitted to ICU following intubation and for close hemodynamic monitoring and pressure support. NEURO - Metabolic encephalopathy: - No apparent seizure activity this admission. - Patient is at baseline mental status. - PT/OT orders placed for today. - Speech eval, then PO intake following. Seizure disorder: - Has history of focal temporal seizures, at home is on Vimpat 200mg PO BID and Topamax 50mg PO BID. - Continue Vimpat 200mg IV, resume Topamax later today if cleared by speech. - EEG performed 05/02, showed no epileptiform activity but mild-moderate encep halopathy. - Follow up with neurology outpatient. Abdominal spasms: - Unclear source, was on gabapentin for these with relief in outpatient setting. - Resume gabapentin when able to tolerate PO. Respiratory alkalosis: - This AM with tachypnea, ABG showing respiratory alkalosis. - Suspect secondary to medication withdrawal (patient on Topamax and gabapentin outpatient and has not received for several days due to intubation. - Will resume when able to tolerate PO. - Suspect some component of anxiety to patient's presentation, given history from and no other clear respiratory cause. CARDIAC/VASCULAR - Hypertension: - Patient with intermittent hypertension since stopping pressors. - Not on any HTN medication at home. - Metoprolol 2.5mg IV q6h scheduled while patient unable to tolerate PO. - Start lisinopril 5mg daily, metoprolol tartrate 12.5mg BID when able to tolerate PO. NSTEMI: - Likely demand in the setting of hypoxemia/respiratory failure. - Troponins downtrended and patient without chest pain. - Daily EKGs. - Start lisinopril 5mg daily, metoprolol 12.5mg PO BID, aspirin when able to tolerate PO. RESPIRATORY - Acute Hypoxic Hypercapnic Respiratory Failure, Aspiration Pneumonia: - Significant mucoid impaction and inflammation of right middle lobe. - Underwent bronchoscopy 05/03, sputum culture grew Group G Beta Strep. Bronchial washings and fungal culture pending. - Procal x2 negative, transitioned Zosyn to Unasyn today. - Aggressive pulmonary toilet. - Today will start prednisone 40mg daily, for 2 days then stop. - Net 24 hour fluid balance is -3L. - Given findings on Chest CT 04/30 showing COPD with severe emphysema, and history of TIM, suspect patient has a home oxygen requirement that has until now not caused symptoms, and may require positive pressure ventilation when asleep in order to help prevent hypercapnia. - While the patient is tachypneic, his XR is unchanged from yesterday, no fevers, stable WBC count. - Suspect secondary to medication withdrawal. - Frequent cough assist. GI/NUTRITION - - reports swallowing difficulty with pills, and admits that he did seem to aspirate on water a few days ago. - Swallow evaluation today. - Start Heart Healthy diet when cleared by speech. - Prophylaxis: Pantoprazole IV daily given high dose steroid therapy. RENAL/LYTES - - Electrolyte protocol. - - No present urinary concerns. - Net fluid balance this admission +800mL, net negative 3L over last 24 hours. ENDO - DM2: - BSGs, SSI per unit protocol. HEME - - Hgb this AM 16. ID - Aspiration Pneumonia: - Sputum culture grew Group G Beta Strep. Bronchial washings and fungal culture pending. - Deescalate Zosyn to Unasyn for 7 total days of antibiotic therapy (to complete 05/08). LINES/IV ACCESS - - PIVs x2. DVT PROPHYLAXIS - - Lovenox 40mg daily, SCDs. Thank you for allowing us to participate in this patient's care. Please refer to Dr. Orr's documentation for any further recommendations. (2) Acute respiratory failure with hypoxia and hypercapnia: (3) NSTEMI (non-ST elevated myocardial infarction): (4) Aspiration pneumonia: (5) Mucoid impaction of bronchi: (6) Diabetes mellitus: (7) Macular degeneration: (8) Seizure: (9) COPD (chronic obstructive pulmonary disease): (10) Respiratory alkalosis: Admission and Anticipated Discharge Date Admission Date: May 02, 2020 Supervising Physician Co-Signing Physician Notes Dr. Stafford was the resident-physician during care of patient. I separately evaluated patient for solis portions of the history and the exam. I was present during the critical portion of medical decision making, and I discussed the case with the resident. I generally agree with the findings and plan except for any additions/exceptions noted. In/out: -2.9, urine output 4 L AB.53/33/54 on 6L Patient seen and examined at bedside. Patient is following commands answering all questions appropriately He was extubated yesterday 05/05/2020. Early in the morning patient was found to be tachypneic and oxygenation requirement went up to 6 L. Chest x-ray was done which did not show any significant change compared to yesterday. Patient does have this abdominal spasms which are more like hiccups. Patient is afebrile. Underlying anxiety I think is playing a role as well. Continue with [facility] and chest PT. Physical therapy will also help the patient. Hypokalemia is being replaced. Continue with antibiotics for 2 more days. Patient will have swallow eval today. Hopefully will be able to restart his gabapentin as well as Topamax. Gabapentin is going to help with his anxiety as well. If patient failed swallow eval that he might need NGT placed. Hemoglobin today was 16 which is likely a mistake as of yesterday was only 13.7. Will repeat tomorrow. Patient did have bronchoscopy done on 05/03/2020 with removal of secretions from the right side of the lung. There was also expiratory collapse of the posterior wall which goes with tracheomalacia. I have personally spent 34 minutes of critical care time in the direct management of this patient. This is a life/limb threatening event. This includes time spent evaluating patient, direct bedside care, chart review, placing orders, interpretation of diagnostic studies, discussion with consultants, patient, and/or family members regarding treatment decisions, as well as other required patient management activities. This time is exclusive of all separately billable procedures, and teaching time and separate from and in addition to any other critical care service time. Subjective Early this AM patient developed tachycardia and worsening tachypnea; this was notable on both BiPAP and nasal cannula. Patient has had appropriate oxygen saturation during this (about 91%, his goal is 88-92%). Does complain of some subjective shortness of breath. No measured fevers, chest pain, nausea, abdominal pain. Noted to have abdominal spasms this morning; does not endorse hiccups or GERD-like symptoms. Does not take anxiety medication at home, however per early this admission patient has had worsening anxiety over the last year or so. Review of Systems Review of Systems: All systems reviewed & are unremarkable except as noted in HPI & below Constitutional: no fever, no chills and no malaise Respiratory: + dyspnea; no cough Cardiovascular: no chest pain, no palpitations and no edema Gastrointestinal: no abdominal pain, no constipation and no diarrhea/loose stools Physical Exam Physical Exam: VITAL SIGNS - Vital signs and nursing notes were reviewed. GENERAL - 70 yo M, well developed, thin, ill appearing. SKIN - Without rashes. HEAD - NC/AT. EYES - PERRL. Sclera anicteric. Palpebral conjunctiva pink and moist with no inj ection noted. EARS - No deformities of external structures noted on gross examination bilaterally. MOUTH/OROPHARYNX - No notable perioral cyanosis. LUNGS - Bilateral basilar crackles, unchanged from yesterday; tachypneic. CARDIAC - Regular rate and rhythm. No murmur, rubs, or gallops appreciated. ABDOMEN - Soft, nondistended, normal bowel sounds. EXTREMITIES - No clubbing or peripheral cyanosis. No peripheral edema present. NEUROLOGIC - No focal neurological deficits noted on exam. Alert and oriented to name and that he is in the hospital. Results & Data Results & Data ([facility]) Vital Signs (Past 12 Hours) Vital Signs Temp Pulse Pulse Resp BP Pulse Ox 05/06/20 06:06 123 H 35 H 133/108 H 91 05/06/20 05:06 123 H 36 H 131/90 92 05/06/20 04:06 36.9 C 105 H 37 H 128/93 90 05/06/20 03:57 92 H 26 H 91 05/06/20 03:36 102 H 37 H 147/88 H 91 05/06/20 03:06 85 43 H 179/98 H 92 05/06/20 02:36 98 H 30 H 171/95 H 95 05/06/20 02:06 93 H 31 H 167/96 H 94 05/06/20 01:06 92 H 21 154/96 H 90 05/06/20 00:06 36.7 C 86 33 H 156/97 H 93 05/05/20 23:15 88 22 91 05/05/20 23:06 81 24 151/86 H 92 05/05/20 22:06 86 25 H 136/84 90 05/05/20 21:06 82 30 H 144/83 H 91 05/06/20 04:53 05/06/20 04:53 Resident Activity Tracking Resident Involvement: Resident Care Provided Care Provided: Adult Hospital Medicine (1) COPD (chronic obstructive pulmonary disease) COPD type: unspecified COPD Qualified Code(s): J44.9 - Chronic obstructive pulmonary disease, unspecified (2) Macular degeneration Eye laterality: unspecified Macular degeneration type: unspecified type Qualified Code(s): H35.30 - Unspecified macular degeneration
[2020-05-06] MEDS ORDERED: METOPROLOL TARTRATE 1 MG/ML VIAL IV PRN (08:45)
[2020-05-06] MEDS ORDERED: methylPREDNISolone 40 MG in SYRINGE 0 ML IV SCH (09:00)
[2020-05-06] MEDS ORDERED: TOPIRAMATE 50 MG TAB PO ONE (09:00)
--- NOTE | 2020-05-06 11:20 | Pharmacy Report ---
Pharmacy Glycemic Short Note 2 - Date of Service May 06, 2020 - Glycemic Short BSG Results (Last 24 hours): 05/05/20 05/05/20 05/05/20 11:33 16:00 19:45 Glucose POC Glucose 146 H 118 H 102 H 05/05/20 05/06/20 05/06/20 23:32 03:01 04:53 Glucose 167 H POC Glucose 100 H 108 H 05/06/20 05/06/20 05/06/20 07:47 11:04 11:04 Glucose POC Glucose 140 H 156 H 156 H OUTPATIENT ANTIDIABETIC REGIMEN: * Lantus 16 units SQ daily * Metformin 500 mg PO daily * A1c = 10.6% (04/11/20) ASSESSMENT: 05/06 * BSG's trended down after changes yesterday, and ranged 100-146 mg/dL from afternoon to HS. No Novolog was needed/administered during that time * Steroids continuing to taper today from methylprednisolone 40 mg IV daily to prednisone 40 mg po qAM * Patient received a total of 10 units of Lantus yesterday and AM BSG was 140 mg/dL which is appropriate for this patient. Will slightly adjust Lantus parameters so patient will likely receive 5 units BID, but with up and down titration based on BSG * Will loosen Novolog parameters again given further steroid taper. Will also change from q4h to q6h checks 05/05 * All BSG >160 mg/dL and one BSG >180 mg/dL after loosening CHO ratio in response to steroid taper yesterday. Will re-tighten CHO ratio for now. However, steroids again tapering further today from methylprednisolone 40 mg IV BID to daily, with last evening dose being yesterday (05/04). Therefore, will re-loosen CHO ratio starting this evening * OK to keep Lantus as is for now - dose is on the lower side at a total of 0.25 units/kg and hold parameters are in place 05/04 * Patient remains intubated. Methylprednisolone tapering from 60 mg IV q8h to 40 mg IV BID. Heparin has been stopped * Peptamen 1.5 anya rate increased overnight and BSG's also increased, up to 180 mg/dL this AM. Will tighten CHO ratio for now, but then will loosen back later today 2nd steroid taper 05/03: * Ted received 30 units of insulin yesterday with acceptable BSG control: * 24 units of basal * 6 units of bolus * Pt remains on solu medrol 60 mg IV q8h and fentanyl, versed, and heparin infusions. Levophed has been titrated off. * Fasting BSG of 122 mg/dL is at goal. Lantus was slightly reduced this AM since high dose steroids do not appear to have significant effect on BSG (at least while pt is NPO) * Post prandial BSGs well controlled on current Novolog parameters. * Pt ordered to start Peptamen tube feeds @ 20 mL/hr this afternoon (contains 184 g/L of carbohydrate) * Will adjust carb coverage as needed based on BSG response to tube feeds 05/02: * Ted is a 70 yo T2DM admitted to the ICU with acute respiratory failure with hypoxemia and hypercapnia/aspiration pneumonia * He has the potential for significant insulin resistance due to possible infection, high dose IV steroids, pressors, and uncontrolled DM at baseline. * He was ordered an IV insulin infusion to start this morning at 0500 (BSG of 289, 301, 188 mg/dL). For unknown reasons, the insulin infusion was never started. BSG did improve to 152 mg/dL at 0524 (this appears to be without any insulin administration). BSG of 164 mg/dL at 1400. * Will start Lantus now (25% reduction in home dose). Add Lantus scale at bedtime to cover for steroid induced hyperglycemia. * Novolog ordered based on weight/stress 2. PLAN FOR INPATIENT GLYCEMIC CONTROL: * Basal insulin - adjust * Lantus per scale BID: * 0 units for BSG < 120 mg/dL * 5 units for BSG 120-180 mg/dL * 10 units for BSG > 180 mg/dL * Bolus insulin - loosen * NovoLog q6h while on tubefeeds * Goal Range: Low 110 mg/dL - High 150 mg/dL * Correction Factor: 30 mg/dL/unit * Carb ratio: 12 g CHO/unit
--- NOTE | 2020-05-06 11:54 | Billing Data ---
Date of Service May 06, 2020 Coding Level of Care Code Critical Care 1st 30-74 mins Time Spent (min) 34
[2020-05-06] MEDS ORDERED: METOPROLOL TARTRATE 1 MG/ML VIAL IV SCH (12:00)
[2020-05-06] MEDS ORDERED: CONSULT PHARMACY STA (12:13)
--- NOTE | 2020-05-06 12:17 | Electrocardiogram Report ---
Test Reason : Blood Pressure : / mmHG Vent. Rate : 125 BPM Atrial Rate : 125 BPM P-R Int : 162 ms QRS Dur : 084 ms QT Int : 294 ms P-R-T Axes : 048 041 058 degrees QTc Int : 424 ms Poor data quality, interpretation may be adversely affected Sinus tachycardia Possible Left atrial enlargement Poor R wave progression, consider anterior MS vs. lead placement vs. LVH Abnormal ECG When compared with ECG of 04-MAY-2020 20:14, Vent. rate has increased BY 59 BPM T wave inversion no longer evident in Anterolateral leads Confirmed by Rivera Arevalo ([id number]) on 05/06/2020 12:16:44 PM Referred By: REFERRED SELF Confirmed By:Rivera Arevalo
[2020-05-06] MEDS: PANTOprazole 40 MG in SYRINGE 0 ML IV SCH (13:12)
[2020-05-06] MEDS: METOPROLOL TARTRATE 1 MG/ML VIAL IV SCH ×3 (13:12→23:10)
--- NOTE | 2020-05-06 14:38 | XRay Report ---
KUB HISTORY: Status post placement of a feeding tube FEEDING TUBE PLACEMENT. COMPARISON: Chest radiograph of same day, CT abdomen and pelvis 04/11/2020 FINDINGS: Bowel gas pattern is nonobstructive. Feeding tube is noted with distal tip to the right of midline expected location of the distal gastric lumen. Lower abdomen is excluded from the field-of-vi ew. No pneumatosis or pneumoperitoneum. No urolith identified. Surgical clips project over the abdomi nal right upper quadrant. Right pleural effusion with right lung base opacities redemonstrated. IMPRESSION: Distal tip of feeding tube projects over the expected location of the distal gastric lumen. ACT 112: Negative or not required by law. The above report was generated using voice recognition software. It may contain grammatical, syntax o r spelling errors. Electronically signed by: Joesph Hemphill M.D. 05/06/2020 2:37 PM
[2020-05-06] MEDS: predniSONE 20 MG TAB PO SCH (14:42)
[2020-05-06] MEDS: GABAPENTIN 250 MG/5 ML 470 ML BTL NG SCH ×2 (14:42→21:10)
--- NOTE | 2020-05-06 15:11 | Hospitalist Progress Note ---
Date of Service May 06, 2020 Assessment & Plan (1) Acute respiratory failure with hypoxia and hypercapnia: multifactorial with likely chronic CO2 retention and then aspiration pneumonia compounding the problem with hypoxia patient intubated, now extubated in am 05/05 improving with Solu Medrol and Unsyn IV, tapering soulmedrol had bronchoscopy on 05/03 with impacted mucous on right side now with improving ventilation, concern of persistent aspiration, speech is following GI prophylaxis (2) Dysphagia: failed bedside swallowing eval with coughing and hypoxia, will re place coresafe to administer medicaions that are not convertable to iv, did inform of this issue, continue to re evaluate (3) Aspiration pneumonia: Confirmed on CT angiography, which was negative for PE, but did show debri s in right mainstem and down into the right lung. bronchoscopy 05/03 with impacted mucous right side continue unasyn iv as po intake is questionable with recurrent aspiration (4) COPD (chronic obstructive pulmonary disease): no wheezing on exam, remains coarse, tapering solumedrol (5) Diabetes mellitus: Hyperglycemic ICU protocol monitor for hypoglycemia (6) Seizure: Change Vimpat from 200 mg p.o. twice daily topamax 50 mg bid and gabapentin 300 tid no seizure activity on EEG needs neurology follow up Admission and Anticipated Discharge Date Admission Date: May 02, 2020 Subjective pt is awake and alert, did not pass bedside swallowing test today, concern of seizure disorder( focal partail) will re place core safe feeding tube to help administer medicaitons as topamax and neurontin are not parenteral, continue vimpat iv, updated , downgraded to tele Review of Systems Review of Systems: pt has Bipap mask in place Mild distress and fatigue no headache, blurry or double vision no speech or swallowing issues no chest pain, pressure or palpitations is tachypneic, denies SOB no abdominal pain, nausea or vomiting, diarrhea or constipation no dysuria, hematuria or frequency no focal joint pain or swelling no back pain, CVA tenderness or radicular pain no bruising, bleeding or rashes no focal signs of weakness or numbness or altered sensation no complaints of anxiety or depression. Physical Exam Physical Exam: The patient appeared thin and in moderate distress wearing a BiPAP Vital signs as documented. Head exam is normocephalic atraumatic no scleral icterus Neck is without JVD, thyromegaly, or carotid bruits. Lungs are coarse with bilateral breath sounds no focal air loss Cardiac exam, Rhythm is tachycardic, no murmurs, rubs or gallops. Abdominal exam reveals normal bowel sounds, soft non tender, no masses slightly distended Extremities are mildly edematous and both pedal pulses are present Neurologic exam is alert and oriented, can state his name and follow commands Skin is without bruises or rashes Psychologically is without concerns for anxiety or depression. Results & Data Results & Data ([facility]) Vital Signs (Past 12 Hours) Vital Signs Temp Pulse Pulse Resp BP BP Pulse Ox 05/06/20 14:37 78 24 143/91 H 89 L 05/06/20 14:06 96 H 34 H 150/103 H 90 05/06/20 14:00 98.6 F 64 37 H 90 05/06/20 13:37 91 H 34 H 147/109 H 92 05/06/20 13:12 118 H 143/91 H 05/06/20 13:06 111 H 35 H 145/91 H 91 05/06/20 13:00 118 H 28 H 91 05/06/20 12:36 111 H 39 H 141/98 H 91 05/06/20 12:07 120 H 35 H 164/94 H 91 05/06/20 12:00 99.0 F 120 H 36 H 92 05/06/20 11:36 96 H 32 H 133/94 92 05/06/20 11:31 119 H 32 H 183/96 H 91 05/06/20 11:07 120 H 25 H 183/96 H 90 05/06/20 11:00 117 H 37 H 89 L 05/06/20 10:36 100 H 36 H 166/90 H 91 05/06/20 10:06 82 32 H 168/92 H 93 05/06/20 10:00 99.0 F 100 H 29 H 93 05/06/20 09:36 88 35 H 178/103 H 95 05/06/20 09:07 81 32 H 146/97 H 94 05/06/20 09:00 87 32 H 94 05/06/20 08:55 101 H 32 H 158/107 H 94 05/06/20 08:49 98 H 142/100 H 05/06/20 08:36 102 H 34 H 142/100 H 91 05/06/20 08:06 121 H 32 H 168/103 H 92 05/06/20 08:00 98.1 F 119 H 123 H 38 H 119/96 91 05/06/20 07:36 107 H 32 H 149/93 H 92 05/06/20 07:06 130 H 29 H 119/96 90 05/06/20 07:00 122 H 34 H 95 05/06/20 06:06 123 H 35 H 133/108 H 91 05/06/20 05:06 123 H 36 H 131/90 92 05/06/20 04:06 98.4 F 105 H 37 H 128/93 90 05/06/20 03:57 92 H 26 H 91 05/06/20 03:36 102 H 37 H 147/88 H 91 PG Care Time/CCT Total # of Minutes Spent Total Time Spent with Patient: Total time spent is greater than 50% in coordination of care (as documented) at patient's floor/unit and/or counseling patient: Coding Level of Care Code 78804 Subseq Hosp Care Lvl 3 Diagnoses Acute respiratory failure with hypoxia and hypercapnia J96.01; J96.02 Dysphagia R13.10 Aspiration pneumonia J69.0 COPD (chronic obstructive pulmonary disease) J44.9 COPD type: unspecified COPD Diabetes mellitus E11.9 Seizure R56.9 (1) COPD (chronic obstructive pulmonary disease) COPD type: unspecified COPD Qualified Code(s): J44.9 - Chronic obstructive pulmonary disease, unspecified
[2020-05-06] MEDS: guaiFENesin SUGAR FREE 200 MG/10 ML UDC PO SCH ×3 (16:20→23:03)
[2020-05-06] MEDS ORDERED: INSULIN GLARGINE SOLOSTAR 100 UNITS/ML 3 ML PEN SC ONE (21:00)
[2020-05-06] MEDS: TOPIRAMATE 50 MG TAB PO SCH (21:10)
[2020-05-07] MEDS: INSULIN ASPART 100 UNITS/ML 3 ML PEN SC SCH ×5 (00:20→23:21)
[2020-05-07] MEDS: guaiFENesin SUGAR FREE 200 MG/10 ML UDC PO SCH ×6 (03:28→23:17)
[2020-05-07] MEDS: LACOSAMIDE 200 MG in SODIUM CHLORIDE 0.9% 50 ML IV SCH ×2 (03:28→15:29)
[2020-05-07 04:38] LABS: Basophils # (auto) 0.01 K/uL (0-0.2); Basophils % (auto) 0.1 %; Eosinophils # (auto) 0.02 K/uL (0-0.5); Eosinophils % (auto) 0.2 %; Hematocrit (blood only) 47.4 % (42-52); Hemoglobin 15.2 g/dL (14.0-18.0); Immature Granulocytes # (auto) 0.04 K/uL (0.00-0.02); Immature Granulocytes % (auto) 0.4 %; Lymphocytes # (auto) 1.24 K/uL (1.2-3.4); Lymphocytes % (auto) 12.4 %; Mean Corpuscular Hemoglobin 31.5 pg (25-34); Mean Corpuscular Hgb Conc 32.1 g/dL (32-36); Mean Corpuscular Volume 98.1 fL (80-100); Mean Platelet Volume 11.2 fL (7.4-10.4); Monocytes # (auto) 1.02 K/uL (0.11-0.59); Monocytes % (auto) 10.2 %; Neutrophils # (auto) 7.71 K/uL (1.4-6.5); Neutrophils % (auto) 76.7 %; Platelet Count 219 K/uL (130-400); RDW Coefficient of Variation 15.2 % (11.5-14.5); RDW Standard Deviation 54.3 fL (36.4-46.3); Red Blood Count 4.83 M/uL (4.7-6.1); White Blood Count 10.04 K/uL (4.8-10.8)
[2020-05-07 05:03] LABS: BUN Creatinine Ratio 36.6 (10-20); Calcium 8.4 mg/dl (8.5-10.1); Creatinine Clr Calc Pharmacy 112.7 ml/min; Est GFR (African American) 115.7; Est GFR (Non-African American) 99.8
[2020-05-07] MEDS: METOPROLOL TARTRATE 1 MG/ML VIAL IV SCH (05:31)
[2020-05-07] MEDS: AMPICILLIN/SULBACTAM SOD 3,000 MG in 0.9 % SODIUM CHLORIDE 100 ML IV SCH ×4 (05:31→23:17)
[2020-05-07 06:15] LABS: Potassium 3.8 mmol/L (3.5-5.1)
--- NOTE | 2020-05-07 07:38 | Critical Care Progress Note ---
Date of Service May 07, 2020 Assessment & Plan (1) Acute encephalopathy: Reason Critically Ill: 70 yo M with Hx seizure disorder, DM2, TIM, mild dementia, recently diagnosed COPD with emphysema who presented with acute hypoxic hypercapnic respiratory failure with likely aspiration pneumonia. Admitted to ICU following intubation and for close hemodynamic monitoring and pressure support. NEURO - Metabolic encephalopathy: - No apparent seizure activity this admission. - Patient is at baseline mental status. - PT/OT orders placed for today. - Patient unfortunately failed speech evaluation yesterday. Will trial again today. Seizure disorder: - Has history of focal temporal seizures, at home is on Vimpat 200mg PO BID and Topamax 50mg PO BID. - Continue Vimpat 200mg BID, Topamax 50mg BID via NGT. - EEG performed 05/02, showed no epileptiform activity but mild-moderate encephalopathy. - Follow up with neurology outpatient. Abdominal spasms: - Unclear source, was on gabapentin for these with relief in outpatient setting. - Continue home gabapentin dose via NGT. Respiratory alkalosis: - 05/06 patient had tachypnea, ABG showing respiratory alkalosis. Has resolved this AM. - Suspect secondary to medication withdrawal (patient on Topamax and gabapentin outpatient and has not received for several days due to intubation. - Also suspect some component of anxiety to patient's presentation, given history from and no other clear respiratory cause. CARDIAC/VASCULAR - Hypertension: - Patient with intermittent hypertension since stopping pressors. - Not on any HTN medication at home. - Transition metoprolol IV to metoprolol tartrate 25mg BID via NGT. - Will also start lisinopril 10mg daily. NSTEMI: - Likely demand in the setting of hypoxemia/respiratory failure. - Troponins downtrended and patient without chest pain. - Daily EKGs. - Start lisinopril, metoprolol via NGT; aspirin when able to tolerate PO. RESPIRATORY - Acute Hypoxic Hypercapnic Respiratory Failure, Aspiration Pneumonia: - Significant mucoid impaction and inflammation of right middle lobe. - Underwent bronchoscopy 05/03, sputum culture grew Group G Beta Strep. Bronchial washings and fungal culture pending. - Procal x2 negative, transitioned Zosyn to Unasyn. - Aggressive pulmonary toilet. - Finish out prednisone taper today, today prednisone 40mg PO, d/c after. - Net cumulative fluid balance is +10mL. - Given findings on Chest CT 04/30 showing COPD with severe emphysema, and history of TIM, suspect patient has a home oxygen requirement that has until now not caused symptoms, and may require positive pressure ventilation when asleep in order to help prevent hypercapnia. - Frequent cough assist. GI/NUTRITION - - reports swallowing difficulty with pills, and admits that he did seem to aspirate on water a few days ago. - Swallow evaluation today. - Start Heart Healthy diet when cleared by speech. - Prophylaxis: Pantoprazole IV daily given high dose steroid therapy. RENAL/LYTES - - Electrolyte protocol. - - No present urinary concerns. - Net fluid balance this admission +10mL. ENDO - DM2: - BSGs, SSI per unit protocol. HEME - - Hgb this AM 15.2. ID - Aspiration Pneumonia: - Sputum culture grew Group G Beta Strep. Bronchial washings and fungal culture pending. - Continue Unasyn for 7 total days of antibiotic therapy (to complete 05/08). LINES/IV ACCESS - - PIVs x2. DVT PROPHYLAXIS - - Lovenox 40mg daily, SCDs. Thank you for allowing us to participate in this patient's care. This patient is stable for downgrade to Telemetry level of care. Please refer to Dr. Orr's documentation for any further recommendations. Admission and Anticipated Discharge Date Admission Date: May 02, 2020 Supervising Physician Co-Signing Physician Notes Dr. Stafford was the resident-physician during care of patient. I separately evaluated patient for solis portions of the history and the exam. I was present during the critical portion of medical decision making, and I discussed the case with the resident. I generally agree with the findings and plan except for any additions/exceptions noted. In/out: -729, urine output 2.2 L Patient seen and examined at bedside. No acute distress, no adverse events overnight He was extubated yesterday 05/05/2020. Patient was saturating 96% on 3 L nasal cannula. Answering all questions appropriately. Afebrile. Denies any chest pain, no headache, no nausea, no vomiting. Patient failed swallow eval yesterday. He has an NG tube and he has been getting feeding since from them. Continue with [facility] and chest PT. Physical therapy will also help the patient. Hypokalemia is being replaced. Continue with antibiotics for 1 more day Patient did have bronchoscopy done on 05/03/2020 with removal of secretions from the right side of the lung. There was also expiratory collapse of the posterior wall which goes with tracheomalacia. Please note the above document was generated using voice recognition software. It may contain grammatical, syntax or spelling errors.Any formal questions or concerns about the content, text or information contained within the body of this dictation should be directly addressed to the provider for clarification. Subjective Patient without acute events overnight. For downgrade from ICU level of care this AM. Feels well, no shortness of breath or chest pain, no headaches or dizziness, abdominal pain. Anxious to go home. Review of Systems Review of Systems: All systems reviewed & are unremarkable except as noted in HPI & below Constitutional: no fever, no chills and no malaise Respiratory: no cough and no dyspnea Cardiovascular: no chest pain, no palpitations and no edema Gastrointestinal: no abdominal pain, no constipation and no diarrhea/loose stools Physical Exam Physical Exam: VITAL SIGNS - Vital signs and nursing notes were reviewed. GENERAL - 70 yo M, well developed, thin, ill appearing. SKIN - Without rashes. HEAD - NC/AT. EYES - PERRL. Sclera anicteric. Palpebral conjunctiva pink and moist with no injection noted. EARS - No deformities of external structures noted on gross examination bilaterally. MOUTH/OROPHARYNX - No notable perioral cyanosis. LUNGS - Bilateral basilar crackles, unchanged from yesterday; tachypneic. CARDIAC - Regular rate and rhythm. No murmur, rubs, or gallops appreciated. ABDOMEN - Soft, nondistended, normal bowel sounds. EXTREMITIES - No clubbing or peripheral cyanosis. No peripheral edema present. NEUROLOGIC - No focal neurological deficits noted on exam. Alert and oriented to name and that he is in the hospital. Results & Data Results & Data ([facility]) Vital Signs (Past 12 Hours) Vital Signs Temp Pulse Pulse Resp BP BP Pulse Ox 05/07/20 05:31 97 H 148/85 H 05/07/20 04:00 36.8 C 90 24 148/85 H 94 05/07/20 02:19 94 H 26 H 96 05/07/20 00:00 37.5 C 100 H 24 138/80 97 05/06/20 23:10 97 H 138/80 05/06/20 22:58 93 H 24 98 05/06/20 22:00 106 H 22 135/84 94 05/06/20 21:00 101 H 30 H 93 05/06/20 20:00 37.1 C 99 H 24 123/81 94 05/07/20 04:21 05/07/20 05:42 Resident Activity Tracking Resident Involvement: Resident Care Provided Care Provided: Adult Hospital Medicine
[2020-05-07] MEDS: ENOXAPARIN INJ 40 MG/0.4 ML SYR SQ SCH (08:24)
[2020-05-07] MEDS: GABAPENTIN 250 MG/5 ML 470 ML BTL NG SCH ×3 (08:24→21:17)
[2020-05-07] MEDS: METOPROLOL TARTRATE 25 MG TAB PO SCH ×2 (08:24→21:18)
[2020-05-07] MEDS: lisinopril 10 MG TAB PO SCH (08:24)
[2020-05-07] MEDS: TOPIRAMATE 50 MG TAB PO SCH ×2 (08:24→21:18)
[2020-05-07] MEDS: LOTEPREDNOL OP SCH (08:25)
[2020-05-07] MEDS: predniSONE 20 MG TAB PO SCH (08:25)
[2020-05-07] MEDS: BRINZOLAMIDE (AZOPT) OPS 10 ML BTL OPR SCH ×3 (08:25→21:18)
[2020-05-07] MEDS: INSULIN GLARGINE SOLOSTAR 100 UNITS/ML 3 ML PEN SC SCH ×2 (08:26→21:15)
--- NOTE | 2020-05-07 08:37 | Billing Data ---
Date of Service May 07, 2020 Coding Level of Care Code 11087 Subseq Hosp Care Lvl 3
[2020-05-07 08:56] LABS: Magnesium 2.7 mg/dl (1.8-2.4)
[2020-05-07] MEDS: PANTOprazole 40 MG in SYRINGE 0 ML IV SCH (11:36)
[2020-05-07] MEDS: PEPTAMEN 1.5 CAL 1,000 ML BAG NG SCH (15:03)
[2020-05-07] MEDS: PROSOURCE NO CARB 30 ML/PKT NG SCH (15:04)
--- NOTE | 2020-05-07 18:08 | Hospitalist Progress Note ---
Date of Service May 07, 2020 Assessment & Plan (1) Acute respiratory failure with hypoxia and hypercapnia: multifactorial with likely chronic CO2 retention and then aspiration pneumonia compounding the problem with hypoxia extubated in am 05/05 improving with Solu Medrol and Unsyn IV, tapering steroid had bronchoscopy on 05/03 with impacted mucous on right side persistent aspiration, speech is following GI prophylaxis (2) Dysphagia: failed bedside swallowing eval with coughing and hypoxia, coresafe to administer medicaions that are not convertable to iv Video swallow for 05/08 (3) Aspiration pneumonia: Confirmed on CT angiography, which was negative for PE, but did show debris in right mainstem and down into the right lung. bronchoscopy 05/03 with impacted mucous right side continue unasyn iv as po intake is questionable with recurrent aspiration (4) COPD (chronic obstructive pulmonary disease): no wheezing on exam, remains coarse, tapering solumedrol (5) Diabetes mellitus: Hyperglycemic ICU protocol monitor for hypoglycemia (6) Seizure: Change Vimpat from 200 mg p.o. twice daily topamax 50 mg bid and gabapentin 300 tid no seizure activity on EEG needs neurology follow up Admission and Anticipated Discharge Date Admission Date: May 02, 2020 Subjective Patient doing much better today still having episodes of aspiration with bedside screening. Will rebegin tube feeding and have a swallowing test performed videofluoroscopy on 05/08/2020 Review of Systems Review of Systems: Need of BiPAP for respiratory support Mild distress and fatigue no headache, blurry or double vision no speech or swallowing issues no chest pain, pressure or palpitations is tachypneic, denies SOB coughs when tries to drink small bits of fluid no abdominal pain, nausea or vomiting, diarrhea or constipation no dysuria, hematuria or frequency no focal joint pain or swelling no back pain, CVA tenderness or radicular pain no bruising, bleeding or rashes no focal signs of weakness or numbness or altered sensation no complaints of anxiety or depression. Physical Exam Physical Exam: The patient appeared thin and in moderate distress wearing a BiPAP Vital signs as documented. Head exam is normocephalic atraumatic no scleral icterus Neck is without JVD, thyromegaly, or carotid bruits. Lungs remain coarse with some clearing from 05/06 Cardiac exam, Rhythm is tachycardic, no murmurs, rubs or gallops. Abdominal exam reveals normal bowel sounds, soft non tender, no masses slightly distended Extremities are mildly edematous and both pedal pulses are present Neurologic exam is alert and oriented, can state his name and follow commands Skin is without bruises or rashes Psychologically is without concerns for anxiety or depression. Results & Data Results & Data ([facility]) Vital Signs (Past 12 Hours) Vital Signs Temp Pulse Resp BP Pulse Ox Pulse Ox Pulse Ox 05/07/20 11:44 95 95 05/07/20 10:00 68 132/77 05/07/20 08:00 98.2 F 88 28 H 156/111 H 98 Pulse Ox 05/07/20 11:44 81 L 05/07/20 10:00 05/07/20 08:00 PG Care Time/CCT Total # of Minutes Spent Total Time Spent with Patient: Total time spent is greater than 50% in coordination of care (as documented) at patient's floor/unit and/or counseling patient: Coding Level of Care Code 60919 Subseq Hosp Care Lvl 3 Diagnoses Acute respiratory failure with hypoxia and hypercapnia J96.01; J96.02 Dysphagia R13.10 Aspiration pneumonia J69.0 COPD (chronic obstructive pulmonary disease) J44.9 COPD type: unspecified COPD Diabetes mellitus E11.9 Seizure R56.9 (1) COPD (chronic obstructive pulmonary disease) COPD type: unspecified COPD Qualified Code(s): J44.9 - Chronic obstructive pulmonary disease, unspecified
[2020-05-08] MEDS: LACOSAMIDE 200 MG in SODIUM CHLORIDE 0.9% 50 ML IV SCH ×2 (04:23→16:42)
[2020-05-08] MEDS: guaiFENesin SUGAR FREE 200 MG/10 ML UDC PO SCH ×5 (04:23→20:08)
[2020-05-08] MEDS: INSULIN ASPART 100 UNITS/ML 3 ML PEN SC SCH (06:10)
[2020-05-08] MEDS: AMPICILLIN/SULBACTAM SOD 3,000 MG in 0.9 % SODIUM CHLORIDE 100 ML IV SCH (06:11)
[2020-05-08] MEDS: TOPIRAMATE 50 MG TAB PO SCH ×2 (08:51→20:11)
[2020-05-08] MEDS: GABAPENTIN 250 MG/5 ML 470 ML BTL NG SCH ×3 (08:52→20:09)
[2020-05-08] MEDS: ENOXAPARIN INJ 40 MG/0.4 ML SYR SQ SCH (08:52)
[2020-05-08] MEDS: METOPROLOL TARTRATE 25 MG TAB PO SCH ×2 (08:53→20:09)
[2020-05-08] MEDS: lisinopril 10 MG TAB PO SCH (08:53)
[2020-05-08] MEDS: LOTEPREDNOL OP SCH (08:54)
[2020-05-08] MEDS: BRINZOLAMIDE (AZOPT) OPS 10 ML BTL OPR SCH ×3 (08:54→20:09)
[2020-05-08] MEDS: INSULIN GLARGINE SOLOSTAR 100 UNITS/ML 3 ML PEN SC SCH ×2 (08:55→20:11)
--- NOTE | 2020-05-08 12:11 | Pharmacy Report ---
Pharmacy Glycemic Short Note 2 - Date of Service May 08, 2020 - Glycemic Short BSG Results (Last 24 hours): 05/07/20 05/07/20 05/07/20 18:02 21:13 23:18 POC Glucose 124 H 108 H 119 H 05/08/20 05/08/20 06:07 11:23 POC Glucose 147 H 181 H OUTPATIENT ANTIDIABETIC REGIMEN: * Lantus 16 units SQ daily * Metformin 500 mg PO daily * A1c = 10.6% (04/11/20) ASSESSMENT: 05/07 * Streroids stopped today * AM fasting BSG slightly above goal range, but will leave Lantus parameters as- is due to steroid taper and anticipated increase in insulin sensitivity * BSG >180 mg/dL at 1200 check - will change to regular insulin q6h to provide coverage for the full 6 hrs between checks and will very slightly tighten CHO ratio. Hesitant to tighten further as insulin sensitivity likely to increase with steroids being stopped today 05/06 * BSG's trended down after changes yesterday, and ranged 100-146 mg/dL from afternoon to HS. No Novolog was needed/administered during that time * Steroids continuing to taper today from methylprednisolone 40 mg IV daily to prednisone 40 mg po qAM * Patient received a total of 10 units of Lantus yesterday and AM BSG was 140 mg/dL which is appropriate for this patient. Will slightly adjust Lantus parameters so patient will likely receive 5 units BID, but with up and down titration based on BSG * Will loosen Novolog parameters again given further steroid taper. Will also change from q4h to q6h checks 05/05 * All BSG >160 mg/dL and one BSG >180 mg/dL after loosening CHO ratio in response to steroid taper yesterday. Will re-tighten CHO ratio for now. However, steroids again tapering further today from methylprednisolone 40 mg IV BID to daily, with last evening dose being yesterday (05/04). Therefore, will re-loosen CHO ratio starting this evening * OK to keep Lantus as is for now - dose is on the lower side at a total of 0.25 units/kg and hold parameters are in place 05/04 * Patient remains intubated. Methylprednisolone tapering from 60 mg IV q8h to 40 mg IV BID. Heparin has been stopped * Peptamen 1.5 anya rate increased overnight and BSG's also increased, up to 180 mg/dL this AM. Will tighten CHO ratio for now, but then will loosen back later today 2nd steroid taper 05/03: * Ted received 30 units of insulin yesterday with acceptable BSG control: * 24 units of basal * 6 units of bolus * Pt remains on solu medrol 60 mg IV q8h and fentanyl, versed, and heparin infusions. Levophed has been titrated off. * Fasting BSG of 122 mg/dL is at goal. Lantus was slightly reduced this AM since high dose steroids do not appear to have significant effect on BSG (at least while pt is NPO) * Post prandial BSGs well controlled on current Novolog parameters. * Pt ordered to start Peptamen tube feeds @ 20 mL/hr this afternoon (contains 184 g/L of carbohydrate) * Will adjust carb coverage as needed based on BSG response to tube feeds 05/02: * Ted is a 70 yo T2DM admitted to the ICU with acute respiratory failure with hypoxemia and hypercapnia/aspiration pneumonia * He has the potential for significant insulin resistance due to possible infection, high dose IV steroids, pressors, and uncontrolled DM at baseline. * He was ordered an IV insulin infusion to start this morning at 0500 (BSG of 289, 301, 188 mg/dL). For unknown reasons, the insulin infusion was never started. BSG did improve to 152 mg/dL at 0524 (this appears to be without any insulin administration). BSG of 164 mg/dL at 1400. * Will start Lantus now (25% reduction in home dose). Add Lantus scale at bedtime to cover for steroid induced hyperglycemia. * Novolog ordered based on weight/stress 2. PLAN FOR INPATIENT GLYCEMIC CONTROL: * Basal insulin - adjust * Lantus per scale BID: * 0 units for BSG < 120 mg/dL * 5 units for BSG 120-180 mg/dL * 10 units for BSG > 180 mg/dL * Bolus insulin - loosen * NovoLog q6h while on tubefeeds * Goal Range: Low 110 mg/dL - High 150 mg/dL * Correction Factor: 30 mg/dL/unit * Carb ratio: 12 g CHO/unit
[2020-05-08] MEDS: PANTOprazole 40 MG in SYRINGE 0 ML IV SCH (12:39)
--- NOTE | 2020-05-08 12:51 | Fluoroscopy Report ---
MODIFIED BARIUM SWALLOW CLINICAL HISTORY: aspirating; ? oral intake COMPARISON STUDY: None. FLUOROSCOPY TIME: 1.6 minutes. TECHNIQUE: A modified barium swallow was performed in conjunction with Speech Pathology. The patient ingested varying consistencies of barium containing material. Video fluoroscopy was performed. FINDINGS: Nasogastric tube is incidentally noted. Note was made of multiple episodes of silent trache al aspiration. This occurred with thin liquids by cup and spoon as well as nectar thick liquids. Epig lottic inversion was diminished. Laryngeal elevation was diminished. Significant retention was noted with pudding consistencies. There is premature spillage as well. IMPRESSION: 1. Impaired swallowing mechanism with silent tracheal aspiration with thin liquids and nectar thick l iquids with significant retention with pudding consistencies. Significantly diminished epiglottic inv ersion and laryngeal elevation. 2. Full recommendations by speech pathology to follow. ACT 112: Negative or not required by law. Electronically signed by: Chele Lopez M.D. 05/08/2020 12:49 PM
--- NOTE | 2020-05-08 13:17 | Hospitalist Progress Note ---
Date of Service May 08, 2020 Assessment & Plan (1) Acute respiratory failure with hypoxia and hypercapnia: multifactorial with likely chronic CO2 retention and then aspiration pneumonia compounding the problem with hypoxia extubated in am 05/05 improving with Solu Medrol and Unsyn IV, tapering steroid had bronchoscopy on 05/03 with impacted mucous on right side persistent aspiration, speech is following, would hope to continue to support with TF and reasses next week, family is considering peg and rehab GI prophylaxis (2) Dysphagia: failed bedside swallowing eval with coughing and hypoxia, core safe to administer medications that are not convertible to iv Video swallow for 05/08 SUMMARY/RECOMMENDATIONS: This patient presents with mild oral-stage dysphagia and severe-profound pharyngeal-stage dysphagia. Given that the patient's reported aspiration of water and dysphagia at home [employer], it is hard to believe this dysphagia is exclusively acute onset. The following is recommended: 1. Continue NPO. Ok for ice chips with supervision in order to maintain moisture of his mucous membranes and minimize build up of hardening secretions. 2. IF the patient is going to pursue aggressive therapeutic intervention for recovery of swallowing function then PEG-tube placement will need to be considered. He will need a consistent means of getting nutrition, hydration and medication in order to be able to participate in treatment. 3. IF the patient is not going to pursue aggressive dysphagia therapy then consent for permissive aspiration would need to be obtained. There is no "safe" diet for this patient and he is at risk for airway obstructions with any consistency of solid. 4. Consider Palliative Care Consultation to establish goals of care for this patient. I spoke to and she is initially resistant to PEG and/or palliative wants to support and re evaluate next week, they are considering acute rehab. (3) Aspiration pneumonia: Confirmed on CT angiography, which was negative for PE, but did show debris in right mainstem and down into the right lung. bronchoscopy 05/03 with impacted mucous right side continue unasyn iv as po intake is questionable with recurrent aspiration (4) COPD (chronic obstructive pulmonary disease): no wheezing on exam, remains coarse, tapering steroidsl (5) Diabetes mellitus: Hyperglycemic ICU protocol monitor for hypoglycemia (6) Seizure: Change Vimpat from 200 mg p.o. twice daily topamax 50 mg bid and gabapentin 300 tid no seizure activity on EEG needs neurology follow up, prefers to follow up at [facility] Admission and Anticipated Discharge Date Admission Date: May 02, 2020 Subjective Patient doing much better today, speech therapy stated pt failed video swallow significantly. Will re-begin tube feeding and have a swallowing test performed videofluoroscopy on 05/08/2020 Review of Systems Review of Systems: Need of BiPAP for respiratory support Mild distress and fatigue no headache, blurry or double vision no speech or swallowing issues no chest pain, pressure or palpitations is tachypneic, denies SOB coughs when tries to drink small bits of fluid no abdominal pain, nausea or vomiting, diarrhea or constipation no dysuria, hematuria or frequency no focal joint pain or swelling no back pain, CVA tenderness or radicular pain no bruising, bleeding or rashes no focal signs of weakness or numbness or altered sensation no complaints of anxiety or depression. Physical Exam Physical Exam: The patient appeared thin and in moderate distress Vital signs as documented. Head exam is normocephalic atraumatic no scleral icterus Neck is without JVD, thyromegaly, or carotid bruits. Lungs remain coarse with raspy b/l breath sounds Cardiac exam, Rhythm is tachycardic, no murmurs, rubs or gallops. Abdominal exam reveals normal bowel sounds, soft non tender, no masses slightly distended Extremities are mildly edematous and both pedal pulses are present Neurologic exam is alert and oriented, can state his name and follow commands Skin is without bruises or rashes Psychologically is without concerns for anxiety or depression. Results & Data Results & Data ([facility]) Vital Signs (Past 12 Hours) Vital Signs Temp Pulse Pulse Resp BP BP Pulse Ox 05/08/20 07:56 98.1 F 85 20 99/65 L 96 05/08/20 07:00 102 H 05/08/20 05:21 94 H 24 115/68 99 05/08/20 04:14 94 H 21 99 05/08/20 04:00 98.2 F 05/08/20 03:20 88 29 H 153/78 H 98 05/08/20 01:20 89 21 144/83 H 99 PG Care Time/CCT Total # of Minutes Spent Total Time Spent with Patient: Total time spent is greater than 50% in coordination of care (as documented) at patient's floor/unit and/or counseling patient: Coding Level of Care Code 89230 Subseq Hosp Care Lvl 3 Diagnoses Acute respiratory failure with hypoxia and hypercapnia J96.01; J96.02 Dysphagia R13.10 Aspiration pneumonia J69.0 COPD (chronic obstructive pulmonary disease) J44.9 COPD type: unspecified COPD Diabetes mellitus E11.9 Seizure R56.9 (1) COPD (chronic obstructive pulmonary disease) COPD type: unspecified COPD Qualified Code(s): J44.9 - Chronic obstructive pulmonary disease, unspecified
[2020-05-08] MEDS: INSULIN HUMAN REGULAR SC SCH ×2 (13:47→19:00)
[2020-05-08] MEDS ORDERED: ATROPINE SULFATE 0.1 MG/ML 10ML SYR IV PRN (17:27)
[2020-05-08] MEDS ORDERED: SODIUM CHLORIDE 0.9% 500 ML IV SCH (17:30)
[2020-05-08 17:54] LABS: Hematocrit (blood only) 47.8 % (42-52); Mean Corpuscular Hemoglobin 31.5 pg (25-34); Mean Corpuscular Volume 100.4 fL (80-100); Platelet Count 237 K/uL (130-400); RDW Coefficient of Variation 15.2 % (11.5-14.5); RDW Standard Deviation 55.8 fL (36.4-46.3); Red Blood Count 4.76 M/uL (4.7-6.1); White Blood Count 9.11 K/uL (4.8-10.8)
--- NOTE | 2020-05-08 18:16 | Critical Care Consultation ---
Date of Consultation May 08, 2020 Assessment & Plan (1) Acute encephalopathy: Reason Critically Ill: 70 yo M with Hx seizure disorder, DM2, TIM, mild dementia, recently diagnosed COPD with emphysema initially admitted with acute hypoxic hypercapnic respiratory failure due to aspiration pneumonia. Downgraded from ICU yesterday. Transferred this afternoon to ICU after apneic event, decreased oxygen saturation, and 10-second sinus pause. NEURO - Seizure disorder: - Has history of focal temporal seizures, at home is on Vimpat 200mg PO BID and Topamax 50mg PO BID. - Continue Vimpat 200mg IV BID, but at decreased infusion rate due to sinus pause after receiving Vimpat. - Facility does not have oral formulation of Vimpat that can be used via NGT. - Continue Topamax 50mg BID. This has 1% chance of ADR bradycardia listed however last given medication well before yanely event. - EEG performed 05/02, showed no epileptiform activity but mild-moderate encephalopathy. - Neurology consult placed for continued questionable seizure activity and abdominal spasms; concerns regarding Vimpat dosing. - Patient did have EEG earlier this admit however was not a continuous EEG so does not mean patient did not have seizure activity outside of EEG timeframe. - Neurologist from [place] called and message left to discuss with primary Dr. Smith, however may not be on over the weekend. Abdominal spasms: - Unclear source, was on gabapentin 300mg TID for these with relief in outpatient setting. - Continue gabapentin at reduced dose 100mg BID via NGT. CARDIAC/VASCULAR - Sinus pause: - This afternoon had witnessed apneic event and developed bradycardia, followed by 10 second sinus pause. - After sternal rub patient returned to normal sinus rhythm with infrequent PVCs. - Cardiology consulted and will see in AM; sooner if has any further sinus pauses overnight. - At that time patient would need temporary pacer while undergoing evaluation. - Dr. Zuleta aware and discussed patient over phone; hold metoprolol for now given the above. Hypertension: - Patient with intermittent hypertension since stopping pressors. - Not on any HTN medication at home. - Continue lisinopril 10mg daily via NGT. Hold metoprolol given recent bradycardia. NSTEMI: - Earlier this admission prior to downgrade out of ICU. - Likely demand in the setting of hypoxemia/respiratory failure. - Troponins downtrended and patient without chest pain. - Daily EKGs. - Continue lisinopril via NGT; hold metoprolol. RESPIRATORY - Apneic event: - This afternoon shortly after receiving Vimpat IV patient had episode of apnea, and bradycardia and eventual sinus pause. - After sternal rub patient was saturating well and in sinus rhythm. - On arrival to ICU patient is saturating well on room air. - Goal SpO2 88-92%. Acute Hypoxic Hypercapnic Respiratory Failure, Aspiration Pneumonia: - Significant mucoid impaction and inflammation of right middle lobe earlier this admission. - Underwent bronchoscopy 05/03, sputum culture grew Group G Beta Strep. Bronchial washings confirmed Group G strep, fungal culture negative. - Completed 7 day course of antibiotics, last dose of Unasyn was today. - Completed a steroid taper with last steroid dose yesterday. - Net cumulative fluid balance is +700mL. - Given findings on Chest CT 04/30 showing COPD with severe emphysema, and history of TIM, suspect patient has a home oxygen requirement that has until now not caused symptoms. - Frequent cough assist. - Continue NPO due to failed video swallow. - CXR ordered to evaluate for worsening lung pathology given apneic event. GI/NUTRITION - - reports swallowing difficulty with pills, and admits that he did seem to aspirate on water a few days ago. - Swallow evaluation failed today. - This admission if patient cannot pass swallow study will have to discuss allowing for aspiration events and allowing him to eat vs. PEG and NPO. - Nutrition via NGT. - Prophylaxis: Lansoprazole PO. RENAL/LYTES - - Electrolyte protocol. - BMP pending. - - No present urinary concerns. - Net fluid balance this admission +700mL. - Strict Is/Os. ENDO - DM2: - BSGs, SSI per unit protocol. HEME - - H/H stable. ID - Aspiration Pneumonia: - Sputum culture this admission grew Group G Beta Strep. Bronchial washings confirmed Group G Strep. - Completed 7 day antibiotic course with Unasyn today. - Monitor fever curve. LINES/IV ACCESS - - PIVs x2. - NG Tube. DVT PROPHYLAXIS - - Lovenox 40mg daily, SCDs. Thank you for allowing us to participate in this patient's care. Please refer to Dr. Orr's documentation for any further recommendations. Supervising Physician Co-Signing Physician Notes Dr. Stafford was the resident-physician during care of patient. I separately evaluated patient for solis portions of the history and the exam. I was present during the critical portion of medical decision making, and I discussed the case with the resident. I generally agree with the findings and plan except for any additions/exceptions noted. Patient seen and examined at bedside in the ICU. No acute distress. Patient was transferred to the ICU because patient had bradycardic episode along with sinus pause which lasted for approximately 10 seconds. He was also transiently hypotensive and given fluid which she responded to well. At the time of examination patient was awake alert oriented x3, blood pressure map 68-70, not in any distress. Patient was saturating 99% on 2 L nasal cannula. Given that he has COPD I went down to 1 L. Interesting to note patient had similar bradycardic and sinus pause while he was in the ICU which lasted for 4 seconds which was followed by lacosamide The patient's 10-second sinus pause was also following lacosamide. I think there is a big correlation. Neurology has been consulted along with cardiology. Monitor the patient in the ICU. Please note the above document was generated using voice recognition software. It may contain grammatical, syntax or spelling errors.Any formal questions or concerns about the content, text or information contained within the body of this dictation should be directly addressed to the provider for clarification. History of Present Illness Reason for Consultation: apneic event, sinus pause Requesting Physician: Dr. Smith Attending Physician: René Smith MD History of Present Illness 70 yo M with Hx seizure disorder, DM2, TIM, mild dementia, recently diagnosed COPD with emphysema initially admitted with acute hypoxic hypercapnic respiratory failure due to aspiration pneumonia requiring intubation. Downgraded from ICU yesterday due to continued improvement. This afternoon the patient had a witnessed apneic event, during which time he had decreased oxygen saturation to 81% despite 2 L nasal cannula, as well as 10-second sinus pause on telemetry. Patient was hypotensive to 74/46 at that time. After sternal rub and calling out the patient's name, patient returned to normal sinus rhythm, and Dr. Orr was called. Determination was made at that time to transfer patient back down to ICU for continued observation. Of note, patient had a 4-second sinus pause several days ago while in the ICU immediately after receiving his IV Vimpat dose. It is of note that today the patient had his apneic event and 10- second pause not long after receiving IV Vimpat. On my interview with the patient, he is alert and oriented x3, does not have complaints of chest pain, shortness of breath, abdominal pain, nausea or vomiting, dizziness or headache, palpitations. Does not have a history of sleep apnea. Is not on oxygen at home. Allergies Allergy/AdvReac Type Severity Reaction Status Date / Time loteprednol [From Lotemax] Allergy Severe MAKES EYE Verified 05/02/20 01:29 RED, ITCHY & SWELLING brinzolamide [From Simbrinza] AdvReac INFLAMED Verified 05/02/20 01:29 EYE Home Medications Medication Instructions Recorded Confirmed Type PreserVision AREDS-2 1 tab PO BID 02/25/19 05/02/20 History cyanocobalamin (vitamin B-12) 1,000 mcg PO DAILY 05/08/19 05/02/20 History [Vitamin B-12] gabapentin 300 mg capsule 300 mg PO TID 30 Days #90 cap 06/14/19 05/02/20 Rx Azopt 1 drp OPR TID 10/26/19 05/02/20 History acetaminophen [Tylenol Extra 500 mg PO Q6H PRN 10/26/19 05/02/20 History Strength] timolol maleate [Timoptic] 1 drp OPR DAILY 10/26/19 05/02/20 History Incruse Ellipta 1 inh INHALATION QAM #1 inhaler 10/29/19 05/02/20 Rx Vimpat 200 mg PO BID 04/11/20 05/02/20 History loteprednol etabonate 1 drp OPR DAILY 04/11/20 05/02/20 History topiramate [Topamax] 50 mg PO BID 04/11/20 05/02/20 History blood sugar diagnostic [OneTouch #50 ea 04/14/20 Rx Verio test strips] insulin glargine [Lantus Solostar 16 unit SC DAILY 30 Days #4.8 ml 04/14/20 05/02/20 Rx U-100 Insulin] lancets [OneTouch Delica Lancets] #100 ea 04/14/20 Rx metformin 500 mg PO DAILY #30 tab 04/14/20 05/02/20 Rx pen needle, diabetic [Pen Needle] #50 ea 04/14/20 Rx Patient History Medical History (Updated 05/09/20 @ 11:07 by Demetra Orr MD) Anxiety Colonic mass Diabetes mellitus Lung nodule SMALL PER PT'S / JEFFREY MCGARRY/ 03/2019- NO TREATMENT CURRENTLY Macular degeneration BILAT Seizure Petit mal, follows with Neurology at [place] Tachycardia Unspecified convulsions Surgical History History of right cataract surgery History of tonsillectomy Family History Mother Stroke Sister Dementia Diabetes Grandmother Epilepsy Leukemia Cancer Myocardial infarction Grandfather Myocardial infarction Father Pulmonary embolism Other Family history non-contributory Social History Smoking Status: Former smoker Cigarettes Per Day: 20; Second Hand Exposure: No; Hx Alcohol Use: Yes Alcohol type: wine Hx Substance Use: No Preferred Language: Yoruba Communication Ability: Effective Communication Ability Comment: Effective communication at baseline, currently intubated Trimmer Sawyer Required: No Beliefs That Will Affect Care: None marital status: Current Living Situation: Spouse Feels Safe at Home: Yes Assistive Devices: Oxygen - Continuous Review of Systems Review of Systems: All systems reviewed & are unremarkable except as noted in HPI & below Constitutional: no fever, no chills and no malaise Respiratory: no cough and no dyspnea Cardiovascular: no chest pain, no palpitations and no edema Gastrointestinal: no abdominal pain, no constipation and no diarrhea/loose stools Physical Exam Physical Exam: VITAL SIGNS - Vital signs and nursing notes were reviewed. GENERAL - 70 yo M, well developed, thin, ill appearing. SKIN - Without rashes. HEAD - NC/AT. EYES - PERRL. Sclera anicteric. Palpebral conjunctiva pink and moist with no injection noted. EARS - No deformities of external structures noted on gross examination bilaterally. MOUTH/OROPHARYNX - No perioral cyanosis. LUNGS - Bilateral basilar crackles and decreased air entry. No wheezes. CARDIAC - Regular rate and rhythm. No murmur, rubs, or gallops appreciated. ABDOMEN - Soft, nondistended, normal bowel sounds. EXTREMITIES - No clubbing or peripheral cyanosis. No peripheral edema present. NEUROLOGIC - No focal neurological deficits noted on exam. Alert and oriented X3. Results & Data Results & Data ([facility]) Vital Signs (Past 12 Hours) Vital Signs Temp Pulse Pulse Resp BP BP Pulse Ox 05/08/20 17:00 43 L 74/46 L 81 L 05/08/20 15:49 36.7 C 74 17 88/53 L 84/42 L 93 05/08/20 07:56 36.7 C 85 20 99/65 L 96 05/08/20 07:00 102 H Resident Activity Tracking Resident Involvement: Resident Care Provided Care Provided: Adult Hospital Medicine
[2020-05-08 18:23] LABS: BUN Creatinine Ratio 38.1 (10-20); Calcium 8.8 mg/dl (8.5-10.1); Creatinine Clr Calc Pharmacy 98.6 ml/min; Est GFR (African American) 109.5; Est GFR (Non-African American) 94.5; Potassium 3.6 mmol/L (3.5-5.1)
[2020-05-08 18:27] LABS: Troponin I 0.029 ng/ml (0-0.045)
[2020-05-08] MEDS ORDERED: ICU PROTOCOL FOR HYPERGLYCEMIA PRN (18:50)
[2020-05-08] MEDS: PROSOURCE NO CARB 30 ML/PKT NG SCH (19:06)
[2020-05-08] MEDS ORDERED: POTASSIUM CHLORIDE 20 MEQ/15 ML UDC PO STA (19:07)
[2020-05-08 19:21] LABS: iSTAT Allen Test Pass; iSTAT Arterial Blood Gas HCO3 27 meg/L (19-24); iSTAT Arterial Blood Gas pCO2 58 mmHg (35-46); iSTAT Arterial Blood Gas pH 7.28 (7.35-7.45); iSTAT Arterial Blood Gas pO2 61 mmHg (80-95); iSTAT Carbon Dioxide 29 mmol/L (24-31); iSTAT Site L Radial
[2020-05-08 19:56] LABS: Mean Corpuscular Hgb Conc 31.4 g/dL (32-36)
--- NOTE | 2020-05-08 20:35 | XRay Report ---
SINGLE VIEW CHEST CLINICAL HISTORY: Aspiration pneumonia. FINDINGS: An AP, portable, upright chest radiograph is compared to study dated 05/06/2020 and correla [place] with chest CT dated 05/02/2020. The examination is degraded by portable technique and patient rot ation. An enteric tube is new from previous. This projects below the diaphragm and the tip is not vis ualized. The heart is top normal for projection noting atherosclerotic calcification of the thoracic aorta. Advanced emphysema and chronic interstitial thickening are similar to previous. There is eleva tion of the right hemidiaphragm with right basilar consolidation. Scarring/atelectasis is noted at th e left lung base. A small right pleural effusion is noted. No pneumothorax is seen. The skeletal stru ctures are osteopenic. The bony thorax is grossly intact. Hyperdense material is noted in the right p harynx. IMPRESSION: 1. An enteric tube is new from previous. 2. Dense airspace consolidation is again seen in the right lung base with a small right pleural effus ion. This is similar to previous. 3. Advanced emphysema. 4. There is likely retained barium in the pharynx from today's barium study. ACT 112: Negative or not required by law. Electronically signed by: Derick Sweet M.D. 05/08/2020 8:33 PM
[2020-05-08 21:06] LABS: Amphetamines+Metham, Urine Neg (Neg); Barbiturates, Urine Neg (Neg); Benzodiazepine, Urine Pos (Neg); Cocaine, Urine Neg (Neg); MDMA (Ecstacy), Urine Neg (Neg); Methadone, Urine Neg (Neg); Opiate, Urine Neg (Neg); Phencyclidine, Urine Neg (Neg)
[2020-05-09] MEDS: INSULIN HUMAN REGULAR SC SCH ×4 (00:02→17:50)
[2020-05-09] MEDS: guaiFENesin SUGAR FREE 200 MG/10 ML UDC PO SCH ×6 (00:44→21:05)
[2020-05-09] MEDS: LACOSAMIDE 200 MG in SODIUM CHLORIDE 0.9% 50 ML IV SCH (04:00)
[2020-05-09 04:59] LABS: Basophils # (auto) 0.02 K/uL (0-0.2); Basophils % (auto) 0.2 %; Eosinophils # (auto) 0.08 K/uL (0-0.5); Eosinophils % (auto) 0.7 %; Hematocrit (blood only) 48.1 % (42-52); Immature Granulocytes # (auto) 0.06 K/uL (0.00-0.02); Immature Granulocytes % (auto) 0.5 %; Lymphocytes # (auto) 0.94 K/uL (1.2-3.4); Lymphocytes % (auto) 8.1 %; Mean Corpuscular Hemoglobin 31.8 pg (25-34); Mean Corpuscular Hgb Conc 31.2 g/dL (32-36); Mean Corpuscular Volume 101.9 fL (80-100); Monocytes # (auto) 0.94 K/uL (0.11-0.59); Monocytes % (auto) 8.1 %; Neutrophils # (auto) 9.55 K/uL (1.4-6.5); Neutrophils % (auto) 82.4 %; Platelet Count 231 K/uL (130-400); RDW Coefficient of Variation 15.2 % (11.5-14.5); Red Blood Count 4.72 M/uL (4.7-6.1); White Blood Count 11.59 K/uL (4.8-10.8)
[2020-05-09 05:36] LABS: BUN Creatinine Ratio 42.2 (10-20); Calcium 8.6 mg/dl (8.5-10.1); Creatinine Clr Calc Pharmacy 116.3 ml/min; Est GFR (African American) 117.3; Est GFR (Non-African American) 101.2; Magnesium 2.8 mg/dl (1.8-2.4); Phosphorus 2.6 mg/dl (2.5-4.9); Potassium 4.2 mmol/L (3.5-5.1)
--- NOTE | 2020-05-09 07:49 | Hospitalist Progress Note ---
Date of Service May 09, 2020 Assessment & Plan (1) Acute respiratory failure with hypoxia and hypercapnia: multifactorial with likely chronic CO2 retention and then aspiration pneumonia compounding the problem with hypoxia extubated in am 05/05 had bronchoscopy on 05/03 with impacted mucous on right side persistent aspiration, failed video swallow 05/08, speech is following, in late afternoon after iv vimpat the pt had an apneic episode with a 10 second asystolic pause, the was groggy and wound continue with intermittent apneic episodes, was transfered to ICU for better respiratory support and bipap. ABg shows co2 retention with respiratory acidosis in am 05/09 he has recovered and discussion with neurology feels that he is having an untoward affect from vimpat and has constructed a plan transition to dilantin and reduce gabapentin will check random dilantin levels in am family would hope to continue to support, continue with TF and re asses next week, family is considering peg and rehab GI prophylaxis (2) Asystole: Pt had asystole after vimpat iv, did have nstemi earlier with acute illness, checked troponin after event last pm, was normal, will have additional checks, hold metoprolol, and cardiology consult (3) Dysphagia: failed bedside swallowing eval with coughing and hypoxia, core safe to administer medications that are not convertible to iv Video swallow for 05/08 SUMMARY/RECOMMENDATIONS: This patient presents with mild oral-stage dysphagia and severe-profound pharyngeal-stage dysphagia. Given that the patient's reported aspiration of water and dysphagia at home [employer], it is hard to believe this dysphagia is exclusively acute onset. The following is recommended: 1. Continue NPO. Ok for ice chips with supervision in order to maintain moisture of his mucous membranes and minimize build up of hardening secretions. 2. IF the patient is going to pursue aggressive therapeutic intervention for recovery of swallowing function then PEG-tube placement will need to be considered. He will need a consistent means of getting nutrition, hydration and medication in order to be able to participate in treatment. 3. IF the patient is not going to pursue aggressive dysphagia therapy then consent for permissive aspiration would need to be obtained. There is no "safe" diet for this patient and he is at risk for airway obstructions with any consistency of solid. 4. Consider Palliative Care Consultation to establish goals of care for this patient. I spoke to and she is initially resistant to PEG and/or palliative wants to support and re evaluate next week, they are considering acute rehab. (4) Aspiration pneumonia: Confirmed on CT angiography, which was negative for PE, but did show debris in right mainstem and down into the right lung. bronchoscopy 05/03 with impacted mucous right side continue unasyn iv as po intake is questionable with recurrent aspiration CXr shows persistent RLL changes (5) COPD (chronic obstructive pulmonary disease): coarse respirations persist, respiratory acidosis is seen, on Bipap (6) Diabetes mellitus: Hyperglycemic ICU protocol monitor for hypoglycemia (7) Seizure: Change Vimpat to dilantin continue topamax 50 mg bid (could increase to 100) and gabapentin reduced doses no seizure activity on EEG needs neurology follow up, Admission and Anticipated Discharge Date Admission Date: May 02, 2020 Subjective Patient seen and examined at bedside. No acute distress, no adverse events overnight. Patient is feeling well. Denies any shortness of breath, no chest pain, no dizziness, no palpitation. Patient did not have any sinus pauses or bradycardic episodes overnight. Patient does complain of dry mouth. He has been getting mouth moisturizing sprays now which he prefers. I did speak to family and updated them this morning I observed him cough after trying some crushed ice po Review of Systems Review of Systems: Need of BiPAP for respiratory support, now will be prn use only Mild distress but much more awake no headache, blurry or double vision no speech or swallowing issues no chest pain, pressure or palpitations denies SOB coughs when tries to drink small bits of fluid no abdominal pain, nausea or vomiting, diarrhea or constipation no dysuria, hematuria or frequency no focal joint pain or swelling no back pain, CVA tenderness or radicular pain no bruising, bleeding or rashes no focal signs of weakness or numbness or altered sensation no complaints of anxiety or depression. Physical Exam Physical Exam: The patient appeared thin and only with respiratory distress when he tries to take po Vital signs as documented. Head exam is normocephalic atraumatic no scleral icterus Neck is without JVD, thyromegaly, or carotid bruits. Lungs continue to be coarse with raspy b/l breath sounds Cardiac exam, Rhythm is tachycardic, no murmurs, rubs or gallops. Abdominal exam reveals normal bowel sounds, soft non tender, no masses slightly distended Extremities are mildly edematous and both pedal pulses are present Neurologic exam is alert and oriented, can state his name and follow commands Skin is without bruises or rashes Psychologically is without concerns for anxiety or depression. Results & Data Results & Data ([facility]) Vital Signs (Past 12 Hours) Vital Signs Temp Pulse Resp BP Pulse Ox 05/09/20 06:17 103 H 26 H 108/64 94 05/09/20 05:17 107 H 21 130/70 96 05/09/20 04:16 98.1 F 105 H 17 112/65 96 05/09/20 03:17 99 H 6 L 116/72 96 05/09/20 02:16 97 H 15 118/72 99 05/09/20 01:16 71 14 96/57 L 96 05/09/20 00:17 83 14 93/59 L 94 05/09/20 00:00 77 22 97 05/08/20 23:17 97.5 F L 99 H 25 H 145/83 H 90 05/08/20 23:00 96 H 30 H 97 05/08/20 22:17 93 H 29 H 114/64 95 05/08/20 21:16 86 18 128/92 95 05/08/20 20:16 97.5 F L 104 H 33 H 126/68 97 PG Care Time/CCT Total # of Minutes Spent Total Time Spent with Patient: Total time spent is greater than 50% in coordination of care (as documented) at patient's floor/unit and/or counseling patient: Coding Level of Care Code 45325 Subseq Hosp Care Lvl 3 Diagnoses Acute respiratory failure with hypoxia and hypercapnia J96.01; J96.02 Asystole I46.9 Dysphagia R13.10 Aspiration pneumonia J69.0 COPD (chronic obstructive pulmonary disease) J44.9 COPD type: unspecified COPD Diabetes mellitus E11.9 Seizure R56.9 (1) COPD (chronic obstructive pulmonary disease) COPD type: unspecified COPD Qualified Code(s): J44.9 - Chronic obstructive pulmonary disease, unspecified
[2020-05-09] MEDS ORDERED: ICU PROTOCOL FOR HYPERGLYCEMIA PRN (09:00)
[2020-05-09] MEDS: BRINZOLAMIDE (AZOPT) OPS 10 ML BTL OPR SCH ×3 (09:21→21:05)
[2020-05-09] MEDS: METOPROLOL TARTRATE 25 MG TAB PO SCH ×2 (09:23→21:06)
[2020-05-09] MEDS: lisinopril 10 MG TAB PO SCH (09:23)
[2020-05-09] MEDS: ENOXAPARIN INJ 40 MG/0.4 ML SYR SQ SCH (09:23)
[2020-05-09] MEDS: LANSOPRAZOLE 30 MG SOLTAB NG SCH (09:24)
[2020-05-09] MEDS: TOPIRAMATE 50 MG TAB PO SCH ×2 (09:24→21:06)
[2020-05-09] MEDS: INSULIN GLARGINE SOLOSTAR 100 UNITS/ML 3 ML PEN SC SCH ×2 (09:26→21:05)
[2020-05-09] MEDS: GABAPENTIN 250 MG/5 ML 470 ML BTL NG SCH ×2 (09:26→21:12)
--- NOTE | 2020-05-09 10:09 | Neurology Consultation ---
Date of Consultation May 09, 2020 Assessment & Plan (1) Altered mental status: (2) Spasm: (3) Seizure: Ted Mcdonald is a 70 yo man w/ PMH of COPD, DM, macular degeneration, moderate TIM and ?seizures who p/t [facility] initially with acute respiratory failure, found to have pneumonia and required intubation. Neurology consulted for ongoing abdominal muscle spasms c/f possible seizure particularly in the setting of brief asystole when he had IV vimpat given. # H/o temporal lobe epilepsy: follows with [facility] [place]. As tried multiple AEDs in the past with side effects (keppra, depakote, clonazepam, lamotrigine) - current AEDs: vimpat 200mg bid, topamax 50mg bid, gabapentin 300mg tid - he has been more confused since missing doses of his gabapentin; this would be expected (it is common for the elderly to be altered if they abruptly stop gabapentin). Would make sure that he receives 300mg bid at a minimum. - in terms of alternatives to his current AED regimen, would consider stopping vimpat and giving either dilantin or briviact as both have IV options available. If dilantin is started, would load with 400mg/300mg/300mg in 2 hour intervals and then start 100mg tid PO 24 hours after first loading dose. Check daily free/total dilantin levels. - we can increase the topamax to 100mg bid but this would require some form of PO access consistently - outside neurology has requested a prolonged EEG (we can do up to 60 minutes at one time as an inpatient, must let Marc/gear technician know ahead of time). If longer monitoring is requested by family, recommend transfer to [facility] for continuous EEG as we do not have that here. Thank you for this interesting consult. Plan of care discussed with primary team. Please call or text with questions. History of Present Illness Attending Physician: René Smith MD History of Present Illness Ted Mcdonald is a 70 yo man w/ PMH of COPD, DM, macular degeneration, moderate TIM and ?seizures who p/t [facility] initially with acute respiratory failure, found to have pneumonia and required intubation. Neurology consulted for ongoing abdominal muscle spasms c/f possible seizure particularly in the setting of brief asystole when he had IV vimpat given. On review of the record, he p/t [facility] on 05/02/20 with hypoxic respiratory failure and AMS requiring immediate intubation. He was started on broad spectrum antibiotics (vanc/zosyn) and steroids for aspiration pneumonia. He had an EEG performed while sedated with propofol that only showed mild to moderate generalized slowing c/w encephalopathy vs medication effect, no interictal abnormalities noted. He was noted to have significant dysphagia after extubation that will require possible NGT vs PEG tube placement. On 05/08/20, he was receiving IV vimpat when he had apnea and bradycardia with sinus pause. Primary team spoke with [facility] neurology who recommended neurology consultation, prolonged EEG, and consider increasing topamax to 100mg bid. On examination, he reports that he is doing well. Does not recall that he has had 2 bradycardic/asystolic episodes with getting the vimpat. Endorsed that he would like Dr Pierre to make all of the decisions regarding AEDs since he trusts him. Reviewed notes from [facility] neurolog[facility]. He was diagnosed with refractory temporal lobe epilepsy after 48 hour ambulatory EEG captured several temporal lobe seizures with initial 7 Hz theta activity that evolved into 2-3 Hz delta activity in the left temporal region. The EEG also showed mild generalized slowing consistent with mild encephalopathy, intermittent left temporal delta slowing and occasional left temporal sharp waves. Clinically, patient had anxiety attacks with the seizures. MRI brain on 3T MRI showed mild to moderate SVID but no other abnormalities, including normal hippocampi. 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 medical record. Allergies Allergy/AdvReac Type Severity Reaction Status Date / Time loteprednol [From Lotemax] Allergy Severe MAKES EYE Verified 05/02/20 01:29 RED, ITCHY & SWELLING brinzolamide [From Simbrinza] AdvReac INFLAMED Verified 05/02/20 01:29 EYE Home Medications Medication Instructions Recorded Confirmed Type PreserVision AREDS-2 1 tab PO BID 02/25/19 05/02/20 History cyanocobalamin (vitamin B-12) 1,000 mcg PO DAILY 05/08/19 05/02/20 History [Vitamin B-12] gabapentin 300 mg capsule 300 mg PO TID 30 Days #90 cap 06/14/19 05/02/20 Rx Azopt 1 drp OPR TID 10/26/19 05/02/20 History acetaminophen [Tylenol Extra 500 mg PO Q6H PRN 10/26/19 05/02/20 History Strength] timolol maleate [Timoptic] 1 drp OPR DAILY 10/26/19 05/02/20 History Incruse Ellipta 1 inh INHALATION QAM #1 inhaler 10/29/19 05/02/20 Rx Vimpat 200 mg PO BID 04/11/20 05/02/20 History loteprednol etabonate 1 drp OPR DAILY 04/11/20 05/02/20 History topiramate [Topamax] 50 mg PO BID 04/11/20 05/02/20 History blood sugar diagnostic [OneTouch #50 ea 04/14/20 Rx Verio test strips] insulin glargine [Lantus Solostar 16 unit SC DAILY 30 Days #4.8 ml 04/14/20 05/02/20 Rx U-100 Insulin] lancets [OneTouch Delica Lancets] #100 ea 04/14/20 Rx metformin 500 mg PO DAILY #30 tab 04/14/20 05/02/20 Rx pen needle, diabetic [Pen Needle] #50 ea 04/14/20 Rx Patient History Medical History (Updated 05/09/20 @ 11:07 by Demetra Orr MD) Anxiety Colonic mass Diabetes mellitus Lung nodule SMALL PER PT'S / JEFFREY MCGARRY/ 03/2019- NO TREATMENT CURRENTLY Macular degeneration BILAT Seizure [place], follows with Neurology at [place] Tachycardia Unspecified convulsions Surgical History History of right cataract surgery History of tonsillectomy Family History Mother Stroke Sister Dementia Diabetes Grandmother Epilepsy Leukemia Cancer Myocardial infarction Grandfather Myocardial infarction Father Pulmonary embolism Other Family history non-contributory Social History Smoking Status: Former smoker Cigarettes Per Day: 20; Second Hand Exposure: No; Hx Alcohol Use: Yes Alcohol type: wine Hx Substance Use: No Preferred Language: Urdu Communication Ability: Effective Communication Ability Comment: Effective communication at baseline, currently intubated Manager Requirements Required: No Beliefs That Will Affect Care: None marital status: Current Living Situation: Spouse Feels Safe at Home: Yes Assistive Devices: Oxygen - Continuous Review of Systems Review of Systems: 10 point review of systems completed and negative except as in HPI. Exam (Neuro) Physical Exam: General Exam: GEN: NAD, sitting in bed. HEENT: No conjunctival injection, no rhinorrhea. CV: RRR, no peripheral edema PULM: Nonlabored respirations on 2L NC. Neuro Exam: MS: Awake and Alert. Oriented to person, place, not date. Speech fluent and appropriate without dysarthria or paraphasic errors. Language intact including naming, comprehension, repetition. Cognition and memory grossly intact. Attention intact. No neglect. 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 Unable to visualize fundi on fundoscopic exam. PERRLA OU. EOMI without nystagmus. Facial sensation intact to LT. Facial muscles full and symmetric. Hearing intact to conversation. Uvula midline with symmetric palatal elevation. Shoulder shrug normal. Tongue midline. MOTOR: Normal bulk and tone. No pronator drift. BUE strength 5/5 at deltoids, biceps, triceps, wrist flexors and extensors, and hand grasp bilaterally. BLE strength 4+/5 at iliopsoas, 5-/5 hamstrings, 5-/5 quadriceps, 5/5 tibialis anterior, and gastrocnemius bilaterally. REFLEXES: 1+ at biceps, triceps, brachioradialis, 2+ patella and absent Achilles bilaterally. Flexor plantar responses bilaterally. SENSORY: Intact to LT without extinction to double simultaneous stimuli. COORDINATION: No dysmetria or ataxia on [id number] bilaterally. Normal Stormy bilaterally. GAIT: deferred given physical status Results & Data ([facility]) Vital Signs (Past 12 Hours) Vital Signs Temp Pulse Resp BP Pulse Ox 05/09/20 06:17 103 H 26 H 108/64 94 05/09/20 05:17 107 H 21 130/70 96 05/09/20 04:16 36.7 C 105 H 17 112/65 96 05/09/20 03:17 99 H 6 L 116/72 96 05/09/20 02:16 97 H 15 118/72 99 05/09/20 01:16 71 14 96/57 L 96 05/09/20 00:17 83 14 93/59 L 94 05/09/20 00:00 77 22 97 05/08/20 23:17 36.4 C L 99 H 25 H 145/83 H 90 05/08/20 23:00 96 H 30 H 97 05/08/20 22:17 93 H 29 H 114/64 95 PG Care Time/CCT Total # of Minutes Spent Total Time Spent with Patient: Total time spent is greater than 50% in coordination of care (as documented) at patient's floor/unit and/or counseling patient: Coding Level of Care Code 67654 Initial Inpt Care Lvl 3 Diagnoses Altered mental status R40.2431 Altered mental status type: coma Coma depth: [place] coma 3-8 Coma timing: in the field (EMT or ambulance) Spasm R25.2 Seizure R56.9 (1) Altered mental status Altered mental status type: coma Coma depth: [place] coma 3-8 Coma timing: in the field (EMT or ambulance) Qualified Code(s): R40.2431 - Astrid coma scale score 3-8, in the field [EMT or ambulance]
--- NOTE | 2020-05-09 11:06 | Billing Data ---
Date of Service May 08, 2020 Coding Level of Care Code Critical Care 1st 30-74 mins Time Spent (min) 37
--- NOTE | 2020-05-09 11:12 | Critical Care Progress Note ---
Date of Service May 09, 2020 Assessment & Plan (1) Altered mental status: (2) Hypotension: --Sinus pause with hypotension This is a second episode which is likely related to lacosamide Patient does have history of seizures. I do not want to stop with abruptly. We will decrease the infusion rate. Neurology has been consulted Cardiology is also on board --Dysphagia Patient has had failed swallow eval multiple times Possibility of PEG should be thought of. --Seizure disorder On lacosamide will be discontinued. Topamax as well as gabapentin Case discussed with neurology. Sinus pauses likely from lacosamide. It will be changed to Dilantin. Low Dilantin 10 mg/kg followed by 100 mg 3 times daily --COPD with emphysema Severe Keep O2 saturation 80-92% Continue with bronchodilators --Right lower lobe atelectasis/pneumonia Likely aspiration S/p antibiotics Continue with CoughAssist and chest PT --Prophylaxis VTE: Lovenox GI: Lansoprazole Lines: Peripheral Diet: Tube feeds Plan: In/out -310, urine output 950 No more episodes of hypotension or sinus pauses. Lacosamide has been discontinued. It will be changed to Dilantin. Neurology recommendations and consultation appreciated. We will go down on gabapentin 300 mg twice daily followed by 100 mg twice daily in the next couple of days and titrated off. If there is any question regarding seizure-like activity and continuous EEG monitoring, neurology recommends transferring the patient to [place]. Patient is hemodynamically stable to be downgraded to a telemetry floor Please note the above document was generated using voice recognition software. It may contain grammatical, syntax or spelling errors.Any formal questions or concerns about the content, text or information contained within the body of this dictation should be directly addressed to the provider for clarification. (3) Sinus pause: (4) COPD with emphysema: (5) Right lower lobe pneumonia: (6) Seizure: Admission and Anticipated Discharge Date Admission Date: May 02, 2020 Subjective Patient seen and examined at bedside. No acute distress, no adverse events overnight. Patient is feeling well. Denies any shortness of breath, no chest pain, no dizziness, no palpitation. Patient did not have any sinus pauses or bradycardic episodes overnight. Patient does complain of dry mouth. He has been getting mouth moisturizing sprays now which he prefers. Review of Systems Review of Systems: All systems reviewed & are unremarkable except as noted in Subjective Physical Exam Physical Exam: Constitutional: No acute distress HEENT: EOMI, PERRLA Respiratory system: Decreased air entry bilaterally, positive crackles bilateral lower lobes more on the right side, no wheeze, no rhonchi CVS: S1-S2 positive, no murmurs or gallops Abdomen: Soft, nontender, nondistended, positive bowel sounds x4 Extremities: +2 pulses bilaterally radialis/ dorsalis pedis, no cyanosis, no edema Neuro: Awake alert oriented x3 Psych: Normal mood and affect G/U: No [place] Results & Data Results & Data ([facility]) Vital Signs (Past 12 Hours) Vital Signs Temp Pulse Resp BP Pulse Ox 05/09/20 06:17 103 H 26 H 108/64 94 05/09/20 05:17 107 H 21 130/70 96 05/09/20 04:16 36.7 C 105 H 17 112/65 96 05/09/20 03:17 99 H 6 L 116/72 96 05/09/20 02:16 97 H 15 118/72 99 05/09/20 01:16 71 14 96/57 L 96 05/09/20 00:17 83 14 93/59 L 94 05/09/20 00:00 77 22 97 05/08/20 23:17 36.4 C L 99 H 25 H 145/83 H 90 05/09/20 04:31 05/09/20 04:31 Coding Level of Care Code 26540 Subseq Hosp Care Lvl 3 Diagnoses Altered mental status R40.2431 Altered mental status type: coma Coma depth: Astrid coma 3-8 Coma timing: in the field (EMT or ambulance) Hypotension I95.9 Sinus pause I45.5 COPD with emphysema J43.9 Right lower lobe pneumonia J18.9 Pneumonia type: due to unspecified organism Seizure R56.9 (1) Altered mental status Altered mental status type: coma Coma depth: [place] coma 3-8 Coma timing: in the field (EMT or ambulance) Qualified Code(s): R40.2431 - Astrid coma scal e score 3-8, in the field [EMT or ambulance] (2) Right lower lobe pneumonia Pneumonia type: due to unspecified organism Qualified Code(s): J18.9 - Pneumonia, unspecified organism
[2020-05-09] MEDS ORDERED: PHENYTOIN SUSP 125 MG/5 ML PO ONE ×2 (12:00→13:00)
--- NOTE | 2020-05-09 12:12 | Cardiology Consultation ---
Date of Consultation May 09, 2020 Assessment & Plan (1) Sinus pause: (2) Asystole: (3) Elevated troponin: ASSESSMENT/PLAN: 1. Asystole/sinus pause: Has had sinus pauses and 10 second pause/episode of asystole as recent as 05/08/2020. These episodes have occurred just after receiving Vimpat IV. Vimpat can cause rhythm disturbances such as bradycardia, heart block, etc.. After discussion with Neurology, they plan on discontinuing this medication. Would recommend that he continue with telemetry. If he has ongoing issues despite the discontinuation of Vimpat, will recommend evaluation by electrophysiology. For now, no further cardiac intervention necessary. Can resume beta-saud which was held last night. 2. Elevated troponin: Earlier this hospitalization he had minimally elevated troponin levels that did not meet diagnostic criteria for SC. his acute presentation with hypoxic respiratory failure with hypercapnia. Has not described any angina and did not present with acute coronary syndrome. No further evaluation necessary at this time. 3. Disposition: Cardiology will sign off at this time. Please call with any other questions or concerns. Patient care discussed with Neurology and Critical Care team. Thank you for allowing me to participate in the care of your patient. Please call for any other questions or concerns. Sincerely, Richard Zuleta M.D. History of Present Illness Reason for Consultation: Sinus pause Requesting Physician: Dr. Orr Attending Physician: René Smith MD History of Present Illness Mr. Mcdonald is a 70-year-old gentleman with history significant for type 2 diabetes, sleep apnea, mild dementia, COPD/emphysema, aspiration pneumonia, and seizure disorder. He was admitted on 05/02/2020 with hypoxic respiratory failure due to aspiration pneumonia requiring mechanical ventilation. The he had transferred out of the ICU and was transferred back to the ICU on 05/08/2020 after having a sinus pause of approximately 10 seconds. He has been receiving IV Vimpat and has had 2 occurrences of sinus pauses that correlated with administration of this medication. The first was on 05/04/2020 for at least 4.4 seconds however full telemetry strip is not available for review. On 05/08/2020 at 5:08 p.m., he developed sinus bradycardia followed by a 4 second pause, a sinus complex, and then approximately 10 second sinus pause before regaining sinus bradycardia and then improved heart rate. He apparently was apneic at that time and unresponsive for a brief moment. He was transferred back to the ICU. He has remained in sinus rhythm since then without significant bradycardia and no pauses. He does not recall the event. He denies chest pain, shortness of breath, syncope, near-syncope, palpitations, or edema from his recollection. He denies any bleeding. His only concern was that his neurologic care is coordinated with the [facility] Neurology. Review of systems: As above. Review of systems otherwise negative/unremarkable. Family history: No known premature CAD. Social history: He quit smoking in 2019. Rare alcohol. No drugs. Lives at home with his . Two children. Two grandchildren. 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 He was unaccompanied in room 107. Allergies Allergy/AdvReac Type Severity Reaction Status Date / Time loteprednol [From Lotemax] Allergy Severe MAKES EYE Verified 05/02/20 01:29 RED, ITCHY & SWELLING brinzolamide [From Simbrinza] AdvReac INFLAMED Verified 05/02/20 01:29 EYE Home Medications Medication Instructions Recorded Confirmed Type PreserVision AREDS-2 1 tab PO BID 02/25/19 05/02/20 History cyanocobalamin (vitamin B-12) 1,000 mcg PO DAILY 05/08/19 05/02/20 History [Vitamin B-12] gabapentin 300 mg capsule 300 mg PO TID 30 Days #90 cap 06/14/19 05/02/20 Rx Azopt 1 drp OPR TID 10/26/19 05/02/20 History acetaminophen [Tylenol Extra 500 mg PO Q6H PRN 10/26/19 05/02/20 History Strength] timolol maleate [Timoptic] 1 drp OPR DAILY 10/26/19 05/02/20 History Incruse Ellipta 1 inh INHALATION QAM #1 inhaler 10/29/19 05/02/20 Rx Vimpat 200 mg PO BID 04/11/20 05/02/20 History loteprednol etabonate 1 drp OPR DAILY 04/11/20 05/02/20 History topiramate [Topamax] 50 mg PO BID 04/11/20 05/02/20 History blood sugar diagnostic [OneTouch #50 ea 04/14/20 Rx Verio test strips] insulin glargine [Lantus Solostar 16 unit SC DAILY 30 Days #4.8 ml 04/14/20 05/02/20 Rx U-100 Insulin] lancets [OneTouch Delica Lancets] #100 ea 04/14/20 Rx metformin 500 mg PO DAILY #30 tab 04/14/20 05/02/20 Rx pen needle, diabetic [Pen Needle] #50 ea 04/14/20 Rx Patient History Medical History (Updated 05/09/20 @ 12:31 by John Zuleta MD) Anxiety Colonic mass Diabetes mellitus Lung nodule SMALL PER PT'S / JEFFREY MCGARRY/ 03/2019- NO TREATMENT CURRENTLY Macular degeneration BILAT Seizure Petit mal, follows with Neurology at [place] Tachycardia Unspecified convulsions Surgical History History of right cataract surgery History of tonsillectomy Family History Mother Stroke Sister Dementia Diabetes Grandmother Epilepsy Leukemia Cancer Myocardial infarction Grandfather Myocardial infarction Father Pulmonary embolism Other Family history non-contributory Social History Smoking Status: Former smoker Cigarettes Per Day: 20; Second Hand Exposure: No; Hx Alcohol Use: Yes Alcohol type: wine Hx Substance Use: No Preferred Language: Kinyarwanda Communication Ability: Effective Communication Ability Comment: Effective communication at baseline, currently intubated Spot Washer Required: No Beliefs That Will Affect Care: None marital status: Current Living Situation: Spouse Feels Safe at Home: Yes Assistive Devices: Oxygen - Continuous Physical Exam Physical Exam: Gen.: No acute distress. Alert and oriented x 3. HEENT: Anicteric sclera. Neck: No JVD. No bruits. Normal carotid upstrokes bilaterally. Cardiac: PMI was nondisplaced. No ventricular heave. Regular rate and rhythm. Normal S1-S2. No murmurs, rubs, or gallops. Pulmonary: Clear to anterior auscultation bilaterally without wheezes, rales, or rhonchi. Abdomen: Soft, nontender, nondistended, with normoactive bowel sounds. No bruits noted. Extremities: 2+ radial pulses bilaterally. 2+ posterior tibialis pulses bilaterally. No edema or cyanosis. No palpable cords. Psychiatric: Affect appears appropriate. Results & Data ([facility]) Vital Signs (Past 12 Hours) Vital Signs Temp Pulse Resp BP Pulse Ox 05/09/20 06:17 103 H 26 H 108/64 94 05/09/20 05:17 107 H 21 130/70 96 05/09/20 04:16 36.7 C 105 H 17 112/65 96 05/09/20 03:17 99 H 6 L 116/72 96 05/09/20 02:16 97 H 15 118/72 99 05/09/20 01:16 71 14 96/57 L 96 05/09/20 00:17 83 14 93/59 L 94 Laboratory Results Laboratory Results - last 24 hr 05/08/20 05/08/20 05/08/20 17:43 17:43 18:17 WBC 9.11 RBC 4.76 Hgb 15.0 Hct 47.8 MCV 100.4 H MCH 31.5 MCHC 31.4 L RDW Std Deviation 55.8 H RDW Coeff of Naty 15.2 H Plt Count 237 MPV 11.0 H Immature Gran % (Auto) Neut % (Auto) Lymph % (Auto) [place] % (Auto) Eos % (Auto) Baso % (Auto) Neut # (Auto) Lymph # (Auto) [place] # (Auto) Eos # (Auto) Baso # (Auto) Immature Gran # (Auto) Sample Site POC pH POC pCO2 POC pO2 POC HCO3 POC Total CO2 POC Base Excess POC ABG O2 Sat [place]quis Test O2 Delivery Device Sodium 143 Potassium 3.6 Chloride 111 H Carbon Dioxide 31 Anion Gap 1.0 L BUN 27 H Creatinine 0.72 Est Cr Clr Drug Dosing 98.6 Est GFR ( Amer) 109.5 Est GFR (Non-Af Amer) 94.5 BUN/Creatinine Ratio 38.1 H Glucose 122 H POC Glucose Lactate 1.1 Calcium 8.8 Phosphorus Magnesium Troponin I 0.029 Nasal Screen MRSA (PCR) Urine Opiates Screen Ur Methadone, Qual Urine Barbiturates Ur Phencyclidine (PCP) U Amphetamin/Meth Scrn MDMA (Ecstasy) Screen U OH-Alprazolam Confrm U Benzodiazepines Scrn 7-Amino Clonazepam Ur Nordiazepam Confirm U OH-ethylflurazepam U Lorazepam Cnf GC/MS U Oxazepam Confm GC/MS Ur Temazepam Confirm U OH-Triazolam Confirm U OH-Midazolam Confirm Ur Cocaine Metabolite U Marijuana (THC) Screen Drug Screen Comment 05/08/20 05/08/20 05/08/20 19:08 19:15 20:32 WBC RBC Hgb Hct MCV MCH MCHC RDW Std Deviation RDW Coeff of Naty Plt Count MPV Immature Gran % (Auto) Neut % (Auto) Lymph % (Auto) [place] % (Auto) Eos % (Auto) Baso % (Auto) Neut # (Auto) Lymph # (Auto) [place] # (Auto) Eos # (Auto) Baso # (Auto) Immature Gran # (Auto) Sample Site L Radial POC pH 7.28 L POC pCO2 58 H POC pO2 61 L POC HCO3 27 H POC Total CO2 29 POC Base Excess 0.0 POC ABG O2 Sat 87.0 L [place]quis Test Pass O2 Delivery Device Room Air Sodium Potassium Chloride Carbon Dioxide Anion Gap BUN Creatinine Est Cr Clr Drug Dosing Est GFR ( Amer) Est GFR (Non-Af Amer) BUN/Creatinine Ratio Glucose POC Glucose 103 H Lactate Calcium Phosphorus Magnesium Troponin I Nasal Screen MRSA (PCR) Urine Opiates Screen Neg Ur Methadone, Qual Neg Urine Barbiturates Neg Ur Phencyclidine (PCP) Neg U Amphetamin/Meth Scrn Neg MDMA (Ecstasy) Screen Neg U OH-Alprazolam Confrm U Benzodiazepines Scrn Pos H 7-Amino Clonazepam Ur Nordiazepam Confirm U OH-ethylflurazepam U Lorazepam Cnf GC/MS U Oxazepam Confm GC/MS Ur Temazepam Confirm U OH-Triazolam Confirm U OH-Midazolam Confirm Ur Cocaine Metabolite Neg U Marijuana (THC) Screen Neg Drug Screen Comment 05/08/20 05/08/20 05/08/20 20:32 20:32 23:52 WBC RBC Hgb Hct MCV MCH MCHC RDW Std Deviation RDW Coeff of Naty Plt Count MPV Immature Gran % (Auto) Neut % (Auto) Lymph % (Auto) [place] % (Auto) Eos % (Auto) Baso % (Auto) Neut # (Auto) Lymph # (Auto) [place] # (Auto) Eos # (Auto) Baso # (Auto) Immature Gran # (Auto) Sample Site POC pH POC pCO2 POC pO2 POC HCO3 POC Total CO2 POC Base Excess POC ABG O2 Sat [place]quis Test O2 Delivery Device Sodium Potassium Chloride Carbon Dioxide Anion Gap BUN Creatinine Est Cr Clr Drug Dosing Est GFR ( Amer) Est GFR (Non-Af Amer) BUN/Creatinine Ratio Glucose POC Glucose 103 H Lactate Calcium Phosphorus Magnesium Troponin I Nasal Screen MRSA (PCR) Negative Urine Opiates Screen Ur Methadone, Qual Urine Barbiturates Ur Phencyclidine (PCP) U Amphetamin/Meth Scrn MDMA (Ecstasy) Screen U OH-Alprazolam Confrm Pending U Benzodiazepines Scrn 7-Amino Clonazepam Pending Ur Nordiazepam Confirm Pending U OH-ethylflurazepam Pending U Lorazepam Cnf GC/MS Pending U Oxazepam Confm GC/MS Pending Ur Temazepam Confirm Pending U OH-Triazolam Confirm Pending U OH-Midazolam Confirm Pending Ur Cocaine Metabolite U Marijuana (THC) Screen Drug Screen Comment Pending 05/09/20 05/09/20 05/09/20 04:31 04:31 06:34 WBC 11.59 H RBC 4.72 Hgb 15.0 Hct 48.1 MCV 101.9 H MCH 31.8 MCHC 31.2 L RDW Std Deviation 57.0 H RDW Coeff of Naty 15.2 H Plt Count 231 MPV 11.0 H Immature Gran % (Auto) 0.5 Neut % (Auto) 82.4 Lymph % (Auto) 8.1 [place] % (Auto) 8.1 Eos % (Auto) 0.7 Baso % (Auto) 0.2 Neut # (Auto) 9.55 H Lymph # (Auto) 0.94 L [place] # (Auto) 0.94 H Eos # (Auto) 0.08 Baso # (Auto) 0.02 Immature Gran # (Auto) 0.06 H Sample Site POC pH POC pCO2 POC pO2 POC HCO3 POC Total CO2 POC Base Excess POC ABG O2 Sat [place] Test O2 Delivery Device Sodium 144 Potassium 4.2 D Chloride 113 H Carbon Dioxide 30 Anion Gap 1.0 L BUN 26 H Creatinine 0.61 Est Cr Clr Drug Dosing 116.3 Est GFR ( Amer) 117.3 Est GFR (Non-Af Amer) 101.2 BUN/Creatinine Ratio 42.2 H Glucose 123 H POC Glucose 128 H Lactate Calcium 8.6 Phosphorus 2.6 Magnesium 2.8 H Troponin I Nasal Screen MRSA (PCR) Urine Opiates Screen Ur Methadone, Qual Urine Barbiturates Ur Phencyclidine (PCP) U Amphetamin/Meth Scrn MDMA (Ecstasy) Screen U OH-Alprazolam Confrm U Benzodiazepines Scrn 7-Amino Clonazepam Ur Nordiazepam Confirm U OH-ethylflurazepam U Lorazepam Cnf GC/MS U Oxazepam Confm GC/MS Ur Temazepam Confirm U OH-Triazolam Confirm U OH-Midazolam Confirm Ur Cocaine Metabolite U Marijuana (THC) Screen Drug Screen Comment 05/09/20 12:18 WBC RBC Hgb Hct MCV MCH MCHC RDW Std Deviation RDW Coeff of Naty Plt Count MPV Immature Gran % (Auto) Neut % (Auto) Lymph % (Auto) [place] % (Auto) Eos % (Auto) Baso % (Auto) Neut # (Auto) Lymph # (Auto) [place] # (Auto) Eos # (Auto) Baso # (Auto) Immature Gran # (Auto) Sample Site POC pH POC pCO2 POC pO2 POC HCO3 POC Total CO2 POC Base Excess POC ABG O2 Sat [place] Test O2 Delivery Device Sodium Potassium Chloride Carbon Dioxide Anion Gap BUN Creatinine Est Cr Clr Drug Dosing Est GFR ( Amer) Est GFR (Non-Af Amer) BUN/Creatinine Ratio Glucose POC Glucose 124 H Lactate Calcium Phosphorus Magnesium Troponin I Nasal Screen MRSA (PCR) Urine Opiates Screen Ur Methadone, Qual Urine Barbiturates Ur Phencyclidine (PCP) U Amphetamin/Meth Scrn MDMA (Ecstasy) Screen U OH-Alprazolam Confrm U Benzodiazepines Scrn 7-Amino Clonazepam Ur Nordiazepam Confirm U OH-ethylflurazepam U Lorazepam Cnf GC/MS U Oxazepam Confm GC/MS Ur Temazepam Confirm U OH-Triazolam Confirm U OH-Midazolam Confirm Ur Cocaine Metabolite U Marijuana (THC) Screen Drug Screen Comment Diagnostic Findings Telemetry personally reviewed: Sinus rhythm currently. Sinus pauses as described in HPI. ECGs personally reviewed: ECG 05/06/2020 at 7:31 a.m.: Sinus tachycardia 125 beats per minute. Artifact. Poor R-wave progression in the precordial leads. ECG 05/04/2020 at 8:14 p.m.: Sinus rhythm 66 beats per minute. Artifact. Anterior T-wave inversion. ECG 05/02/2020 at 3:33 a.m.: Sinus tachycardia with PVCs 104 beats per minute. ECG 05/02/2020 at 3:31 p.m.: Possible junctional rhythm with RBBB at 54 beats per minute with retrograde P-wave. Echo 05/02/2020: Normal LV systolic function. Mildly dilated RV with mildly reduced systolic function. Medications Administered Current Inpatient Medications Albuterol (Albut/Ipratrop 3mg/0.5mg Neb 3 Ml Vial) 3 ml NEB Q4R PRN PRN Reason: Shortness Of Breath Stop: 06/05/20 06:59 Last Admin: 05/06/20 03:57 Dose: 3 ml Documented by: Atropine Sulfate (Atropine Sulfate 0.1 Mg/Ml 10ml Syr) 0.5 mg IV Q4H PRN PRN Reason: bradycardia Stop: 06/07/20 17:26 Brinzolamide (Brinzolamide (Azopt) Ops 10 Ml Btl) 1 drops OPR TID JOSY Stop: 06/01/20 08:59 Last Admin: 05/09/20 09:21 Dose: 1 drops Documented by: Dextrose (Dextrose 50% 50 Ml Syringe) 25 - 50 ml IV UD PRN; Protocol PRN Reason: Hypoglycemia Protocol Stop: 06/01/20 04:59 Enoxaparin Sodium (Enoxaparin Inj 40 Mg/0.4 Ml Syr) 40 mg SQ QAM JOSY Stop: 06/03/20 08:59 Last Admin: 05/09/20 09:23 Dose: 40 mg Documented by: Enteral Nutritional Formula (Peptamen 1.5 Chad 1,000 Ml Bag) 1,000 ml NG UD JOSY; Protocol Stop: 06/06/20 13:59 Last Admin: 05/07/20 15:03 Dose: 1,000 ml Documented by: Gabapentin (Gabapentin 250 Mg/5 Ml 470 Ml Btl) 300 mg NG BID JOSY Stop: 06/08/20 20:59 Glucagon (Glucagon For Inj 1 Mg Vial) 1 mg IM UD PRN; Protocol PRN Reason: Hypoglycemia Protocol Stop: 06/01/20 04:59 Glucose (Glucose 40% Gel 15 Gm Tube) 15 - 30 gm PO UD PRN; Protocol PRN Reason: Hypoglycemia Protocol Stop: 06/01/20 04:59 Glucose (Glucose 10 Tabs/Tube) 4 - 8 tabs PO UD PRN; Protocol PRN Reason: Hypoglycemia Protocol Stop: 06/01/20 04:59 Guaifenesin (Guaifenesin Sugar Free 200 Mg/10 Ml Udc) 400 mg PO Q4 [facility] Stop: 06/03/20 11:59 Last Admin: 05/09/20 12:13 Dose: 400 mg Documented by: Heparin Sodium (Beef Lung) (Heparin 10 Unit/Ml 5 Ml Flush) 5 ml FLUSH PRN PRN PRN Reason: Flush Stop: 06/01/20 23:53 Hydralazine HCl (Hydralazine Hcl 20 Mg/Ml Vial) 10 mg IV Q6H PRN PRN Reason: SBP greater than 150 mmHg Stop: 06/04/20 10:18 Last Admin: 05/06/20 10:17 Dose: 10 mg Documented by: Insulin Glargine (Insulin Glargine Solostar 100 Units/Ml 3 Ml Pen) 0 units SC BID [facility]; Protocol Stop: 06/06/20 08:59 Last Admin: 05/09/20 09:26 Dose: Not Given Documented by: Insulin Human Regular (Insulin Human Regular) 0 units SC Q6 [facility]; Protocol Stop: 06/07/20 11:59 Last Admin: 05/09/20 12:24 Dose: Not Given Documented by: Lansoprazole (Lansoprazole 30 Mg Soltab) 30 mg NG [facility] Stop: 06/08/20 08:59 Last Admin: 05/09/20 09:24 Dose: 30 mg Documented by: Lisinopril (Lisinopril 10 Mg Tab) 10 mg PO QAM [facility] Stop: 06/06/20 08:59 Last Admin: 05/09/20 09:23 Dose: 10 mg Documented by: Metoprolol Tartrate (Metoprolol Tartrate 25 Mg Tab) 25 mg PO BID [facility] Stop: 06/06/20 08:59 Last Admin: 05/09/20 09:23 Dose: 25 mg Documented by: Miscellaneous (Carbohydrates For Hypoglycemia ) 15 - 30 gm PO PRN PRN PRN Reason: Hypoglycemia Treatment Stop: 06/01/20 04:59 Miscellaneous (Icu Protocol For Hyperglycemia) 1 ea N/A PRN PRN PRN Reason: Hyperglycemia Protocol Stop: 05/11/20 08:59 Miscellaneous (Icu Protocol For Hyperglycemia) 1 ea N/A PRN PRN; Protocol PRN Reason: Hyperglycemia Protocol Stop: 05/10/20 18:49 Miscellaneous Information (Pharmacy Glycemic Mgmt Consult) 1 ea N/A UD PRN PRN Reason: Consult Stop: 06/01/20 05:00 Morphine Sulfate (Morphine Sulfate 2 Mg/Ml Carp) 2 mg IV Q6H PRN PRN Reason: Pain Stop: 05/19/20 10:21 Nutritional Formula (Prosource No Carb 30 Ml/Pkt) 30 ml NG QD@16 JOSY Stop: 06/06/20 15:59 Last Admin: 05/08/20 19:06 Dose: Not Given Documented by: Phenytoin (Phenytoin Susp 125 Mg/5 Ml) 330 mg PO NOW ONE Stop: 05/09/20 13:01 Phenytoin (Phenytoin Susp 125 Mg/5 Ml) 100 mg PO TID [facility] Stop: 06/08/20 20:59 Topiramate (Topiramate 50 Mg Tab) 50 mg PO BID [facility] Stop: 06/03/20 08:59 Last Admin: 05/09/20 09:24 Dose: 50 mg Documented by: PG Care Time/CCT Total # of Minutes Spent Total Time Spent with Patient: Total time spent is greater than 50% in coordination of care (as documented) at patient's floor/unit and/or counseling patient: Coding Level of Care Code 60378 Initial Inpt Care Lvl 3 Diagnoses Sinus pause I45.5 Asystole I46.9 Elevated troponin R77.8
[2020-05-09] MEDS: PROSOURCE NO CARB 30 ML/PKT NG SCH (16:06)
[2020-05-09] MEDS: PHENYTOIN SUSP 125 MG/5 ML PO SCH (21:05)
[2020-05-10] MEDS: INSULIN HUMAN REGULAR SC SCH ×5 (00:32→23:14)
[2020-05-10] MEDS: guaiFENesin SUGAR FREE 200 MG/10 ML UDC PO SCH ×6 (00:46→20:21)
--- NOTE | 2020-05-10 08:18 | XRay Report ---
XR KUB/Abdomen 1 view CLINICAL HISTORY: check core safe placement COMPARISON STUDY: 05/06/2020 FINDINGS: A single supine view the abdomen is provided for interpretation. There is a feeding tube po sitioned with its tip at the esophagogastric junction. There is no pathologic bowel dilatation. There are scattered metallic clip/marker is projected over the colon. There is suspected right basilar pul monary consolidation. IMPRESSION: The feeding tube is positioned with its tip at the esophagogastric junction. ACT 112: Negative or not required by law. Electronically signed by: Matty Cadena M.D. 05/10/2020 8:16 AM
[2020-05-10] MEDS: METOPROLOL TARTRATE 25 MG TAB PO SCH ×2 (09:37→20:21)
[2020-05-10] MEDS: lisinopril 10 MG TAB PO SCH (09:37)
[2020-05-10] MEDS: PHENYTOIN SUSP 125 MG/5 ML PO SCH ×3 (09:37→22:06)
[2020-05-10] MEDS: TOPIRAMATE 50 MG TAB PO SCH ×2 (09:37→20:22)
[2020-05-10] MEDS: INSULIN GLARGINE SOLOSTAR 100 UNITS/ML 3 ML PEN SC SCH ×2 (09:38→20:42)
[2020-05-10] MEDS: ENOXAPARIN INJ 40 MG/0.4 ML SYR SQ SCH (09:38)
[2020-05-10] MEDS: LANSOPRAZOLE 30 MG SOLTAB NG SCH (09:38)
[2020-05-10] MEDS: BRINZOLAMIDE (AZOPT) OPS 10 ML BTL OPR SCH ×3 (09:39→20:22)
--- NOTE | 2020-05-10 09:44 | XRay Report ---
XR KUB/Abdomen 1 view CLINICAL HISTORY: advanced core safe COMPARISON STUDY: 05/10/2020 FINDINGS: The feeding tube has been advanced. The tip now projects over the gastric cardia. There is no pathologic bowel dilatation. IMPRESSION: The feeding tube is now positioned with its tip at the level of the gastric cardia. ACT 112: Negative or not required by law. Electronically signed by: Matty Cadena M.D. 05/10/2020 9:42 AM
--- NOTE | 2020-05-10 09:52 | Neurology Progress Note ---
Date of Service May 10, 2020 Assessment & Plan (1) Altered mental status: (2) Spasm: (3) Seizure: Ted Mcdonald is a 70 yo man w/ PMH of COPD, DM, macular degeneration, moderate TIM and ?seizures who p/t [facility] initially with acute respiratory failure, found to have pneumonia and required intubation. Neurology consulted for ongoing abdominal muscle spasms c/f possible seizure particularly in the setting of brief asystole when he had IV vimpat given. # H/o temporal lobe epilepsy: [place] [facility] [place]. Has tried multiple AEDs in the past with side effects (keppra, depakote, clonazepam, lamotrigine). Had bradycardia/asystole x2 with IV doses of vimpat. One EKG this admission showed RBBB, which is a general contraindication to using vimpat given the cardiac risks. - current AEDs: dilantin 100mg tid, topamax 50mg bid, gabapentin 300mg bid - continue gabapentin 300mg bid (he reports that this is for his seizures, will defer to Dr Pierre on changing it as it would not be recommended in someone with myoclonic jerks/abdominal myoclonus) - check daily free/total dilantin levels while admitted. Once therapeutic, can stop checking. - we can increase the topamax to 100mg bid but this would require some form of PO access consistently - outside neurology has requested a prolonged EEG (we can do up to 60 minutes at one time as an inpatient, must let Marc/surfacing technician know ahead of time). If longer monitoring is requested by family, recommend transfer [place] [facility] [place] as we do not have that option here. - he should follow up with Dr Pierre in the next 2-4 weeks post-discharge Thank you for this interesting consult. Plan of care discussed with primary team. Please call or text with questions. Admission and Anticipated Discharge Date Admission Date: May 02, 2020 Subjective NAEs overnight aside from pt pulling back on his duotube. He reports that he feels a little tired today but that might just be due to his age. Denies any other concerns or side effects with the new AED (dilantin) Review of Systems Review of Systems: 10 point review of systems completed and negative except as in HPI. Results & Data ([facility]) Vital Signs (Past 12 Hours) Vital Signs Temp Pulse Resp BP Pulse Ox 05/10/20 08:09 81 05/10/20 07:17 85 26 H 117/59 L 90 05/10/20 04:17 36.6 C 80 16 114/63 96 05/10/20 03:54 78 25 H 90 05/10/20 00:17 36.6 C 79 21 116/68 91 05/09/20 23:17 36.8 C 76 11 L 116/70 89 L 05/09/20 22:41 74 23 94 05/09/20 22:17 77 29 H 103/55 L 90 Exam (Neuro) Physical Exam: General Exam: GEN: NAD, sitting in bed. HEENT: No conjunctival injection, no rhinorrhea. CV: RRR, no peripheral edema PULM: Nonlabored respirations on room air. Neuro Exam: MS: Awake and Alert. Oriented to person, place, not date. Speech fluent and appropriate without dysarthria or paraphasic errors. Language intact including naming, comprehension, repetition. Cognition and memory grossly intact. Attention intact. No neglect. 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 Unable to visualize fundi on fundoscopic exam. PERRLA OU. EOMI without nystagmus. Facial sensation intact to LT. Facial muscles full and symmetric. Hearing intact to conversation. Uvula midline with symmetric palatal elevation. Shoulder shrug normal. Tongue midline. MOTOR: Normal bulk and tone. No pronator drift. BUE strength 5/5 at deltoids, biceps, triceps, wrist flexors and extensors, and hand grasp bilaterally. BLE strength 4+/5 at iliopsoas, 5-/5 hamstrings, 5-/5 quadriceps, 5/5 tibialis anterior, and gastrocnemius bilaterally. REFLEXES: 1+ at biceps, triceps, brachioradialis, 2+ patella and absent Achilles bilaterally. Flexor plantar responses bilaterally. SENSORY: Intact to LT without extinction to double simultaneous stimuli. COORDINATION: No dysmetria or ataxia on [id number] bilaterally. Normal Stormy bilaterally. GAIT: deferred given physical status PG Care Time/CCT Total # of Minutes Spent Total Time Spent with Patient: Total time spent is greater than 50% in coordination of care (as documented) at patient's floor/unit and/or counseling patient: Coding Level of Care Code 72289 Subseq Hosp Care Lvl 3 Diagnoses Altered mental status R40.2431 Altered mental status type: coma Coma depth: Astrid coma 3-8 Coma timing: in the field (EMT or ambulance) Spasm R25.2 Seizure R56.9 (1) Altered mental status Altered mental status type: coma Coma depth: Astrid coma 3-8 Coma timing: in the field (EMT or ambulance) Qualified Code(s): R40.2431 - Astrid coma scale score 3-8, in the field [EMT or ambulance]
[2020-05-10] MEDS: GABAPENTIN 250 MG/5 ML 470 ML BTL NG SCH ×2 (09:59→20:33)
--- NOTE | 2020-05-10 11:01 | Pharmacy Report ---
Glycemic Control Progress Note - Date of Service May 10, 2020 - Scope Glycemic Pharmacist consulted for glycemic control to write orders per [facility] inpatient glycemic control protocol. - Objective Accuchecks BSG(last 24 hours):: 05/09/20 05/09/20 05/09/20 12:18 17:30 21:00 POC Glucose 124 H 132 H 112 H 05/10/20 05/10/20 00:02 06:02 POC Glucose 111 H 154 H - Recent Pertinent Medications The patient is currently receiving: * Basal insulin: Lantus 0 units every 12 hours * Correctional Insulin: Novolog Correction per scale ACHS Goal Range: Low 110 mg/dL - High 150 mg/dL Correction Factor: 30 mg/dL/unit * Prandial insulin: Per carb ratio of 1 unit per 10 grams CHO consumed - Outpatient Anti-Diabetic Meds Lantus 16 units daily metformin 500 mg daily - Assessment & Plan ASSESSMENT: * See progress note from 05/02/20 for more background info, in short: * Pt receiving SQ basal bolus insulin regimen for hyperglycemia secondary to baseline DM (outpatient regimen on hold). Patient currently receiving continuous tube feeds; these are held for 12 hours a day around phenytoin administration. * Patient is currently receiving an average of 0 units of insulin per day * 0 units of basal insulin * 0 units of prandial/correctional insulin * BSGs ranging 111 - 132 mg/dl over the past 24hrs * Changes needed to insulin regimen: * AM Fasting BSG = 154 mg/dl. This is in goal range for patient based on inpatient targets and co-morbidities. The patient received no basal insulin yesterday since tube feeds were held. Will lower threshold to receive Lantus to 120 mg/dL or greater since tube feeds resumed. * Post-prandial BSGs are in range therefore no changes needed to CF/CR. * Total daily dose = <15 units. PLAN FOR INPATIENT GLYCEMIC CONTROL: * Continuing Lantus 5 units SQ BID (hold if BSG < 120 mg/dL) * Continuing correction factor of 30 mg/dl/unit * Continuing carb ratio of 1 unit per 10 grams CHO consumed * Continuing goal range of Low 110 mg/dL - High 140 mg/dL * Please note that the plan above was derived based on current level of insulin resistance and hospital stress. These recommendations are appropriate for inpatient admission only. Plan of care upon discharge will need to be reassessed to avoid potential outpatient hypo/hyperglycemia. Thank you.
--- NOTE | 2020-05-10 12:56 | Hospitalist Progress Note ---
Date of Service May 10, 2020 Assessment & Plan (1) Acute respiratory failure with hypoxia and hypercapnia: multifactorial with likely chronic CO2 retention and then aspiration pneumonia compounding the problem with hypoxia extubated in am 05/05 had bronchoscopy on 05/03 with impacted mucous on right side persistent aspiration, failed video swallow 05/08, speech is following, in late afternoon after iv vimpat the pt had an apneic episode with a 10 second asystolic pause, the was groggy and wound continue with intermittent apneic episodes, was transfered to ICU for better respiratory support and bipap. ABg shows co2 retention with respiratory acidosis in am 05/09 he has recovered and discussion with neurology feels that he is having an untoward affect from vimpat and has constructed a plan transition to dilantin and reduce gabapentin will check random dilantin levels, level 05/10 slightly low at 9.1 family would hope to continue to support, continue with TF and re asses next week, family is considering peg and rehab GI prophylaxis (2) Asystole: Pt had asystole after vimpat iv, did have nstemi earlier with acute illness, checked troponin after event last pm, was normal, restart metoprolol with cardiology oversight. feel issues are realted to vimpat, neurology recommended change to dilantin (3) Dysphagia: failed bedside swallowing eval with coughing and hypoxia, core safe to administer medications that are not convertible to iv Video swallow for 05/08 SUMMARY/RECOMMENDATIONS: This patient presents with mild oral-stage dysphagia and severe-profound pharyngeal-stage dysphagia. Given that the patient's reported aspiration of water and dysphagia at home [employer], it is hard to believe this dysphagia is exclusively acute onset. The following is recommended: 1. Continue NPO. Ok for ice chips with supervision in order to maintain moisture of his mucous membranes and minimize build up of hardening secretions. 2. IF the patient is going to pursue aggressive therapeutic intervention for recovery of swallowing function then PEG-tube placement will need to be considered. He will need a consistent means of getting nutrition, hydration and medication in order to be able to participate in treatment. 3. IF the patient is not going to pursue aggressive dysphagia therapy then consent for permissive aspiration would need to be obtained. There is no "safe" diet for this patient and he is at risk for airway obstructions with any consistency of solid. 4. Consider Palliative Care Consultation to establish goals of care for this patient. I spoke to and she is initially resistant to PEG and/or palliative wants to support and re evaluate next week, now warming to PEG idea, they are considering acute rehab. (4) Aspiration pneumonia: Confirmed on CT angiography, which was negative for PE, but did show debris in right mainstem and down into the right lung. bronchoscopy 05/03 with impacted mucous right side continue unasyn iv as po intake is questionable with recurrent aspiration CXr shows persistent RLL changes (5) COPD (chronic obstructive pulmonary disease): coarse respirations persist, respiratory acidosis is seen, on Bipap (6) Diabetes mellitus: basal bolus, now more predictable on tube feeds monitor for hypoglycemia (7) Seizure: Change Vimpat to Dilantin continue Topamax 50 mg bid (could increase to 100) and gabapentin reduced doses no seizure activity on earlier EEG 05/02 needs neurology follow up, pts prefers [facility], but has seen local neurology for med changes Admission and Anticipated Discharge Date Admission Date: May 02, 2020 Subjective pt was seen and has questions about eating, he needed to have his ng repositione d this am, we did discuss possible peg which he is supported Review of Systems Review of Systems: coughing while drinking Mild distress but much more awake no further episodes of apnea or asystole no headache, blurry or double vision no speech or swallowing issues no chest pain, pressure or palpitations denies SOB coughs when tries to drink small bits of fluid no abdominal pain, nausea or vomiting, diarrhea or constipation no dysuria, hematuria or frequency no focal joint pain or swelling no back pain, CVA tenderness or radicular pain no bruising, bleeding or rashes no focal signs of weakness or numbness or altered sensation no complaints of anxiety or depression. Physical Exam Physical Exam: The patient appeared thin and only with respiratory distress when he tries to take po Vital signs as documented. Head exam is normocephalic atraumatic no scleral icterus Neck is without JVD, thyromegaly, or carotid bruits. Lungs continue to be coarse with raspy b/l breath sounds Cardiac exam, Rhythm is tachycardic, no murmurs, rubs or gallops. Abdominal exam reveals normal bowel sounds, soft non tender, no masses slightly distended Extremities are mildly edematous and both pedal pulses are present Neurologic exam is alert and oriented, can state his name and follow commands Skin is without bruises or rashes Psychologically is without concerns for anxiety or depression. Results & Data Results & Data ([facility]) Vital Signs (Past 12 Hours) Vital Signs Temp Pulse Resp BP Pulse Ox 05/10/20 08:09 81 05/10/20 07:17 85 26 H 117/59 L 90 05/10/20 04:17 97.9 F 80 16 114/63 96 05/10/20 03:54 78 25 H 90 PG Care Time/CCT Total # of Minutes Spent Total Time Spent with Patient: Total time spent is greater than 50% in coordination of care (as documented) at patient's floor/unit and/or counseling patient: Coding Level of Care Code 28494 Subseq Hosp Care Lvl 3 Diagnoses Acute respiratory failure with hypoxia and hypercapnia J96.01; J96.02 Asystole I46.9 Dysphagia R13.10 Aspiration pneumonia J69.0 COPD (chronic obstructive pulmonary disease) J44.9 COPD type: unspecified COPD Diabetes mellitus E11.9 Seizure R56.9 (1) COPD (chronic obstructive pulmonary disease) COPD type: unspecified COPD Qualified Code(s): J44.9 - Chronic obstructive pulmonary disease, unspecified
[2020-05-10] MEDS: PROSOURCE NO CARB 30 ML/PKT NG SCH (15:52)
[2020-05-10 16:26] LABS: 7-Aminoclonaz, Confirm NEGATIVE ng/mL (<25); Hydro-Alp Ur, GC/MS NEGATIVE ng/mL (<25); Hydroxyethylflurazepam, Conf NEGATIVE ng/mL (<50); Hydroxymidazolam Ur, GC/MS 1250 ng/mL (<50); Hydroxytriazolam NEGATIVE ng/mL (<50); Lorazepam, Ur GC/MS NEGATIVE ng/mL (<50); Nordiazepam, Confirm NEGATIVE ng/mL (<50); Oxazepam Ur, GC/MS NEGATIVE ng/mL (<50); Temazepam, Confirm NEGATIVE ng/mL (<50)
[2020-05-11] MEDS: guaiFENesin SUGAR FREE 200 MG/10 ML UDC PO SCH ×6 (00:06→20:44)
[2020-05-11] MEDS: PHENYTOIN SUSP 125 MG/5 ML PO SCH (05:42)
[2020-05-11] MEDS: INSULIN HUMAN REGULAR SC SCH ×3 (05:42→17:04)
--- NOTE | 2020-05-11 09:50 | Neurology Progress Note ---
Date of Service May 11, 2020 Assessment & Plan (1) Altered mental status: (2) Dysphagia: (3) Seizure: History of seizure disorder, temporal lobe epilepsy, follows with [facility] neurology, currently admitted with altered mental status, dysphagia, aspiration pneumonia. He remains lethargic and has persistent dysphagia. His anticonvulsant regimen has been adjusted. Vimpat has been discontinued in the context of bradycardia and asystole. He is currently receiving Dilantin, topiramate, and gabapentin. His gabapentin dosage was reduced slightly given concerns for myoclonus which could be potentiated by this anticonvulsant. His phenytoin level yesterday was slightly low and there is room to increase the dosage if necessary. His topiramate dosage could also be increased going forward as well. However, his persistent dysphagia could become a significant factor in his ability to maintain appropriate anticonvulsant levels with p.o. formulations. Continue clinical neurological observation. I will order another routine EEG as well as a follow-up phenytoin level for tomorrow morning. Continue current anticonvulsant drug regimen for the time being. 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 He was seen by Dr. Carl. in neurological consultation on May 09 and for follow-up on May 10. He has been following with [facility] neurology and has not tolerated trials of several different anticonvulsants including Keppra, Depakote, clonazepam, and lamotrigine. He has been taking Vimpat, gabapentin and topiramate for his seizures, prior to this admission. He experienced bradycardia and asystole with intravenous Vimpat during this hospitalization. His Vimpat was discontinued, Dilantin has been started. Patient's gabapentin has been reduced as well in light of some myoclonic activity. At this point, the plan is to maintain patient on topiramate and phenytoin as well as a low-dose of gabapentin. A phenytoin level yesterday was 9.1. An EEG completed on May 02, 2020 revealed generalized slowing consistent with a mild to moderate encephalopathy. No epileptiform abnormalities were identified. The patient is lethargic this morning. He is currently n.p.o. due to significant dysphagia. Review of Systems Review of Systems: Unobtainable due to cognitive status Results & Data ([facility]) Vital Signs (Past 12 Hours) Vital Signs Temp Pulse Resp BP Pulse Ox 05/11/20 07:35 85 05/11/20 04:00 36.8 C 82 27 H 130/69 97 05/10/20 23:33 36.8 C 69 20 108/53 L 97 Exam (Neuro) Constitutional: well developed and + lethargic Neurologic: Oriented to:: Person; negative Place and Time Attention: negative Span Intact and Concentration Intact Speech Fluency: Dysarthria Cranial Nerves: Normal II, III, IV, and VII Motor Strength: negative Normal Lower Extremities and Normal Upper Extremities Motor Tone: Normal Lower Extremities and Normal Upper Extremities Muscle Bulk/Involuntary Movements: negative No Involuntary Movements Deep Tendon Reflexes: Rt Biceps: 2+, Lt Biceps: 2+, Rt Patellar: 2+ and Lt Patellar: 2+ Details: Patient able to follow very simple commands. He opens his eyes to command, he counts fingers accurately. He director of placement with both the left and right hand to command. He wiggles the toes to command. Coding Level of Care Code 61313 Subseq Hosp Care Lvl 2 Diagnoses Altered mental status R40.2431 Altered mental status type: coma Coma depth: [place] coma 3-8 Coma timing: in the field (EMT or ambulance) Dysphagia R13.10 Seizure R56.9 (1) Altered mental status Altered mental status type: coma Coma depth: [place] coma 3-8 Coma timing: in the field (EMT or ambulance) Qualified Code(s): R40.2431 - [place] coma scale score 3-8, in the field [EMT or ambulance]
[2020-05-11] MEDS: INSULIN GLARGINE SOLOSTAR 100 UNITS/ML 3 ML PEN SC SCH ×2 (10:03→20:46)
[2020-05-11] MEDS: METOPROLOL TARTRATE 25 MG TAB PO SCH ×2 (10:36→20:49)
[2020-05-11] MEDS: LANSOPRAZOLE 30 MG SOLTAB NG SCH (10:37)
[2020-05-11] MEDS: TOPIRAMATE 50 MG TAB PO SCH ×2 (10:37→20:44)
[2020-05-11] MEDS: ENOXAPARIN INJ 40 MG/0.4 ML SYR SQ SCH (10:37)
[2020-05-11] MEDS: lisinopril 10 MG TAB PO SCH (10:37)
[2020-05-11] MEDS: GABAPENTIN 250 MG/5 ML 470 ML BTL NG SCH ×2 (13:04→20:51)
[2020-05-11] MEDS: BRINZOLAMIDE (AZOPT) OPS 10 ML BTL OPR SCH ×3 (13:04→21:21)
[2020-05-11] MEDS: PHENYTOIN 100 MG in SYRINGE 0 ML IV SCH ×2 (14:27→20:52)
[2020-05-11] MEDS: SODIUM CHLORIDE 0.9% 10ML FLUSH IV SCH ×2 (14:28→20:56)
[2020-05-11] MEDS: PROSOURCE NO CARB 30 ML/PKT NG SCH (17:03)
--- NOTE | 2020-05-11 17:32 | Electroencephalogram ---
EEG Procedure Note Date of Service May 11, 2020 Start / End Times Start Time: 11:16 AM End Time: 11:37 AM Referring Physician Berto Osuna MD History Seizure disorder, temporal lobe epilepsy Home Medication List Medication Instructions Recorded Confirmed Type PreserVision AREDS-2 1 tab PO BID 02/25/19 05/02/20 History cyanocobalamin (vitamin B-12) 1,000 mcg PO DAILY 05/08/19 05/02/20 History [Vitamin B-12] gabapentin 300 mg capsule 300 mg PO TID 30 Days #90 cap 06/14/19 05/02/20 Rx Azopt 1 drp OPR TID 10/26/19 05/02/20 History acetaminophen [Tylenol Extra 500 mg PO Q6H PRN 10/26/19 05/02/20 History Strength] timolol maleate [Timoptic] 1 drp OPR DAILY 10/26/19 05/02/20 History Incruse Ellipta 1 inh INHALATION QAM #1 inhaler 10/29/19 05/02/20 Rx Vimpat 200 mg PO BID 04/11/20 05/02/20 History loteprednol etabonate 1 drp OPR DAILY 04/11/20 05/02/20 History topiramate [Topamax] 50 mg PO BID 04/11/20 05/02/20 History blood sugar diagnostic [OneTouch #50 ea 04/14/20 Rx Verio test strips] insulin glargine [Lantus Solostar 16 unit SC DAILY 30 Days #4.8 ml 04/14/20 05/02/20 Rx U-100 Insulin] [facility] #100 ea 04/14/20 Rx metformin 500 mg PO DAILY #30 tab 04/14/20 05/02/20 Rx pen needle, diabetic [Pen Needle] #50 ea 04/14/20 Rx Inpatient Medication List Albuterol (Albut/Ipratrop 3mg/0.5mg Neb 3 Ml Vial) 3 ml NEB Q4R PRN PRN Reason: Shortness Of Breath Stop: 06/05/20 06:59 Last Admin: 05/06/20 03:57 Dose: 3 ml Documented by: [id number] Brinzolamide (Brinzolamide (Azopt) Ops 10 Ml Btl) 1 drops OPR TID JOSY Stop: 06/01/20 08:59 Last Admin: 05/11/20 14:18 Dose: 1 drops Documented by: [id number] Admin: 05/11/20 13:04 Dose: 1 drops Documented by: [id number] Admin: 05/10/20 20:22 Dose: 1 drops Documented by: [id number] Admin: 05/10/20 14:14 Dose: 1 drops Documented by: [id number] Admin: 05/10/20 09:39 Dose: 1 drops Documented by: [id number] Admin: 05/09/20 21:05 Dose: 1 drops Documented by: [id number] Admin: 05/09/20 13:45 Dose: 1 drops Documented by: [id number] Admin: 05/09/20 09:21 Dose: 1 drops Documented by: [id number] Admin: 05/08/20 20:09 Dose: 1 drops Documented by: [id number] Admin: 05/08/20 13:49 Dose: 1 drops Documented by: [id number] Admin: 05/08/20 08:54 Dose: 1 drops Documented by: [id number] Admin: 05/07/20 21:18 Dose: 1 drops Documented by: [id number] Admin: 05/07/20 13:51 Dose: 1 drops Documented by: [id number] Admin: 05/07/20 08:25 Dose: 1 drops Documented by: [id number] Admin: 05/06/20 21:11 Dose: 1 drops Documented by: [id number] Admin: 05/06/20 14:18 Dose: 1 drops Documented by: [id number] Admin: 05/06/20 08:10 Dose: 1 drops Documented by: [id number] Admin: 05/05/20 21:00 Dose: 1 drops Documented by: [id number] Admin: 05/05/20 14:27 Dose: 1 drops Documented by: [id number] Admin: 05/05/20 07:40 Dose: 1 drops Documented by: [id number] Admin: 05/04/20 21:01 Dose: 1 drops Documented by: [id number] Admin: 05/04/20 13:49 Dose: 1 drops Documented by: [id number] Admin: 05/04/20 09:02 Dose: 1 drops Documented by: [id number] Admin: 05/03/20 20:58 Dose: 1 drops Documented by: [id number] Admin: 05/03/20 14:14 Dose: 1 drops Documented by: [id number] Admin: 05/03/20 07:59 Dose: 1 drops Documented by: [id number] Admin: 05/02/20 21:28 Dose: 1 drops Documented by: [id number] Admin: 05/02/20 13:44 Dose: 1 drops Documented by: [id number] Admin: 05/02/20 09:07 Dose: 1 drops Documented by: [id number] Enoxaparin Sodium (Enoxaparin Inj 40 Mg/0.4 Ml Syr) 40 mg SQ QAM JOSY Stop: 06/03/20 08:59 Last Admin: 05/11/20 10:37 Dose: 40 mg Documented by: [id number] Admin: 05/10/20 09:38 Dose: 40 mg Documented by: [id number] Admin: 05/09/20 09:23 Dose: 40 mg Documented by: [id number] Admin: 05/08/20 08:52 Dose: 40 mg Documented by: [id number] Admin: 05/07/20 08:24 Dose: 40 mg Documented by: [id number] Admin: 05/06/20 08:10 Dose: 40 mg Documented by: [id number] Admin: 05/05/20 07:40 Dose: 40 mg Documented by: [id number] Admin: 05/04/20 09:04 Dose: 40 mg Documented by: [id number] Enteral Nutritional Formula (Peptamen 1.5 Chad 1,000 Ml Bag) 1,000 ml NG UD JOSY; Protocol Stop: 06/06/20 13:59 Last Admin: 05/07/20 15:03 Dose: 1,000 ml Documented by: [id number] Gabapentin (Gabapentin 250 Mg/5 Ml 470 Ml Btl) 300 mg NG BID JOSY Stop: 06/08/20 20:59 Last Admin: 05/11/20 13:04 Dose: Not Given Documented by: [id number] Admin: 05/10/20 20:33 Dose: 300 mg Documented by: [id number] Admin: 05/10/20 09:59 Dose: 300 mg Documented by: [id number] Admin: 05/09/20 21:12 Dose: 300 mg Documented by: [id number] Guaifenesin (Guaifenesin Sugar Free 200 Mg/10 Ml Udc) 400 mg PO Q4 JOSY Stop: 06/03/20 11:59 Last Admin: 05/11/20 17:04 Dose: 400 mg Documented by: [id number] Admin: 05/11/20 14:19 Dose: 400 mg Documented by: [id number] Admin: 05/11/20 10:36 Dose: 400 mg Documented by: [id number] Admin: 05/11/20 04:00 Dose: 400 mg Documented by: [id number] Admin: 05/11/20 00:06 Dose: 400 mg Documented by: [id number] Admin: 05/10/20 20:21 Dose: 400 mg Documented by: [id number] Admin: 05/10/20 15:52 Dose: 400 mg Documented by: [id number] Admin: 05/10/20 12:21 Dose: 400 mg Documented by: [id number] Admin: 05/10/20 09:34 Dose: 400 mg Documented by: [id number] Admin: 05/10/20 04:32 Dose: 400 mg Documented by: [id number] Admin: 05/10/20 00:46 Dose: 400 mg Documented by: [id number] Admin: 05/09/20 21:05 Dose: 400 mg Documented by: [id number] Admin: 05/09/20 16:05 Dose: 400 mg Documented by: [id number] Admin: 05/09/20 12:13 Dose: 400 mg Documented by: [id number] Admin: 05/09/20 09:21 Dose: 400 mg Documented by: [id number] Admin: 05/09/20 04:00 Dose: 400 mg Documented by: [id number] Admin: 05/09/20 00:44 Dose: 400 mg Documented by: [id number] Admin: 05/08/20 20:08 Dose: 400 mg Documented by: [id number] Admin: 05/08/20 16:43 Dose: 400 mg Documented by: [id number] Admin: 05/08/20 12:39 Dose: 400 mg Documented by: [id number] Admin: 05/08/20 08:51 Dose: 400 mg Documented by: [id number] Admin: 05/08/20 04:23 Dose: 400 mg Documented by: [id number] Admin: 05/07/20 23:17 Dose: 400 mg Documented by: [id number] Admin: 05/07/20 21:17 Dose: 400 mg Documented by: [id number] Admin: 05/07/20 15:04 Dose: 400 mg Documented by: [id number] Admin: 05/07/20 11:36 Dose: 400 mg Documented by: [id number] Admin: 05/07/20 08:25 Dose: 400 mg Documented by: [id number] Admin: 05/07/20 03:28 Dose: 400 mg Documented by: [id number] Admin: 05/06/20 23:03 Dose: 400 mg Documented by: [id number] Admin: 05/06/20 21:10 Dose: 400 mg Documented by: [id number] Admin: 05/06/20 16:20 Dose: 400 mg Documented by: [id number] Admin: 05/05/20 07:39 Dose: 400 mg Documented by: [id number] Admin: 05/05/20 04:17 Dose: 400 mg Documented by: [id number] Admin: 05/05/20 02:38 Dose: 400 mg Documented by: [id number] Admin: 05/04/20 20:03 Dose: 400 mg Documented by: [id number] Admin: 05/04/20 16:30 Dose: 400 mg Documented by: [id number] Admin: 05/04/20 11:28 Dose: 400 mg Documented by: [id number] Hydralazine HCl (Hydralazine Hcl 20 Mg/Ml Vial) 10 mg IV Q6H PRN PRN Reason: SBP greater than 150 mmHg Stop: 06/04/20 10:18 Last Admin: 05/06/20 10:17 Dose: 10 mg Documented by: [id number] Admin: 05/06/20 03:09 Dose: 10 mg Documented by: [id number] Phenytoin 100 mg/ Syringe 2 mls @ 1 mls/min IV Q8H JOSY Stop: 06/10/20 13:59 Last Admin: 05/11/20 14:27 Dose: 1 mls/min Documented by: [id number] Insulin Glargine (Insulin Glargine Solostar 100 Units/Ml 3 Ml Pen) 0 units SC BID JOSY; Protocol Stop: 06/06/20 08:59 Last Admin: 05/11/20 10:03 Dose: Not Given Documented by: [id number] Admin: 05/10/20 20:42 Dose: 5 units Documented by: [id number] Cosigned by: [id number] Admin: 05/10/20 09:38 Dose: 5 units Documented by: [id number] Cosigned by: [id number] Admin: 05/09/20 21:05 Dose: Not Given Documented by: [id number] Admin: 05/09/20 09:26 Dose: Not Given Documented by: [id number] Admin: 05/08/20 20:11 Dose: Not Given Documented by: [id number] Admin: 05/08/20 08:55 Dose: 5 units Documented by: [id number] Cosigned by: [id number] Admin: 05/07/20 21:15 Dose: Not Given Documented by: [id number] Admin: 05/07/20 08:26 Dose: 5 units Documented by: [id number] Cosigned by: [id number] Insulin Human Regular (Insulin Human Regular) 0 units SC Q6 JOSY; Protocol Stop: 06/07/20 11:59 Last Admin: 05/11/20 17:04 Dose: 4 units Documented by: [id number] Cosigned by: [id number] Admin: 05/11/20 14:08 Dose: 2 units Documented by: [id number] Cosigned by: [id number] Admin: 05/11/20 05:42 Dose: Not Given Documented by: [id number] Cosigned by: [id number] Admin: 05/10/20 23:14 Dose: Not Given Documented by: [id number] Cosigned by: [id number] Admin: 05/10/20 17:18 Dose: Not Given Documented by: [id number] Cosigned by: [id number] Admin: 05/10/20 12:17 Dose: Not Given Documented by: [id number] Admin: 05/10/20 06:08 Dose: 1 units Documented by: [id number] Cosigned by: [id number] Admin: 05/10/20 00:32 Dose: Not Given Documented by: [id number] Cosigned by: [id number] Admin: 05/09/20 17:50 Dose: Not Given Documented by: [id number] Cosigned by: [id number] Admin: 05/09/20 12:24 Dose: Not Given Documented by: [id number] Cosigned by: [id number] Admin: 05/09/20 06:42 Dose: Not Given Documented by: [id number] Cosigned by: [id number] Admin: 05/09/20 00:02 Dose: Not Given Documented by: [id number] Cosigned by: [id number] Admin: 05/08/20 19:00 Dose: Not Given Documented by: [id number] Cosigned by: [id number] Admin: 05/08/20 13:47 Dose: 5 units Documented by: [id number] Cosigned by: [id number] Lansoprazole (Lansoprazole 30 Mg Soltab) 30 mg NG QAM [facility] Stop: 06/08/20 08:59 Last Admin: 05/11/20 10:37 Dose: 30 mg Documented by: [id number] Admin: 05/10/20 09:38 Dose: 30 mg Documented by: [id number] Admin: 05/09/20 09:24 Dose: 30 mg Documented by: [id number] Lisinopril (Lisinopril 10 Mg Tab) 10 mg PO QAM JOSY Stop: 06/06/20 08:59 Last Admin: 05/11/20 10:37 Dose: 10 mg Documented by: [id number] Admin: 05/10/20 09:37 Dose: 10 mg Documented by: [id number] Admin: 05/09/20 09:23 Dose: 10 mg Documented by: [id number] Admin: 05/08/20 08:53 Dose: Not Given Documented by: [id number] Admin: 05/07/20 08:24 Dose: 10 mg Documented by: [id number] Metoprolol Tartrate (Metoprolol Tartrate 25 Mg Tab) 25 mg PO BID JSOY Stop: 06/06/20 08:59 Last Admin: 05/11/20 10:36 Dose: 25 mg Documented by: [id number] Admin: 05/10/20 20:21 Dose: 25 mg Documented by: [id number] Admin: 05/10/20 09:37 Dose: 25 mg Documented by: [id number] Admin: 05/09/20 21:06 Dose: 25 mg Documented by: [id number] Admin: 05/09/20 09:23 Dose: 25 mg Documented by: [id number] Admin: 05/08/20 20:09 Dose: Not Given Documented by: [id number] Admin: 05/08/20 08:53 Dose: Not Given Documented by: [id number] Admin: 05/07/20 21:18 Dose: 25 mg Documented by: [id number] Admin: 05/07/20 08:24 Dose: 25 mg Documented by: [id number] Nutritional Formula (Prosource No Carb 30 Ml/Pkt) 30 ml NG QD@16 JOSY Stop: 06/06/20 15:59 Last Admin: 05/11/20 17:03 Dose: 30 ml Documented by: [id number] Admin: 05/10/20 15:52 Dose: 30 ml Documented by: [id number] Admin: 05/09/20 16:06 Dose: 30 ml Documented by: [id number] Admin: 05/08/20 19:06 Dose: Not Given Documented by: [id number] Admin: 05/07/20 15:04 Dose: 30 ml Documented by: [id number] Sodium Chloride (Sodium Chloride 0.9% 10ml Flush) 20 ml IV Q8H JOSY Stop: 06/10/20 13:59 Last Admin: 05/11/20 14:28 Dose: 20 ml Documented by: [id number] Topiramate (Topiramate 50 Mg Tab) 50 mg PO BID JOSY Stop: 06/03/20 08:59 Last Admin: 05/11/20 10:37 Dose: 50 mg Documented by: [id number] Admin: 05/10/20 20:22 Dose: 50 mg Documented by: [id number] Admin: 05/10/20 09:37 Dose: 50 mg Documented by: [id number] Admin: 05/09/20 21:06 Dose: 50 mg Documented by: [id number] Admin: 05/09/20 09:24 Dose: 50 mg Documented by: [id number] Admin: 05/08/20 20:11 Dose: 50 mg Documented by: [id number] Admin: 05/08/20 08:51 Dose: 50 mg Documented by: [id number] Admin: 05/07/20 21:18 Dose: 50 mg Documented by: [id number] Admin: 05/07/20 08:24 Dose: 50 mg Documented by: [id number] Admin: 05/06/20 21:10 Dose: 50 mg Documented by: [id number] Admin: 05/05/20 07:41 Dose: 50 mg Documented by: [id number] Admin: 05/04/20 21:01 Dose: 50 mg Documented by: [id number] Admin: 05/04/20 09:06 Dose: 50 mg Documented by: [id number] Discontinued Medications Albuterol (Albut/Ipratrop 3mg/0.5mg Neb 3 Ml Vial) Confirm Administered Dose 3 m l .ROUTE .STK-MED ONE Stop: 05/06/20 03:43 Last Admin: 05/08/20 07:20 Dose: Not Given Documented by: [id number] Enoxaparin Sodium (Enoxaparin Inj 40 Mg/0.4 Ml Syr) 40 mg SQ Q24H JOSY Stop: 06/01/20 08:59 Last Admin: 05/02/20 09:07 Dose: 40 mg Documented by: [id number] Enteral Nutritional Formula (Peptamen 1.5 Chad 1,000 Ml Bag) 1,000 ml PO UD JOSY; Protocol Stop: 06/02/20 13:14 Last Admin: 05/03/20 16:24 Dose: 1,000 ml Documented by: [id number] Enteral Nutritional Formula (Peptamen 1.5 Chad 1,000 Ml Bag) 1,000 ml NG UD JOSY; Protocol Stop: 06/02/20 16:29 Last Admin: 05/03/20 16:58 Dose: 1,000 ml Documented by: [id number] Fentanyl Citrate (Fentanyl Citrate 100 Mcg/2 Ml Vial) 50 mcg IV NOW STA Stop: 05/02/20 01:44 Last Admin: 05/02/20 01:45 Dose: 50 mcg Documented by: [id number] Fentanyl Citrate (Fentanyl Citrate 100 Mcg/2 Ml Vial) 25 mcg IV Q2H PRN PRN Reason: Pain Stop: 05/16/20 22:08 Last Admin: 05/03/20 09:00 Dose: 25 mcg Documented by: [id number] Fentanyl Citrate (Fentanyl Citrate 100 Mcg/2 Ml Vial) Confirm Administered Dose 100 mcg .ROUTE .STK-MED ONE Stop: 05/02/20 22:15 Last Increment: 05/02/20 22:15 Dose: 25 mcg Documented by: [id number] Gabapentin (Gabapentin 250 Mg/5 Ml 470 Ml Btl) 300 mg PO DAILY JOSY Stop: 06/03/20 10:59 Last Admin: 05/05/20 07:42 Dose: 300 mg Documented by: [id number] Admin: 05/04/20 11:28 Dose: 300 mg Documented by: [id number] Gabapentin (Gabapentin 250 Mg/5 Ml 470 Ml Btl) 300 mg NG TID JOSY Stop: 06/05/20 13:59 Last Admin: 05/08/20 13:50 Dose: 300 mg Documented by: [id number] Admin: 05/08/20 08:52 Dose: 300 mg Documented by: [id number] Admin: 05/07/20 21:17 Dose: 300 mg Documented by: [id number] Admin: 05/07/20 13:51 Dose: 300 mg Documented by: [id number] Admin: 05/07/20 08:24 Dose: 300 mg Documented by: [id number] Admin: 05/06/20 21:10 Dose: 300 mg Documented by: [id number] Admin: 05/06/20 14:42 Dose: 300 mg Documented by: [id number] Gabapentin (Gabapentin 250 Mg/5 Ml 470 Ml Btl) 100 mg NG BID JOSY Stop: 06/07/20 20:59 Last Admin: 05/09/20 09:26 Dose: 100 mg Documented by: [id number] Admin: 05/08/20 20:09 Dose: 100 mg Documented by: [id number] Propofol (Diprivan) 1,000 mg in 100 mls @ 9.18 mls/hr IV .[id number] [facility]; Protocol Stop: 05/05/20 00:44 Last Admin: 05/02/20 14:06 Dose: Not Given Documented by: [id number] Titration: 05/02/20 04:00 Dose: 0 mcg/kg/min, 0 mls/hr Documented by: [id number] Titration: 05/02/20 02:36 Dose: 15 mcg/kg/min, 6.9 mls/hr Documented by: [id number] Titration: 05/02/20 02:00 Dose: 10 mcg/kg/min, 4.6 mls/hr Documented by: [id number] Titration: 05/02/20 01:39 Dose: 15 mcg/kg/min, 6.9 mls/hr Documented by: [id number] Titration: 05/02/20 00:57 Dose: 10 mcg/kg/min, 4.6 mls/hr Documented by: [id number] Admin: 05/02/20 00:44 Dose: 5 mcg/kg/min, 2.3 mls/hr Documented by: [id number] Piperacillin Sod/Tazobactam Sod (Zosyn) 4.5 gm in 120 mls @ 240 mls/hr IV NOW ONE Stop: 05/02/20 01:33 Last Infusion: 05/02/20 01:50 Dose: 0 mls/hr Documented by: [id number] Admin: 05/02/20 01:19 Dose: 240 mls/hr Documented by: [id number] Vancomycin HCl 1,500 mg/ (Sodium Chloride) 530 mls @ 200 mls/hr IV NOW ONE Stop: 05/02/20 03:42 Last Infusion: 05/02/20 04:38 Dose: 0 mls/hr Documented by: [id number] Admin: 05/02/20 01:59 Dose: 200 mls/hr Documented by: [id number] Sodium Chloride (Nss 1000ml) 1,000 mls @ 999 mls/hr IV .Q1H1M ONE Stop: 05/02/20 02:04 Last Infusion: 05/02/20 02:08 Dose: 0 mls/hr Documented by: [id number] Admin: 05/02/20 01:11 Dose: 999 mls/hr Documented by: [id number] Sodium Chloride (Nss 1000ml) 1,000 mls @ 999 mls/hr IV .Q1H1M ONE Stop: 05/02/20 02:51 Last Infusion: 05/02/20 03:00 Dose: 0 mls/hr Documented by: [id number] Admin: 05/02/20 01:54 Dose: 999 mls/hr Documented by: [id number] Levetiracetam 1,000 mg/ Sodium (Chloride) 110 mls @ 440 mls/hr IV NOW STA Stop: 05/02/20 03:41 Last Admin: 05/02/20 06:38 Dose: Not Given Documented by: [id number] Lacosamide 200 mg/ Sodium (Chloride) 70 mls @ 70 mls/hr IV Q12H JOSY Stop: 06/01/20 03:59 Last Infusion: 05/09/20 04:30 Dose: 0 mls/hr Documented by: [id number] Admin: 05/09/20 04:00 Dose: 140 mls/hr Documented by: [id number] Infusion: 05/08/20 17:37 Dose: 0 mls/hr Documented by: [id number] Admin: 05/08/20 16:42 Dose: 140 mls/hr Documented by: [id number] Infusion: 05/08/20 05:25 Dose: 0 mls/hr Documented by: [id number] Admin: 05/08/20 04:23 Dose: 140 mls/hr Documented by: [id number] Infusion: 05/07/20 16:30 Dose: 0 mls/hr Documented by: [id number] Admin: 05/07/20 15:29 Dose: 140 mls/hr Documented by: [id number] Infusion: 05/07/20 04:10 Dose: 0 mls/hr Documented by: [id number] Admin: 05/07/20 03:28 Dose: 140 mls/hr Documented by: [id number] Infusion: 05/06/20 19:00 Dose: 0 mls/hr Documented by: [id number] Admin: 05/06/20 16:21 Dose: 140 mls/hr Documented by: [id number] Infusion: 05/06/20 06:44 Dose: 0 mls/hr Documented by: [id number] Admin: 05/06/20 03:13 Dose: 140 mls/hr Documented by: [id number] Infusion: 05/05/20 16:34 Dose: 0 mls/hr Documented by: [id number] Admin: 05/05/20 16:00 Dose: 140 mls/hr Documented by: [id number] Infusion: 05/05/20 04:35 Dose: 0 mls/hr Documented by: [id number] Admin: 05/05/20 04:04 Dose: 140 mls/hr Documented by: [id number] Infusion: 05/04/20 18:10 Dose: 0 mls/hr Documented by: [id number] Admin: 05/04/20 16:30 Dose: 140 mls/hr Documented by: [id number] Infusion: 05/04/20 04:40 Dose: 0 mls/hr Documented by: [id number] Admin: 05/04/20 04:06 Dose: 140 mls/hr Documented by: [id number] Infusion: 05/03/20 16:55 Dose: 0 mls/hr Documented by: [id number] Admin: 05/03/20 16:02 Dose: 140 mls/hr Documented by: [id number] Infusion: 05/03/20 05:01 Dose: 0 mls/hr Documented by: [id number] Admin: 05/03/20 04:27 Dose: 140 mls/hr Documented by: [id number] Infusion: 05/02/20 19:00 Dose: 0 mls/hr Documented by: [id number] Admin: 05/02/20 15:16 Dose: 140 mls/hr Documented by: [id number] Infusion: 05/02/20 05:43 Dose: 0 mls/hr Documented by: [id number] Admin: 05/02/20 05:13 Dose: 140 mls/hr Documented by: [id number] Potassium Chloride/Sodium Chloride (Normal Saline W/20 Meq Kcl) 20 meq in 1,000 mls @ 100 mls/hr IV .Q10H JOSY Stop: 06/01/20 03:41 Last Infusion: 05/04/20 09:34 Dose: 0 mls/hr Documented by: [id number] Infusion: 05/04/20 08:37 Dose: 0 mls/hr Documented by: [id number] Admin: 05/04/20 07:27 Dose: Not Given Documented by: [id number] Admin: 05/03/20 22:57 Dose: 100 mls/hr Documented by: [id number] Infusion: 05/03/20 21:29 Dose: 100 mls/hr Documented by: [id number] Infusion: 05/03/20 18:42 Dose: 100 mls/hr Documented by: [id number] Admin: 05/03/20 11:29 Dose: 100 mls/hr Documented by: [id number] Infusion: 05/03/20 11:29 Dose: 100 mls/hr Documented by: [id number] Infusion: 05/03/20 06:56 Dose: 100 mls/hr Documented by: [id number] Admin: 05/03/20 01:42 Dose: 100 mls/hr Documented by: [id number] Infusion: 05/03/20 00:45 Dose: 100 mls/hr Documented by: [id number] Admin: 05/02/20 15:45 Dose: 100 mls/hr Documented by: [id number] Infusion: 05/02/20 15:12 Dose: 100 mls/hr Documented by: [id number] Admin: 05/02/20 05:12 Dose: 100 mls/hr Documented by: [id number] Piperacillin Sod/Tazobactam (Sod 3.375 gm/ Dextrose) 115 mls @ 30 mls/hr IV Q8H JOSY; Protocol Stop: 05/09/20 05:59 Last Infusion: 05/02/20 09:34 Dose: 0 mls/hr Documented by: [id number] Admin: 05/02/20 05:44 Dose: 30 mls/hr Documented by: [id number] Methylprednisolone 60 mg/ (Syringe) 0.96 mls @ 1.5 mls/min IV Q8H JOSY Stop: 06/01/20 03:59 Last Admin: 05/04/20 04:07 Dose: 1.5 mls/min Documented by: [id number] Admin: 05/03/20 20:54 Dose: 1.5 mls/min Documented by: [id number] Admin: 05/03/20 11:29 Dose: 1.5 mls/min Documented by: [id number] Admin: 05/03/20 04:27 Dose: 1.5 mls/min Documented by: [id number] Admin: 05/02/20 21:28 Dose: 1.5 mls/min Documented by: [id number] Admin: 05/02/20 13:48 Dose: 1.5 mls/min Documented by: [id number] Admin: 05/02/20 05:13 Dose: 1.5 mls/min Documented by: [id number] Norepinephrine Bitartrate 8 mg (/ Dextrose) 508 mls @ 0 mls/hr IV .Q0M JOSY; Protocol Stop: 06/01/20 04:14 Last Admin: 05/03/20 07:42 Dose: Not Given Documented by: [id number] Titration: 05/03/20 06:56 Dose: 0 mcg/kg/min, 0 mls/hr Documented by: [id number] Titration: 05/03/20 03:43 Dose: 0 mcg/kg/min, 0 mls/hr Documented by: [id number] Titration: 05/02/20 23:45 Dose: 0.02 mcg/kg/min, 5.8 mls/hr Documented by: [id number] Titration: 05/02/20 22:00 Dose: 0.05 mcg/kg/min, 14.6 mls/hr Documented by: [id number] Titration: 05/02/20 21:21 Dose: 0.07 mcg/kg/min, 20.4 mls/hr Documented by: [id number] Titration: 05/02/20 19:05 Dose: 0.1 mcg/kg/min, 29.1 mls/hr Documented by: [id number] Cosigned by: [id number] Admin: 05/02/20 14:05 Dose: 0.16 mcg/kg/min, 46.6 mls/hr Documented by: [id number] Cosigned by: [id number] Titration: 05/02/20 14:05 Dose: 0.12 mcg/kg/min, 35 mls/hr Documented by: [id number] Cosigned by: [id number] Titration: 05/02/20 10:26 Dose: 0.16 mcg/kg/min, 46.6 mls/hr Documented by: [id number] Titration: 05/02/20 09:51 Dose: 0.18 mcg/kg/min, 52.5 mls/hr Documented by: [id number] Titration: 05/02/20 05:38 Dose: 0.2 mcg/kg/min, 58.3 mls/hr Documented by: [id number] Titration: 05/02/20 05:35 Dose: 0.1 mcg/kg/min, 29.1 mls/hr Documented by: [id number] Admin: 05/02/20 05:13 Dose: 0.05 mcg/kg/min, 14.6 mls/hr Documented by: [id number] Cosigned by: [id number] Albumin Human (Albumin 25%) 12.5 gm in 50 mls @ 50 mls/hr IV Q1H JOSY Stop: 05/02/20 08:29 Last Infusion: 05/02/20 06:14 Dose: 0 mls/hr Documented by: [id number] Admin: 05/02/20 05:38 Dose: 50 mls/hr Documented by: [id number] Infusion: 05/02/20 05:38 Dose: 50 mls/hr Documented by: [id number] Admin: 05/02/20 05:22 Dose: 50 mls/hr Documented by: [id number] Infusion: 05/02/20 05:22 Dose: 50 mls/hr Documented by: [id number] Admin: 05/02/20 05:00 Dose: 50 mls/hr Documented by: [id number] Infusion: 05/02/20 05:00 Dose: 50 mls/hr Documented by: [id number] Admin: 05/02/20 04:40 Dose: 50 mls/hr Documented by: [id number] Insulin Human Regular 250 (units/ Sodium Chloride) 250 mls @ 2.8 mls/hr IV .Q24H JOSY; Protocol Stop: 06/01/20 04:59 Last Admin: 05/02/20 05:34 Dose: Not Given Documented by: [id number] Cosigned by: [id number] Midazolam HCl (Versed) 125 mg in 250 mls @ 10 mls/hr IV .Q25H PRN; Protocol PRN Reason: Agitation Stop: 06/01/20 05:11 Last Titration: 05/04/20 08:37 Dose: 0 mg/hr, 0 mls/hr Documented by: [id number] Cosigned by: [id number] Titration: 05/04/20 06:59 Dose: 5 mg/hr, 10 mls/hr Documented by: [id number] Cosigned by: [id number] Admin: 05/04/20 04:09 Dose: 5 mg/hr, 10 mls/hr Documented by: [id number] Cosigned by: [id number] Titration: 05/04/20 04:09 Dose: 5 mg/hr, 10 mls/hr Documented by: [id number] Cosigned by: [id number] Titration: 05/03/20 18:42 Dose: 5 mg/hr, 10 mls/hr Documented by: [id number] Cosigned by: [id number] Titration: 05/03/20 06:56 Dose: 5 mg/hr, 10 mls/hr Documented by: [id number] Cosigned by: [id number] Admin: 05/03/20 05:45 Dose: 5 mg/hr, 10 mls/hr Documented by: [id number] Cosigned by: [id number] Titration: 05/03/20 05:45 Dose: 5 mg/hr, 10 mls/hr Documented by: [id number] Cosigned by: [id number] Titration: 05/02/20 23:45 Dose: 5 mg/hr, 10 mls/hr Documented by: [id number] Cosigned by: [id number] Titration: 05/02/20 22:20 Dose: 4 mg/hr, 8 mls/hr Documented by: [id number] Cosigned by: [id number] Titration: 05/02/20 22:20 Dose: 2 mg/hr, 4 mls/hr Documented by: [id number] Cosigned by: [id number] Titration: 05/02/20 19:06 Dose: 2 mg/hr, 4 mls/hr Documented by: [id number] Cosigned by: [id number] Titration: 05/02/20 06:14 Dose: 2 mg/hr, 4 mls/hr Documented by: [id number] Cosigned by: [id number] Admin: 05/02/20 05:34 Dose: 1 mg/hr, 2 mls/hr Documented by: [id number] Cosigned by: [id number] Famotidine 20 mg/ Syringe 5 mls @ 2.5 mls/min IV BID JOSY Stop: 06/01/20 08:59 Last Admin: 05/04/20 09:06 Dose: 2.5 mls/min Documented by: [id number] Admin: 05/03/20 20:54 Dose: 2.5 mls/min Documented by: [id number] Admin: 05/03/20 07:59 Dose: 2.5 mls/min Documented by: [id number] Admin: 05/02/20 21:32 Dose: 2.5 mls/min Documented by: [id number] Admin: 05/02/20 09:07 Dose: 2.5 mls/min Documented by: [id number] Piperacillin Sod/Tazobactam (Sod 4.5 gm/ Dextrose) 120 mls @ 30 mls/hr IV Q8H [facility]; Protocol Stop: 05/09/20 13:59 Last Infusion: 05/05/20 10:01 Dose: 0 mls/hr Documented by: [id number] Admin: 05/05/20 05:56 Dose: 30 mls/hr Documented by: [id number] Infusion: 05/05/20 01:15 Dose: 0 mls/hr Documented by: [id number] Admin: 05/04/20 21:00 Dose: 28.8 mls/hr Documented by: [id number] Infusion: 05/04/20 18:10 Dose: 0 mls/hr Documented by: [id number] Admin: 05/04/20 13:48 Dose: 30 mls/hr Documented by: [id number] Infusion: 05/04/20 09:34 Dose: 0 mls/hr Documented by: [id number] Admin: 05/04/20 05:04 Dose: 30 mls/hr Documented by: [id number] Infusion: 05/04/20 01:01 Dose: 0 mls/hr Documented by: [id number] Admin: 05/03/20 21:00 Dose: 30 mls/hr Documented by: [id number] Infusion: 05/03/20 18:33 Dose: 0 mls/hr Documented by: [id number] Admin: 05/03/20 14:14 Dose: 30 mls/hr Documented by: [id number] Infusion: 05/03/20 09:51 Dose: 0 mls/hr Documented by: [id number] Infusion: 05/03/20 06:56 Dose: 30 mls/hr Documented by: [id number] Admin: 05/03/20 05:37 Dose: 30 mls/hr Documented by: [id number] Infusion: 05/03/20 01:40 Dose: 0 mls/hr Documented by: [id number] Admin: 05/02/20 21:35 Dose: 30 mls/hr Documented by: [id number] Infusion: 05/02/20 17:45 Dose: 0 mls/hr Documented by: [id number] Admin: 05/02/20 13:45 Dose: 30 mls/hr Documented by: [id number] Heparin Sodium/Dextrose (Heparin Sodium/Dextrose) 25,000 units in 500 mls @ 28 mls/hr IV .[id number] [facility]; Protocol Stop: 05/04/20 07:00 Last Titration: 05/04/20 06:57 Dose: 0 units/hr, 0 mls/hr Documented by: [id number] Cosigned by: [id number] Admin: 05/04/20 03:46 Dose: Not Given Documented by: [id number] Titration: 05/03/20 18:42 Dose: 1,400 units/hr, 28 mls/hr Documented by: [id number] Cosigned by: [id number] Admin: 05/03/20 11:29 Dose: 1,400 units/hr, 28 mls/hr Documented by: [id number] Cosigned by: [id number] Titration: 05/03/20 10:19 Dose: 1,400 units/hr, 28 mls/hr Documented by: [id number] Cosigned by: [id number] Titration: 05/03/20 06:56 Dose: 1,400 units/hr, 28 mls/hr Documented by: [id number] Cosigned by: [id number] Titration: 05/02/20 23:48 Dose: 1,400 units/hr, 28 mls/hr Documented by: [id number] Cosigned by: [id number] Titration: 05/02/20 19:06 Dose: 1,350 units/hr, 27 mls/hr Documented by: [id number] Cosigned by: [id number] Admin: 05/02/20 16:11 Dose: 1,350 units/hr, 27 mls/hr Documented by: [id number] Cosigned by: [id number] Potassium Phosphate 24 mmol/ (Sodium Chloride) 508 mls @ 88 mls/hr IV ONE ONE Stop: 05/02/20 23:46 Last Infusion: 05/03/20 02:02 Dose: 0 mls/hr Documented by: [id number] Admin: 05/02/20 18:20 Dose: 88 mls/hr Documented by: [id number] Fentanyl Citrate (Fentanyl Drip) 1,250 mcg in 250 mls @ 15 mls/hr IV .[id number] [facility]; Protocol Stop: 05/17/20 08:29 Last Titration: 05/05/20 07:34 Dose: 0 mcg/hr, 0 mls/hr Documented by: [id number] Cosigned by: [id number] Admin: 05/04/20 22:08 Dose: 75 mcg/hr, 15 mls/hr Documented by: [id number] Cosigned by: [id number] Titration: 05/04/20 19:48 Dose: 75 mcg/hr, 15 mls/hr Documented by: [id number] Cosigned by: [id number] Titration: 05/04/20 19:01 Dose: 75 mcg/hr, 15 mls/hr Documented by: [id number] Cosigned by: [id number] Titration: 05/04/20 18:29 Dose: 75 mcg/hr, 15 mls/hr Documented by: [id number] Cosigned by: [id number] Titration: 05/04/20 16:02 Dose: 100 mcg/hr, 20 mls/hr Documented by: [id number] Cosigned by: [id number] Titration: 05/04/20 13:58 Dose: 75 mcg/hr, 15 mls/hr Documented by: [id number] Cosigned by: [id number] Titration: 05/04/20 09:50 Dose: 100 mcg/hr, 20 mls/hr Documented by: [id number] Cosigned by: [id number] Titration: 05/04/20 08:34 Dose: 75 mcg/hr, 15 mls/hr Documented by: [id number] Cosigned by: [id number] Titration: 05/04/20 06:59 Dose: 50 mcg/hr, 10 mls/hr Documented by: [id number] Cosigned by: [id number] Titration: 05/04/20 05:05 Dose: 50 mcg/hr, 10 mls/hr Documented by: [id number] Cosigned by: [id number] Admin: 05/04/20 04:09 Dose: 75 mcg/hr, 15 mls/hr Documented by: [id number] Cosigned by: [id number] Titration: 05/04/20 04:09 Dose: 75 mcg/hr, 15 mls/hr Documented by: [id number] Cosigned by: [id number] Titration: 05/04/20 03:44 Dose: 75 mcg/hr, 15 mls/hr Documented by: [id number] Cosigned by: [id number] Titration: 05/03/20 18:42 Dose: 50 mcg/hr, 10 mls/hr Documented by: [id number] Cosigned by: [id number] Titration: 05/03/20 12:06 Dose: 50 mcg/hr, 10 mls/hr Documented by: [id number] Cosigned by: [id number] Admin: 05/03/20 09:10 Dose: 25 mcg/hr, 5 mls/hr Documented by: [id number] Cosigned by: [id number] Pantoprazole Sodium 40 mg/ (Syringe) 10 mls @ 5 mls/min IV DAILY@1100 JOSY Stop: 05/08/20 10:59 Last Admin: 05/04/20 11:18 Dose: 5 mls/min Documented by: [id number] Methylprednisolone 40 mg/ (Syringe) 0.64 mls @ 1.5 mls/min IV BID JOSY Stop: 06/03/20 08:59 Last Admin: 05/05/20 07:39 Dose: 1.5 mls/min Documented by: [id number] Admin: 05/04/20 21:02 Dose: 1.5 mls/min Documented by: [id number] Admin: 05/04/20 09:02 Dose: 1.5 mls/min Documented by: [id number] Propofol (Diprivan) 1,000 mg in 100 mls @ 12.075 mls/hr IV .Q8H17M [facility]; Protocol Stop: 05/07/20 08:44 Last Titration: 05/05/20 07:34 Dose: 0 mcg/kg/min, 0 mls/hr Documented by: [id number] Admin: 05/05/20 02:35 Dose: 25 mcg/kg/min, 12.1 mls/hr Documented by: [id number] Cosigned by: [id number] Titration: 05/05/20 00:46 Dose: 25 mcg/kg/min, 12.1 mls/hr Documented by: [id number] Cosigned by: [id number] Titration: 05/04/20 19:01 Dose: 25 mcg/kg/min, 12.1 mls/hr Documented by: [id number] Cosigned by: [id number] Admin: 05/04/20 16:30 Dose: 25 mcg/kg/min, 12.1 mls/hr Documented by: [id number] Cosigned by: [id number] Titration: 05/04/20 16:30 Dose: 25 mcg/kg/min, 12.1 mls/hr Documented by: [id number] Cosigned by: [id number] Titration: 05/04/20 16:02 Dose: 25 mcg/kg/min, 12.1 mls/hr Documented by: [id number] Admin: 05/04/20 08:55 Dose: 20 mcg/kg/min, 9.7 mls/hr Documented by: [id number] Cosigned by: [id number] Furosemide 40 mg/ Syringe 4 mls @ 4 mls/min IV ONE ONE Stop: 05/04/20 10:01 Last Admin: 05/04/20 10:40 Dose: 4 mls/min Documented by: [id number] Potassium Phosphate 15 mmol/ (Sodium Chloride) 255 mls @ 88 mls/hr IV ONE ONE Stop: 05/04/20 13:23 Last Infusion: 05/04/20 14:20 Dose: 0 mls/hr Documented by: [id number] Admin: 05/04/20 11:18 Dose: 88 mls/hr Documented by: [id number] Norepinephrine Bitartrate (Levophed/D5w) 8 mg in 508 mls @ 0 mls/hr IV .Q0M [facility]; Protocol Stop: 06/03/20 14:44 Last Titration: 05/05/20 07:34 Dose: 0 mcg/kg/min, 0 mls/hr Documented by: [id number] Cosigned by: [id number] Admin: 05/04/20 19:55 Dose: 0.05 mcg/kg/min, 15.3 mls/hr Documented by: [id number] Cosigned by: [id number] Furosemide 40 mg/ Syringe 4 mls @ 4 mls/min IV ONE ONE Stop: 05/04/20 21:01 Last Admin: 05/04/20 21:01 Dose: 4 mls/min Documented by: [id number] Potassium Chloride (K Srini / Wtr) 20 meq in 100 mls @ 50 mls/hr IV Q2H JOSY Stop: 05/05/20 01:16 Last Infusion: 05/05/20 02:15 Dose: 0 mls/hr Documented by: [id number] Admin: 05/05/20 00:00 Dose: 50 mls/hr Documented by: [id number] Infusion: 05/04/20 23:24 Dose: 50 mls/hr Documented by: [id number] Admin: 05/04/20 21:24 Dose: 50 mls/hr Documented by: [id number] Furosemide 40 mg/ Syringe 4 mls @ 4 mls/min IV ONE ONE Stop: 05/05/20 07:16 Last Admin: 05/05/20 07:39 Dose: 4 mls/min Documented by: [id number] Ampicillin Sodium/Sulbactam Sodium 3,000 mg/ Sodium Chloride 108 mls @ 200 mls/hr IV Q6H [facility]; Protocol Stop: 05/08/20 11:59 Last Infusion: 05/08/20 07:20 Dose: 0 mls/hr Documented by: [id number] Admin: 05/08/20 06:11 Dose: 200 mls/hr Documented by: [id number] Infusion: 05/08/20 03:46 Dose: 0 mls/hr Documented by: [id number] Admin: 05/07/20 23:17 Dose: 200 mls/hr Documented by: [id number] Infusion: 05/07/20 19:07 Dose: 0 mls/hr Documented by: [id number] Admin: 05/07/20 18:04 Dose: 200 mls/hr Documented by: [id number] Infusion: 05/07/20 12:39 Dose: 0 mls/hr Documented by: [id number] Admin: 05/07/20 11:36 Dose: 200 mls/hr Documented by: [id number] Infusion: 05/07/20 07:00 Dose: 0 mls/hr Documented by: [id number] Admin: 05/07/20 05:31 Dose: 200 mls/hr Documented by: [id number] Infusion: 05/06/20 23:45 Dose: 0 mls/hr Documented by: [id number] Admin: 05/06/20 23:03 Dose: 200 mls/hr Documented by: [id number] Infusion: 05/06/20 19:00 Dose: 0 mls/hr Documented by: [id number] Admin: 05/06/20 17:13 Dose: 200 mls/hr Documented by: [id number] Infusion: 05/06/20 14:00 Dose: 0 mls/hr Documented by: [id number] Admin: 05/06/20 13:12 Dose: 200 mls/hr Documented by: [id number] Infusion: 05/06/20 06:44 Dose: 0 mls/hr Documented by: [id number] Admin: 05/06/20 05:20 Dose: 200 mls/hr Documented by: [id number] Infusion: 05/06/20 00:00 Dose: 0 mls/hr Documented by: [id number] Admin: 05/05/20 23:27 Dose: 200 mls/hr Documented by: [id number] Infusion: 05/05/20 18:28 Dose: 0 mls/hr Documented by: [id number] Admin: 05/05/20 17:53 Dose: 200 mls/hr Documented by: [id number] Infusion: 05/05/20 12:46 Dose: 0 mls/hr Documented by: [id number] Admin: 05/05/20 11:28 Dose: 200 mls/hr Documented by: [id number] Potassium Chloride (K Srini / Wtr) 10 meq in 100 mls @ 100 mls/hr IV Q1H [facility] Stop: 05/06/20 08:29 Last Infusion: 05/06/20 11:06 Dose: 0 mls/hr Documented by: [id number] Admin: 05/06/20 08:12 Dose: 100 mls/hr Documented by: [id number] Infusion: 05/06/20 07:22 Dose: 100 mls/hr Documented by: [id number] Admin: 05/06/20 06:22 Dose: 100 mls/hr Documented by: [id number] Potassium Phosphate 21 mmol/ (Sodium Chloride) 507 mls @ 145 mls/hr IV TODAY@0630 ONE Stop: 05/06/20 09:59 Last Infusion: 05/06/20 11:06 Dose: 0 mls/hr Documented by: [id number] Admin: 05/06/20 06:19 Dose: 145 mls/hr Documented by: [id number] Pantoprazole Sodium 40 mg/ (Syringe) 10 mls @ 5 mls/min IV DAILY@1100 JOSY Stop: 06/05/20 10:59 Last Admin: 05/08/20 12:39 Dose: 5 mls/min Documented by: [id number] Admin: 05/07/20 11:36 Dose: 5 mls/min Documented by: [id number] Admin: 05/06/20 13:12 Dose: 5 mls/min Documented by: [id number] Sodium Chloride (Nss) 500 mls @ 250 mls/hr IV .Q2H [facility] Stop: 05/08/20 19:29 Last Infusion: 05/08/20 18:40 Dose: 0 mls/hr Documented by: [id number] Admin: 05/08/20 17:36 Dose: 999 mls/hr Documented by: [id number] Insulin Aspart (Insulin Aspart 100 Units/Ml 3 Ml Pen) 0 units SC ACHS JOSY Stop: 06/01/20 07:29 Last Admin: 05/02/20 14:04 Dose: Not Given Documented by: [id number] Cosigned by: [id number] Insulin Aspart (Insulin Aspart 100 Units/Ml 3 Ml Pen) 0 units SC Q6 JOSY Stop: 06/01/20 13:59 Last Admin: 05/03/20 11:33 Dose: Not Given Documented by: [id number] Cosigned by: [id number] Admin: 05/03/20 05:34 Dose: Not Given Documented by: [id number] Cosigned by: [id number] Admin: 05/03/20 00:13 Dose: 2 units Documented by: [id number] Cosigned by: [id number] Admin: 05/02/20 18:23 Dose: 3 units Documented by: [id number] Cosigned by: [id number] Admin: 05/02/20 15:15 Dose: 1 units Documented by: [id number] Cosigned by: [id number] Insulin Aspart (Insulin Aspart 100 Units/Ml 3 Ml Pen) 0 units SC Q4 JOSY Stop: 05/04/20 13:01 Last Admin: 05/04/20 11:18 Dose: 9 units Documented by: [id number] Cosigned by: [id number] Admin: 05/04/20 09:08 Dose: 7 units Documented by: [id number] Cosigned by: [id number] Admin: 05/04/20 04:08 Dose: 4 units Documented by: [id number] Cosigned by: [id number] Admin: 05/03/20 23:48 Dose: 3 units Documented by: [id number] Cosigned by: [id number] Admin: 05/03/20 20:56 Dose: 3 units Documented by: [id number] Cosigned by: [id number] Admin: 05/03/20 16:02 Dose: Not Given Documented by: [id number] Cosigned by: [id number] Insulin Aspart (Insulin Aspart 100 Units/Ml 3 Ml Pen) 0 units SC Q4 [facility]; Protocol Stop: 05/05/20 21:01 Last Admin: 05/05/20 19:53 Dose: Not Given Documented by: [id number] Cosigned by: [id number] Admin: 05/05/20 16:01 Dose: Not Given Documented by: [id number] Cosigned by: [id number] Admin: 05/05/20 11:34 Dose: Not Given Documented by: [id number] Cosigned by: [id number] Admin: 05/05/20 07:41 Dose: 2 units Documented by: [id number] Cosigned by: [id number] Admin: 05/05/20 04:16 Dose: 7 units Documented by: [id number] Cosigned by: [id number] Admin: 05/05/20 00:18 Dose: 5 units Documented by: [id number] Cosigned by: [id number] Admin: 05/04/20 20:31 Dose: 6 units Documented by: [id number] Cosigned by: [id number] Admin: 05/04/20 16:30 Dose: 7 units Documented by: [id number] Cosigned by: [id number] Insulin Aspart (Insulin Aspart 100 Units/Ml 3 Ml Pen) 0 units SC Q4 [facility]; Protocol Stop: 05/06/20 09:01 Last Admin: 05/06/20 08:10 Dose: Not Given Documented by: [id number] Cosigned by: [id number] Admin: 05/06/20 03:04 Dose: Not Given Documented by: [id number] Cosigned by: [id number] Admin: 05/06/20 00:08 Dose: Not Given Documented by: [id number] Cosigned by: [id number] Insulin Aspart (Insulin Aspart 100 Units/Ml 3 Ml Pen) 0 units SC Q6 [facility]; Protocol Stop: 06/05/20 11:59 Last Admin: 05/08/20 06:10 Dose: 3 units Documented by: [id number] Cosigned by: [id number] Admin: 05/07/20 23:21 Dose: 2 units Documented by: [id number] Cosigned by: [id number] Admin: 05/07/20 18:06 Dose: Not Given Documented by: [id number] Cosigned by: [id number] Admin: 05/07/20 11:38 Dose: Not Given Documented by: [id number] Cosigned by: [id number] Admin: 05/07/20 05:32 Dose: Not Given Documented by: [id number] Cosigned by: [id number] Admin: 05/07/20 00:20 Dose: Not Given Documented by: [id number] Cosigned by: [id number] Admin: 05/06/20 18:07 Dose: Not Given Documented by: [id number] Cosigned by: [id number] Admin: 05/06/20 13:14 Dose: Not Given Documented by: [id number] Cosigned by: [id number] Insulin Glargine (Insulin Glargine Solostar 100 Units/Ml 3 Ml Pen) 12 units SC 1400 ONE Stop: 05/02/20 14:01 Last Admin: 05/02/20 14:06 Dose: 12 units Documented by: [id number] Cosigned by: [id number] Insulin Glargine (Insulin Glargine Solostar 100 Units/Ml 3 Ml Pen) 0 units SC 2100 ONE; Protocol Stop: 05/02/20 21:01 Last Admin: 05/02/20 21:32 Dose: 12 units Documented by: [id number] Cosigned by: [id number] Insulin Glargine (Insulin Glargine Solostar 100 Units/Ml 3 Ml Pen) 0 units SC BID JOS[facility]; Protocol Stop: 06/02/20 08:59 Last Admin: 05/06/20 08:11 Dose: 10 units Documented by: [id number] Cosigned by: [id number] Admin: 05/05/20 19:53 Dose: Not Given Documented by: [id number] Admin: 05/05/20 07:41 Dose: 10 units Documented by: [id number] Cosigned by: [id number] Admin: 05/04/20 21:02 Dose: 10 units Documented by: [id number] Cosigned by: [id number] Admin: 05/04/20 09:03 Dose: 12 units Documented by: [id number] Cosigned by: [id number] Admin: 05/03/20 20:55 Dose: 10 units Documented by: [id number] Cosigned by: [id number] Admin: 05/03/20 08:00 Dose: 10 units Documented by: [id number] Cosigned by: [id number] Insulin Human Regular (Novolin-R Bolus From Bag) 3 units IV ONE ONE Stop: 05/02/20 05:01 Last Admin: 05/02/20 05:35 Dose: Not Given Documented by: [id number] Ioversol (Optiray 320 125ml) 120 ml IV ONCE ONE Stop: 05/02/20 03:16 Last Admin: 05/02/20 03:15 Dose: 120 ml Documented by: [id number] Metoprolol Tartrate (Metoprolol Tartrate 1 Mg/Ml Vial) 5 mg IV Q6 PRN PRN Reason: SBP >160, HR > 110 Stop: 06/05/20 11:59 Last Admin: 05/06/20 08:49 Dose: 5 mg Documented by: [id number] Metoprolol Tartrate (Metoprolol Tartrate 1 Mg/Ml Vial) 2.5 mg IV Q6 JOSY Stop: 06/05/20 11:59 Last Admin: 05/07/20 05:31 Dose: 2.5 mg Documented by: [id number] Admin: 05/06/20 23:10 Dose: 2.5 mg Documented by: [id number] Admin: 05/06/20 17:11 Dose: 2.5 mg Documented by: [id number] Admin: 05/06/20 13:12 Dose: 2.5 mg Documented by: [id number] Midazolam HCl (Midazolam Hcl 5 Mg/Ml 1 Ml Vial) 2 mg IV NOW STA Stop: 05/02/20 01:44 Last Admin: 05/02/20 01:45 Dose: 2 mg Documented by: [id number] Midazolam HCl (Midazolam Bolus From Bag) 2 mg IV Q60M PRN PRN Reason: Sedation Stop: 06/01/20 05:11 Last Admin: 05/03/20 03:44 Dose: 2 mg Documented by: [id number] Admin: 05/02/20 22:21 Dose: 2 mg Documented by: [id number] Miscellaneous (Rapid Sequence Induction Bag) Confirm Administered Dose 1 ea .ROUTE .STK-MED ONE Stop: 05/02/20 00:30 Last Admin: 05/02/20 00:49 Dose: 1 ea Documented by: [id number] Margarita (Stat Iv Infusion Titration Per Protocol) 1 ea N/A NOW STA Stop: 05/02/20 00:41 Last Admin: 05/02/20 00:49 Dose: 1 ea Documented by: [id number] Margarita (Stop Order) 1 ea N/A 0700 ONE Stop: 05/04/20 07:01 Last Admin: 05/04/20 06:58 Dose: 1 ea Documented by: [id number] Miscellaneous (Stop Order) 1 ea N/A TODAY@0700,1200,1900 ONE Stop: 05/10/20 07:01 Last Admin: 05/10/20 07:02 Dose: 1 ea Documented by: [id number] Misjoseaneous (Pending Order) 1 ea N/A DAILY@1100,1600,2300 [facility] Stop: 06/09/20 10:59 Last Admin: 05/10/20 12:02 Dose: Not Given Documented by: [id number] Miscellaneous (Pending Order) 1 ea N/A DAILY@0000,0800,1600 [facility] Stop: 06/09/20 15:59 Last Admin: 05/11/20 08:00 Dose: 1 ea Documented by: [id number] Admin: 05/11/20 00:06 Dose: 1 ea Documented by: [id number] Admin: 05/10/20 15:53 Dose: 1 ea Documented by: [id number] Miscellaneous (Stop Order) 1 ea N/A TODAY@0400,1200,2000 [facility] Stop: 06/09/20 19:59 Last Admin: 05/11/20 16:03 Dose: Not Given Documented by: [id number] Admin: 05/11/20 04:00 Dose: 1 ea Documented by: [id number] Admin: 05/10/20 20:11 Dose: 1 ea Documented by: [id number] Miscellaneous Information (Piperacill/Tazobac Consult Active) 1 ea N/A UD PRN PRN Reason: Consult Stop: 06/01/20 01:03 Last Admin: 05/02/20 01:22 Dose: 1 ea Documented by: [id number] Miscellaneous Information (Vancomycin Consult Active) 1 ea N/A UD PRN PRN Reason: Consult Stop: 06/01/20 01:03 Last Admin: 05/02/20 01:22 Dose: 1 ea Documented by: [id number] Loteprednol 1 ea OP DAILY [facility] Stop: 06/02/20 08:59 Last Admin: 05/08/20 08:54 Dose: 1 drops Documented by: [id number] Admin: 05/07/20 08:25 Dose: 1 drops Documented by: [id number] Admin: 05/06/20 08:12 Dose: 1 drops Documented by: [id number] Admin: 05/05/20 07:40 Dose: 1 drops Documented by: [id number] Admin: 05/04/20 09:02 Dose: 1 drops Documented by: [id number] Admin: 05/03/20 07:59 Dose: 1 drops Documented by: [id number] Norepinephrine Bitartrate (Norepinephrine Bitartrate 1 Mg/Ml 4 Ml Vial) Confirm Administered Dose 4 mg IV .STK-MED ONE Stop: 05/02/20 04:17 Last Admin: 05/02/20 05:27 Dose: Not Given Documented by: [id number] Phenytoin (Phenytoin Susp 125 Mg/5 Ml) 400 mg PO NOW ONE Stop: 05/09/20 12:01 Last Admin: 05/09/20 12:13 Dose: 400 mg Documented by: [id number] Phenytoin (Phenytoin Susp 125 Mg/5 Ml) 330 mg PO NOW ONE Stop: 05/09/20 13:01 Last Admin: 05/09/20 13:45 Dose: 330 mg Documented by: [id number] Phenytoin (Phenytoin Susp 125 Mg/5 Ml) 100 mg PO TID JOSY Stop: 05/10/20 14:01 Last Admin: 05/10/20 14:14 Dose: 100 mg Documented by: [id number] Admin: 05/10/20 09:37 Dose: 100 mg Documented by: [id number] Admin: 05/09/20 21:05 Dose: 100 mg Documented by: [id number] Phenytoin (Phenytoin Susp 125 Mg/5 Ml) 100 mg PO Q8 JOSY Stop: 06/09/20 21:59 Last Admin: 05/11/20 05:42 Dose: 100 mg Documented by: [id number] Admin: 05/10/20 22:06 Dose: 100 mg Documented by: [id number] Potassium Chloride (Potassium Chloride 20 Meq/15 Ml Udc) 40 meq PO NOW STA Stop: 05/08/20 19:08 Last Admin: 05/08/20 20:07 Dose: 40 meq Documented by: [id number] Prednisone (Prednisone 20 Mg Tab) 40 mg PO DAILY JOSY Stop: 05/08/20 08:59 Last Admin: 05/07/20 08:25 Dose: 40 mg Documented by: [id number] Admin: 05/06/20 14:42 Dose: 40 mg Documented by: [id number] Propofol (Propofol Iv Emulsion 10 Mg/Ml 100 Ml Vial) Confirm Administered Dose 1,000 mg IV .STK-MED ONE Stop: 05/02/20 00:38 Last Admin: 05/02/20 01:08 Dose: Not Given Documented by: [id number] Propofol (Propofol Bolus From Bag) 20 mg IV Q5M PRN PRN Reason: Sedation Stop: 05/05/20 00:39 Last Admin: 05/02/20 01:26 Dose: 20 mg Documented by: [id number] Cosigned by: [id number] Admin: 05/02/20 01:02 Dose: 20 mg Documented by: [id number] Cosigned by: [id number] Propofol (Propofol Bolus From Bag) 20 mg IV Q5M PRN PRN Reason: Sedation Stop: 05/07/20 08:40 Last Admin: 05/04/20 16:03 Dose: 20 mg Documented by: [id number] Cosigned by: [id number] Admin: 05/04/20 09:52 Dose: 20 mg Documented by: [id number] Cosigned by: [id number] Admin: 05/04/20 09:01 Dose: 20 mg Documented by: [id number] Cosigned by: [id number] Topiramate (Topiramate 50 Mg Tab) 50 mg PO ONE ONE Stop: 05/06/20 09:01 Last Admin: 05/06/20 14:57 Dose: 50 mg Documented by: [id number] Description This is a 21 electrode EEG with a single channel dedicated to limited EKG. The electrodes were placed in accordance with the International 10-20 system. The background rhythm consists of a poorly organized 10 Hz background alpha rhythm and admixed 5 to 6 Hz polymorphic theta activity. Photic stimulation is unremarkable. Hyperventilation is not performed. There is intermittent movement artifact seen throughout the study. There is no focal or lateralized slowing. No epileptiform abnormalities observed. Interpretation This is an abnormal awake/drowsy EEG revealing findings suggestive of a mild to moderate nonspecific encephalopathy. [facility] EEG Procedure Codes Indication for Procedure (1) Seizure: Neurology Neurology: [id number] EEG include record awake & drowsy
--- NOTE | 2020-05-11 18:23 | Hospitalist Progress Note ---
Date of Service May 11, 2020 Assessment & Plan (1) Acute respiratory failure with hypoxia and hypercapnia: multifactorial with likely chronic CO2 retention and then aspiration pneumonia compounding the problem with hypoxia extubated in am 05/05 had bronchoscopy on 05/03 with impacted mucous on right side persistent aspiration, failed video swallow 05/08, speech is following, in late afternoon after iv vimpat the pt had an apneic episode with a 10 second asystolic pause, the was groggy and wound continue with intermittent apneic episodes, was transfered to ICU for better respiratory support and bipap. ABg shows co2 retention with respiratory acidosis in am 05/09 he has recovered and discussion with neurology feels that he is having an untoward affect from vimpat and has constructed a plan transition to dilantin and reduce gabapentin will check random dilantin levels, level 05/10 slightly low at 9.1 family would hope to continue to support, continue with TF and re asses next week, family is considering peg and rehab GI prophylaxis (2) Asystole: Pt had asystole after vimpat iv, did have nstemi earlier with acute illness, checked troponin after event last pm, was normal, restart metoprolol with cardiology oversight. feel issues are realted to vimpat, neurology recommended change to dilantin (3) Dysphagia: failed bedside swallowing eval with coughing and hypoxia, core safe to administer medications that are not convertible to iv Video swallow for 05/08 SUMMARY/RECOMMENDATIONS: This patient presents with mild oral-stage dysphagia and severe-profound pharyngeal-stage dysphagia. Given that the patient's reported aspiration of water and dysphagia at home [facility], it is hard to believe this dysphagia is exclusively acute onset. The following is recommended: 1. Continue NPO. Ok for ice chips with supervision in order to maintain moisture of his mucous membranes and minimize build up of hardening secretions. 2. IF the patient is going to pursue aggressive therapeutic intervention for recovery of swallowing function then PEG-tube placement will need to be considered. He will need a consistent means of getting nutrition, hydration and medication in order to be able to participate in treatment. 3. IF the patient is not going to pursue aggressive dysphagia therapy then consent for permissive aspiration would need to be obtained. There is no "safe" diet for this patient and he is at risk for airway obstructions with any consistency of solid. 4. Consider Palliative Care Consultation to establish goals of care for this patient. I spoke to and she is initially resistant to PEG and/or palliative wants to support and re evaluate next week, now warming to PEG idea, they are considering acute rehab. (4) Aspiration pneumonia: Confirmed on CT angiography, which was negative for PE, but did show debris in right mainstem and down into the right lung. bronchoscopy 05/03 with impacted mucous right side continue unasyn iv as po intake is questionable with recurrent aspiration CXr shows persistent RLL changes (5) COPD (chronic obstructive pulmonary disease): coarse respirations persist, respiratory acidosis is seen, on Bipap (6) Diabetes mellitus: basal bolus, now more predictable on tube feeds monitor for hypoglycemia (7) Seizure: Change Vimpat to Dilantin continue Topamax 50 mg bid (could increase to 100) and gabapentin reduced doses no seizure activity on earlier EEG 05/02 needs neurology follow up, pts prefers [place] [facility], but has seen local neurology for med changes Repeat EEG 05/11 Pt has been changed from vimpat to dilantin due to above Neuro recs for following dilantin levels until they are WNL If prolonged EEG requested by Dr. Pierre, will need transfer to [facility] as we cannot do that here Admission and Anticipated Discharge Date Admission Date: May 02, 2020 Subjective Pt has been intermittently confused today. Tolerating NC this AM. Denies pain. Review of Systems Review of Systems: Unable to obtain due to pt's mental status Physical Exam Constitutional: + ill appearing and + thin Eyes: normal visual silver by confrontation and + anicteric sclerae Neck: normal visual inspection and trachea midline Respiratory: no respiratory distress coarse lung sounds Cardiovascular: Rate/Rhythm: regular rate and regular rhythm Gastrointestinal (Abdomen): Inspection/Auscultation: abdomen not distended Percussion/Palpation: abdomen soft; abdomen nontender Musculoskeletal: Head/Neck/Chest: normocephalic and head atraumatic negative for edema, peripheral pulses intact Skin: no rashes, warm and dry Neurologic: awake Psychiatric: Orientation: alert, oriented to person and cooperative (to basic commands) Results & Data Results & Data ([facility]) Vital Signs (Past 12 Hours) Vital Signs Pulse Resp Pulse Ox 05/11/20 10:34 107 H 24 96 05/11/20 07:35 85 PG Care Time/CCT Total # of Minutes Spent Total Time Spent with Patient: Total time spent is greater than 50% in coordination of care (as documented) at patient's floor/unit and/or counseling patient: Coding Level of Care Code 04793 Subseq Hosp Care Lvl 2 Diagnoses Acute respiratory failure with hypoxia and hypercapnia J96.01; J96.02 Asystole I46.9 Dysphagia R13.10 Aspiration pneumonia J69.0 COPD (chronic obstructive pulmonary disease) J44.9 COPD type: unspecified COPD Diabetes mellitus E11.9 Seizure R56.9 (1) COPD (chronic obstructive pulmonary disease) COPD type: unspecified COPD Qualified Code(s): J44.9 - Chronic obstructive pulmonary disease, unspecified
[2020-05-12] MEDS: INSULIN HUMAN REGULAR SC SCH ×4 (00:37→18:01)
[2020-05-12] MEDS: guaiFENesin SUGAR FREE 200 MG/10 ML UDC PO SCH ×2 (02:05→03:49)
[2020-05-12] MEDS ORDERED: RAPID SEQUENCE INDUCTION BAG ONE (04:36)
[2020-05-12] MEDS ORDERED: PROPOFOL IV EMULSION 10 MG/ML 100 ML VIAL IV ONE (04:37)
[2020-05-12 04:49] LABS: iSTAT Allen Test Pass; iSTAT Arterial Blood Gas HCO3 33 meg/L (19-24); iSTAT Arterial Blood Gas pCO2 68 mmHg (35-46); iSTAT Arterial Blood Gas pO2 55 mmHg (80-95); iSTAT Carbon Dioxide 35 mmol/L (24-31); iSTAT FiO2 100 %; iSTAT Site R Radial
[2020-05-12] MEDS ORDERED: PHENYLEPHRINE HCL 10 MG/ML VIAL ONE (05:00)
[2020-05-12] MEDS: Standard Conc 16mcg/mL; 8mg in 500mL IV SCH ×2 (05:15→14:16)
[2020-05-12] MEDS ORDERED: STAT IV Infusion **Titration per Protocol STA ×3 (05:22→10:13)
[2020-05-12] MEDS ORDERED: fentaNYL DRIP 1,250 MCG/250 ML BAG IV SCH (05:30)
[2020-05-12] MEDS ORDERED: NOREPINEPHRINE/D5W 8 MG/508 ML BAG IV SCH (05:30)
--- NOTE | 2020-05-12 05:49 | Procedure Note ---
Procedure Note Date of Service May 12, 2020 Note INTUBATION PROCEDURE NOTE: Provider: ARLETTE Das Attending: Dr. Tin Garcia A time-out was completed verifying correct patient, procedure, site, positioning. Patient was evaluated and required intubation for acute on chronic hypoxic hypercapnic respiratory failure with oxygen saturation of 78% on 100% FiO2 on BiPAP. Sedative agent used: Propofol Paralysis agent used: None Emergent consent was implied given patients rapidly declining clinical status and need for airway protection. The patient was prepared in the appropriate fashion. Sedation was achieved utilizing propofol, per Dr. Hernandes administration. The patient was ventilated with BiPAP prior to intubation. A 7.5 [place] endotracheal tube was placed under video laryngoscope with CMAC to 24 cm at the lip with first attempt. The stylette was removed and balloon was inflated with 10mL of air. Appropriate Colorimetric change was appreciated. Bilateral breath sounds were heard without air sounds in the abdomen. Dr. Hernandes was present for the entire procedure. Post Intubation Chest X-ray confirms placement without pneumothorax. Endotracheal tube was advanced 2 cm following chest x-ray. Of note, patient did become hypotensive after administration of sedation, and required phenylephrine throughout the procedure. There were no other complications during the case and the patient overall tolerated the procedure well. Coding CPT Codes Resuscitation - Resuscitation: 36700 Endotracheal Intubation, emergency ([id number]) [facility] [place] Procedure Codes (Charges) Resuscitation Resuscitation: 94456 Endotracheal Intubation, emergency
--- NOTE | 2020-05-12 05:50 | Critical Care Progress Note ---
Date of Service May 12, 2020 Assessment & Plan Admission and Anticipated Discharge Date Admission Date: May 02, 2020 Review of Systems Review of Systems: Unobtainable due to cognitive status Physical Exam Constitutional: + frail appearing and + lethargic Eyes: PERRL, conjunctivae normal, anicteric sclerae Results & Data Results & Data ([facility]) Vital Signs (Past 12 Hours) Vital Signs Temp Pulse Pulse Resp BP BP BP 05/12/20 05:00 90 20 05/12/20 04:20 99 H 26 H 05/12/20 03:26 79 18 99/46 L 05/12/20 03:07 87 20 05/12/20 00:38 80 20 05/11/20 23:31 36.7 C 72 20 117/70 05/11/20 20:00 89 18 109/68 05/11/20 19:30 85 21 Pulse Ox 05/12/20 05:00 97 05/12/20 04:20 80 L 05/12/20 03:26 95 05/12/20 03:07 94 05/12/20 00:38 95 05/11/20 23:31 97 05/11/20 20:00 96 05/11/20 19:30 96 Coding
[2020-05-12] MEDS ORDERED: SODIUM CHLORIDE 0.9% 1000ML 1,000 ML IV ONE (06:01)
[2020-05-12] MEDS: PHENYTOIN 100 MG in SYRINGE 0 ML IV SCH ×3 (06:02→18:01)
[2020-05-12] MEDS: SODIUM CHLORIDE 0.9% 10ML FLUSH IV SCH ×3 (06:03→18:02)
[2020-05-12 06:14] LABS: Basophils # (auto) 0.02 K/uL (0-0.2); Basophils % (auto) 0.2 %; Eosinophils # (auto) 0.19 K/uL (0-0.5); Eosinophils % (auto) 1.7 %; Hematocrit (blood only) 49.3 % (42-52); Hemoglobin 15.1 g/dL (14.0-18.0); Immature Granulocytes # (auto) 0.02 K/uL (0.00-0.02); Immature Granulocytes % (auto) 0.2 %; Lymphocytes # (auto) 1.15 K/uL (1.2-3.4); Lymphocytes % (auto) 10.3 %; Mean Corpuscular Hemoglobin 31.7 pg (25-34); Mean Corpuscular Volume 103.6 fL (80-100); Mean Platelet Volume 11.1 fL (7.4-10.4); Monocytes # (auto) 1.03 K/uL (0.11-0.59); Monocytes % (auto) 9.2 %; Neutrophils # (auto) 8.79 K/uL (1.4-6.5); Neutrophils % (auto) 78.4 %; Platelet Count 336 K/uL (130-400); RDW Coefficient of Variation 14.7 % (11.5-14.5); RDW Standard Deviation 56.2 fL (36.4-46.3); Red Blood Count 4.76 M/uL (4.7-6.1)
[2020-05-12 06:20] LABS: iSTAT Allen Test Pass; iSTAT Arterial Blood Gas HCO3 29 meg/L (19-24); iSTAT Arterial Blood Gas pCO2 53 mmHg (35-46); iSTAT Arterial Blood Gas pH 7.34 (7.35-7.45); iSTAT Arterial Blood Gas pO2 57 mmHg (80-95); iSTAT Carbon Dioxide 30 mmol/L (24-31); iSTAT FiO2 100 %; iSTAT Site L Radial
[2020-05-12 06:28] LABS: Mean Corpuscular Hgb Conc 30.6 g/dL (32-36)
--- NOTE | 2020-05-12 06:46 | XRay Report ---
XR chest 1V portable HISTORY: 70 years-old Male sob acute shortness of breath COMPARISON: Chest radiograph 05/08/2020 TECHNIQUE: Portable AP view of the chest FINDINGS: Feeding tube distal tip terminates in the expected location of the gastric fundus. Emphysema with chr onic interstitial coarsening. Cardiomediastinal and hilar silhouettes are unchanged. Small right pleu ral effusion with unchanged right lung base airspace consolidation. Linear subsegmental atelectasis/s carring of the left lung base. No pneumothorax. Bones appear grossly intact. IMPRESSION: 1. Stable exam with persistent small right pleural effusion with right lung base consolidation. 2. Emphysema with chronic interstitial coarsening. 3. Distal tip of feeding tube projects in the region of the gastric fundus. ACT 112: Negative or not required by law. The above report was generated using voice recognition software. It may contain grammatical, syntax o r spelling errors. Electronically signed by: Joesph Hemphill M.D. 05/12/2020 6:45 AM
[2020-05-12 06:47] LABS: Alanine Aminotransferase 33 U/L (12-78); Albumin Level 2.7 gm/dl (3.4-5.0); Anion Gap 0 (3-11); Aspartate Aminotransferase 4 U/L (15-37); BUN Creatinine Ratio 33.7 (10-20); Bilirubin Direct < 0.1 mg/dl (0-0.2); Blood Urea Nitrogen 22 mg/dl (7-18); Calcium 8.8 mg/dl (8.5-10.1); Carbon Dioxide 34 mmol/L (21-32); Chloride 110 mmol/L (98-107); Creatinine Clr Calc Pharmacy 103.4 ml/min; Est GFR (African American) 113.5; Glucose 127 mg/dl (70-99); Potassium 3.8 mmol/L (3.5-5.1); Sodium 144 mmol/L (136-145)
[2020-05-12 06:49] LABS: Alkaline Phosphatase 53 U/L (45-117); Bilirubin,Total 0.3 mg/dl (0.2-1); Total Protein 6.4 gm/dl (6.4-8.2)
[2020-05-12] MEDS ORDERED: LORazepam 2 MG/4 ML VIAL IV STA (06:54)
[2020-05-12] MEDS ORDERED: LORazepam 2 MG/4 ML VIAL ONE (06:55)
--- NOTE | 2020-05-12 06:58 | XRay Report ---
XR chest 1V portable CLINICAL HISTORY: Respiratory failure COMPARISON STUDY: 05/12/2020 FINDINGS: A nasogastric tube is again visualized. The tube may be looped within the pharynx. There is been interval placement of an endotracheal tube approximately 4 cm above the ankit. The ankit is d ifficult to define. There is right lung volume loss and progressive right basilar atelectasis/consoli dation. There is elevation right hemidiaphragm. There is underlying emphysema. There is right lung in terstitial thickening.[ IMPRESSION: 1. Interval placement of an endotracheal tube approximately 4 cm above the ankit. The ankit is diff icult to define. 2. Progressive right lung volume loss with progressive right lower lung zone atelectasis/consolidatio n. 3. Elevation of the right hemidiaphragm ACT 112: Negative or not required by law. Electronically signed by: Matty Cadena M.D. 05/12/2020 6:56 AM
[2020-05-12] MEDS ORDERED: LACOSAMIDE 200 MG in SODIUM CHLORIDE 0.9% 50 ML IV SCH (07:00)
[2020-05-12 07:04] LABS: Troponin I 0.017 ng/ml (0-0.045)
--- NOTE | 2020-05-12 08:00 | XRay Report ---
XR chest 1V portable CLINICAL HISTORY: Central line placement COMPARISON STUDY: 05/12/2020 FINDINGS: The endotracheal tube and nasogastric tube are again visualized. There has been interval pl acement of a left subclavian central venous catheter. The tip projects over the superior vena cava. N o pneumothorax is visualized. There is right lower lung zone atelectasis/consolidation. An associated pleural effusion cannot be excluded. There is pulmonary emphysema. IMPRESSION: Interval placement of a left subclavian central venous catheter. The tip projects at the superior vena cava. There is no pneumothorax. ACT 112: Negative or not required by law. Electronically signed by: Matty Cadena M.D. 05/12/2020 7:59 AM
--- NOTE | 2020-05-12 08:03 | XRay Report ---
XR KUB/Abdomen 1 view CLINICAL HISTORY: X-ray for orogastric tube placement COMPARISON STUDY: 05/10/2020 FINDINGS: There is right lower lung zone atelectasis/consolidation. There is an abrupt cut off of the right bronchus intermedius. There is an enteric tube within the stomach. A left subclavian central v enous catheter is visualized with its tip projecting over the superior vena cava. IMPRESSION: 1. The orogastric tube is positioned with its tip in the stomach 2. Right lower lung zone atelectasis/consolidation. 3. Absence of the normal bronchus intermedius air shadow. An obstructing lesion cannot be excluded. ACT 112: Negative or not required by law. Electronically signed by: Matty Cadena M.D. 05/12/2020 8:01 AM
--- NOTE | 2020-05-12 08:38 | Procedure Note ---
Procedure Note Date of Service May 12, 2020 CENTRAL LINE PROCEDURE NOTE: Procedure: Central Line Placement Provider: James Garcia MD Indication: Central Drug Administration, Poor Venous Access, Multiple Lab Draws Necessary, etc. Anesthesia: Lidocaine 1% 5 mL Site: Left subclavian []Consent was signed and placed on the chart prior to procedure. Indication, risks, and benefits were explained at length. A time-out was completed verifying correct patient, procedure, site, positioning, and implants(s) or special equipment if applicable. The supraclavicular and infraclavicular areas were cleaned with ChloraPrep which was allowed to fully dry. The superficial tissue was anesthetized using 4 mL of 1% lidocaine without epinephrine under direct visualization with the ultrasound. After adequate anesthetization was achieved, the left subclavian vein was cannulated using an introducer needle on a syringe. Good venous blood return was maintained prior to removal of syringe from introducer needle. Using Seldinger Technique, a guide wire was advanced through the introducer needle without resistance. A small incision was made in penetrating fashion at the guide wire insertion site utilizing an 11 blade scalpel. The dilator was advanced to the vessel without resistance. The dilator was exchanged for the triple lumen catheter which was advanced into the vessel without resistance. The guide wire was removed intact from the catheter without issue. Claves were placed on each catheter tip with confirmation of good blood flow from each lumen. Each port was easily flushed with sterile saline. The catheter was placed at the hub and sutured in place. BioPatch was applied to the catheter and a sterile Tegaderm dressing was applied over the catheter with careful attention to sterility. Patient tolerated procedure well. No immediate complications were met. Post procedure x-ray was completed, placement was appropriate and no pneumothorax was noted. Coding CPT Codes Tubes, Drains, and Vasc Access - Tubes, Drains, and Vasc Access: [id number] Place ca theter in vein superior or inferior vena cava ([id number]) [facility] [place] C[place] (Charges) Tubes, Drains, and Vasc Access Procedure 1: Tubes, Drains, and Vasc Access: [id number] Place catheter in vein superior or inferior vena cava
--- NOTE | 2020-05-12 08:40 | Procedure Note ---
Procedure Note Date of Service May 12, 2020 ARTERIAL LINE PROCEDURE NOTE: Procedure: Arterial Line Placement Provider: James Garcia MD Indication: Monitoring on Pressors Procedure was emergent. Patient intubated and unable to provide consent. No family immediately available A time-out was completed verifying correct patient, procedure, site, positioning, and implant(s) or special equipment if applicable. Allens test was performed to ensure adequate perfusion. Patients right wrist was prepped and draped in the usual sterile fashion. Ultrasound guidance was used to aid needle placement. A 20g Arrow arterial line was introduced into the [] artery. Catheter was threaded, and the needle was removed with appropriate blood return. Good waveform was observed. The patient tolerated the procedure well. []Confirmation of placement with ultrasound. []Images saved to medical record. Blood Loss: Minimal Complications: None Procedural Ultrasound Guidance: Procedure Date: 05/12/2020 Indication: Line placement Artery Identified: YES Complications: NONE Patient tolerated procedure: WELL Coding CPT Codes Tubes, Drains, and Vasc Access - Tubes, Drains, and Vasc Access: [id number] Place Catheter In Artery ([id number]) [facility] [place] (Charges) Tubes, Drains, and Vasc Access Procedure 1: Tubes, Drains, and Vasc Access: [id number] Place Catheter In Artery
[2020-05-12] MEDS: ENOXAPARIN INJ 40 MG/0.4 ML SYR SQ SCH (09:16)
[2020-05-12] MEDS: BRINZOLAMIDE (AZOPT) OPS 10 ML BTL OPR SCH ×3 (09:16→20:29)
[2020-05-12] MEDS: INSULIN GLARGINE SOLOSTAR 100 UNITS/ML 3 ML PEN SC SCH ×2 (09:17→20:30)
[2020-05-12] MEDS: GABAPENTIN 250 MG/5 ML 470 ML BTL NG SCH ×2 (09:19→20:27)
--- NOTE | 2020-05-12 09:50 | Neurology Progress Note ---
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 Patient remains significantly encephalopathic. No evidence of subclinical seizure activity on yesterday's EEG. Phenytoin level is running slightly subtherapeutic. I will increase patient's phenytoin dosage to 100 mg IV every 6 hours. Check repeat phenytoin level in the morning. Continue gabapentin 300 mg twice daily via NG tube. Topiramate has been discontinued for the time being. Continue close neurologic observation. Consider transfer to [facility] for continuous EEG monitoring if clinical status fails to improve. Admission and Anticipated Discharge Date Admission Date: May 02, 2020 Subjective Follow-up for seizures The patient is a 70-year-old male with a history of seizure disorder, suspected temporal lobe epilepsy, admitted with acute respiratory failure and pneumonia. Have been taking Vimpat, topiramate, and gabapentin prior to this admission. Vimpat was discontinued in the context of an episode of asystole. Dilantin has been started. His gabapentin dosage was reduced in the context of myoclonus. The Dilantin has been switched to IV. An EEG completed yesterday revealed a mild to moderate nonspecific encephalopathy, no epileptiform abnormalities. The patient was reintubated last night for airway protection. A phenytoin level this morning was 9.1. The patient has been exhibiting intermittent twitching of the facial musculature but no overt seizure activity has been reported. Review of Systems Review of Systems: Unobtainable due to endotracheal tube Results & Data ([facility]) Vital Signs (Past 12 Hours) Vital Signs Temp Pulse Pulse Resp BP BP BP 05/12/20 07:05 92 H 84/55 L 05/12/20 07:03 93 H 78/49 L 05/12/20 07:01 94 H 79/52 L 05/12/20 07:00 96 H 05/12/20 06:59 89 98/63 L 05/12/20 06:57 93 H 99/66 L 05/12/20 06:55 93 H 100/64 05/12/20 06:53 92 H 99/65 L 05/12/20 06:51 94 H 87/56 L 05/12/20 06:49 101 H 78/53 L 05/12/20 06:47 96 H 77/50 L 05/12/20 06:46 93 H 05/12/20 06:45 96 H 69/49 L 05/12/20 06:43 92 H 81/52 L 05/12/20 06:41 93 H 82/53 L 05/12/20 06:39 93 H 92/62 L 05/12/20 06:37 95 H 87/57 L 05/12/20 06:35 94 H 99/55 L 05/12/20 06:33 92 H 108/65 05/12/20 06:31 91 H 22 125/71 05/12/20 06:30 93 H 22 05/12/20 06:29 100 H 19 105/77 05/12/20 06:27 99 H 16 131/68 05/12/20 06:25 103 H 16 106/72 05/12/20 06:23 100 H 28 H 112/69 05/12/20 06:21 94 H 22 108/65 05/12/20 06:19 101 H 22 105/64 05/12/20 06:17 111 H 21 89/68 L 05/12/20 06:16 95 H 22 05/12/20 06:15 92 H 22 93/56 L 05/12/20 06:13 93 H 22 99/58 L 05/12/20 06:11 88 25 H 101/59 L 05/12/20 06:10 22 05/12/20 06:09 92 H 22 102/62 05/12/20 06:07 102 H 20 105/66 05/12/20 06:05 85 22 113/64 05/12/20 06:02 79 20 120/71 05/12/20 06:01 83 19 110/72 05/12/20 06:00 79 19 05/12/20 05:58 80 19 125/76 05/12/20 05:54 87 20 122/79 05/12/20 05:52 85 28 H 134/75 05/12/20 05:50 87 20 129/77 05/12/20 05:48 88 27 H 135/82 05/12/20 05:46 88 20 131/78 05/12/20 05:44 88 18 125/73 05/12/20 05:42 91 H 20 109/65 05/12/20 05:40 92 H 20 102/66 05/12/20 05:38 87 20 125/73 05/12/20 05:36 85 20 122/69 05/12/20 05:34 87 21 121/68 05/12/20 05:32 87 20 109/67 05/12/20 05:30 92 H 24 98/74 L 05/12/20 05:28 89 20 118/71 05/12/20 05:26 92 H 22 121/72 05/12/20 05:24 94 H 20 114/74 05/12/20 05:22 96 H 21 107/70 05/12/20 05:20 90 18 100/62 05/12/20 05:18 101 H 18 84/53 L 05/12/20 05:16 97 H 24 79/52 L 05/12/20 05:15 96 H 24 05/12/20 05:14 92 H 23 69/41 L 05/12/20 05:12 92 H 20 63/40 L 05/12/20 05:10 96 H 27 H 64/40 L 05/12/20 05:09 97 H 23 62/41 L 05/12/20 05:07 87 21 64/37 L 05/12/20 05:05 90 17 36/23 L 05/12/20 05:04 96 H 27 H 42/21 L 05/12/20 05:02 91 H 15 05/12/20 05:01 97 H 20 54/37 L 05/12/20 05:00 90 20 05/12/20 04:59 104 H 18 59/35 L 05/12/20 04:45 101 H 34 H 05/12/20 04:34 98 H 31 H 121/59 L 05/12/20 04:30 97 H 30 H 05/12/20 04:20 99 H 26 H 05/12/20 03:26 79 18 99/46 L 05/12/20 03:07 87 20 05/12/20 00:38 80 20 05/11/20 23:31 36.7 C 72 20 117/70 Pulse Ox 05/12/20 07:05 05/12/20 07:03 98 05/12/20 07:01 98 05/12/20 07:00 98 05/12/20 06:59 99 05/12/20 06:57 100 05/12/20 06:55 100 05/12/20 06:53 100 05/12/20 06:51 100 05/12/20 06:49 98 05/12/20 06:47 98 05/12/20 06:46 98 05/12/20 06:45 98 05/12/20 06:43 99 05/12/20 06:41 99 05/12/20 06:39 99 05/12/20 06:37 100 05/12/20 06:35 100 05/12/20 06:33 100 05/12/20 06:31 99 05/12/20 06:30 100 05/12/20 06:29 100 05/12/20 06:27 95 05/12/20 06:25 99 05/12/20 06:23 100 05/12/20 06:21 92 05/12/20 06:19 80 L 05/12/20 06:17 72 L 05/12/20 06:16 73 L 05/12/20 06:15 77 L 05/12/20 06:13 76 L 05/12/20 06:11 85 L 05/12/20 06:10 05/12/20 06:09 88 L 05/12/20 06:07 92 05/12/20 06:05 95 05/12/20 06:02 93 05/12/20 06:01 94 05/12/20 06:00 95 05/12/20 05:58 95 05/12/20 05:54 95 05/12/20 05:52 97 05/12/20 05:50 96 05/12/20 05:48 96 05/12/20 05:46 96 05/12/20 05:44 96 05/12/20 05:42 95 05/12/20 05:40 95 05/12/20 05:38 95 05/12/20 05:36 95 05/12/20 05:34 95 05/12/20 05:32 94 05/12/20 05:30 93 05/12/20 05:28 93 05/12/20 05:26 93 05/12/20 05:24 94 05/12/20 05:22 92 05/12/20 05:20 92 05/12/20 05:18 90 05/12/20 05:16 92 05/12/20 05:15 91 05/12/20 05:14 05/12/20 05:12 05/12/20 05:10 05/12/20 05:09 97 05/12/20 05:07 97 05/12/20 05:05 05/12/20 05:04 05/12/20 05:02 89 L 05/12/20 05:01 79 L 05/12/20 05:00 97 05/12/20 04:59 92 05/12/20 04:45 83 L 05/12/20 04:34 78 L 05/12/20 04:30 80 L 05/12/20 04:20 80 L 05/12/20 03:26 95 05/12/20 03:07 94 05/12/20 00:38 95 05/11/20 23:31 97 Exam (Neuro) Constitutional: + altered mental status and + mechanically ventilated Neurologic: Oriented to:: negative Person, Place and Time Attention: negative Span Intact and Concentration Intact Motor Tone: Normal Lower Extremities and Normal Upper Extremities Muscle Bulk/Involuntary Movements: No Involuntary Movements Details: The patient is lying motionless in bed in the intensive care unit on the ventilator. He does not exhibit any abnormal spontaneous movements or posturing. He does not respond to voice, tactile stimulation, or pain. Oculocephalic reflexes and corneal reflexes are intact. Plantar responses withdrawal bilaterally. Coding Level of Care Code 22614 Subseq Hosp Care Lvl 2 Diagnoses Altered mental status R40.2431 Altered mental status type: coma Coma depth: [place] coma 3-8 Coma timing: in the field (EMT or ambulance) Seizure R56.9 (1) Altered mental status Altered mental status type: coma Coma depth: [place] coma 3-8 Coma timing: in the field (EMT or ambulance) Qualified Code(s): R40.2431 - [place] coma scale score 3-8, in the field [EMT or ambulance]
[2020-05-12] MEDS ORDERED: PROPOFOL BOLUS FROM BAG IV PRN (10:13)
[2020-05-12] MEDS: propofoL 1,000 MG/100 ML VIAL IV SCH (10:29)
[2020-05-12] MEDS ORDERED: SODIUM CHLORIDE 0.9% 1000ML 1,000 ML IV SCH (14:29)
[2020-05-12] MEDS ORDERED: PIPERACILL/TAZOBAC CONSULT ACTIVE PRN (14:30)
--- NOTE | 2020-05-12 14:30 | Critical Care Progress Note ---
Date of Service May 12, 2020 Assessment & Plan (1) Abnormal CT scan of lung: (2) Hypoxemia: (3) Acute respiratory failure with hypoxia and hypercapnia: (4) Aspiration pneumonia: (5) Admitted to intensive care unit: Impression: 70-year-old male with history of seizure disorder admitted with possible aspiration. He has been in the ICU on 2 separate occasions over the last 10 days and this is his third ICU admission. At his second intubation. He was intubated on the morning of the due to progressive hypoxemic respiratory failure possibly due to an aspiration event. 24-hour events: The patient was on the telemetry service but developed increasing hypoxemia refractory to CPAP and BiPAP. Decision was made to proceed with intubation. He was intubated by anesthesia. I placed a central line and arterial line today as he was mildly hemodynamically unstable. He has been initiated on vasopressor agents. Recommendations: 1. NEURO - Discussed with neurology at bedside. Vimpat has been discontinued due to concerns about bradycardia and asystole. He is currently maintained on Dilantin. EEG yesterday showed no seizure activity. They are increasing his doses his Dilantin appears subtherapeutic currently. Still on as needed lorazepam as well as scheduled gabapentin. Propofol was initiated in conjunction with fentanyl for sedation which should offer some antiepileptic activity as well. Defer additional EEG and antiepileptic medications to neurology. Wean fentanyl as tolerated 2. CARDIAC/VASCULAR - Sinus pauses likely related to Vimpat. The medication has been held and the patient continues to be monitored on telemetry. He had an episode of elevated troponins likely due to supply demand mismatch which resolved without sequelae. He is now hypotensive which likely reflects depleted intravascular volume in the setting of vasodilatation associated with sedation. Continue to wean pressors as tolerated. We will check random cortisol. Judicious fluid boluses as well. Holding antihypertensive medications for now 3. RESPIRATORY - This is the patient's second intubation during the course of his hospitalization. Unfortunately I think that he may be weakening and having recurrent issues associated with aspiration which may predispose him to recurrent episodes of respiratory failure. We will pursue bronchoscopy to evaluate the lower airways and the airspace opacity at the right lung base. Start antibiotics as noted below. Await cultures. Continue vent strategy. I did broach the subject of tracheostomy with the patient's . I think given that this is his second respiratory event, the patient may not be strong enough or cognitively intact enough to be able to adequately perform pulmonary toilet and tracheostomy baby reasonable alternative to facilitate liberation and maintaining freedom from the mechanical ventilator. She is taken it under consideration but is open to the concept. Review of the patient's chemistry panel does demonstrate that his CO2 is chronically elevated which may argue for chronic hypercapnic respiratory failure, again supporting the concept that tracheostomy may be in the patient's best long-term interest if continued care is to be pursued 4. GI/NUTRITION - At risk for recurrent episodes of aspiration. Discussed with speech therapy who recommended PEG tube. I discussed with the today by phone. She is thought about it and is agreeable to proceed. Will consult gastroenterology for placement of PEG tube. Start tube feeding per nutrition 5. RENAL/LYTES - - Electrolyte protocol. - BMP pending. 6. - No issues 7. ENDO - Glycemic control per protocol. 8. HEME - No current issues 9. ID - Possible recurrent aspiration event. Bronchoscopy today with purulent secretion s present in the right lung base. Await culture data. White count currently stable at 11.2 but was increased compared to its mc at 9.1 on 05/08. Suspicious for pneumonia. Start Zosyn pending respiratory cultures from bronchoscopy. Antibiotics we tapered based on clinical response and results of icultures. LINES/IV ACCESS - -subclavian central venous catheter, 05/12/2020 Endotracheal tube [place] catheter Right radial arterial line 05/12/2020 - NG Tube. DVT PROPHYLAXIS - - Lovenox 40mg daily, SCDs. (6) Seizure: Admission and Anticipated Discharge Date Admission Date: May 02, 2020 Subjective Intubated and sedated Review of Systems Review of Systems: Unobtainable due to endotracheal tube Physical Exam Constitutional: + ill appearing and + cachectic intubated and sedataed Neck: trachea midline, no thyromegaly Respiratory: normal respiratory effort, lungs clear to auscultation Cardiovascular: RRR, no murmur, no edema Gastrointestinal (Abdomen): normal bowel sounds, soft, nontender, no hepatosplenomegaly Musculoskeletal: Extremities: extremities normal to inspection Skin: no rashes, warm and dry Neurologic: Nonfocal exam Lymphatic: no cervical lymphadenopathy Results & Data Results & Data ([facility]) Vital Signs (Past 12 Hours) Vital Signs Temp Pulse Pulse Resp BP BP Pulse Ox 05/12/20 12:00 87 105/64 05/12/20 11:49 87 105/64 95 05/12/20 11:47 88 103/63 95 05/12/20 11:45 87 109/63 95 05/12/20 11:43 87 109/65 95 05/12/20 11:41 88 108/63 95 05/12/20 11:39 90 107/64 95 05/12/20 11:37 87 103/63 95 05/12/20 11:35 88 101/64 95 05/12/20 11:33 87 102/61 95 05/12/20 11:31 88 103/62 95 05/12/20 11:29 88 102/63 93 05/12/20 11:27 89 100/64 05/12/20 11:25 86 104/63 94 05/12/20 11:23 88 101/64 94 05/12/20 11:21 87 102/63 94 05/12/20 11:19 87 104/61 94 05/12/20 11:17 88 100/62 94 05/12/20 11:15 88 105/66 95 05/12/20 11:13 87 22 104/64 94 05/12/20 11:11 90 106/64 95 05/12/20 11:09 89 100/67 96 05/12/20 11:07 89 103/64 96 05/12/20 11:05 86 105/63 96 05/12/20 11:03 88 107/66 96 05/12/20 11:01 89 104/65 96 05/12/20 11:00 88 104/65 97 05/12/20 10:59 87 103/63 96 05/12/20 10:57 90 100/64 96 05/12/20 10:55 88 98/62 L 96 05/12/20 10:53 90 101/62 96 05/12/20 10:51 88 100/63 96 05/12/20 10:49 90 98/61 L 96 05/12/20 10:47 91 H 97/62 L 96 05/12/20 10:45 90 95/60 L 96 05/12/20 10:43 91 H 98/59 L 96 05/12/20 10:41 90 98/62 L 97 05/12/20 10:39 90 107/64 97 05/12/20 10:37 91 H 110/67 97 05/12/20 10:35 94 H 113/69 97 05/12/20 10:33 93 H 117/68 98 05/12/20 10:31 93 H 105/66 97 05/12/20 10:29 90 106/65 97 05/12/20 10:27 92 H 108/67 97 05/12/20 10:25 90 115/66 97 05/12/20 10:23 91 H 108/69 97 05/12/20 10:21 91 H 110/64 97 05/12/20 10:19 90 114/68 97 05/12/20 10:17 88 107/65 97 05/12/20 10:15 91 H 106/66 97 05/12/20 10:13 91 H 105/65 97 05/12/20 09:30 90 99/64 L 99 05/12/20 09:20 91 H 22 100 05/12/20 09:00 90 107/68 100 05/12/20 08:30 86 104/64 98 05/12/20 08:00 36.9 C 92 H 106/66 99 05/12/20 07:05 92 H 84/55 L 05/12/20 07:03 93 H 78/49 L 98 05/12/20 07:01 94 H 79/52 L 98 05/12/20 07:00 96 H 98 05/12/20 06:59 89 98/63 L 99 05/12/20 06:57 93 H 99/66 L 100 05/12/20 06:55 93 H 100/64 100 05/12/20 06:53 92 H 99/65 L 100 05/12/20 06:51 94 H 87/56 L 100 05/12/20 06:49 101 H 78/53 L 98 05/12/20 06:47 96 H 77/50 L 98 05/12/20 06:46 93 H 98 05/12/20 06:45 96 H 69/49 L 98 05/12/20 06:43 92 H 81/52 L 99 05/12/20 06:41 93 H 82/53 L 99 05/12/20 06:39 93 H 92/62 L 99 05/12/20 06:37 95 H 87/57 L 100 05/12/20 06:35 94 H 99/55 L 100 05/12/20 06:33 92 H 108/65 100 05/12/20 06:31 91 H 22 125/71 99 05/12/20 06:30 93 H 22 100 05/12/20 06:29 100 H 19 105/77 100 05/12/20 06:27 99 H 16 131/68 95 05/12/20 06:25 103 H 16 106/72 99 05/12/20 06:23 100 H 28 H 112/69 100 05/12/20 06:21 94 H 22 108/65 92 05/12/20 06:19 101 H 22 105/64 80 L 05/12/20 06:17 111 H 21 89/68 L 72 L 05/12/20 06:16 95 H 22 73 L 05/12/20 06:15 92 H 22 93/56 L 77 L 05/12/20 06:13 93 H 22 99/58 L 76 L 05/12/20 06:11 88 25 H 101/59 L 85 L 05/12/20 06:10 22 05/12/20 06:09 92 H 22 102/62 88 L 05/12/20 06:07 102 H 20 105/66 92 05/12/20 06:05 85 22 113/64 95 05/12/20 06:02 79 20 120/71 93 05/12/20 06:01 83 19 110/72 94 05/12/20 06:00 79 19 95 05/12/20 05:58 80 19 125/76 95 05/12/20 05:54 87 20 122/79 95 05/12/20 05:52 85 28 H 134/75 97 05/12/20 05:50 87 20 129/77 96 05/12/20 05:48 88 27 H 135/82 96 05/12/20 05:46 88 20 131/78 96 05/12/20 05:44 88 18 125/73 96 05/12/20 05:42 91 H 20 109/65 95 05/12/20 05:40 92 H 20 102/66 95 05/12/20 05:38 87 20 125/73 95 05/12/20 05:36 85 20 122/69 95 05/12/20 05:34 87 21 121/68 95 05/12/20 05:32 87 20 109/67 94 05/12/20 05:30 92 H 24 98/74 L 93 05/12/20 05:28 89 20 118/71 93 05/12/20 05:26 92 H 22 121/72 93 05/12/20 05:24 94 H 20 114/74 94 05/12/20 05:22 96 H 21 107/70 92 05/12/20 05:20 90 18 100/62 92 05/12/20 05:18 101 H 18 84/53 L 90 05/12/20 05:16 97 H 24 79/52 L 92 05/12/20 05:15 96 H 24 91 05/12/20 05:14 92 H 23 69/41 L 05/12/20 05:12 92 H 20 63/40 L 05/12/20 05:10 96 H 27 H 64/40 L 05/12/20 05:09 97 H 23 62/41 L 97 05/12/20 05:07 87 21 64/37 L 97 05/12/20 05:05 90 17 36/23 L 05/12/20 05:04 96 H 27 H 42/21 L 05/12/20 05:02 91 H 15 89 L 05/12/20 05:01 97 H 20 54/37 L 79 L 05/12/20 05:00 90 20 97 05/12/20 04:59 104 H 18 59/35 L 92 05/12/20 04:45 101 H 34 H 83 L 05/12/20 04:34 98 H 31 H 121/59 L 78 L 05/12/20 04:30 97 H 30 H 80 L 05/12/20 04:20 99 H 26 H 80 L 05/12/20 03:26 79 18 99/46 L 95 05/12/20 03:07 87 20 94 Laboratory Results 05/12/20 06:02 05/12/20 05:43 Prior broad culture demonstrated Streptococcus group G beta Diagnostic Findings Chest x-ray independently reviewed. Endotracheal tube and subclavian line are in good position. Nasogastric tube is seen extending below the diaphragms. Dense airspace opacities in the right lower lung field are noted unchanged from prior Coding Level of Care Code Critical Care 1st 30-[address] scan of lung R91.8 Hypoxemia R09.02 Acute respiratory failure with hypoxia and hypercapnia J96.01; J96.02 Aspiration pneumonia J69.0 Admitted to intensive care unit Z78.9 Seizure R56.9 Time Spent (min) 78 Comment 78 minutes critical care time managing life-threatening illness
--- NOTE | 2020-05-12 14:40 | Procedure Note ---
Procedure Note: Bronchoscopy Procedure Procedure: Fiberoptic bronchoscopy Therapeutic aspiration of secretions, subsequent Provider: James Garcia MD Consent: Verbal consent obtained from the patient's on the phone. Patient is intubated and sedated and unable to provide consent Procedure: Patient was intubated in the ICU. He was placed on the 100% FiO2 on the mechanical ventilator. Appropriate radiographic studies had been reviewed prior to the procedure. Standard monitoring was in place. The fiberoptic scope was advanced through the existing endotracheal tube via the adapter. The tube was sounded at the level of the ankit and found to be about 3 cm off the ankit. The trachea had a saber-sheath configuration. The main ankit was sharp. Left-sided airways were examined. The mucosa demonstrated submucosal pitting consistent with obstructive lung disease but no overt mucosal abnormality. The airways were patent and mucosa was normal. A few thin clear secretions were identified. The scope was then withdrawn to the level the ankit and attention turned to the right-sided airways. The right mainstem bronchus was patent with normal mucosa. The right upper lobe did demonstrate some mucopurulent secretions emanating from the posterior segment which were aspirated and collected in a trap for microbiologic analysis. The bronchus intermedius was widely patent however there were mucopurulent secretions emanating from the right lower lobe which were aspirated with saline lavage and collected for microbiologic analysis. Once the airways were cleared, the inspection was completed. The right middle lobe takeoff had a fishmouth appearance to it. It was patent enough that the scope could be passed into the orifice and the distal airways appeared patent. 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 The superior segment of the right lower lobe as well as the right lower lobe bronchi were filled with purulent material which was lavaged free. Once clear, the airways appeared normal with no particulate matter or evidence of endobronchial lesion. The scope was then withdrawn and the patient remained on the mechanical ventilator. Impression: 1. Tracheal tube in good position 3 cm off the ankit. 2. Extensive mucopurulent secretions present in the right lower lobe consistent with probable pneumonia. Await culture data. 3. [place] appearance of the right middle lobe takeoff consistent with right middle lobe syndrome. This accounts likely for the patient's radiographic abnormality superimposed on the right lower lobe pneumonia. 4. Extensive submucosal pitting consistent with prior history of tobacco abuse.
--- NOTE | 2020-05-12 14:50 | Pharmacy Report ---
Pharmacy Glycemic Short Note 2 - Date of Service May 12, 2020 - Glycemic Short BSG Results (Last 24 hours): 05/11/20 05/11/20 05/12/20 17:02 20:48 00:30 Glucose POC Glucose 149 H 121 H 189 H POC Glucose (other) 05/12/20 05/12/20 05/12/20 05:33 05:43 09:16 Glucose 127 H POC Glucose 138 H POC Glucose (other) 200 H 05/12/20 11:43 Glucose POC Glucose 196 H POC Glucose (other) OUTPATIENT ANTIDIABETIC REGIMEN: * Lantus 16 units SQ daily * Metformin 500 mg PO daily * A1c = 10.6% (04/11/20) ASSESSMENT: 05/12: * Patient re-intubated this afternoon and initiated on antibiotics. This morning patient experienced a seizure event and possible aspiration, where tube feeds were held. Unclear plan for further feeding while on pressors. * Patient was mildly hyperglycemic at lunch, but will attribute some of this to stress induced hyperglycemia. Will continue current lantus and novolog scale for the time being and adjust as necessary. 05/07 * Streroids stopped today * AM fasting BSG slightly above goal range, but will leave Lantus parameters as- is due to steroid taper and anticipated increase in insulin sensitivity * BSG >180 mg/dL at 1200 check - will change to regular insulin q6h to provide coverage for the full 6 hrs between checks and will very slightly tighten CHO ratio. Hesitant to tighten further as insulin sensitivity likely to increase with steroids being stopped today 05/06 * BSG's trended down after changes yesterday, and ranged 100-146 mg/dL from afternoon to HS. No Novolog was needed/administered during that time * Steroids continuing to taper today from methylprednisolone 40 mg IV daily to prednisone 40 mg po qAM * Patient received a total of 10 units of Lantus yesterday and AM BSG was 140 mg/dL which is appropriate for this patient. Will slightly adjust Lantus parameters so patient will likely receive 5 units BID, but with up and down titration based on BSG * Will loosen Novolog parameters again given further steroid taper. Will also change from q4h to q6h checks 05/05 * All BSG >160 mg/dL and one BSG >180 mg/dL after loosening CHO ratio in response to steroid taper yesterday. Will re-tighten CHO ratio for now. However, steroids again tapering further today from methylprednisolone 40 mg IV BID to daily, with last evening dose being yesterday (05/04). Therefore, will re-loosen CHO ratio starting this evening * OK to keep Lantus as is for now - dose is on the lower side at a total of 0.25 units/kg and hold parameters are in place 05/04 * Patient remains intubated. Methylprednisolone tapering from 60 mg IV q8h to 40 mg IV BID. Heparin has been stopped * Peptamen 1.5 anya rate increased overnight and BSG's also increased, up to 180 mg/dL this AM. Will tighten CHO ratio for now, but then will loosen back late r today 2nd steroid taper 05/03: * Ted received 30 units of insulin yesterday with acceptable BSG control: * 24 units of basal * 6 units of bolus * Pt remains on solu medrol 60 mg IV q8h and fentanyl, versed, and heparin infusions. Levophed has been titrated off. * Fasting BSG of 122 mg/dL is at goal. Lantus was slightly reduced this AM since high dose steroids do not appear to have significant effect on BSG (at least while pt is NPO) * Post prandial BSGs well controlled on current Novolog parameters. * Pt ordered to start Peptamen tube feeds @ 20 mL/hr this afternoon (contains 184 g/L of carbohydrate) * Will adjust carb coverage as needed based on BSG response to tube feeds 05/02: * Ted is a 70 yo T2DM admitted to the ICU with acute respiratory failure with hypoxemia and hypercapnia/aspiration pneumonia * He has the potential for significant insulin resistance due to possible infection, high dose IV steroids, pressors, and uncontrolled DM at baseline. * He was ordered an IV insulin infusion to start this morning at 0500 (BSG of 289, 301, 188 mg/dL). For unknown reasons, the insulin infusion was never started. BSG did improve to 152 mg/dL at 0524 (this appears to be without any insulin administration). BSG of 164 mg/dL at 1400. * Will start Lantus now (25% reduction in home dose). Add Lantus scale at bedtime to cover for steroid induced hyperglycemia. * Novolog ordered based on weight/stress 2. PLAN FOR INPATIENT GLYCEMIC CONTROL: * Basal insulin - adjust * Lantus per scale BID: * 0 units for BSG < 120 mg/dL * 5 units for BSG 120-200 mg/dL * 10 units for BSG > 200 mg/dL * Bolus insulin - loosen * NovoLog q6h while on tubefeeds * Goal Range: Low 110 mg/dL - High 140 mg/dL * Correction Factor: 30 mg/dL/unit * Carb ratio: 10 g CHO/unit
[2020-05-12] MEDS ORDERED: PIPERACILLIN/TAZOBACTAM 4.5 GM in DEXTROSE 5% 100 ML IV ONE (15:00)
[2020-05-12 16:51] LABS: Basophils # (auto) 0.03 K/uL (0-0.2); Basophils % (auto) 0.2 %; Eosinophils # (auto) 0.05 K/uL (0-0.5); Eosinophils % (auto) 0.3 %; Hematocrit (blood only) 43.3 % (42-52); Hemoglobin 13.6 g/dL (14.0-18.0); Immature Granulocytes # (auto) 0.06 K/uL (0.00-0.02); Immature Granulocytes % (auto) 0.4 %; Lymphocytes # (auto) 1.75 K/uL (1.2-3.4); Lymphocytes % (auto) 11.6 %; Mean Corpuscular Hemoglobin 31.4 pg (25-34); Mean Corpuscular Hgb Conc 31.4 g/dL (32-36); Mean Platelet Volume 10.6 fL (7.4-10.4); Monocytes # (auto) 0.34 K/uL (0.11-0.59); Monocytes % (auto) 2.3 %; Neutrophils # (auto) 12.86 K/uL (1.4-6.5); Neutrophils % (auto) 85.2 %; Platelet Count 280 K/uL (130-400); RDW Coefficient of Variation 14.4 % (11.5-14.5); RDW Standard Deviation 52.9 fL (36.4-46.3); Red Blood Count 4.33 M/uL (4.7-6.1); White Blood Count 15.09 K/uL (4.8-10.8)
[2020-05-12] MEDS ORDERED: fentaNYL citrate 100 MCG/2 ML VIAL IV ONE (17:20)
[2020-05-12] MEDS ORDERED: SUCCINYLCHOLINE CHLORIDE 20 MG/ML 10 ML VIAL IV ONE (17:20)
[2020-05-12] MEDS: FLUDROCORTISONE ACETATE 0.1 MG TAB PO SCH (18:00)
[2020-05-12 18:07] LABS: Fibrinogen 472 mg/dl (184-400); INR 1.1 (0.9-1.1); Partial Thromboplastin Ratio 1.1; Partial Thromboplastin Time 30.8 Seconds (21.0-31.0); Prothrombin Time 11.5 Seconds (9.0-12.0)
[2020-05-12] MEDS: HYDROCORTISONE SOD 50 MG in SYRINGE 0 ML IV SCH (18:27)
[2020-05-12] MEDS ORDERED: NORMOSOL-R 1,000 ML IV ONE (20:25)
[2020-05-12] MEDS: PIPERACILLIN/TAZOBACTAM 3.375 GM in DEXTROSE 5% 100 ML IV SCH (20:27)
[2020-05-12] MEDS: PANTOprazole 40 MG in SYRINGE 0 ML IV SCH (20:28)
[2020-05-13] MEDS: PHENYTOIN 100 MG in SYRINGE 0 ML IV SCH ×4 (00:03→17:54)
[2020-05-13] MEDS: INSULIN HUMAN REGULAR SC SCH ×4 (00:04→17:46)
[2020-05-13] MEDS: propofoL 1,000 MG/100 ML VIAL IV SCH ×2 (00:05→12:23)
[2020-05-13] MEDS: HYDROCORTISONE SOD 50 MG in SYRINGE 0 ML IV SCH ×4 (00:05→17:55)
[2020-05-13] MEDS: SODIUM CHLORIDE 0.9% 10ML FLUSH IV SCH ×4 (00:05→17:54)
[2020-05-13] MEDS: Standard Conc 16mcg/mL; 8mg in 500mL IV SCH (00:38)
[2020-05-13] MEDS: PIPERACILLIN/TAZOBACTAM 3.375 GM in DEXTROSE 5% 100 ML IV SCH ×3 (03:50→21:39)
--- NOTE | 2020-05-13 04:59 | Electrocardiogram Report ---
Test Reason : Blood Pressure : / mmHG Vent. Rate : 090 BPM Atrial Rate : 090 BPM P-R Int : 156 ms QRS Dur : 072 ms QT Int : 330 ms P-R-T Axes : 072 031 080 degrees QTc Int : 403 ms Normal sinus rhythm Normal ECG When compared with ECG of 06-MAY-2020 07:31, No significant change Confirmed by John Zuleta ([id number]) on 05/13/2020 4:59:23 AM Referred By: REFERRED SELF Confirmed By:John Zuleta
[2020-05-13 05:07] LABS: Basophils # (auto) 0.02 K/uL (0-0.2); Basophils % (auto) 0.2 %; Eosinophils # (auto) 0.06 K/uL (0-0.5); Eosinophils % (auto) 0.5 %; Hemoglobin 13.2 g/dL (14.0-18.0); Immature Granulocytes # (auto) 0.04 K/uL (0.00-0.02); Immature Granulocytes % (auto) 0.3 %; Lymphocytes # (auto) 1.31 K/uL (1.2-3.4); Lymphocytes % (auto) 10.1 %; Mean Corpuscular Hemoglobin 31.1 pg (25-34); Mean Corpuscular Hgb Conc 31.4 g/dL (32-36); Mean Corpuscular Volume 98.8 fL (80-100); Mean Platelet Volume 10.9 fL (7.4-10.4); Monocytes # (auto) 0.75 K/uL (0.11-0.59); Monocytes % (auto) 5.8 %; Neutrophils # (auto) 10.76 K/uL (1.4-6.5); Neutrophils % (auto) 83.1 %; Platelet Count 241 K/uL (130-400); RDW Coefficient of Variation 14.4 % (11.5-14.5); RDW Standard Deviation 51.9 fL (36.4-46.3); Red Blood Count 4.25 M/uL (4.7-6.1); White Blood Count 12.94 K/uL (4.8-10.8)
[2020-05-13 05:16] LABS: iSTAT Arterial Blood Gas HCO3 29 meg/L (19-24); iSTAT Arterial Blood Gas pCO2 41 mmHg (35-46); iSTAT Arterial Blood Gas pH 7.45 (7.35-7.45); iSTAT Arterial Blood Gas pO2 72 mmHg (80-95); iSTAT Carbon Dioxide 30 mmol/L (24-31); iSTAT FiO2 40 %; iSTAT Site Art Line
[2020-05-13 05:36] LABS: BUN Creatinine Ratio 38.7 (10-20); Calcium 8.3 mg/dl (8.5-10.1); Creatinine Clr Calc Pharmacy 108.3 ml/min; Est GFR (African American) 115.7; Est GFR (Non-African American) 99.8; Magnesium 2.3 mg/dl (1.8-2.4); Phosphorus 1.6 mg/dl (2.5-4.9); Potassium 3.4 mmol/L (3.5-5.1)
[2020-05-13] MEDS ORDERED: POTASSIUM PHOS 3 MMOL/1 ML INFUSION IV STA (06:31)
[2020-05-13] MEDS ORDERED: POTASSIUM PHOSPHATE 30 MMOL in SODIUM CHLORIDE 0.9% 500 ML IV ONE (06:45)
--- NOTE | 2020-05-13 07:14 | XRay Report ---
XR chest 1V portable CLINICAL HISTORY: Respiratory failure. COMPARISON STUDY: Chest radiograph May 12, 2020. FINDINGS: Tip of the endotracheal tube 6.3 cm above the ankit. Tip of nasogastric tube is within the gastric fundus. Left subclavian [id number] is in place. There is no pneumothorax. Right lower luis g airspace opacity has decreased with improved aeration. There is a small right pleural effusion. The re is no left pleural effusion. Mild left basilar opacity favors atelectasis. There is mild reticulon odular interstitial thickening. IMPRESSION: 1. Satisfactory positioning of lines and tubes. 2. Interval decrease in right lower lung airspace opacity with improved aeration. 3. Small right pleural effusion. ACT 112: Negative or not required by law. Electronically signed by: Chele Lopez M.D. 05/13/2020 7:13 AM
--- NOTE | 2020-05-13 08:25 | Neurology Progress Note ---
Date of Service May 13, 2020 Assessment & Plan (1) Altered mental status: (2) Seizure: History of temporal lobe epilepsy in the context of altered mental status/encephalopathy and aspiration pneumonia. Patient remains on the ventilator for airway protection this morning although his encephalopathy appears to be improving. He has not had any clinical seizure activity and his phenytoin level is currently within the therapeutic range. Would continue with Dilantin 100 mg IV every 6 hours. I will order a follow-up phenytoin level for tomorrow morning. Continue with gabapentin 300 mg twice daily via NG tube. Remain off topiramate for the time being. Remain off Vimpat. When patient is medically stable should be able to switch from Dilantin IV to oral suspension at the same dosage and frequency via PEG tube once placed. Continue supportive medical care. Admission and Anticipated Discharge Date Admission Date: May 02, 2020 Subjective Follow-up for seizures and altered mental status The patient is a 70-year-old male with a history of temporal lobe epilepsy who was admitted with aspiration pneumonia, acute respiratory failure. He has been following with neurology at [facility] for his seizure disorder And had been on Vimpat, Topamax, and Neurontin prior to admission to [facility]. Patient's Vimpat was discontinued, however, after an episode of asystole that occurred with IV administration. He has been started on Dilantin. His phenytoin level was running slightly subtherapeutic and I had increased his dosage to 100 mg IV every 6 hours yesterday. The phenytoin level this morning is 10.5. The patient had been reintubated 2 nights ago for airway protection in the context of worsening lethargy. He remains on the ventilator this morning but has been much more alert and responding to simple commands. No convulsive activity has been observed. Case discussed with patient's nurse at bedside this morning. Review of Systems Review of Systems: Unobtainable due to endotracheal tube Results & Data ([facility]) Vital Signs (Past 12 Hours) Vital Signs Temp Pulse Resp BP BP Pulse Ox 05/13/20 07:41 125/60 05/13/20 05:00 75 22 96 05/13/20 04:00 75 05/13/20 03:13 37.6 C H 70 114/64 97 05/13/20 03:00 37.6 C H 70 96 05/13/20 02:13 37.6 C H 62 117/60 96 05/13/20 02:00 37.6 C H 61 98 05/13/20 01:45 63 22 97 05/13/20 01:13 37.7 C H 63 114/60 96 05/13/20 01:00 37.7 C H 66 96 05/13/20 00:14 66 96 05/13/20 00:13 37.7 C H 66 120/65 96 05/13/20 00:00 68 97 05/12/20 23:13 63 125/61 97 05/12/20 23:00 60 98 05/12/20 22:30 68 22 97 05/12/20 22:13 66 121/65 97 05/12/20 22:00 37.9 C H 66 113/61 96 05/12/20 21:00 37.9 C H 74 95 Exam (Neuro) Constitutional: cooperative and + mechanically ventilated Neurologic: Oriented to:: negative Person, Place and Time (Unable to assess cognitive/higher integrative function adequately as patient is intubated. He does follow simple commands, however, such as close your eyes, look to the left and right, and squeezes either hand and wiggles the toes.) Cranial Nerves: Normal II, III, IV, , V and VII Muscle Bulk/Involuntary Movements: No Involuntary Movements Details: Patient is intubated, on the ventilator, nonagitated, no abnormal spontaneous movements, no posturing. Wearing restraints. Corneal and oculocephalic reflexes intact. Coding Level of Care Code 37673 Subseq Hosp Care Lvl 2 Diagnoses Altered mental status R40.2431 Altered mental status type: coma Coma depth: [place] coma 3-8 Coma timing: in the field (EMT or ambulance) Seizure R56.9 (1) Altered mental status Altered mental status type: coma Coma depth: [place] coma 3-8 Coma timing: in the field (EMT or ambulance) Qualified Code(s): R40.2431 - [place] coma scale score 3-8, in the field [EMT or ambulance]
[2020-05-13] MEDS: ENOXAPARIN INJ 40 MG/0.4 ML SYR SQ SCH (09:04)
[2020-05-13] MEDS: PANTOprazole 40 MG in SYRINGE 0 ML IV SCH ×2 (09:04→21:40)
[2020-05-13] MEDS: BRINZOLAMIDE (AZOPT) OPS 10 ML BTL OPR SCH ×3 (09:06→21:39)
--- NOTE | 2020-05-13 09:16 | Hospitalist Progress Note ---
Date of Service May 12, 2020 Assessment & Plan (1) Acute respiratory failure with hypoxia and hypercapnia: Recurrent acute resp failure 2nd to aspiration pneumonia with resulting need for intubation/mech ventilation. Reviewed pulmonary notes - may need trach & PEG. Suspect dysphagia is 2nd to prior TBI?? Broad-spectrum IV abx for RLL pneumonia. Defer vent management to ICU team. (2) Septic shock: 2nd to recurrent aspiration pneumonia. IVF. IV levophed. Keep MAP >65. (3) Right lower lobe pneumonia: 2nd aspiration. s/p bronch - follow cx's. (4) Aspiration pneumonia: (5) Diabetes mellitus: ICU glycemic protocol (6) COPD (chronic obstructive pulmonary disease): (7) Sinus pause: noted occurred earlier this stay, 2nd to vimpat usage? (8) History of traumatic brain injury: noted (9) Seizure disorder: defer management to neuro now on combination of dilantin, gabapentin, and topamax no seizure last 24 hours by report (10) DVT prophylaxis: lovenox will cont to follow appreciate ICU support Admission and Anticipated Discharge Date Admission Date: May 02, 2020 Subjective events last 24 hrs noted. developed worsening hypoxia. BIPAP utilized but was refractory ultimately requiring intubation. s/p a-line, CVC, and bronch today with RLL pneumonia on bronch; cultures sent. Review of Systems Review of Systems: Unobtainable due to endotracheal tube Physical Exam Constitutional: + ill appearing, + altered mental status (sedated on vent) and + frail appearing; + not well developed, + not well nourished and no acute distress intubated ENMT: ETT and enteric tube present Respiratory: no respiratory distress Auscultation: + diminished lung sounds (right base) and + rales (right chest ); no wheezes Cardiovascular: Rate/Rhythm: regular rate and + irregularly irregular Heart Sounds: normal S1, normal S2 and + murmur (2/6 LSB ) Vessels: posterior tibial pulses present and dorsalis pedis pulses present; no JVD Extremities: no edema Gastrointestinal (Abdomen): normal bowel sounds, soft, nontender, no hepatosplenomegaly Psychiatric: Orientation: + not alert and + not oriented x 3 Results & Data Results & Data ([facility]) Vital Signs (Past 12 Hours) Vital Signs Temp Pulse Resp BP BP Pulse Ox 05/13/20 07:41 125/60 05/13/20 05:00 75 22 96 05/13/20 04:00 75 05/13/20 03:13 37.6 C H 70 114/64 97 05/13/20 03:00 37.6 C H 70 96 05/13/20 02:13 37.6 C H 62 117/60 96 05/13/20 02:00 37.6 C H 61 98 05/13/20 01:45 63 22 97 05/13/20 01:13 37.7 C H 63 114/60 96 05/13/20 01:00 37.7 C H 66 96 05/13/20 00:14 66 96 05/13/20 00:13 37.7 C H 66 120/65 96 05/13/20 00:00 68 97 05/12/20 23:13 63 125/61 97 05/12/20 23:00 60 98 05/12/20 22:30 68 22 97 05/12/20 22:13 66 121/65 97 05/12/20 22:00 37.9 C H 66 113/61 96 Laboratory Results cbc, BMP reviewed cxr reviewed bronch findings reviewed PG Care Time/CCT Total # of Minutes Spent Total Time Spent with Patient: Total time spent is greater than 50% in coordination of care (as documented) at patient's floor/unit and/or counseling patient: Coding Level of Care Code 26081 Subseq Hosp Care Lvl 1 Diagnoses Acute respiratory failure with hypoxia and hypercapnia J96.01; J96.02 Septic shock A41.9; R65.21 Right lower lobe pneumonia J18.9 Pneumonia type: due to unspecified organism Aspiration pneumonia J69.0 Diabetes mellitus E11.9 COPD (chronic obstructive pulmonary disease) J44.9 COPD type: unspecified COPD Sinus pause I45.5 History of traumatic brain injury Z87.820 Seizure disorder G40.909 DVT prophylaxis Z29.9 (1) Right lower lobe pneumonia Pneumonia type: due to unspecified organism Qualified Code(s): J18.9 - Pneumonia, unspecified organism (2) COPD (chronic obstructive pulmonary disease) COPD type: unspecified COPD Qualified Code(s): J44.9 - Chronic obstructive pulmonary disease, unspecified
[2020-05-13] MEDS: GABAPENTIN 250 MG/5 ML 470 ML BTL NG SCH ×2 (10:04→21:40)
[2020-05-13] MEDS: INSULIN GLARGINE SOLOSTAR 100 UNITS/ML 3 ML PEN SC SCH ×2 (10:04→21:40)
[2020-05-13] MEDS: FLUDROCORTISONE ACETATE 0.1 MG TAB PO SCH (10:17)
--- NOTE | 2020-05-13 10:33 | Gastrointestinal Consultation ---
Date of Consultation May 13, 2020 Assessment & Plan (1) Acute respiratory failure: (2) Aspiration into airway: Pt is a 70 y/o male w hx of epilepsy, encephalopathy, admitted w AMS, ARF, been extubated twice during this admission. He was suspected to have aspiration pneumonia, video swallow study showed aspiration w thin/nectar thick liquids, retention w pudding consistency foods. Plans for him to get extubated and placement of Coresafe feeding tube this AM. He is currently awake but still intubated. Able to nod/shakes head when I asked him questions. As I asked if he would be willing to have feeding tube placement such as PEG tube, he shakes his head. He's likely very deconditioned and we'd recommend trial of Coresafe feeding after extubation and re-evaluation of his swallow function via ST/repeat video swallow study next week. If main concern is aspiration, would recommend perhaps considering J tube placement instead of PEG via Surgery or IR service. Supervising Physician Co-Signing Physician Notes I have seen and examined the patient. Chart and history reviewed. Patient admitted with resp failure and questionable seizure activity at home as well as aspiration. There is a concern about chronic aspiration over the last few months. Patient was intubated, extubated, then again required re-intubation. We are asked to see the patient for PEG placement for recurrent aspiration. had a swallow eval with speech a few days ago. Discussed with ICU staff, patient with high risk for recurrent aspiration per the history. Therefore, if feeding tube needed, he would be best suited with a jejunal placed tube to decrease likelihood of aspiration. Surgery or IR consult would be recommended. Abd benign on exam. Patient on vent but awake. nods yes and no to questions. History of Present Illness Reason for Consultation: Eval for PEG placement Requesting Physician: Dr. James Garcia Attending Physician: Dr. Sena So History of Present Illness Pt is a 79 y/o male who is seen for PEG placement evaluation. He was admitted on 05/02/2020 w AMS, acute respiratory failure. Hx of temporal epilepsy, encephalopathy and suspected aspiration pneumonia. COVID 19 test was negative. He was extubated 05/05/2020. Speech therapy & video swallow evals were done on 05/06 and 05/08 respectively. He was noted to have aspiration w thin and nectar thick liquid, retention w pudding. He was re-intubated on 05/12 as he continues to have respiratory distress on 100 FiO2 BiPAP. This AM he is awake, alert, able to communicate by nodding/shaking head. Per RN there are plans to extubate him this AM and Coresafe feeding tube placement. Allergies Allergy/AdvReac Type Severity Reaction Status Date / Time loteprednol [From Lotemax] Allergy Severe MAKES EYE Verified 05/02/20 01:29 RED, ITCHY & SWELLING brinzolamide [From Simbrinza] AdvReac INFLAMED Verified 05/02/20 01:29 EYE Home Medications Medication Instructions Recorded Confirmed Type PreserVision AREDS-2 1 tab PO BID 02/25/19 05/02/20 History cyanocobalamin (vitamin B-12) 1,000 mcg PO DAILY 05/08/19 05/02/20 History [Vitamin B-12] gabapentin 300 mg capsule 300 mg PO TID 30 Days #90 cap 06/14/19 05/02/20 Rx Azopt 1 drp OPR TID 10/26/19 05/02/20 History acetaminophen [Tylenol Extra 500 mg PO Q6H PRN 10/26/19 05/02/20 History Strength] timolol maleate [Timoptic] 1 drp OPR DAILY 10/26/19 05/02/20 History Incruse Ellipta 1 inh INHALATION QAM #1 inhaler 10/29/19 05/02/20 Rx Vimpat 200 mg PO BID 04/11/20 05/02/20 History loteprednol etabonate 1 drp OPR DAILY 04/11/20 05/02/20 History topiramate [Topamax] 50 mg PO BID 04/11/20 05/02/20 History blood sugar diagnostic [OneTouch #50 ea 04/14/20 Rx Verio test strips] insulin glargine [Lantus Solostar 16 unit SC DAILY 30 Days #4.8 ml 04/14/20 05/02/20 Rx U-100 Insulin] lancets [OneTouch Delica Lancets] #100 ea 04/14/20 Rx metformin 500 mg PO DAILY #30 tab 04/14/20 05/02/20 Rx pen needle, diabetic [Pen Needle] #50 ea 04/14/20 Rx Patient History Medical History (Updated 05/13/20 @ 10:40 by ARLETTE Rogel) Anxiety Colonic mass Diabetes mellitus Lung nodule SMALL PER PT'S / JEFFREY MCGARRY/ 03/2019- NO TREATMENT CURRENTLY Macular degeneration BILAT Seizure Petit mal, follows with Neurology at [place] Tachycardia Unspecified convulsions Surgical History History of right cataract surgery History of tonsillectomy Family History Mother Stroke Sister Dementia Diabetes Grandmother Epilepsy Leukemia Cancer Myocardial infarction Grandfather Myocardial infarction Father Pulmonary embolism Other Family history non-contributory Social History Smoking Status: Former smoker Cigarettes Per Day: 20; Second Hand Exposure: No; Hx Alcohol Use: Yes Alcohol type: wine Hx Substance Use: No Preferred Language: Kenyan Communication Ability: Effective Communication Ability Comment: Effective communication at baseline, currently intubated Stay Cutter Required: No Beliefs That Will Affect Care: None marital status: Current Living Situation: Spouse Feels Safe at Home: Yes Assistive Devices: Oxygen - Continuous Review of Systems Review of Systems: Unobtainable due to endotracheal tube Physical Exam Constitutional: + thin, well groomed, cooperative and comfortable Eyes: PERRL, conjunctivae normal, anicteric sclerae ENMT: external ear and nose normal, oropharynx normal Respiratory: Auscultation: + diminished lung sounds Intubated Cardiovascular: RRR, no murmur, no edema Gastrointestinal (Abdomen): Inspection/Auscultation: + hypoactive bowel sounds Percussion/Palpation: abdomen soft; abdomen nontender Skin: no rashes, warm and dry no jaundice Neurologic: Motor/Sensory: + asterixis Psychiatric: Orientation: alert alert, intubated, communicates by shaking/nodding Lymphatic: no lymphedema Results & Data ([facility]) Vital Signs (Past 12 Hours) Vital Signs Temp Pulse Resp BP BP Pulse Ox 05/13/20 07:41 125/60 05/13/20 07:00 74 23 98 05/13/20 05:00 75 22 96 05/13/20 04:00 75 05/13/20 03:13 37.6 C H 70 114/64 97 05/13/20 03:00 37.6 C H 70 96 05/13/20 02:13 37.6 C H 62 117/60 96 05/13/20 02:00 37.6 C H 61 98 05/13/20 01:45 63 22 97 05/13/20 01:13 37.7 C H 63 114/60 96 05/13/20 01:00 37.7 C H 66 96 05/13/20 00:14 66 96 05/13/20 00:13 37.7 C H 66 120/65 96 05/13/20 00:00 68 97 05/12/20 23:13 63 125/61 97 05/12/20 23:00 60 98 (1) Acute respiratory failure Respiratory failure complication: hypoxia Qualified Code(s): J96.01 - Acute respiratory failure with hypoxia
[2020-05-13] MEDS ORDERED: Nursing to Pharmacy Communication SCH (11:00)
--- NOTE | 2020-05-13 11:34 | XRay Report ---
KUB HISTORY: placement of coresafe COMPARISON: KUB 05/12/2020. FINDINGS: Feeding tube terminates in the fundus of the stomach. Small right pleural effusion and biba silar densities have improved. No renal calculi. No ureteral calculi. No pneumoperitoneum or pneumat osis. IMPRESSION: Feeding tube terminates in the fundus of the stomach. ACT 112: Negative or not required by law. Electronically signed by: Surjit Ybarra M.D. 05/13/2020 11:32 AM
--- NOTE | 2020-05-13 12:01 | Critical Care Progress Note ---
Date of Service May 13, 2020 Assessment & Plan (1) Abnormal CT scan of lung: (2) Hypoxemia: (3) Acute respiratory failure with hypoxia and hypercapnia: (4) Aspiration pneumonia: (5) Admitted to intensive care unit: Impression: 70-year-old male with history of seizure disorder admitted with possible aspiration. He has been in the ICU on 2 separate occasions over the last 10 days and this is his third ICU admission. At his second intubation. He was intubated on the morning of the due to progressive hypoxemic respiratory failure possibly due to an aspiration event. 24-hour events: Patient completed bronchoscopy yesterday with suctioning of thick mucopurulent material from the right lower lobe. His ventilator requirements weaned significantly as well as his pressor requirements. This morning he completed an SBT and looked very comfortable. His white count is now down to 12,000. He was seen by GI. See comments below. Recommendations: 1. NEURO - Vimpat has been discontinued due to concerns about bradycardia and asystole. He is currently maintained on Dilantin and gabapentin. No recurrent seizure activity and plans to transition to enteral Dilantin once enteral access obtained. Defer additional EEG and antiepileptic medications to neurology. 2. CARDIAC/VASCULAR - Sinus pauses likely related to Vimpat. The medication has been held and the patient continues to be monitored on telemetry. He had an episode of elevated troponins likely due to supply demand mismatch which resolved without sequelae. Hypotension appears to have resolved with IV fluids. Continue to follow 3. RESPIRATORY - Recurrent pneumonia. He is currently on Zosyn day #2 pending sensitivity of the gram-negative rosario isolated from bronchoscopy. 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 There are no interventions for this. This may predispose him to recurrent episodes of pneumonia due to the impeded bronchopulmonary clearance. 4. GI/NUTRITION - Replaced course a feeding tube. Discussed with GI at bedside. They feel that a PEG tube would not be beneficial given his aspiration and recommended surgical J-tube placement. Will readdress with the patient and his once clinically able but based on review of the speech therapy notes, it does not appear that the patient's swallowing mechanism will improve enough to allow for him to eat normally anytime soon. He will need enteric access for his antiepileptic medications long-term. This was extensively discussed on multidisciplinary rou nds yesterday. 5. RENAL/LYTES - - Electrolyte protocol. 6. - No issues 7. ENDO - Glycemic control per protocol. 8. HEME - No current issues 9. ID - Recurrent pneumonia, day #2 Zosyn. Await cultures. LINES/IV ACCESS - -subclavian central venous catheter, 05/12/2020 Endotracheal tube [place] catheter Right radial arterial line 05/12/2020 - NG Tube. DVT PROPHYLAXIS - - Lovenox 40mg daily, SCDs. updated by phone yesterday and will update her again by phone today. He will need aggressive therapy and potential long-term acute care placement. Case management is working on this. If the patient does well, he can likely transfer the floor later today or tomorrow under the care of the hospitalist. (6) Seizure: Admission and Anticipated Discharge Date Admission Date: May 02, 2020 Subjective Patient initially seen this morning while intubated. Patient nodding his head and following commands moving all 4 extremities. SBT was completed and he has been extubated to nasal cannula. Nasoenteric feeding tube was placed Physical Exam Constitutional: + ill appearing and + cachectic Neck: trachea midline, no thyromegaly Respiratory: normal respiratory effort, lungs clear to auscultation Cardiovascular: RRR, no murmur, no edema Gastrointestinal (Abdomen): normal bowel sounds, soft, nontender, no hepatosplenomegaly Musculoskeletal: Extremities: extremities normal to inspection Skin: no rashes, warm and dry Lymphatic: no cervical lymphadenopathy Results & Data Results & Data ([facility]) Vital Signs (Past 12 Hours) Vital Signs Temp Pulse Resp BP BP Pulse Ox 05/13/20 07:41 125/60 05/13/20 07:00 74 23 98 05/13/20 05:00 75 22 96 05/13/20 04:00 75 05/13/20 03:13 37.6 C H 70 114/64 97 05/13/20 03:00 37.6 C H 70 96 05/13/20 02:13 37.6 C H 62 117/60 96 05/13/20 02:00 37.6 C H 61 98 05/13/20 01:45 63 22 97 05/13/20 01:13 37.7 C H 63 114/60 96 05/13/20 01:00 37.7 C H 66 96 05/13/20 00:14 66 96 05/13/20 00:13 37.7 C H 66 120/65 96 05/13/20 00:00 68 97 Laboratory Results 05/13/20 04:37 05/13/20 04:37 Sputum culture growing had grew gram-negative rods Diagnostic Findings Chest x-rays were independently reviewed Coding Level of Care Code 81419 Subseq Hosp Care [facility] [address] scan of lung R91.8 Hypoxemia R09.02 Acute respiratory failure with hypoxia and hypercapnia J96.01; J96.02 Aspiration pneumonia J69.0 Admitted to intensive care unit Z78.9 Seizure R56.9
--- NOTE | 2020-05-13 12:56 | Pharmacy Report ---
Pharmacy Glycemic Short Note 2 - Date of Service May 13, 2020 - Glycemic Short BSG Results (Last 24 hours): 05/12/20 05/12/20 05/13/20 17:28 20:36 01:56 Glucose POC Glucose POC Glucose (other) 214 H 189 H 182 H 05/13/20 05/13/20 05/13/20 04:37 05:35 10:01 Glucose 154 H POC Glucose POC Glucose (other) 151 H 149 H 05/13/20 12:32 Glucose POC Glucose 120 H POC Glucose (other) OUTPATIENT ANTIDIABETIC REGIMEN: * Lantus 16 units SQ daily * Metformin 500 mg PO daily * A1c = 10.6% (04/11/20) ASSESSMENT: 05/13: * BSGs slightly elevated above goal over last 24 hrs. * Pressors continue this AM. Patient remains intubated but was tolerating SBT. Likely extubation later today. * Plans for nutrition uncertain. Will likely have NGT placed following extuba tion for TFs as GI recommending JT placement rather than PEG. * Given BSGs remain elevated slightly small escalation in basal and rapid acting doses may be beneficial 05/12: * Patient re-intubated this afternoon and initiated on antibiotics. This morning patient experienced a seizure event and possible aspiration, where tube feeds were held. Unclear plan for further feeding while on pressors. * Patient was mildly hyperglycemic at lunch, but will attribute some of this to stress induced hyperglycemia. Will continue current lantus and novolog scale for the time being and adjust as necessary. 05/07 * Streroids stopped today * AM fasting BSG slightly above goal range, but will leave Lantus parameters as- is due to steroid taper and anticipated increase in insulin sensitivity * BSG >180 mg/dL at 1200 check - will change to regular insulin q6h to provide coverage for the full 6 hrs between checks and will very slightly tighten CHO ratio. Hesitant to tighten further as insulin sensitivity likely to increase with steroids being stopped today PLAN FOR INPATIENT GLYCEMIC CONTROL: * Basal insulin - adjust * Lantus per scale BID: * 0 units for BSG < 120 mg/dL * 7 units for BSG 120-200 mg/dL * 12 units for BSG > 200 mg/dL * Bolus insulin - loosen * Regular insulin q6h while on tubefeeds * Goal Range: Low 110 mg/dL - High 140 mg/dL * Correction Factor: 25 mg/dL/unit * Carb ratio: 8 g CHO/unit
[2020-05-13] MEDS: PEPTAMEN 1.5 CAL 1,000 ML BAG NG SCH (14:38)
--- NOTE | 2020-05-13 19:30 | Hospitalist Progress Note ---
Date of Service May 13, 2020 Assessment & Plan (1) Acute respiratory failure with hypoxia and hypercapnia: Recurrent acute resp failure 2nd to aspiration pneumonia with resulting need for intubation/mech ventilation. s/p successful extubation today. Broad-spectrum IV abx for RLL pneumonia. Growing GNR on tracheal aspirate - await final results and narrow abx if possible. Cont pulm toilet and NPO status. (2) Septic shock: 2nd to recurrent aspiration pneumonia. resolved. off pressors. BPs wnl today. (3) Right lower lobe pneumonia: 2nd aspiration. s/p bronch - culture with GNR - follow. day #2 zosyn. NPO for now until speech can re-eval him. (4) Aspiration pneumonia: Confirmed on CT angiography, which was negative for PE, but did show debris in right mainstem and down into the right lung. s/p bronchoscopy 05/03 and 05/12 with RLL mucous/pneumonia cultures with GNR - await final ID cont zosyn in meantime, NPO status, supportive care, aspiration precautions (5) Diabetes mellitus: ICU glycemic protocol (6) COPD (chronic obstructive pulmonary disease): on high-dose steroids defer management to ICU attending (7) Sinus pause: noted occurred earlier this stay, 2nd to vimpat usage? 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 appreciate neuro assistance (9) Dysphagia: etiology?? video swallow from this month noted. no prior h/o stroke based on imaging. records suggest h/o TBI but patient denies such. is patient having aspiration events during seizure episodes? or is dysphagia truly the cause of his pneumonia spells? uncertain why he has the dysphagia. looking through records I see no EGD in the past. (10) Dysplastic colon polyp: large polyp, 3 cm, s/p removal on 04/13/[address] Danii MADRIGAL. 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 will need f/u post-d/c for such. (11) DVT prophylaxis: lovenox likely transfer out of ICU tomorrow left message for this evening Admission and Anticipated Discharge Date Admission Date: May 02, 2020 Subjective patient successfully extubated to NC O2 today. saw patient late in the day. he was able to provide significant history. pressors off. BPs wnl. patient reports NO PRIOR TBI. no head injury to his knowledge. no stroke either. seizures started in the last year. no seizures since childhood. denies h/o head and neck cancer or prior swallowing issues on chronic basis. c/o cough. c/o hoarse voice. denies pain. Review of Systems Constitutional: + fatigue Respiratory: + cough; no dyspnea Cardiovascular: no chest pain Gastrointestinal: no abdominal pain, no nausea and no vomiting Physical Exam Constitutional: + frail appearing; + not well developed, + not well nourished, no acute distress and no altered mental status hoarse voice ENMT: external ear and nose normal, oropharynx normal NG tube in place Respiratory: Auscultation: + diminished lung sounds (right base); no crackles and no wheezes Cardiovascular: Rate/Rhythm: regular rate and regular rhythm Heart Sounds: normal S1 and normal S2; no murmur Vessels: posterior tibial pulses present and dorsalis pedis pulses present; no JVD Extremities: no edema Gastrointestinal (Abdomen): normal bowel sounds, soft, nontender, no hepatosplenomegaly Psychiatric: Orientation: alert and oriented x 3 Results & Data Results & Data ([facility]) Vital Signs (Past 12 Hours) Vital Signs Temp Pulse BP BP Pulse Ox 05/13/20 18:14 99 H 104/66 94 05/13/20 17:27 97 H 05/13/20 17:21 82 05/13/20 17:14 94 H 107/61 96 05/13/20 16:14 94 H 110/72 95 05/13/20 15:13 99 H 119/62 94 05/13/20 14:14 36.9 C 99 H 115/61 97 05/13/20 13:14 36.9 C 97 H 116/60 97 05/13/20 12:50 36.9 C 96 H 108/62 95 05/13/20 12:14 36.9 C 96 H 108/65 98 05/13/20 12:00 74 05/13/20 11:13 37.1 C 100 H 134/71 100 05/13/20 10:13 37.3 C 100 H 139/73 100 05/13/20 09:13 37.3 C 83 138/77 05/13/20 08:13 37.3 C 71 134/68 96 05/13/20 08:00 74 05/13/20 07:41 125/60 Laboratory Results Laboratory Results - last 24 hr 05/12/20 05/13/20 05/13/20 20:36 01:56 04:37 WBC RBC Hgb Hct MCV MCH MCHC RDW Std Deviation RDW Coeff of Naty Plt Count MPV Immature Gran % (Auto) Neut % (Auto) Lymph % (Auto) [place] % (Auto) Eos % (Auto) Baso % (Auto) Neut # (Auto) Lymph # (Auto) [place] # (Auto) Eos # (Auto) Baso # (Auto) Immature Gran # (Auto) Sample Site POC pH POC pCO2 POC pO2 POC HCO3 POC Total CO2 POC Base Excess POC ABG O2 Sat [place] Test O2 Delivery Device POC O2 Rate POC FiO2 Tidal Volume PEEP Sodium Potassium Chloride Carbon Dioxide Anion Gap BUN Creatinine Est Cr Clr Drug Dosing Est GFR ( Amer) Est GFR (Non-Af Amer) BUN/Creatinine Ratio Glucose POC Glucose POC Glucose (other) 189 H 182 H Calcium Phosphorus Magnesium Phenytoin 10.5 05/13/20 05/13/20 05/13/20 04:37 04:37 05:03 WBC 12.94 H RBC 4.25 L Hgb 13.2 L Hct 42.0 MCV 98.8 MCH 31.1 MCHC 31.4 L RDW Std Deviation 51.9 H RDW Coeff of Naty 14.4 Plt Count 241 MPV 10.9 H Immature Gran % (Auto) 0.3 Neut % (Auto) 83.1 Lymph % (Auto) 10.1 [place] % (Auto) 5.8 Eos % (Auto) 0.5 Baso % (Auto) 0.2 Neut # (Auto) 10.76 H Lymph # (Auto) 1.31 [place] # (Auto) 0.75 H Eos # (Auto) 0.06 Baso # (Auto) 0.02 Immature Gran # (Auto) 0.04 H Sample Site Art Line POC pH 7.45 POC pCO2 41 POC pO2 72 L POC HCO3 29 H POC Total CO2 30 POC Base Excess 5.0 H POC ABG O2 Sat 95.0 [place]quis Test NA O2 Delivery Device Ventilator POC O2 Rate 22 POC FiO2 40 Tidal Volume 450 PEEP 5 Sodium 140 Potassium 3.4 L Chloride 107 Carbon Dioxide 31 Anion Gap 2.0 L BUN 24 H Creatinine 0.63 Est Cr Clr Drug Dosing 108.3 Est GFR ( Amer) 115.7 Est GFR (Non-Af Amer) 99.8 BUN/Creatinine Ratio 38.7 H Glucose 154 H POC Glucose POC Glucose (other) Calcium 8.3 L Phosphorus 1.6 L Magnesium 2.3 Phenytoin 05/13/20 05/13/20 05/13/20 05:35 10:01 12:32 WBC RBC Hgb Hct MCV MCH MCHC RDW Std Deviation RDW Coeff of Naty Plt Count MPV Immature Gran % (Auto) Neut % (Auto) Lymph % (Auto) [place] % (Auto) Eos % (Auto) Baso % (Auto) Neut # (Auto) Lymph # (Auto) [place] # (Auto) Eos # (Auto) Baso # (Auto) Immature Gran # (Auto) Sample Site POC pH POC pCO2 POC pO2 POC HCO3 POC Total CO2 POC Base Excess POC ABG O2 Sat [place] Test O2 Delivery Device POC O2 Rate POC FiO2 Tidal Volume PEEP Sodium Potassium Chloride Carbon Dioxide Anion Gap BUN Creatinine Est Cr Clr Drug Dosing Est GFR ( Amer) Est GFR (Non-Af Amer) BUN/Creatinine Ratio Glucose POC Glucose 120 H POC Glucose (other) 151 H 149 H Calcium Phosphorus Magnesium Phenytoin 05/13/20 17:41 WBC RBC Hgb Hct MCV MCH MCHC RDW Std Deviation RDW Coeff of Naty Plt Count MPV Immature Gran % (Auto) Neut % (Auto) Lymph % (Auto) [place] % (Auto) Eos % (Auto) Baso % (Auto) Neut # (Auto) Lymph # (Auto) [place] # (Auto) Eos # (Auto) Baso # (Auto) Immature Gran # (Auto) Sample Site POC pH POC pCO2 POC pO2 POC HCO3 POC Total CO2 POC Base Excess POC ABG O2 Sat [place] Test O2 Delivery Device POC O2 Rate POC FiO2 Tidal Volume PEEP Sodium Potassium Chloride Carbon Dioxide Anion Gap BUN Creatinine Est Cr Clr Drug Dosing Est GFR ( Amer) Est GFR (Non-Af Amer) BUN/Creatinine Ratio Glucose POC Glucose 141 H POC Glucose (other) Calcium Phosphorus Magnesium Phenytoin PG Care Time/CCT Total # of Minutes Spent Total Time Spent with Patient: Total time spent is greater than 50% in coordination of care (as documented) at patient's floor/unit and/or counseling patient: Coding Level of Care Code 76382 Subseq Hosp Care Lvl 3 Diagnoses Acute respiratory failure with hypoxia and hypercapnia J96.01; J96.02 Septic shock A41.9; R65.21 Right lower lobe pneumonia J18.9 Pneumonia type: due to unspecified organism Aspiration pneumonia J69.0 Diabetes mellitus E11.9 COPD (chronic obstructive pulmonary disease) J44.9 COPD type: unspecified COPD Sinus pause I45.5 Seizure disorder G40.909 Dysphagia R13.10 Dysplastic colon polyp K63.5 DVT prophylaxis Z29.9 (1) COPD (chronic obstructive pulmonary disease) COPD type: unspecified COPD Qualified Code(s): J44.9 - Chronic obstructive pulmonary disease, unspecified (2) Right lower lobe pneumonia Pneumonia type: due to unspecified organism Qualified Code(s): J18.9 - Pneumonia, unspecified organism
[2020-05-14] MEDS: PHENYTOIN 100 MG in SYRINGE 0 ML IV SCH ×5 (00:36→23:11)
[2020-05-14] MEDS: SODIUM CHLORIDE 0.9% 10ML FLUSH IV SCH ×5 (00:41→23:12)
[2020-05-14] MEDS: INSULIN HUMAN REGULAR SC SCH ×5 (00:41→23:13)
[2020-05-14] MEDS: HYDROCORTISONE SOD 50 MG in SYRINGE 0 ML IV SCH ×4 (00:42→21:02)
[2020-05-14 03:07] LABS: Legionella Culture Source *RIGHT LOWER LOBE
[2020-05-14] MEDS: PIPERACILLIN/TAZOBACTAM 3.375 GM in DEXTROSE 5% 100 ML IV SCH (03:52)
[2020-05-14 06:00] LABS: Basophils # (auto) 0.02 K/uL (0-0.2); Basophils % (auto) 0.2 %; Eosinophils # (auto) 0.13 K/uL (0-0.5); Eosinophils % (auto) 1.5 %; Hematocrit (blood only) 39.7 % (42-52); Hemoglobin 12.4 g/dL (14.0-18.0); Immature Granulocytes # (auto) 0.02 K/uL (0.00-0.02); Immature Granulocytes % (auto) 0.2 %; Lymphocytes # (auto) 0.73 K/uL (1.2-3.4); Lymphocytes % (auto) 8.4 %; Mean Corpuscular Hemoglobin 31.6 pg (25-34); Mean Corpuscular Hgb Conc 31.2 g/dL (32-36); Monocytes # (auto) 0.47 K/uL (0.11-0.59); Monocytes % (auto) 5.4 %; Neutrophils # (auto) 7.32 K/uL (1.4-6.5); Neutrophils % (auto) 84.3 %; Platelet Count 219 K/uL (130-400); RDW Coefficient of Variation 14.3 % (11.5-14.5); RDW Standard Deviation 53.3 fL (36.4-46.3); Red Blood Count 3.93 M/uL (4.7-6.1); White Blood Count 8.69 K/uL (4.8-10.8)
[2020-05-14 06:32] LABS: BUN Creatinine Ratio 32.7 (10-20); Calcium 8.3 mg/dl (8.5-10.1); Creatinine Clr Calc Pharmacy 134.6 ml/min; Est GFR (African American) 125.2; Magnesium 2.3 mg/dl (1.8-2.4); Phosphorus 2.2 mg/dl (2.5-4.9); Potassium 3.7 mmol/L (3.5-5.1)
--- NOTE | 2020-05-14 08:33 | Critical Care Progress Note ---
Date of Service May 14, 2020 Assessment & Plan (1) Abnormal CT scan of lung: (2) Hypoxemia: (3) Acute respiratory failure with hypoxia and hypercapnia: (4) Aspiration pneumonia: (5) Admitted to intensive care unit: Impression: 70-year-old male with history of seizure disorder admitted with possible aspiration. He has been in the ICU on 2 separate occasions over the last 10 days and this is his third ICU admission. And his second intubation. He was intubated on the morning of the due to progressive hypoxemic respiratory failure possibly due to an aspiration event. 24-hour events: Patient extubated yesterday and doing well. He is up to a chair. He is coughing and managing his pulmonary toilet quite well. He has been hemodynamically stable and now off pressors. Recommendations: 1. NEURO - Vimpat has been discontinued due to concerns about bradycardia and asystole. He is currently maintained on Dilantin and gabapentin. No recurrent seizure activity and plans to transition to enteral Dilantin once enteral access obtained. Defer additional EEG and antiepileptic medications to neurology. 2. CARDIAC/VASCULAR - Sinus pauses likely related to Vimpat. The medication has been held and the patient continues to be monitored on telemetry. He had an episode of elevated troponins likely due to supply demand mismatch which resolved without sequelae. Hypotension appears to have resolved with IV fluids. Continue to follow 3. RESPIRATORY - Recurrent pneumonia. Klebsiella isolated from respiratory cultures. Currently day #3 Zosyn. Will transition to Rocephin as the isolate appears to be susceptible. 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 There is no intervention for this. 4. GI/NUTRITION - Continue tube feeding. Will defer to primary service long-term plans. GI did not feel PEG tube was warranted. Speech feels the patient cannot swallow safely. Somewhat of a therapeutic conundrum 5. RENAL/LYTES - - Electrolyte protocol. 6. - No issues 7. ENDO - Glycemic control per protocol. He was relatively adrenally insufficient and is on hydrocortisone 50 every 6 as well as Florinef. Would continue these medications for now with plans to taper them over the next 5 to 7 days depending on his hemodynamic stability. 8. HEME - No current issues 9. ID - Recurrent pneumonia, day #3 Zosyn. Transitioning to Rocephin. LINES/IV ACCESS - -subclavian central venous catheter, 05/12/2020 [place] catheter Right radial arterial line 05/12/2020 - NG Tube. DVT PROPHYLAXIS - - Lovenox 40mg daily, SCDs. Patient feels appropriate to transfer out of the ICU to the hospitalist service. Will sign off when he leaves ICU status. Feel free to contact us if we can be of additional assistance (6) Seizure: Admission and Anticipated Discharge Date Admission Date: May 02, 2020 Subjective Patient feels well. He is coughing and clearing phlegm. He denies any complaints. No seizure activity. He is up to a chair. Review of Systems Review of Systems: All systems reviewed & are unremarkable except as noted in HPI & below Physical Exam Constitutional: + cachectic; no acute distress and not ill appearing Neck: trachea midline, no thyromegaly Respiratory: normal respiratory effort, lungs clear to auscultation Cardiovascular: RRR, no murmur, no edema Gastrointestinal (Abdomen): normal bowel sounds, soft, nontender, no hepatosplenomegaly Musculoskeletal: Extremities: extremities normal to inspection Skin: no rashes, warm and dry Lymphatic: no cervical lymphadenopathy Results & Data Results & Data ([facility]) Vital Signs (Past 12 Hours) Vital Signs Temp Pulse Resp BP Pulse Ox 05/14/20 05:14 86 24 117/67 93 05/14/20 04:14 92 H 31 H 114/64 93 05/14/20 03:14 87 35 H 116/62 93 05/14/20 02:14 86 34 H 120/61 93 05/14/20 01:14 85 36 H 112/64 92 05/14/20 01:02 96 H 05/14/20 00:15 91 H 26 H 112/60 91 05/13/20 23:30 37.0 C 05/13/20 23:14 92 H 26 H 123/62 93 05/13/20 22:14 94 H 31 H 119/62 93 05/13/20 21:19 89 24 122/60 94 Laboratory Results 05/14/20 05:40 05/14/20 05:40 Bronchoscopy cultures growing Klebsiella oxytoca sensitive to Rocephin Diagnostic Findings No new imaging Coding Level of Care Code 73765 Subseq Hosp Care Lvl [address] scan of lung R91.8 Hypoxemia R09.02 Acute respiratory failure with hypoxia and hypercapnia J96.01; J96.02 Aspiration pneumonia J69.0 Admitted to intensive care unit Z78.9 Seizure R56.9
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
[2020-05-14] MEDS: INSULIN GLARGINE SOLOSTAR 100 UNITS/ML 3 ML PEN SC SCH ×2 (10:39→21:03)
[2020-05-14] MEDS: ENOXAPARIN INJ 40 MG/0.4 ML SYR SQ SCH (10:40)
[2020-05-14] MEDS: BRINZOLAMIDE (AZOPT) OPS 10 ML BTL OPR SCH ×3 (10:40→21:02)
[2020-05-14] MEDS: FLUDROCORTISONE ACETATE 0.1 MG TAB PO SCH (10:41)
[2020-05-14] MEDS: cefTRIAXone SODIUM 1,000 MG in DEXTROSE 5% 50 ML IV SCH (10:41)
[2020-05-14] MEDS: GABAPENTIN 250 MG/5 ML 470 ML BTL NG SCH ×2 (10:42→21:06)
[2020-05-14] MEDS: PANTOprazole 40 MG in SYRINGE 0 ML IV SCH (11:08)
[2020-05-14] MEDS: TIMOLOL MALEATE 0.5% OP SOLN 5 ML BTL OPR SCH (14:27)
[2020-05-14] MEDS: CYANOCOBALAMIN 500 MCG TABLET (VITAMIN B-12) PO SCH ×2 (14:29→14:53)
[2020-05-14] MEDS: UMECLIDINIUM BROMIDE 62.5MCG/BLISTER 7 PUFFS/INHALER INH SCH (14:51)
[2020-05-15] MEDS: PHENYTOIN 100 MG in SYRINGE 0 ML IV SCH ×4 (05:43→23:29)
[2020-05-15] MEDS: SODIUM CHLORIDE 0.9% 10ML FLUSH IV SCH ×4 (05:44→23:34)
[2020-05-15] MEDS: INSULIN HUMAN REGULAR SC SCH ×4 (05:45→23:32)
[2020-05-15] MEDS: PEPTAMEN 1.5 CAL 1,000 ML BAG NG SCH (05:51)
[2020-05-15 05:56] LABS: Calcium 8.6 mg/dl (8.5-10.1); Creatinine Clr Calc Pharmacy 185.2 ml/min; Est GFR (African American) 142.4; Est GFR (Non-African American) 122.9; Potassium 3.5 mmol/L (3.5-5.1)
[2020-05-15] MEDS: BRINZOLAMIDE (AZOPT) OPS 10 ML BTL OPR SCH ×3 (08:43→21:38)
[2020-05-15] MEDS: UMECLIDINIUM BROMIDE 62.5MCG/BLISTER 7 PUFFS/INHALER INH SCH (08:43)
[2020-05-15] MEDS: ENOXAPARIN INJ 40 MG/0.4 ML SYR SQ SCH (08:44)
[2020-05-15] MEDS: FLUDROCORTISONE ACETATE 0.1 MG TAB PO SCH (08:44)
[2020-05-15] MEDS: HYDROCORTISONE SOD 50 MG in SYRINGE 0 ML IV SCH ×3 (08:45→21:37)
[2020-05-15] MEDS: CYANOCOBALAMIN 500 MCG TABLET (VITAMIN B-12) PO SCH (08:45)
[2020-05-15] MEDS: INSULIN GLARGINE SOLOSTAR 100 UNITS/ML 3 ML PEN SC SCH ×2 (08:46→18:34)
[2020-05-15] MEDS: TIMOLOL MALEATE 0.5% OP SOLN 5 ML BTL OPR SCH (08:46)
[2020-05-15] MEDS: GABAPENTIN 250 MG/5 ML 470 ML BTL NG SCH ×2 (09:10→21:40)
--- NOTE | 2020-05-15 09:35 | Neurology Progress Note ---
Date of Service May 15, 2020 Assessment & Plan (1) Seizure: (2) Altered mental status: Improved encephalopathy. Patient is currently alert, attentive, and appropriate. His seizures have been stable as well, history of temporal lobe epilepsy diagnosed at [facility]. Anticonvulsant changes made during this current hospitalization (described in previous neurology follow-up notes). Would continue with Dilantin 100 mg IV every 6 hours for the time being. However, if patient does well with speech and swallowing going forward, should be able to change to Dilantin tablets or oral suspension p.o. at the same dosage and frequency. Dilantin suspension could also be administered through his NG tube. I will order another phenytoin level for tomorrow morning. His informs me that he has a follow-up appointment with his neurologist at [facility] on May 25. If he continues to do well I suspect he will be able to keep this appointment. He may continue with gabapentin 300 mg twice daily for the time being as well. He should remain off Vimpat and topiramate although topiramate could be restarted at the discretion of Dr. Warren at [facility]. Admission and Anticipated Discharge Date Admission Date: May 02, 2020 Subjective Follow-up for seizure disorder, encephalopathy The patient is a 70-year-old male with a history of temporal lobe epilepsy, following with a specialist at [facility], who was admitted with aspiration pneumonia and acute respiratory failure. I last evaluated him on May 13, 2020. His encephalopathy has improved and he is now off the ventilator. He is alert, attentive, and appropriate this morning. He has not had any seizures. A phenytoin level this morning was 11.1. He continues with Dilantin 100 mg IV every 6 hours as well as gabapentin 300 mg twice daily via NG tube. He is no longer receiving Vimpat or topiramate. I did discuss his management with his spouse, per patient's request this morning. She did express some concerns regarding how his mood may be reacting to Dilantin. She indicates that he was a bit short and irritable with her yesterday and indicates that Dilantin has potentially caused him some mood irritability in the past. He does have a history of intolerances to multiple anticonvulsants previously including medications that are typically felt to have mood stabilizing effect such as Depakote and lamotrigine. His last EEG was completed May 11, 2020 and revealed a mild to moderate nonspecific encephalopathy at that time. No epileptiform abnormalities were observed. As above, he was diagnosed with left temporal lobe epilepsy at [facility] based on his clinical history and suggestive EEG findings done at that institution. Review of Systems Constitutional: no fever Neurologic: no tremor(s), no headache(s) and no memory loss Psychiatric: + irritability Results & Data ([facility]) Vital Signs (Past 12 Hours) Vital Signs Temp Pulse Pulse Resp BP BP Pulse Ox 05/15/20 07:56 37.0 C 88 18 130/60 90 05/15/20 03:19 36.8 C 94 H 20 130/70 94 05/14/20 23:08 36.9 C 84 20 130/65 94 Exam (Neuro) Constitutional: well developed; no acute distress Neurologic: Oriented to:: Person, Place and Time Attention: Span Intact and Concentration Intact Fund of Knowledge: Current Events, Past History and Vocabulary Cranial Nerves: Normal II, III, IV, and VII Motor Strength: Normal Lower Extremities and Normal Upper Extremities Muscle Bulk/Involuntary Movements: No Involuntary Movements Coordination: negative Dysdiadochokinesia, Finger-Nose Abnormal and Heel-Ramos Abnormal Coding Level of Care Code 65810 Subseq Hosp Care Lvl 2 Diagnoses Seizure R56.9 Altered mental status R40.2431 Altered mental status type: coma Coma depth: [place] coma 3-8 Coma timing: in the field (EMT or ambulance) (1) Altered mental status Altered mental status type: coma Coma depth: [place] coma 3-8 Coma timing: in the field (EMT or ambulance) Qualified Code(s): R40.2431 - [place] coma scale score 3-8, in the field [EMT or ambulance]
--- NOTE | 2020-05-15 09:43 | Pharmacy Report ---
Pharmacy Glycemic Short Note 2 - Date of Service May 15, 2020 - Glycemic Short BSG Results (Last 24 hours): 05/14/20 05/14/20 05/14/20 10:38 12:19 18:10 Glucose POC Glucose 177 H 175 H 164 H 05/14/20 05/14/20 05/15/20 20:56 23:05 05:24 Glucose 168 H POC Glucose 128 H 146 H 05/15/20 05:37 Glucose POC Glucose 154 H OUTPATIENT ANTIDIABETIC REGIMEN: * Lantus 16 units SQ daily * Metformin 500 mg PO daily * A1c = 10.6% (04/11/20) ASSESSMENT: 05/15: * Pt has received 35 units of SQ insulin over the past 24hrs * 10 units of basal insulin with Lantus * 25 units of bolus insulin with NovoLog * BSGs [phone] mg/dl * BSGs mildly elevated. Regimen is weighted towards bolus insulin but this is because patient is receiving continuous tube feedings. Do not want to cover tube feedings with basal insulin in the event that feedings are held/stopped. Covering tube feedings per CHO coverage Q6hrs with regular insulin (longer duration of action than NovoLog). * Basal insulin with Lantus is currently being dose based on BSG. Daily basal insulin requirement fluctuating from day to day, 5 units on 05/11; 15 units on 05/12; 5 units on 05/13; 10 units on 05/14. These large fluctuations in dosing are reactive to BSGs instead of proactive. Will change to more of a fixed dosing scheme instead of scale to prevent BSG swings. 05/13: * BSGs slightly elevated above goal over last 24 hrs. * Pressors continue this AM. Patient remains intubated but was tolerating SBT. Likely extubation later today. * Plans for nutrition uncertain. Will likely have NGT placed following extubation for TFs as GI recommending JT placement rather than PEG. * Given BSGs remain elevated slightly small escalation in basal and rapid acting doses may be beneficial 05/12: * Patient re-intubated this afternoon and initiated on antibiotics. This morning patient experienced a seizure event and possible aspiration, where tube feeds were held. Unclear plan for further feeding while on pressors. * Patient was mildly hyperglycemic at lunch, but will attribute some of this to stress induced hyperglycemia. Will continue current lantus and novolog scale for the time being and adjust as necessary. 05/07 * Streroids stopped today * AM fasting BSG slightly above goal range, but will leave Lantus parameters as- is due to steroid taper and anticipated increase in insulin sensitivity * BSG >180 mg/dL at 1200 check - will change to regular insulin q6h to provide coverage for the full 6 hrs between checks and will very slightly tighten CHO ratio. Hesitant to tighten further as insulin sensitivity likely to increase with steroids being stopped today PLAN FOR INPATIENT GLYCEMIC CONTROL: * Basal insulin * Lantus 6 units SQ BID * Bolus insulin no change * Regular insulin q6h while on tubefeeds * Goal Range: Low 110 mg/dL - High 140 mg/dL * Correction Factor: 25 mg/dL/unit * Carb ratio: 8 g CHO/unit
--- NOTE | 2020-05-15 11:09 | XRay Report ---
KUB HISTORY: feeding tube placement COMPARISON: KUB 05/13/2020. FINDINGS: The feeding tube is now located within the distal stomach/postpyloric position. Small bilat eral pleural effusions and bibasilar densities persist. Moderate well-formed stool seen within the co jagjit. Multiple surgical clips seen within the midabdomen. No renal calculi. No ureteral calculi. No p neumoperitoneum or pneumatosis. IMPRESSION: The feeding tube is located within the distal stomach/postpyloric position. ACT 112: Negative or not required by law. Electronically signed by: Surjit Ybarra M.D. 05/15/2020 11:07 AM
[2020-05-15] MEDS: cefTRIAXone SODIUM 1,000 MG in DEXTROSE 5% 50 ML IV SCH (11:45)
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
[2020-05-16] MEDS: PHENYTOIN 100 MG in SYRINGE 0 ML IV SCH ×3 (05:41→18:00)
[2020-05-16] MEDS: INSULIN HUMAN REGULAR SC SCH ×3 (05:42→18:34)
[2020-05-16] MEDS: SODIUM CHLORIDE 0.9% 10ML FLUSH IV SCH ×2 (05:42→12:12)
[2020-05-16] MEDS: INSULIN GLARGINE SOLOSTAR 100 UNITS/ML 3 ML PEN SC SCH ×2 (05:42→18:32)
[2020-05-16] MEDS: PEPTAMEN 1.5 CAL 1,000 ML BAG NG SCH (05:44)
[2020-05-16] MEDS: FLUDROCORTISONE ACETATE 0.1 MG TAB PO SCH (08:15)
[2020-05-16] MEDS: CYANOCOBALAMIN 500 MCG TABLET (VITAMIN B-12) PO SCH (08:16)
[2020-05-16] MEDS: HYDROCORTISONE SOD 50 MG in SYRINGE 0 ML IV SCH ×2 (08:16→21:08)
[2020-05-16] MEDS: cefTRIAXone SODIUM 1,000 MG in DEXTROSE 5% 50 ML IV SCH (08:16)
[2020-05-16] MEDS: UMECLIDINIUM BROMIDE 62.5MCG/BLISTER 7 PUFFS/INHALER INH SCH (08:17)
[2020-05-16] MEDS: BRINZOLAMIDE (AZOPT) OPS 10 ML BTL OPR SCH ×3 (08:17→21:09)
[2020-05-16] MEDS: TIMOLOL MALEATE 0.5% OP SOLN 5 ML BTL OPR SCH (08:17)
[2020-05-16] MEDS: ENOXAPARIN INJ 40 MG/0.4 ML SYR SQ SCH (08:18)
[2020-05-16] MEDS: GABAPENTIN 250 MG/5 ML 470 ML BTL NG SCH ×2 (08:20→21:07)
--- NOTE | 2020-05-16 10:42 | XRay Report ---
KUB HISTORY: Status post placement of an enteric tube NG tube placement COMPARISON: KUB 05/15/2020 FINDINGS: Interval removal of the feeding tube with placement of an enteric tube, distal tip terminat ing in the expected location of the mid gastric body. Numerous surgical clips are again noted within the mid abdomen. Moderate to extensive fecal retention. No renal calculi. No ureteral calculi. No pne umoperitoneum or pneumatosis. No fracture. IMPRESSION: Distal tip of enteric tube projects over the mid gastric body. ACT 112: Negative or not required by law. The above report was generated using voice recognition software. It may contain grammatical, syntax o r spelling errors. Electronically signed by: Joesph Hemphill M.D. 05/16/2020 10:41 AM
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
--- NOTE | 2020-05-16 19:21 | Surgery Consultation ---
Date of Consultation May 16, 2020 Assessment & Plan (1) Dysphagia: This patient has dysphagia. If there is concern for not placing a gastrostomy tube due to reflux and possible aspiration might want to consider a percutaneous endoscopic gastrojejunostomy to provide for gastric drainage as well as feeding into the jejunum. Might also then consider endoscopic jejunostomy if the patient is a candidate from GI standpoint. The patient has not had previous abdominal surgery. If neither of those is an option then surgical jejunostomy would be an option however it would not provide for gastric drainage. History of Present Illness Reason for Consultation: I have been asked by Dr. Merritt to see this 70-year-old male who was admitted with pneumonia felt to be due to aspiration. Swallowing study showed dysfunction. He does have aspiration on the study. He required intubation. He has underlying lung disease due to long history of smoking as well. We have been asked to evaluate for placement of feeding access. Requesting Physician: Lon Merritt DO Attending Physician: Lon Merritt DO Allergies Allergy/AdvReac Type Severity Reaction Status Date / Time loteprednol [From Lotemax] Allergy Severe MAKES EYE Verified 05/02/20 01:29 RED, ITCHY & SWELLING brinzolamide [From Simbrinza] AdvReac INFLAMED Verified 05/02/20 01:29 EYE Home Medications Medication Instructions Recorded Confirmed Type PreserVision AREDS-2 1 tab PO BID 02/25/19 05/02/20 History cyanocobalamin (vitamin B-12) 1,000 mcg PO DAILY 05/08/19 05/02/20 History [Vitamin B-12] gabapentin 300 mg capsule 300 mg PO TID 30 Days #90 cap 06/14/19 05/02/20 Rx Azopt 1 drp OPR TID 10/26/19 05/02/20 History acetaminophen [Tylenol Extra 500 mg PO Q6H PRN 10/26/19 05/02/20 History Strength] timolol maleate [Timoptic] 1 drp OPR DAILY 10/26/19 05/02/20 History Incruse Ellipta 1 inh INHALATION QAM #1 inhaler 10/29/19 05/02/20 Rx Vimpat 200 mg PO BID 04/11/20 05/02/20 History loteprednol etabonate 1 drp OPR DAILY 04/11/20 05/02/20 History topiramate [Topamax] 50 mg PO BID 04/11/20 05/02/20 History blood sugar diagnostic [OneTouch #50 ea 04/14/20 Rx Verio test strips] insulin glargine [Lantus Solostar 16 unit SC DAILY 30 Days #4.8 ml 04/14/20 05/02/20 Rx U-100 Insulin] lancets [OneTouch Delica Lancets] #100 ea 04/14/20 Rx metformin 500 mg PO DAILY #30 tab 04/14/20 05/02/20 Rx pen needle, diabetic [Pen Needle] #50 ea 04/14/20 Rx Patient History Medical History (Updated 05/15/20 @ 07:32 by Migue Noel) Anxiety Colonic mass Diabetes mellitus Lung nodule SMALL PER PT'S / JEFFREY MCGARRY/ 03/2019- NO TREATMENT CURRENTLY Macular degeneration BILAT Seizure Petit mal, follows with Neurology at [place] Tachycardia Unspecified convulsions Surgical History History of right cataract surgery History of tonsillectomy Family History Mother Stroke Sister Dementia Diabetes Grandmother Epilepsy Leukemia Cancer Myocardial infarction Grandfather Myocardial infarction Father Pulmonary embolism Other Family history non-contributory Social History Smoking Status: Former smoker Cigarettes Per Day: 20; Second Hand Exposure: No; Hx Alcohol Use: Yes Alcohol type: wine Hx Substance Use: No Preferred Language: Belarusian Communication Ability: Effective Communication Ability Comment: Effective communication at baseline, currently intubated Renewable [employer] Technician Required: No Beliefs That Will Affect Care: None marital status: Current Living Situation: Spouse Feels Safe at Home: Yes Assistive Devices: Oxygen - Continuous Review of Systems Review of Systems: All systems reviewed & are unremarkable except as noted in HPI & below Physical Exam Constitutional: no acute distress Neck: trachea midline Respiratory: normal respiratory effort, lungs clear to auscultation Cardiovascular: Rate/Rhythm: regular rate and regular rhythm Gastrointestinal (Abdomen): normal bowel sounds, soft, nontender, no hepatosplenomegaly Skin: no rashes, warm and dry Lymphatic: no cervical lymphadenopathy Results & Data ([facility]) Vital Signs (Past 12 Hours) Vital Signs Temp Pulse Pulse Resp BP BP Pulse Ox 05/16/20 15:37 36.8 C 88 18 133/72 93 05/16/20 13:36 36.6 C 97 H 18 151/71 H 91 05/16/20 12:00 90 16 145/81 H 05/16/20 10:38 37.4 C 80 19 156/91 H 94 05/16/20 08:00 86 05/16/20 07:51 36.5 C 104 H 14 143/83 H 93 Laboratory Results 05/16/20 05/16/20 05/16/20 Range/Units 18:23 12:18 07:28 POC Glucose 160 H 142 H (70-99) mg/dl Phenytoin 13.3 (10-20) mcg/ml 05/16/20 05/15/20 05/15/20 Range/Units 05:40 23:25 20:31 POC Glucose 167 H 122 H 143 H (70-99) mg/dl Phenytoin (10-20) mcg/ml
[2020-05-17] MEDS: INSULIN HUMAN REGULAR SC SCH ×4 (00:20→18:38)
[2020-05-17] MEDS: PHENYTOIN 100 MG in SYRINGE 0 ML IV SCH ×4 (00:21→18:41)
[2020-05-17] MEDS: SODIUM CHLORIDE 0.9% 10ML FLUSH IV SCH ×4 (00:22→18:41)
[2020-05-17] MEDS: PEPTAMEN 1.5 CAL 1,000 ML BAG NG SCH (05:20)
[2020-05-17] MEDS: INSULIN GLARGINE SOLOSTAR 100 UNITS/ML 3 ML PEN SC SCH ×2 (05:59→18:37)
[2020-05-17] MEDS ORDERED: INFLUENZA Vaccine HIGH DOSE 65+yrs 0.5 mL Syr IM ONE (06:00)
[2020-05-17] MEDS ORDERED: PNEUMOCOCCAL Polysaccharide Vaccine 25mcg/0.5mL vial/Syr IM ONE (06:00)
[2020-05-17 06:22] LABS: Hematocrit (blood only) 46.5 % (42-52); Hemoglobin 14.3 g/dL (14.0-18.0); Mean Corpuscular Hemoglobin 31.6 pg (25-34); Mean Corpuscular Hgb Conc 30.8 g/dL (32-36); Mean Corpuscular Volume 102.6 fL (80-100); Mean Platelet Volume 11.7 fL (7.4-10.4); Platelet Count 296 K/uL (130-400); RDW Coefficient of Variation 14.4 % (11.5-14.5); RDW Standard Deviation 54.3 fL (36.4-46.3); Red Blood Count 4.53 M/uL (4.7-6.1); White Blood Count 10.27 K/uL (4.8-10.8)
[2020-05-17 06:56] LABS: Albumin Globulin Ratio 0.6 (0.9-2); Albumin Level 2.4 gm/dl (3.4-5.0); BUN Creatinine Ratio 36.6 (10-20); Bilirubin,Total 0.3 mg/dl (0.2-1); Calcium 9.7 mg/dl (8.5-10.1); Creatinine Clr Calc Pharmacy 147.9 ml/min; Est GFR (African American) 129.4; Est GFR (Non-African American) 111.7; Globulin 4.3 gm/dl (2.5-4.0); Total Protein 6.7 gm/dl (6.4-8.2)
[2020-05-17] MEDS: FLUDROCORTISONE ACETATE 0.1 MG TAB PO SCH (07:38)
[2020-05-17] MEDS: BRINZOLAMIDE (AZOPT) OPS 10 ML BTL OPR SCH ×3 (07:38→18:41)
[2020-05-17] MEDS: UMECLIDINIUM BROMIDE 62.5MCG/BLISTER 7 PUFFS/INHALER INH SCH (07:39)
[2020-05-17] MEDS: ENOXAPARIN INJ 40 MG/0.4 ML SYR SQ SCH (07:39)
[2020-05-17] MEDS: GABAPENTIN 250 MG/5 ML 470 ML BTL NG SCH ×2 (07:43→18:42)
[2020-05-17] MEDS: HYDROCORTISONE SOD 50 MG in SYRINGE 0 ML IV SCH ×2 (07:44→18:42)
[2020-05-17] MEDS: TIMOLOL MALEATE 0.5% OP SOLN 5 ML BTL OPR SCH (07:45)
[2020-05-17] MEDS: CYANOCOBALAMIN 500 MCG TABLET (VITAMIN B-12) PO SCH (07:45)
[2020-05-17] MEDS: cefTRIAXone SODIUM 1,000 MG in DEXTROSE 5% 50 ML IV SCH (07:45)
[2020-05-17 08:00] LABS: Potassium 3.3 mmol/L (3.5-5.1)
--- NOTE | 2020-05-17 10:45 | Surgery Progress Note ---
Date of Service May 17, 2020 Assessment & Plan (1) Dysphagia: Patient subjectively unchanged Discussed patient with Dr. Merritt today. He is going to seek other endoscopic options for enteral feeding access prior to entertaining surgical access. Admission and Anticipated Discharge Date Admission Date: May 02, 2020 Subjective Subjectively unchanged No nausea or vomiting Tolerating enteral feeds which are being delivered into the stomach Physical Exam Gastrointestinal (Abdomen): Inspection/Auscultation: abdomen not distended Percussion/Palpation: abdomen soft; abdomen nontender Results & Data ([facility]) Vital Signs (Past 12 Hours) Vital Signs Temp Pulse Resp BP BP Pulse Ox 05/17/20 07:09 36.9 C 96 H 18 145/81 H 93 05/17/20 06:08 95 H 149/88 H 05/17/20 02:52 93 H 18 144/82 H 93 05/16/20 23:47 36.9 C 110 H 18 160/89 H 91
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
[2020-05-17] MEDS: POTASSIUM CHLORIDE / WTR 10 MEQ/100 ML PLCT IV SCH ×2 (15:49→16:47)
[2020-05-18] MEDS: SODIUM CHLORIDE 0.9% 10ML FLUSH IV SCH ×3 (00:02→12:29)
[2020-05-18] MEDS: PHENYTOIN 100 MG in SYRINGE 0 ML IV SCH ×3 (00:02→12:27)
[2020-05-18] MEDS: INSULIN HUMAN REGULAR SC SCH ×3 (00:08→12:34)
[2020-05-18] MEDS: INSULIN GLARGINE SOLOSTAR 100 UNITS/ML 3 ML PEN SC SCH (06:30)
--- NOTE | 2020-05-18 09:02 | Hospitalist Progress Note ---
Date of Service May 18, 2020 Assessment & Plan Admission and Anticipated Discharge Date Admission Date: May 02, 2020 Results & Data Results & Data ([facility]) Vital Signs (Past 12 Hours) Vital Signs Temp Pulse Resp BP BP Pulse Ox 05/18/20 06:57 37.1 C 81 15 139/75 92 05/17/20 23:53 37.1 C 103 H 16 127/66 93 PG Care Time/CCT Total # of Minutes Spent Total Time Spent with Patient: Total time spent is greater than 50% in coordination of care (as documented) at patient's floor/unit and/or counseling patient: Coding
[2020-05-18 10:17] LABS: Hematocrit (blood only) 46.7 % (42-52); Hemoglobin 14.3 g/dL (14.0-18.0); Mean Corpuscular Hemoglobin 31.7 pg (25-34); Mean Corpuscular Hgb Conc 30.6 g/dL (32-36); Mean Corpuscular Volume 103.5 fL (80-100); Mean Platelet Volume 11.3 fL (7.4-10.4); Platelet Count 309 K/uL (130-400); RDW Coefficient of Variation 14.5 % (11.5-14.5); RDW Standard Deviation 55.2 fL (36.4-46.3); Red Blood Count 4.51 M/uL (4.7-6.1); White Blood Count 11.49 K/uL (4.8-10.8)
[2020-05-18] MEDS: TIMOLOL MALEATE 0.5% OP SOLN 5 ML BTL OPR SCH (10:24)
[2020-05-18] MEDS: HYDROCORTISONE SOD 50 MG in SYRINGE 0 ML IV SCH (10:25)
[2020-05-18] MEDS: BRINZOLAMIDE (AZOPT) OPS 10 ML BTL OPR SCH ×2 (10:25→14:24)
[2020-05-18] MEDS: UMECLIDINIUM BROMIDE 62.5MCG/BLISTER 7 PUFFS/INHALER INH SCH (10:26)
[2020-05-18] MEDS: cefTRIAXone SODIUM 1,000 MG in DEXTROSE 5% 50 ML IV SCH (10:26)
--- NOTE | 2020-05-18 10:44 | Surgery Progress Note ---
Date of Service May 18, 2020 Assessment & Plan (1) Dysphagia: Awaiting GI opinion relative to possible endoscopic intervention for enteral feeding access placement Admission and Anticipated Discharge Date Admission Date: May 02, 2020 Subjective Subjectively unchanged Results & Data ([facility]) Vital Signs (Past 12 Hours) Vital Signs Temp Pulse Resp BP BP Pulse Ox 05/18/20 06:57 37.1 C 81 15 139/75 92 05/17/20 23:53 37.1 C 103 H 16 127/66 93
[2020-05-18 10:55] LABS: Albumin Globulin Ratio 0.7 (0.9-2); Albumin Level 2.7 gm/dl (3.4-5.0); BUN Creatinine Ratio 36.3 (10-20); Bilirubin,Total 0.4 mg/dl (0.2-1); Calcium 9.3 mg/dl (8.5-10.1); Creatinine Clr Calc Pharmacy 133.9 ml/min; Est GFR (African American) 124.2; Est GFR (Non-African American) 107.2; Globulin 4.1 gm/dl (2.5-4.0); Potassium 3.5 mmol/L (3.5-5.1); Total Protein 6.8 gm/dl (6.4-8.2)
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
[2020-05-18] MEDS: ENOXAPARIN INJ 40 MG/0.4 ML SYR SQ SCH (11:11)
--- NOTE | 2020-05-18 14:43 | XRay Report ---
KUB HISTORY: ngt placement COMPARISON: KUB 05/08/2020. FINDINGS: Nasogastric tube terminates in the proximal stomach. The fenestrated line is at the gastroe sophageal junction. This should be advanced by approximately 5 cm. There are small bilateral pleural effusions and bibasilar densities. Partially visualized central venous catheter at the distal SVC. Mo derate well-formed stool seen within the colon. No renal calculi. No ureteral calculi. No pneumoperi toneum or pneumatosis. IMPRESSION: Nasogastric tube terminates in the proximal stomach. The fenestrated line is at the gastroesophageal junction. This should be advanced by approximately 5 cm. ACT 112: Negative or not required by law. Electronically signed by: Surjit Ybarra M.D. 05/18/2020 2:41 PM
[2020-05-18] MEDS: CYANOCOBALAMIN 500 MCG TABLET (VITAMIN B-12) PO SCH (16:12)
[2020-05-18] MEDS: FLUDROCORTISONE ACETATE 0.1 MG TAB PO SCH (16:12)
[2020-05-18] MEDS: GABAPENTIN 250 MG/5 ML 470 ML BTL NG SCH ×2 (16:15→16:21)
--- NOTE | 2020-05-27 09:16 | Coding Query ---
CODING QUERY To promote full compliance with coding requirements relating to patient care, provider participation is requested in all cases of intranet specialist uncertainty. Please assist us with the question(s) below: Coding Question(s): Pateint admitted with aspiration pneumonia and respiratory failure. Intubated x2 during this Inpatient Stay . Progress notes document septic shock. Seeking to clarify if sepsis/septic shock was present on Admission or after admission. Please check the appropriate phrase below. Thanks for your help! ADRIAN Bowser [facility] Physician's Response(s): Sepsis/Septic Shock was present on Admission Sepsis/Septic Shock was present after Admission Cannot clinically correlate if Sepsis/Septic shock was present either on Admission or After Admission Other/ Please document: Principal Diagnosis: "that condition established after study, to be chiefly responsible for occasioning the admission of the patient to the hospital for care." Co-Existing Principal Diagnosis: "when two or more diagnoses equally meet the criteria for principal diagnosis as determined by the circumstances of admission, diagnostic work up, and/or therapy provided, and the Alphabetic Index, Tabular List, or another coding guideline does not provide sequencing direction, any one of the diagnoses may be sequenced first." "When the physician has documented what appears to be a current diagnosis in the body of the record, but has not included the diagnosis in the final diagnostic statement, the physician should be asked whether the diagnosis should be added." (Source Coding Clinic 2 QTR90. p3-4) BASSEM
== END 2020-05-18 17:10 | disposition short-term general hospital (02) | DRG 208 ==
LOC: ED 23:46 → 1E 05-02 01:50 → SUATTDRO 05-02 01:50 → 1E 05-02 02:38 → 2S 05-08 06:20 → 1E 05-08 17:51 → 2S 05-14 13:24 → 3W 05-16 13:26